=== PATIENT | female | born 1935 | race Caucasian/White ===

== ENCOUNTER → 2016-07-19 | Outpatient (CLI) | payer BC ==
[2016-07-19 17:51] LABS: ALT/SGPT 43 U/L (12-78); AST/SGOT 23 U/L (15-37); BLOOD UREA NITROGEN 18 mg/dl (7-18); BUN/CREATININE RATIO 18.3 (10-20); CARBON DIOXIDE 31 mmol/L (21-32); CHLORIDE 104 mmol/L (98-107); CREATININE 0.99 mg/dl (0.60-1.20); GLUCOSE 93 mg/dl (70-99); POTASSIUM 4.1 mmol/L (3.5-5.1); SODIUM 142 mmol/L (136-145)
[2016-07-19 17:53] LABS: ALB/GLOB RATIO 1.2 (0.9-2); ALKALINE PHOSPHATASE 71 U/L (45-117); CHOLESTEROL 289 mg/dl (0-200); HDL CHOLESTEROL 73 mg/dl; LDL CHOLESTEROL CALCULATED 191 mg/dl; TRIGLYCERIDES 126 mg/dl (0-150); VERY LOW DENSITY LIPOPROT CALC 25 mg/dl
== END | disposition home or self-care (01) ==
LOC: C.LABPVFM 13:34
PROVIDERS: ATTEND Family Medicine
DX: I10 Essential (primary) hypertension (principal); E78.5 Hyperlipidemia, unspecified

== ENCOUNTER → 2016-09-27 | Outpatient (CLI) | payer BC | END | disposition home or self-care (01) | LOC: C.LABPVFM 11:31 | PROVIDERS: ATTEND Nurse Practitioner Family | DX: R39.9 Unspecified symptoms and signs involving the genitourinary system (principal); N39.0 Urinary tract infection, site not specified ==

== ENCOUNTER → 2016-11-03 | Outpatient (CLI) | payer BC | END | disposition home or self-care (01) | LOC: C.LABPVFM 09:50 | PROVIDERS: ATTEND Nurse Practitioner Family | DX: N39.0 Urinary tract infection, site not specified (principal) ==

== ENCOUNTER → 2016-11-16 | Outpatient (CLI) | payer BC ==
[2016-11-16 18:23] LABS: URINE APPEARANCE CLEAR (CLEAR); URINE BILIRUBIN NEG (NEG); URINE COLOR YELLOW; URINE EPITHELIAL CELL AUTO 20-30 /lpf (0-5); URINE NITRITE NEG (NEG); URINE PH 5.5 (4.5-7.5); UROBILINOGEN NEG (NEG)
[2016-11-16 18:24] LABS: MANUAL MICROSCOPIC REQUIRED? NO; REVIEW REQ? NO
== END | disposition home or self-care (01) ==
LOC: C.LABPVFM 12:45
PROVIDERS: ATTEND Nurse Practitioner Family
DX: N39.0 Urinary tract infection, site not specified (principal)

== ENCOUNTER → 2016-11-23 | Outpatient (CLI) | payer BC ==
--- NOTE | 2016-11-23 12:59 | MAMMOGRAPHY REPORT ---
UNILATERAL RIGHT DIGITAL DIAGNOSTIC MAMMOGRAM TOMOSYNTHESIS WITH CAD: 11/23/2016 CLINICAL HISTORY: Short interval follow-up diagnostic right mammogram to reevaluate benign-appearing loosely grouped microcalcifications in the upper outer middle one third of the breast. Patient rep orts her prior symptoms of erythema, itching and burning in the right breast have resolved. TECHNIQUE: Right CC and MLO 2-D digital and tomosynthesis images, spot magnification right CC and ML views were obtained. Current study was also evaluated with a Computer Aided Detection (CAD) system . COMPARISON: Comparison is made to exams dated: 05/25/2016 ultrasound, 05/25/2016 mammogram, 015 mammogram, 05/19/2014 mammogram, 05/16/2013 mammogram, and 05/15/2012 mammogram - [facility]. BREAST COMPOSITION: There are scattered areas of fibroglandular density in the right breast. FINDINGS: There are mild vascular calcifications in the right breast. 2 microcalcifications are aga in seen in the upper outer middle one third of the breast, that are unchanged in configuration and n umber based on the spot magnification views dating back to 05/25/2016. Given that these were not de finitely seen on prior mammograms including the 2013 and exams, longer stability is needed. N o other new suspicious mass, focal area of architectural distortion or suspicious calcifications are identified. IMPRESSION: ACR-BI-RADS CATEGORY 3: PROBABLY BENIGN Stable mammographic appearance of the right breast including 2 loosely grouped benign-appearing micr ocalcifications in the right upper outer quadrant. Another six-month follow-up diagnostic right tyler mogram with repeat spot magnification views is recommended to ensure longer stability. These result s and recommendations were discussed with the patient at the time of the exam. Approximately 10% of breast cancers are not detected with mammography. A negative mammographic repor t should not delay biopsy if a clinically suggestive mass is present. Ana Rouse M.D. ay/:11/23/2016 12:37:30 Computer Forensics Examiner: Becka SINGH(R)(M), [facility] letter sent: Follow Up Recommended 3 BI-RADS Code: ACR-BI-RADS Category 3: Probably Benign
== END | disposition home or self-care (01) ==
LOC: C.MAMM 10:13
PROVIDERS: ATTEND Nurse Practitioner Family
DX: R92.0 Mammographic microcalcification found on diagnostic imaging of breast (principal)

== ENCOUNTER → 2017-03-03 | Outpatient (CLI) | payer BC ==
[2017-03-03 12:57] LABS: BLOOD UREA NITROGEN 18 mg/dl (7-18); BUN/CREATININE RATIO 16.5 (10-20); CALCIUM 9.4 mg/dl (8.5-10.1); CARBON DIOXIDE 28 mmol/L (21-32); CHLORIDE 108 mmol/L (98-107); GLUCOSE 88 mg/dl (70-99); POTASSIUM 4.3 mmol/L (3.5-5.1); SODIUM 140 mmol/L (136-145)
== END | disposition home or self-care (01) ==
LOC: C.LABPVFM 10:03
PROVIDERS: ATTEND Family Medicine
DX: I10 Essential (primary) hypertension (principal)

== ENCOUNTER → 2017-05-29 | Outpatient (CLI) | payer BC ==
--- NOTE | 2017-05-29 15:13 | MAMMOGRAPHY REPORT ---
BILATERAL DIGITAL DIAGNOSTIC MAMMOGRAM TOMOSYNTHESIS WITH CAD: 05/29/2017 CLINICAL HISTORY: One year follow-up of loosely grouped microcalcifications in the right upper outer quadrant. Also time of annual bilateral screening exam. TECHNIQUE: Bilateral breast tomosynthesis in addition to standard 2D mammography was performed. Spot magnification right CC and ML views were also obtained. Current study was also evaluated with a [employer] Aided Detection (CAD) system. COMPARISON: Comparison is made to exams dated: 11/23/2016 mammogram, 05/25/2016 ultrasound, 6 mammogram, 05/20/2015 mammogram, 05/19/2014 mammogram, and 05/16/2013 mammogram - [facility]. BREAST COMPOSITION: There are scattered areas of fibroglandular density in both breasts. FINDINGS: There are benign coarse calcifications in the left breast and mild vascular calcification b ilaterally. Again noted is a loose grouping of 2-3 microcalcifications in the upper outer middle one third of the right breast, which appear similar on spot magnification views dating back to at least 05/25/2016, therefore likely benign. No associated asymmetry, mass or architectural distortion. No other new suspicious mass, architectural distortion or cluster of suspicious microcalcifications is s een bilaterally. IMPRESSION: ACR-BI-RADS CATEGORY 3: PROBABLY BENIGN Stable bilateral mammograms including a loose grouping of 2-3 microcalcifications in the right upper outer quadrant. Another 12 month follow-up bilateral diagnostic tomosynthesis mammogram and repeat s pot magnification views in the right breast is recommended to ensure longer stability. These results and recommendations were discussed with the patient at the time of the exam. She tenta tively scheduled a follow-up appointment prior to leaving our department. Approximately 10% of breast cancers are not detected with mammography. A negative mammographic report should not delay biopsy if a clinically suggestive mass is present. Ana Rouse M.D. ay/:05/29/2017 09:01:41 Marketing Segment Manager: Juju ADAMES)(M), [facility] letter sent: Follow Up Recommended 3 BI-RADS Code: ACR-BI-RADS Category 3: Probably Benign
== END | disposition home or self-care (01) ==
LOC: C.MAMM 08:24
PROVIDERS: ATTEND Nurse Practitioner
DX: Z09 Encounter for follow-up examination after completed treatment for conditions other than malignant neoplasm (principal); R92.0 Mammographic microcalcification found on diagnostic imaging of breast

== ENCOUNTER → 2017-09-13 | Outpatient (CLI) | payer BC ==
[2017-09-13 13:12] LABS: BLOOD UREA NITROGEN 23 mg/dl (7-18); CALCIUM 8.9 mg/dl (8.5-10.1); CARBON DIOXIDE 27 mmol/L (21-32); CREATININE 1.07 mg/dl (0.60-1.20); GLUCOSE 91 mg/dl (70-99); POTASSIUM 4.3 mmol/L (3.5-5.1); SODIUM 140 mmol/L (136-145)
== END | disposition home or self-care (01) ==
LOC: C.LABPVFM 11:00
PROVIDERS: ATTEND Nurse Practitioner
DX: I10 Essential (primary) hypertension (principal)

== ENCOUNTER 2022-10-17 14:05 | Inpatient (IN) ==
[2022-10-17 15:00] LABS: Basophils # (auto) 0.04 K/uL (0-0.2); Basophils % (auto) 0.5 %; Eosinophils # (auto) 0.03 K/uL (0-0.50); Eosinophils % (auto) 0.3 %; Hematocrit (blood only) 34.5 % (37.0-47.0); Hemoglobin 10.8 g/dl (12.0-16.0); Immature Granulocytes # (auto) 0.02 K/uL (0.01-0.20); Immature Granulocytes % (auto) 0.2 %; Lymphocytes # (auto) 1.21 K/uL (1.2-3.4); Lymphocytes % (auto) 13.9 %; Mean Corpuscular Hemoglobin 24.4 pg (25.0-34.0); Mean Corpuscular Hgb Conc 31.3 g/dL (32.0-36.0); Mean Corpuscular Volume 77.9 fL (80.0-100.0); Mean Platelet Volume 10.7 fL (9.4-12.4); Monocytes # (auto) 0.78 K/uL (0.11-0.59); Neutrophils # (auto) 6.61 K/uL (1.40-6.50); Neutrophils % (auto) 76.1 %; Platelet Count 347 K/uL (130-400); RDW Coefficient of Variation 14.5 % (11.5-14.5); RDW Standard Deviation 40.9 fL (36.4-46.3); Red Blood Count 4.43 M/uL (4.20-5.40); White Blood Count 8.69 K/ul (4.8-10.8)
[2022-10-17 15:21] LABS: Albumin Globulin Ratio 0.9 (0.9-2); Albumin Level 3.9 gm/dl (3.4-5.0); BUN Creatinine Ratio 15.3 (10-20); Bilirubin,Total 0.3 mg/dl (0.2-1.0); Calcium 9.5 mg/dl (8.6-10.3); Creatinine Clr Calc Pharmacy 25.2 ml/min; Est GFR (African American) 40.4 ml/min; Est GFR (Non-African American) 34.8 ml/min; Globulin 4.2 gm/dl (2.5-4.0); Total Protein 8.1 gm/dl (6.0-8.3)
[2022-10-17] MEDS ORDERED: SODIUM CHLORIDE 0.9% 1000ML 500 ML IV ONE (18:23)
--- NOTE | 2022-10-17 18:30 | Emergency Department Note ---
History of Present Illness General Chief complaint: Abdominal Pain Stated complaint: REF BY DOC,ABDOMINAL PAIN Time Seen by Provider: 10/17/22 18:13 Source: patient, family (Daughter who is at the bedside), RN notes reviewed and old records reviewed (I reviewed the primary care visit office today) Mode of arrival: ambulatory Limitations: no limitations History of Present Illness Maximum Pain Intensity: 6 This patient is a 86-year-old female comes in after having abdominal pain. She says has been going on for about a month it comes and goes she saw her doctor today who sent her to the ER. At the time she is having right lower quadrant abdominal pain. She says she feels okay at present she had a little more constipation lately. No dysuria hematuria although does feel difficulty urinating at times no back pain no numbness or weakness in her legs or buttocks. No fall or trauma. she has had some nausea today. no emesis. no sick contacts. no fall or trauma. No history of similar. Home Medications Medication Instructions Recorded Confirmed Type coenzyme Q10 100 mg capsule 200 mg PO DAILY 10/12/20 10/17/22 History lisinopril 20 1 tab PO DAILY #90 tabs 10/05/21 10/17/22 Rx mg-hydrochlorothiazide 12.5 mg tablet cholecalciferol (vitamin D3) 50 50 mcg PO DAILY 04/13/22 10/17/22 History mcg (2,000 unit) capsule escitalopram oxalate 10 mg tablet 10 mg PO DAILY #30 tabs 04/18/22 10/17/22 Rx (Lexapro) Allergies Allergy/AdvReac Type Severity Reaction Status Date / Time propoxyphene Allergy Unknown Verified 10/17/22 13:07 doxycycline AdvReac Unknown Nausea Verified 10/17/22 13:07 Sulfa (Sulfonamide AdvReac Unknown nausea Verified 10/17/22 13:07 Antibiotics) Past Med/Surg History Medical History Dry eye syndrome Hyperlipidemia pt refuses med at her age Hypertension Seborrheic dermatitis Surgical History Hx of cholecystectomy Hx of elbow surgery Family History Mother Breast cancer Myocardial infarction Denies family history of Ovarian cancer Prostate cancer Colorectal cancer Social History Smoking Status: Never smoker Second Hand Exposure: Yes; Hx Alcohol Use: No Hx Substance Use: No Preferred Language: [place] Verdean Communication Ability: Effective Visual Impairment: Limited Hearing Ability: Normal 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 current occupational status: retired How many Children do You have: 4 Feels Safe at Home: Yes Childhood Exposure to Second-Hand Smoke: No caffeine: No during the past year weight has: remained stable Dental Care, Regularly: No Physical Activity Frequency: Does not Exercise Seatbelt Use: always Sunscreen Use: No Do you think of yourself as: straight/heterosexual Gender Identity: Female Assistive Devices: Denture - Upper, Denture - Lower and Glasses Review of Systems A total of 10 systems reviewed and were otherwise negative Physical Exam Vital Signs Vital Signs - 24 hr 10/17/22 14:06 10/17/22 19:36 10/17/22 20:20 Temperature 36.3 C L Temperature Source Temporal Artery Scan Pulse Rate 88 Pulse Rate [Finger] 78 77 Respiratory Rate 20 20 Respiratory Effort / Characteristics Non-Labored Spontaneous Respiratory Depth Normal Blood Pressure 151/88 H Blood Pressure [Right Arm] 226/114 H 211/108 H Blood Pressure Mean 109 Blood Pressure Mean [Right Arm] 151 142 Pulse Oximetry 100 99 96 Oxygen Delivery Method Room Air Room Air Room Air Sepsis Recent Fever Within 48 Hours No Sepsis New/Unexplained Change in Mental Status No Sepsis Action Taken by Nursing No Action Required 10/17/22 20:50 Temperature Temperature Source Pulse Rate 76 Pulse Rate [Finger] Respiratory Rate Respiratory Effort / Characteristics Respiratory Depth Blood Pressure Blood Pressure [Right Arm] Blood Pressure Mean Blood Pressure Mean [Right Arm] Pulse Oximetry Oxygen Delivery Method Sepsis Recent Fever Within 48 Hours Sepsis New/Unexplained Change in Mental Status Sepsis Action Taken by Nursing General: Well developed well nourished urf-nal-dkkhrkdhy older female who appears in no acute distress, breathing comfortably on room air. Normal speech HEENT: Normal cephalic atraumatic. Pupils are equal round and reactive to light. Extraocular movements are intact. Oropharynx is pink with moist mucous membranes. No swelling of the mouth lips or tongue. Neck: Supple with a midline trachea. No meningeal signs or stiffness, no JVD or bruits. No Stridor. Chest: Clear to auscultation bilaterally. No wheezes or rhonchi. No increased work of breathing. Heart: Regular rate and rhythm without murmurs or gallops. Abdomen: Soft nontender, nondistended without rebound guarding or rigidity. Extremities: No cyanosis clubbing or edema. No calf tenderness or assymetry Spine/Back. Non tender to palpation. No CVA tenderness Skin: Good turgor without rashes. Neurologic exam: Cranial nerves two through 12 are intact. Motor and sensation are intact and symmetrical throughout. Course Administered Medications Discontinued Medications Acetaminophen (Acetaminophen 500 Mg Tab) 1,000 mg PO NOW STA Stop: 10/17/22 21:29 Last Admin: 10/17/22 21:37 Dose: 1,000 mg Documented By: Clonidine HCl (Clonidine Hcl 0.1 Mg Tab) 0.1 mg PO NOW ONE Stop: 10/17/22 21:18 Last Admin: 10/17/22 21:37 Dose: 0.1 mg Documented By: Sodium Chloride (Nss 1000ml) 500 mls @ 999 mls/hr IV .Q31M ONE Stop: 10/17/22 18:53 Last Infusion: 10/17/22 20:47 Dose: 0 mls/hr Documented By: Admin: 10/17/22 19:45 Dose: 999 mls/hr Documented By: Ioversol (Optiray 350 100ml) 84 ml IV ONCE ONE Stop: 10/17/22 19:03 Last Admin: 10/17/22 19:02 Dose: 84 ml Documented By: GABRIELLA Medical Decision Making Differential Diagnosis Infection, electrolyte or metabolic abnormality, urinary tract infection, kidney stone, kidney infection, intra-abdominal process, AAA Medical Records Attestation: I reviewed the patient's medical records. Home Medications Current Medication List: was personally reviewed by me Laboratory Data 10/17/22 14:24 10/17/22 14:24 Lab Results 10/17/22 10/17/22 10/17/22 Range/Units 14:24 14:24 20:50 WBC 8.69 (4.8-10.8) K/ul RBC 4.43 (4.20-5.40) M/uL Hgb 10.8 L (12.0-16.0) g/dl Hct 34.5 L (37.0-47.0) % MCV 77.9 L (80.0-100.0) fL MCH 24.4 L (25.0-34.0) pg MCHC 31.3 L (32.0-36.0) g/dL RDW Std Deviation 40.9 (36.4-46.3) fL RDW Coeff of Marcie 14.5 (11.5-14.5) % Plt Count 347 (130-400) K/uL MPV 10.7 (9.4-12.4) fL Immature Gran % (Auto) 0.2 % Neut % (Auto) 76.1 % Lymph % (Auto) 13.9 % Greene % (Auto) 9.0 % Eos % (Auto) 0.3 % Baso % (Auto) 0.5 % Neut # (Auto) 6.61 H (1.40-6.50) K/uL Lymph # (Auto) 1.21 (1.2-3.4) K/uL Greene # (Auto) 0.78 H (0.11-0.59) K/uL Eos # (Auto) 0.03 (0-0.50) K/uL Baso # (Auto) 0.04 (0-0.2) K/uL Immature Gran # (Auto) 0.02 (0.01-0.20) K/uL Sodium 129 L (136-145) mmol/L Potassium 4.0 (3.5-5.1) mmol/L Chloride 95 L (98-107) mmol/L Carbon Dioxide 25 (21-32) mmol/L Anion Gap 9 (3-11) BUN 21 (6-23) mg/dl Creatinine 1.37 H (0.6-1.2) mg/dl Est Cr Clr Drug Dosing 25.2 ml/min Est GFR ( Amer) 40.4 ml/min Est GFR (Non-Af Amer) 34.8 ml/min BUN/Creatinine Ratio 15.3 (10-20) Glucose 95 (70-99(Fasting)) mg/dl Calcium 9.5 (8.6-10.3) mg/dl Total Bilirubin 0.3 (0.2-1.0) mg/dl AST 25 (13-39) U/L ALT 10 (7-52) U/L Alkaline Phosphatase 85 (34-104) U/L Total Protein 8.1 (6.0-8.3) gm/dl Albumin 3.9 (3.4-5.0) gm/dl Globulin 4.2 H (2.5-4.0) gm/dl Albumin/Globulin Ratio 0.9 (0.9-2) Lipase 35 (11-82) U/L SARS-CoV-2, RNA, NAAT NEGATIVE (NEGATIVE) Imaging Data Attestation: I personally reviewed and interpreted this imaging study as follows: My Impression: CT of the abdomen and pelvis with IV contraston my evaluation I do see some fluid around the liver and the spleen within the abdomen. There is also a large abnormality in the pelvic area around the uterus Radiologist's Impression: Abdomen/Pelvis CT 10/17/22 18:23 Exam(s): CT ABDOMEN + PELVIS With Contrast EXAM: CT Abdomen and Pelvis With Intravenous Contrast CLINICAL HISTORY: Reason for exam: lower abd pain. TECHNIQUE: Axial computed tomography images of the abdomen and pelvis with intravenous contrast. CTDI is 9.05 mGy and DLP is 426.09 mGy-cm. Automated exposure control was utilized for the study. A dose lowering technique was utilized adhering to the principles of ALARA. CONTRAST: 84 cc of Optiray 350 COMPARISON: None FINDINGS: Lung bases: See below. Pleural space: Small to moderate left pleural effusion. Associated atelectasis. Heart: Borderline size of heart. Coronary artery, aortic valve, and mitral annular calcifications. Mediastinum: Small hiatal hernia. ABDOMEN: Liver: Unremarkable. No mass. Gallbladder and bile ducts: Prior cholecystectomy. No ductal dilation. Pancreas: Unremarkable. No mass. No ductal dilation. Spleen: Unremarkable. No splenomegaly. Adrenals: Unremarkable. No mass. Kidneys and ureters: Unremarkable. No hydronephrosis or obstructing stone. Stomach and bowel: Diverticulosis without evidence of diverticulitis. Mild prominence of the wright of the colon may be secondary to underdistention. Colitis is not excluded. Mild prominence of the wright of fluid filled small bowel loops may represent under distention versus enteritis. Evaluation of the stomach is limited by underdistention. PELVIS: Appendix: Normal appendix. Bladder: Decompressed bladder limits evaluation. Please correlate with urinalysis if concerned for cystitis. Reproductive: Heterogeneous, enlarged uterus. Calcification along the left aspect of the uterus. This may represent uterine fibroids. Component of neoplasm would be difficult to exclude. ABDOMEN and PELVIS: Intraperitoneal space: Moderate fluid in the abdomen and pelvis. No free air. Bones/joints: Grade 1 anterolisthesis of L5 on all lumbarized S1 vertebral body. Mild degenerative changes of the spine. No acute fracture. No dislocation. Soft tissues: Small fat-containing umbilical hernia. Vasculature: Calcified spotted artery aneurysm. Phleboliths in the pelvis. Atherosclerotic changes of the vasculature. No aortic aneurysm or dissection. Lymph nodes: Unremarkable. No enlarged lymph nodes. IMPRESSION: 1. Heterogeneous, enlarged uterus. Calcification along the left aspect of the uterus. This may represent uterine fibroids. Component of neoplasm would be difficult to exclude. 2. Mild prominence of the wright of the colon may be secondary to underdistention. Colitis is not excluded. 3. Mild prominence of the wright of fluid filled small bowel loops may represent under distention versus enteritis. 4. Moderate fluid in the abdomen and pelvis. 5. Small to moderate left pleural effusion. Associated atelectasis. Electronically signed by: Roxana Robertson M.D. 10/17/22 20:11 PM [facility] Narrative This patient comes in with abdominal pain I saw her out in triage as to expedite her care. IV access was established, I did order a 500 cc IV normal saline bolus. Multiple blood testing was obtained and she has no fever white count or fever to suggest infection. she has anemia which is in line with her previous hemoglobin. I did order CT of her abdomen and pelvis with IV contrast explained the risks and benefits and she freely consents. I discussed this with her family members at the bedside as well. I have reviewed the note in the computer from her primary care visit today. Her CAT scan was markedly abnormal and she does have fluid and a large abnormal looking uterus. I am concerned she could have a malignancy potentially causing this she also has a pleural effusion. I do think she needs to be admitted for further treatment and evaluation. I have consulted Dr. Woodard, the hospitalist, and discussed the case with her and she will saw the patient ER will admit admit/observe her for these measures. Lab test was negative for COVID Impression & Plan Abdominal pain, Nausea, Uterine mass, Pleural effusion, Lab test negative for COVID-19 virus, Ascites Discharge Plan Visit Data Chief Complaint: Abdominal Pain Stated Complaint: REF BY DOC,ABDOMINAL PAIN ED Provider: Willy Duong Discharge Problem: Abdominal pain, Nausea, Uterine mass, Pleural effusion, Lab test negative for COVID-19 virus, Ascites Patient Disposition: Admitted As Inpatient Discharge Instructions Interventions: ED Discharge Assessment Last Done: 10/17/22 22:39
[2022-10-17] MEDS ORDERED: OPTIRAY 350 100ml IV ONE (19:02)
--- NOTE | 2022-10-17 20:12 | CT Scan Report ---
Exam(s): CT ABDOMEN + PELVIS With Contrast EXAM: CT Abdomen and Pelvis With Intravenous Contrast CLINICAL HISTORY: Reason for exam: lower abd pain. TECHNIQUE: Axial computed tomography images of the abdomen and pelvis with intravenous contrast. CTDI is 9.05 mGy and DLP is 426.09 mGy-cm. Automated exposure control was utilized for the study. A dose lowering technique was utilized adhering to the principles of ALARA. CONTRAST: 84 cc of Optiray 350 COMPARISON: None FINDINGS: Lung bases: See below. Pleural space: Small to moderate left pleural effusion. Associated atelectasis. Heart: Borderline size of heart. Coronary artery, aortic valve, and mitral annular calcifications. Mediastinum: Small hiatal hernia. ABDOMEN: Liver: Unremarkable. No mass. Gallbladder and bile ducts: Prior cholecystectomy. No ductal dilation. Pancreas: Unremarkable. No mass. No ductal dilation. Spleen: Unremarkable. No splenomegaly. Adrenals: Unremarkable. No mass. Kidneys and ureters: Unremarkable. No hydronephrosis or obstructing stone. Stomach and bowel: Diverticulosis without evidence of diverticulitis. Mild prominence of the wright of the colon may be secondary to underdistention. Colitis is not excluded. Mild prominence of the wright of fluid filled small bowel loops may represent under distention versus enteritis. Evaluation of the stomach is limited by underdistention. PELVIS: Appendix: Normal appendix. Bladder: Decompressed bladder limits evaluation. Please correlate with urinalysis if concerned for cystitis. Reproductive: Heterogeneous, enlarged uterus. Calcification along the left aspect of the uterus. This may represent uterine fibroids. Component of neoplasm would be difficult to exclude. ABDOMEN and PELVIS: Intraperitoneal space: Moderate fluid in the abdomen and pelvis. No free air. Bones/joints: Grade 1 anterolisthesis of L5 on all lumbarized S1 vertebral body. Mild degenerative changes of the spine. No acute fracture. No dislocation. Soft tissues: Small fat-containing umbilical hernia. Vasculature: Calcified spotted artery aneurysm. Phleboliths in the pelvis. Atherosclerotic changes of the vasculature. No aortic aneurysm or dissection. Lymph nodes: Unremarkable. No enlarged lymph nodes. IMPRESSION: 1. Heterogeneous, enlarged uterus. Calcification along the left aspect of the uterus. This may represent uterine fibroids. Component of neoplasm would be difficult to exclude. 2. Mild prominence of the wright of the colon may be secondary to underdistention. Colitis is not excluded. 3. Mild prominence of the wright of fluid filled small bowel loops may represent under distention versus enteritis. 4. Moderate fluid in the abdomen and pelvis. 5. Small to moderate left pleural effusion. Associated atelectasis. Electronically signed by: Roxana Robertson M.D. 10/17/22 20:11 PM
--- NOTE | 2022-10-17 21:03 | History & Physical Report ---
Date of Service October 17, 2022 Assessment & Plan (1) Abdominal pain: Plan: 86yo Female with PMH Depression, HTN, HLD here for 1 month abd pain with noted hypertensive urgency. HTN Urgency -BP in ED noted 226/114 -received 1L NSS in ED -ordered 0.1mg clonidine -admit to PCU tele -may use oral hydralzine overnight to manage BP systolic <200 -resume lisinopril-HCTZ in am -lactate pending Abd Pain with Uterine Mass -ongoing 1 month with noted weight loss, weakness, abd bloating, increased difficulty with BM urination -CT A/P: Heterogeneous, enlarged uterus. Calcification along the left aspect of the uterus. This may represent uterine fibroids. Component of neoplasm would be difficult to exclude. Mild prominence of the wright of the colon may be secondary to underdistention. Colitis is not excluded. Mild prominence of the wright of fluid filled small bowel loops may represent under distention versus enteritis. Moderate fluid in the abdomen and pelvis..Normal appendix -lipase normal, WBC wnl -consult SUBSTANCE ABUSE COUNSELOR for evaluation uterine mass -PRN tylenol for pain control -ordered UA, pending Pleural Effusion -CT A/P: Small to moderate left pleural effusion. Associated atelectasis. -consult pulm for possible thoracentesis given concern cancer -LDH serum pending Hyponatremia -Na 129 on admit -repeat in AM CKD -creat 1.37, baseline -use caution with NSAIDS Depression -continue lexapro FENa: regular Code Status: resuscitate DNI, patient aware CPR will not work well without intubation PT/OT: ordered Dispo: PCU/tele Kalli Alvarez D.O. PGY 2, FCM (2) Depression: (3) Hyperlipidemia: (4) Hypertension: (5) Mild renal insufficiency: (6) Hypertensive urgency: (7) Uterine mass: (8) Pleural effusion: (9) Weight loss, non-intentional: History of Present Illness Chief Complaint: Abd pain HTN Urgency Primary Care Provider: JEAN Pelayo 86yo Female with PMH depression HLD HTN here for abd pain ongoing 1 month. Patient states initially she thought the symptoms would go away, however they continued to persist, noted RLQ pain that radiates around to her back with bloating. In the last week it was particularly bad. She had increased FLORES going upstairs in the past week. She noted nausea that began today. She denies any medication changes or recent illness, was on abx in august for tick bite. Last week she had pain with urination, saw her PCP had group B strep found in urine placed on keflex no help still ongoing. States in the last month she has needed to strain more for urination and bowel movements. Per PCP note patient has been self titrating her HLD and HTN medications at home, had taken herself off them for a period of time. Patient states she has been taking all her medication as prescribed. Patient noted 25lbs weight loss over the last 8 months unintentional. States her has been placed in a long-term, she has anxiety and dislikes eating on her own, though she does regularly get one meal when she meets with one of her daughters. 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 Also noted odd occasional tingling on the bottom of both feet toes, however denies loss of sensation Allergies Allergy/AdvReac Type Severity Reaction Status Date / Time propoxyphene Allergy Unknown Verified 10/17/22 13:07 doxycycline AdvReac Unknown Nausea Verified 10/17/22 13:07 Sulfa (Sulfonamide AdvReac Unknown nausea Verified 10/17/22 13:07 Antibiotics) Home Medications Medication Instructions Recorded Confirmed Type coenzyme Q10 100 mg capsule 200 mg PO DAILY 10/12/20 10/17/22 History lisinopril 20 1 tab PO DAILY #90 tabs 10/05/21 10/17/22 Rx mg-hydrochlorothiazide 12.5 mg tablet cholecalciferol (vitamin D3) 50 50 mcg PO DAILY 04/13/22 10/17/22 History mcg (2,000 unit) capsule escitalopram oxalate 10 mg tablet 10 mg PO DAILY #30 tabs 04/18/22 10/17/22 Rx (Lexapro) Past Med/Surg History Medical History Dry eye syndrome Hyperlipidemia pt refuses med at her age Hypertension Seborrheic dermatitis Surgical History Hx of cholecystectomy Hx of elbow surgery Family History Mother Breast cancer Myocardial infarction Denies family history of Ovarian cancer Prostate cancer Colorectal cancer Social History Smoking Status: Never smoker Second Hand Exposure: Yes; Hx Alcohol Use: No Hx Substance Use: No Preferred Language: Luxembourgish Communication Ability: Effective Visual Impairment: Limited Hearing Ability: Normal 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 current occupational status: retired How many Children do You have: 4 Other Information That Helps Us Care for You: No Feels Safe at Home: Yes Safety Concerns: Feels Safe At This Time Childhood Exposure to Second-Hand Smoke: No caffeine: No during the past year weight has: remained stable Dental Care, Regularly: No Physical Activity Frequency: Does not Exercise Seatbelt Use: always Sunscreen Use: No Do you think of yourself as: straight/heterosexual Gender Identity: Female Assistive Devices: Denture - Upper and Denture - Lower Review of Systems Review of Systems: All systems reviewed & are unremarkable except as noted in HPI & below Physical Exam Constitutional: well developed, well nourished, cooperative and comfortable Eyes: PERRL, conjunctivae normal, anicteric sclerae ENMT: external ear and nose normal, oropharynx normal Neck: trachea midline, no thyromegaly Respiratory: normal respiratory effort, lungs clear to auscultation Cardiovascular: Rate/Rhythm: regular rate and regular rhythm Vessels: posterior tibial pulses present and dorsalis pedis pulses present Extremities: no edema Gastrointestinal (Abdomen): Inspection/Auscultation: abdomen normal to inspection Percussion/Palpation: + abdomen tender (to LUQ, periumbilical, RLQ, R groin) Skin: no rashes, warm and dry Results & Data Results & Data Vital Signs (Past 12 Hours) Vital Signs Temp Pulse Pulse Resp BP BP Pulse Ox 10/17/22 20:20 77 211/108 H 96 10/17/22 19:36 78 20 226/114 H 99 10/17/22 14:06 36.3 C L 88 20 151/88 H 100 O2 Del Method 10/17/22 20:20 Room Air 10/17/22 19:36 Room Air 10/17/22 14:06 Room Air Laboratory Results Laboratory Results WBC 8.69 K/ul (4.8-10.8) 10/17/22 14:24 RBC 4.43 M/uL (4.20-5.40) 10/17/22 14:24 Hgb 10.8 g/dl (12.0-16.0) L 10/17/22 14:24 Hct 34.5 % (37.0-47.0) L 10/17/22 14:24 MCV 77.9 fL (80.0-100.0) L 10/17/22 14:24 MCH 24.4 pg (25.0-34.0) L 10/17/22 14:24 MCHC 31.3 g/dL (32.0-36.0) L 10/17/22 14:24 RDW Std Deviation 40.9 fL (36.4-46.3) 10/17/22 14:24 RDW Coeff of Marcie 14.5 % (11.5-14.5) 10/17/22 14: Plt Count 347 K/uL (130-400) 10/17/22 14:24 MPV 10.7 fL (9.4-12.4) 10/17/22 14:24 Immature Gran % (Auto) 0.2 % 10/17/22 14:24 Neut % (Auto) 76.1 % 10/17/22 14:24 Lymph % (Auto) 13.9 % 10/17/22 14:24 Cedar % (Auto) 9.0 % 10/17/22 14:24 Eos % (Auto) 0.3 % 10/17/22 14:24 Baso % (Auto) 0.5 % 10/17/22 14:24 Neut # (Auto) 6.61 K/uL (1.40-6.50) H 10/17/22 14:24 Lymph # (Auto) 1.21 K/uL (1.2-3.4) 10/17/22 14:24 Cedar # (Auto) 0.78 K/uL (0.11-0.59) H 10/17/22 14:24 Eos # (Auto) 0.03 K/uL (0-0.50) 10/17/22 14:24 Baso # (Auto) 0.04 K/uL (0-0.2) 10/17/22 14:24 Immature Gran # (Auto) 0.02 K/uL (0.01-0.20) 10/17/22 14:24 Sodium 129 mmol/L (136-145) L 10/17/22 14:24 Potassium 4.0 mmol/L (3.5-5.1) 10/17/22 14:24 Chloride 95 mmol/L (98-107) L 10/17/22 14:24 Carbon Dioxide 25 mmol/L (21-32) 10/17/22 14:24 Anion Gap 9 (3-11) 10/17/22 14:24 BUN 21 mg/dl (6-23) 10/17/22 14:24 Creatinine 1.37 mg/dl (0.6-1.2) H 10/17/22 14:24 Est Cr Clr Drug Dosing 25.2 ml/min 10/17/22 14:24 Est GFR ( Amer) 40.4 ml/min 10/17/22 14:24 Est GFR (Non-Af Amer) 34.8 ml/min 10/17/22 14:24 BUN/Creatinine Ratio 15.3 (10-20) 10/17/22 14:24 Glucose 95 mg/dl (70-99(Fasting)) 10/17/22 14:24 Lactate 1.7 mmol/L (0.4-2.0) 10/17/22 23:42 Calcium 9.5 mg/dl (8.6-10.3) 10/17/22 14:24 Total Bilirubin 0.3 mg/dl (0.2-1.0) 10/17/22 14:24 AST 25 U/L (13-39) 10/17/22 14:24 ALT 10 U/L (7-52) 10/17/22 14:24 Alkaline Phosphatase 85 U/L (34-104) 10/17/22 14:24 Lactate Dehydrogenase 345 U/L (86-244) H 10/17/22 23:42 Total Protein 8.1 gm/dl (6.0-8.3) 10/17/22 14:24 Albumin 3.9 gm/dl (3.4-5.0) 10/17/22 14:24 Globulin 4.2 gm/dl (2.5-4.0) H 10/17/22 14:24 Albumin/Globulin Ratio 0.9 (0.9-2) 10/17/22 14:24 Lipase 35 U/L (11-82) 10/17/22 14:24 Urine Color Yellow 10/17/22 Unknown Urine Appearance Clear (Clear) 10/17/22 Unknown Urine pH 5.5 (4.5-7.5) 10/17/22 Unknown Ur Specific [place] 1.027 (1.000-1.030) 10/17/22 Unknown Urine Protein Negative (Negative) 10/17/22 Unknown Urine Glucose (UA) Negative (Negative) 10/17/22 Unknown Urine Ketones Negative (Negative) 10/17/22 Unknown Urine Blood Negative (Negative) 10/17/22 Unknown Urine Nitrite Negative (Negative) 10/17/22 Unknown Urine Bilirubin Negative (Negative) 10/17/22 Unknown Urine Urobilinogen Negative (Negative) 10/17/22 Unknown Ur Leukocyte Esterase 1+ (Negative) H 10/17/22 Unknown Urine WBC (Auto) 1-5 /hpf (0-5) 10/17/22 Unknown Urine RBC (Auto) 0-4 /hpf (0-4) 10/17/22 Unknown U Hyaline Cast (Auto) 1-5 /lpf (0-5) 10/17/22 Unknown U Epithel Cells (Auto) 20-30 /lpf (0-5) H 10/17/22 Unknown Urine Bacteria (Auto) Negative (Negative) 10/17/22 Unknown SARS-CoV-2, RNA, NAAT NEGATIVE (NEGATIVE) 10/17/22 20:50 Impressions Abdomen/Pelvis CT 10/17/22 18:23 Exam(s): CT ABDOMEN + PELVIS With Contrast EXAM: CT Abdomen and Pelvis With Intravenous Contrast CLINICAL HISTORY: Reason for exam: lower abd pain. TECHNIQUE: Axial computed tomography images of the abdomen and pelvis with intravenous contrast. CTDI is 9.05 mGy and DLP is 426.09 mGy-cm. Automated exposure control was utilized for the study. A dose lowering technique was utilized adhering to the principles of ALARA. CONTRAST: 84 cc of Optiray 350 COMPARISON: None FINDINGS: Lung bases: See below. Pleural space: Small to moderate left pleural effusion. Associated atelectasis. Heart: Borderline size of heart. Coronary artery, aortic valve, and mitral annular calcifications. Mediastinum: Small hiatal hernia. ABDOMEN: Liver: Unremarkable. No mass. Gallbladder and bile ducts: Prior cholecystectomy. No ductal dilation. Pancreas: Unremarkable. No mass. No ductal dilation. Spleen: Unremarkable. No splenomegaly. Adrenals: Unremarkable. No mass. Kidneys and ureters: Unremarkable. No hydronephrosis or obstructing stone. Stomach and bowel: Diverticulosis without evidence of diverticulitis. Mild prominence of the wright of the colon may be secondary to underdistention. Colitis is not excluded. Mild prominence of the wright of fluid filled small bowel loops may represent under distention versus enteritis. Evaluation of the stomach is limited by underdistention. PELVIS: Appendix: Normal appendix. Bladder: Decompressed bladder limits evaluation. Please correlate with urinalysis if concerned for cystitis. Reproductive: Heterogeneous, enlarged uterus. Calcification along the left aspect of the uterus. This may represent uterine fibroids. Component of neoplasm would be difficult to exclude. ABDOMEN and PELVIS: Intraperitoneal space: Moderate fluid in the abdomen and pelvis. No free air. Bones/joints: Grade 1 anterolisthesis of L5 on all lumbarized S1 vertebral body. Mild degenerative changes of the spine. No acute fracture. No dislocation. Soft tissues: Small fat-containing umbilical hernia. Vasculature: Calcified spotted artery aneurysm. Phleboliths in the pelvis. Atherosclerotic changes of the vasculature. No aortic aneurysm or dissection. Lymph nodes: Unremarkable. No enlarged lymph nodes. IMPRESSION: 1. Heterogeneous, enlarged uterus. Calcification along the left aspect of the uterus. This may represent uterine fibroids. Component of neoplasm would be difficult to exclude. 2. Mild prominence of the wright of the colon may be secondary to underdistention. Colitis is not excluded. 3. Mild prominence of the wright of fluid filled small bowel loops may represent under distention versus enteritis. 4. Moderate fluid in the abdomen and pelvis. 5. Small to moderate left pleural effusion. Associated atelectasis. Electronically signed by: Roxana Robertson M.D. 10/17/22 20:11 PM Supervising Physician Co-Signing Physician Notes Patient seen and examined, chart reviewed, case discussed with Dr. Alvarez and I agree with the assessment and plan as documented above. In brief, patient is an 86-year-old female with history of hypertension, hyperlipidemia presenting with 1 month of progressive pelvic discomfort and lower abdominal pain as well as bloating. She reports recent difficulty with passing urine and bowel movements as well. Also endorses 25 pound weight loss over the last 8 monthsunintentional In the ER patient is hypertensive at 211/108, afebrile, adequate oxygenation on room air Generalno acute distress, resting comfortably, answers questions appropriately Skinwarm, dry, intact, no rashes/lesions HEENTnormocephalic/atraumatic, pupils equal round and reactive to light, neck supple, moist mucous membranes Heart+ S1, S2, regular, 3/6 systolic ejection murmur at right second intercostal space with radiation across the precordium, no JVD, palpable pulses 2+ in upper and lower extremities bilaterally LungsCTA, mildly diminished in bases bilaterally Abdomenpositive bowel sounds, soft, mild tenderness to palpation with no rebound or guarding Extremitieswarm, well-perfused Labs and images reviewed. Significant for stable renal function with BUN = 21, creatinine = 1.3. CT abdomen with results as above in summaryheterogenous enlarged uterus with calcifications along the left aspect of the uterus. Possibly representing fibroids versus malignancy. Assessment/[id number] female presenting with 1 month of abdominal bloating as well as unintentional weight loss. CT of the abdomen as above concerning for enlarged, heterogenous appearing uterus with diagnosis of exclusion being malignancy. Enlarged uterusconcerning for malignancy. This concern was shared with patient and daughter at bedside. Patient with pleural effusion as well as some abdominal ascites. May benefit from thoracentesis versus paracentesis with cytology to assist with diagnosis. Appreciate gynecology assistance. Will defer ordering of tumor markers to their expertise. Patient may need referral to tertiary care center for gynecologyoncology services. Management of abdominal pain with Tylenol as needed Hypertensive urgency with initial blood pressure 211/108. Patient reports overall adequate control of her blood pressure in the outpatient setting. She had considerable discomfort with automated blood pressure cuff in the ER and was moving around quite a bit with blood pressure measurement. Possibly falsely elevated Clonidine 0.1 mg administered Continue home lisinopril/HCTZ Continue to monitor Pleural effusionsmall to moderate left-sided pleural effusion. Patient with no respiratory distress. Adequate oxygenation on room air. Possible thoracentesis for assistance with diagnosis. Pulmonary consultation appreciated Remainder of plan as above Resident Activity Tracking Resident Involvement: Resident Care Provided Care Provided: [facility]
[2022-10-17] MEDS ORDERED: cloNIDine HCL 0.1 MG TAB PO ONE (21:17)
[2022-10-17] MEDS ORDERED: ACETAMINOPHEN 500 MG TAB PO STA (21:28)
[2022-10-17 22:10] LABS: Appearance Urine Clear (Clear); Bacteria Urine Automated Negative (Negative); Bilirubin Urine Negative (Negative); Blood Urine Negative (Negative); Color Urine Yellow; Epithelial Cell Urine Auto 20-30 /lpf (0-5); Glucose Urine UA Negative (Negative); Ketones Urine Negative (Negative); Leukocyte Esterase Urine 1+ (Negative); Nitrite Urine Negative (Negative); Protein Urine Negative (Negative); RBC Urine Automated 0-4 /hpf (0-4); Specific Gravity Urine 1.027 (1.000-1.030); Urobilinogen Urine Negative (Negative); pH Urine 5.5 (4.5-7.5)
[2022-10-17] MEDS ORDERED: ACETAMINOPHEN 325 MG TAB PO PRN (23:26)
[2022-10-17] MEDS ORDERED: POLYETHYLENE (MIRALAX) 17 GM PACK PO PRN (23:26)
--- NOTE | 2022-10-18 01:07 | Billing Data ---
Date of Service October 17, 2022 Coding Level of Care Code 25202 INT INP/OBS CARE
[2022-10-18 07:16] LABS: Hematocrit (blood only) 31.3 % (37.0-47.0); Mean Corpuscular Hemoglobin 24.6 pg (25.0-34.0); Mean Corpuscular Hgb Conc 31.9 g/dL (32.0-36.0); Mean Corpuscular Volume 76.9 fL (80.0-100.0); Mean Platelet Volume 10.8 fL (9.4-12.4); Platelet Count 296 K/uL (130-400); RDW Coefficient of Variation 14.5 % (11.5-14.5); Red Blood Count 4.07 M/uL (4.20-5.40); White Blood Count 6.86 K/ul (4.8-10.8)
[2022-10-18 07:27] LABS: BUN Creatinine Ratio 15.2 (10-20); Calcium 8.9 mg/dl (8.6-10.3); Creatinine Clr Calc Pharmacy 29.2 ml/min; Est GFR (African American) 45.1 ml/min; Est GFR (Non-African American) 38.9 ml/min; Potassium 4.3 mmol/L (3.5-5.1)
[2022-10-18] MEDS: CHOLECALCIFEROL 1,000 UNITS 25 MCG TAB PO SCH (07:36)
[2022-10-18] MEDS: LISINOPRIL/HCTZ 20/12.5MG 1 TAB TAB PO SCH (07:36)
[2022-10-18] MEDS: ESCITALOPRAM OXALATE 10 MG TAB PO SCH (07:36)
--- NOTE | 2022-10-18 08:07 | History & Physical Report ---
Date of Service October 18, 2022 Assessment & Plan (1) Abdominal pain: (2) Pelvic mass in female: Oscar Lozano is an 86-year-old with a history of abdominal pain and enlarged uterus likely secondary to fibroids. Due to the acute onset of symptoms and patient not having a prior known history of uterine fibroids this is concerning for a uterine mass increasing in size in a postmenopausal patient. The symptoms are concerning for a possible leiomyosarcoma. Definitive diagnosis of a leiomyosarcoma can be difficult as endometrial biopsy can be normal. I placed orders for manager of it and GI related tumor markers. I recommend follow-up with manager of it Oncology in an outpatient setting. I will reach out to manager of it Oncology to make arrangements for her care and to see if they would like any additional imaging or evaluation. I will tentatively plan for endometrial biopsy in clinic after discharge pending manager of it oncology recommendations. no acute intervention indicated at this time. I will notify primary team once I hear back from manager of it Oncology. Greater than 45 minutes was spent in evaluation of imaging, evaluation of history discussion with patient today Admission and Anticipated Discharge Date Admission Date: October 17, 2022 History of Present Illness Primary Care Provider: JEAN Pelayo Marta is an 86-year-old admitted to the medicine service for acute hypertension related concerns. patient initially presented the ED for abdominal pain. Patient reports that she has noted pelvic abdominal pain and pressure for the past 1-2 months. She has also noted increased difficulty with bowel movements with significant straining needed even for soft stools. She reports the symptoms have been progressively worsening over the past 1-[address] scan in the ED was notable enlarged uterus likely secondary to fibroids. patient denies any vaginal bleeding. denies any prior known history of uterine fibroids. unsure of when her last pelvic exam occurred but reports that it was normal per her recollection. Denies any history of abnormal Pap smears. Patient denies any prior recent abdominal pelvic imaging for comparison purposes. Allergies Allergy/AdvReac Type Severity Reaction Status Date / Time propoxyphene Allergy Unknown Verified 10/17/22 13:07 doxycycline AdvReac Unknown Nausea Verified 10/17/22 13:07 Sulfa (Sulfonamide AdvReac Unknown nausea Verified 10/17/22 13:07 Antibiotics) Home Medications Medication Instructions Recorded Confirmed Type coenzyme Q10 100 mg capsule 200 mg PO DAILY 10/12/20 10/17/22 History lisinopril 20 1 tab PO DAILY #90 tabs 10/05/21 10/17/22 Rx mg-hydrochlorothiazide 12.5 mg tablet cholecalciferol (vitamin D3) 50 50 mcg PO DAILY 04/13/22 10/17/22 History mcg (2,000 unit) capsule escitalopram oxalate 10 mg tablet 10 mg PO DAILY #30 tabs 04/18/22 10/17/22 Rx (Lexapro) Patient History Medical History Dry eye syndrome Hyperlipidemia pt refuses med at her age Hypertension Seborrheic dermatitis Surgical History Hx of cholecystectomy Hx of elbow surgery Family History Mother Breast cancer Myocardial infarction Denies family history of Ovarian cancer Prostate cancer Colorectal cancer Social History Smoking Status: Never smoker Second Hand Exposure: Yes; Hx Alcohol Use: No Hx Substance Use: No Preferred Language: Icelandic Communication Ability: Effective Visual Impairment: Limited Hearing Ability: Normal 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 current occupational status: retired How many Children do You have: 4 Other Information That Helps Us Care for You: No Feels Safe at Home: Yes Safety Concerns: Feels Safe At This Time Childhood Exposure to Second-Hand Smoke: No caffeine: No during the past year weight has: remained stable Dental Care, Regularly: No Physical Activity Frequency: Does not Exercise Seatbelt Use: always Sunscreen Use: No Do you think of yourself as: straight/heterosexual Gender Identity: Female Assistive Devices: Denture - Upper and Denture - Lower Physical Exam Gastrointestinal (Abdomen): Inspection/Auscultation: abdomen normal to inspection Percussion/Palpation: + abdomen tender ( mid and lower abdomen) and abdomen soft; no guarding and abdomen not rigid enlarged uterus consistent with a 14-16 size uterus Results & Data Vital Signs (Past 12 Hours) Vital Signs Temp Pulse Pulse Resp BP Pulse Ox O2 Del Method 10/18/22 07:39 36.4 C L 68 18 126/77 97 Room Air 10/18/22 02:35 36.6 C 73 18 108/66 97 Room Air 10/17/22 23:26 Room Air 10/17/22 23:26 36.4 C L 81 16 115/76 95 Room Air 10/17/22 22:39 Room Air 10/17/22 20:50 76 10/17/22 22:34 83 18 144/101 H 99 Room Air 10/17/22 21:55 79 20 194/108 H 99 Room Air 10/17/22 20:20 77 211/108 H 96 Room Air Coding Level of Care Code 54246 IN/OBS CONSULT LVL 3,45M Diagnoses Abdominal pain R10.84 Abdominal location: generalized Pelvic mass in female R19.00 (1) Abdominal pain Abdominal location: generalized Qualified Code(s): R10.84 - Generalized abdominal pain
[2022-10-18 08:11] LABS: Magnesium 1.8 mg/dl (1.7-2.4)
[2022-10-18 08:32] LABS: Ferritin 407.9 ng/ml (8-388)
[2022-10-18] MEDS ORDERED: NON-FORMULARY MEDICATION (Coenzyme Q10 100 mg capsule) PO SCH (09:00)
--- NOTE | 2022-10-18 14:01 | Pulmonary Consultation ---
Date of Consultation October 18, 2022 Assessment & Plan (1) Pleural effusion: (2) Pelvic mass in female: Plan I performed a thoracentesis today and removed 500 mL of gerda-colored fluid. This will be sent for testing and cytologic evaluation. Malignancy remains high in the differential given the presence of a pelvic mass and unilateral effusion. Case discussed with bedside RN. All questions answered to the best of my ability. Patient satisfied with care. History of Present Illness Reason for Consultation: Pleural effusion Attending Physician: Aki Barrios History of Present Illness 86-year-old female was admitted due to hypertension and abdominal pain. She has been having discomfort in her abdomen for the past 2 months and difficulty with constipation. She had a CT of the abdomen which revealed findings concerning for possible gynecological malignancy. Also seen was a small left pleural effusion. She was seen by gynecology while inpatient. There was concern of possible leiomyosarcoma. COLLEGE OR UNIVERSITY BUSINESS MANAGER and GI related tumor markers were ordered. The CT of the abdomen revealed a small left pleural effusion and there was also small amounts of ascites seen. Patient noted some increasing cough for the past month. She also had some mild pleurisy on the left. She denies any recent fevers, chills or night sweats. She denies any prior thoracentesis. Allergies Allergy/AdvReac Type Severity Reaction Status Date / Time propoxyphene Allergy Unknown Verified 10/17/22 13:07 doxycycline AdvReac Unknown Nausea Verified 10/17/22 13:07 Sulfa (Sulfonamide AdvReac Unknown nausea Verified 10/17/22 13:07 Antibiotics) Home Medications Medication Instructions Recorded Confirmed Type coenzyme Q10 100 mg capsule 200 mg PO DAILY 10/12/20 10/17/22 History lisinopril 20 1 tab PO DAILY #90 tabs 10/05/21 10/17/22 Rx mg-hydrochlorothiazide 12.5 mg tablet cholecalciferol (vitamin D3) 50 50 mcg PO DAILY 04/13/22 10/17/22 History mcg (2,000 unit) capsule escitalopram oxalate 10 mg tablet 10 mg PO DAILY #30 tabs 04/18/22 10/17/22 Rx (Lexapro) Patient History Medical History Dry eye syndrome Hyperlipidemia pt refuses med at her age Hypertension Seborrheic dermatitis Surgical History Hx of cholecystectomy Hx of elbow surgery Family History Mother Breast cancer Myocardial infarction Denies family history of Ovarian cancer Prostate cancer Colorectal cancer Social History Smoking Status: Never smoker Second Hand Exposure: Yes; Hx Alcohol Use: No Hx Substance Use: No Preferred Language: German Communication Ability: Effective Visual Impairment: Limited Hearing Ability: Normal Personal Care Aide Required: No Beliefs That Will Affect Care: None marital status: Current Living Situation: Alone Current Living Situation Comment: Spouse lives in detention. current occupational status: retired How many Children do You have: 4 Other Information That Helps Us Care for You: No Feels Safe at Home: Yes Safety Concerns: Feels Safe At This Time Childhood Exposure to Second-Hand Smoke: No caffeine: No during the past year weight has: remained stable Dental Care, Regularly: No Physical Activity Frequency: Does not Exercise Seatbelt Use: always Sunscreen Use: No Do you think of yourself as: straight/heterosexual Gender Identity: Female Assistive Devices: None Review of Systems Review of Systems: All systems reviewed & are unremarkable except as noted in HPI & below Physical Exam Physical Exam: Constitutional: Patient appears to be of their stated age. Patient is in no apparent distress. Patient is well-developed. Eyes: Pupils are equal round and reactive to light. Conjunctivae are normal. Anicteric sclera. Ears nose, mouth and throat: Mallampati class 2. Normal posterior oropharynx. Uvula is midline. Neck: Trachea is midline. Visual inspection is normal. Respiratory: Diminished on the left with pleural rub present Cardiovascular: Regular rate and rhythm. No murmurs. No edema. Gastrointestinal: Normal bowel sounds, soft, nontender and nondistended. No hepatosplenomegaly noted. Musculoskeletal: No cyanosis. Patient is able to move all extremities. Strength is 5 out of 5 in the upper and lower extremities. Skin: No rashes, warm dry and intact. Neurologic: No obvious focal neurological deficits seen. Psychiatric: Alert and oriented x3 with a euthymic affect. Results & Data Results & Data Vital Signs (Past 12 Hours) Vital Signs Temp Pulse Pulse Resp BP Pulse Ox O2 Del Method 10/18/22 11:11 36.7 C 74 16 115/71 95 Room Air 10/18/22 08:00 70 10/18/22 07:39 36.4 C L 68 18 126/77 97 Room Air 10/18/22 02:35 36.6 C 73 18 108/66 97 Room Air PG Care Time/CCT Total # of Minutes Spent Total Time Spent with Patient: Total time spent is greater than 50% in coordination of care (as documented) at patient's floor/unit and/or counseling patient: Coding Level of Care Code 72295 INT INP/OBS CARE 2/55MIN Diagnoses Pleural effusion J90 Pelvic mass in female R19.00
--- NOTE | 2022-10-18 14:56 | Procedure Note ---
Procedure Note Date of Service October 18, 2022 Note Procedure: Diagnostic and therapeutic ultrasound-guided catheter thoracentesis Accountant Helper: Dr. Jason Arteaga Indication: Pleural effusion Consent: Signed by patient and verified with timeout prior to procedure Anesthesia: 8 mL's of 1% lidocaine without epinephrine given locally Procedure: Consent was verified and timeout performed. Appropriate imaging studies were reviewed prior to the procedure. Patient was placed in a seated position and limited thoracic ultrasound was performed of the left lateral chest. See separate imaging. The site appropriate for thoracentesis was selected. The skin was prepped and draped in normal sterile fashion. Lidocaine was used for local analgesia. Fluid was aspirated via the finder needle. A small skin norma was made with the scalpel and the catheter over the needle apparatus was advanced over the rib into the pleural space. Using the syringe one-way valve system, a total of 500 mL's of gerda-colored fluid was removed. Procedure was terminated due to lack of flow. The catheter was removed and observed to be intact. A sterile dressing was applied. Post procedure chest x-ray was ordered. Fluid was sent for LDH, total protein, cell count, glucose, pH, cytology, AFB cultures, gram stain and culture and fungal cultures. The patient tolerated the procedure well without obvious complication. Postprocedure chest x-ray is pending. Coding CPT Codes Pulmonary/Thoracic - Pulmonary and Thoracic: 60906 Thoracentesis w imaging ([id number]) [facility] [place] Procedure Codes (Charges) Pulmonary/Thoracic Procedure 1: Pulmonary and Thoracic: 14068 Thoracentesis w imaging
[2022-10-18 14:57] LABS: INR 1.2 (0.9-1.1); Prothrombin Time 12.3 Seconds (9.0-12.0)
--- NOTE | 2022-10-18 16:05 | XRay Report ---
XR chest 1V portable CLINICAL HISTORY: post thoracentesis TECHNIQUE: Single frontal radiograph of the chest was obtained. Comparison: Comparison is made to rib series 12/31/[address] abdomen pelvis 10/18/2019 FINDINGS: No lines and tubes are seen. The aorta is tortuous. The remainder of the cardiomediastinal silhouette is unremarkable. The lungs are clear. Small left pleural effusion is seen. No pneumothorax. IMPRESSION: Small residual left pleural effusion is seen. No pneumothorax. ACT 112: Negative or not required by law. Electronically signed by: Mega Chavez M.D. 10/18/2022 4:02 PM
[2022-10-18 16:06] LABS: Total Protein Pleural Fluid 4.5 gm/dl
[2022-10-18 17:06] LABS: Appearance Pleural Fluid Hazy; Color Pleural Fluid Straw; Lymphocytes, Fluid 27 %; Mono,Macrophage,Mesothelial 63 %; Neutrophils, Fluid 10 %; RBC Pleural Fluid Auto 4000 /uL; Source Pleural Fluid Left Lung; WBC Pleural Fluid Auto 3610 /uL
--- NOTE | 2022-10-18 19:49 | Hospitalist Progress Note ---
Date of Service October 18, 2022 Assessment & Plan (1) Hypertensive urgency: Plan: resolved BPs have normalized suspect that her BPs were quite high due to abdominal pain and anxiety continue lisinopril-HCTZ (2) Uterine mass: Plan: Appreciate Dr Alatorre's consultation from gynecology. He spoke with Dr Jaswant Santiago, [facility] Utilization Management Um Nurse-Onc, who has offices in [place] & [place]. Dr Santiago's office has the pt's information and will be getting her scheduled for an office visit to discuss plan of care/work-up/treatment. of note - tumor markers dispatched --- CEA level normal CA-125 level pending CA-19-9 level pending (3) Pleural effusion: Plan: left-sided. s/p thoracentesis by Dr Arteaga today - appreciate his assistance. post-procedural cxr w/o pneumothorax. pleural fluid LDH and total protein elevated c/w exudative effusion. highly suspicious for malignant effusion. await cytologies. culture sent to be complete but cell counts not highly suggestive of infectious process. dyspnea improved s/p thoracentesis. if she continues with dyspnea would have low threshold to perform CTA chest to r/o PE. (4) Ascites: Plan: if pleural fluid cytology is negative consider paracentesis for diagnostic & therapeutic purposes in meantime can treat pain with tylenol 650mg TID + norco prn she does not have features of SBP at this time despite her pain (I believe the pain is mostly tumor bulk related) (5) Severe protein-calorie malnutrition: Plan: most likely 2nd to uterine-based cancer CEA level normal CA-125 level pending CA-19-9 level pending see discussion above under uterine mass (6) Depression: Plan: cont lexapro (7) Hyperlipidemia: Plan: not on meds for such (8) Hypertension: Plan: cont DORA-HCTZ combo pill BPs improved since admission (9) Weight loss, non-intentional: Plan: 25 pounds of weight loss dating back to late 2021 most likely 2nd to uterine-based cancer (10) Hyponatremia: Plan: likely 2nd to HCTZ use bmp am (11) Chronic renal failure (CRF), stage 3b: Plan: baseline CrCl low 30s and baseline creatinine 1.2-1.3 BMP today stable BMP in am (12) Microcytic anemia: Plan: Fe studies not c/w Fe deficiency microcytosis likely due to anemia of chronic disease from cancer Plan DVT proph - if patient stays beyond tomorrow on-coming attending please add chemical DVT prophylaxis -- at high risk of VTE pt's daughter Suzi was updated by phone this evening I corresponded with Dr Arteaga from pulmonary and Dr Alatorre from gynecology today - appreciate their assistance Admission and Anticipated Discharge Date Admission Date: October 17, 2022 Subjective patient resting during the visit she is understandably anxious about everything happening with her health and the information she is receiving she does report abdominal pain especially lower in the pelvis hurts both at rest and with activity was having challenges with both having a bowel movement & voiding tele overnight wnl Review of Systems Review of Systems: gen - no fevers cv - no chest pain pulm - dyspnea much better following thoracentesis GI - abdominal discomfort but no nausea or emesis Physical Exam Physical Exam: gen - NAD, pleasant, a little tearful at times mouth - MMM neck - no JVD heart - RRR, s1 s2 lungs - minimal rales L base o/w CTA b/l abd - distended, BS+, mildly tender lower abdomen both lower quadrants ext - no edema, pulses 2+ b/l psych - a/o x 3 Results & Data Results & Data Vital Signs (Past 12 Hours) Vital Signs Temp Pulse Pulse Resp BP Pulse Ox O2 Del Method 10/18/22 19:27 36.8 C 87 20 129/87 96 Room Air 10/18/22 15:20 36.7 C 77 18 116/70 96 Room Air 10/18/22 11:11 36.7 C 74 16 115/71 95 Room Air 10/18/22 08:00 70 Laboratory Results Laboratory Results - last 24 hr 10/17/22 10/17/22 10/17/22 20:50 23:42 23:42 WBC RBC Hgb Hct MCV MCH MCHC RDW Std Deviation RDW Coeff of Marcie Plt Count MPV PT INR Sodium Potassium Chloride Carbon Dioxide Anion Gap BUN Creatinine Est Cr Clr Drug Dosing Est GFR ( Amer) Est GFR (Non-Af Amer) BUN/Creatinine Ratio Glucose Lactate 1.7 Calcium Magnesium Iron TIBC Unsaturated IBC Transferrin % Sat Ferritin Lactate Dehydrogenase 345 H Total Protein Carcinoembryonic Ag CA 19-9 Antigen CA 125 Antigen Urine Color Urine Appearance Urine pH Ur Specific [place] Urine Protein Urine Glucose (UA) Urine Ketones Urine Blood Urine Nitrite Urine Bilirubin Urine Urobilinogen Ur Leukocyte Esterase Urine WBC (Auto) Urine RBC (Auto) U Hyaline Cast (Auto) U Epithel Cells (Auto) Urine Bacteria (Auto) Fluid Neutrophils % Fluid Lymphocytes % Fluid Meso/Macro/Cobb % Fluid Comment Pleural Fluid Source Pleural Color Pleural Appearance Pleural pH Pleural WBC (Auto) Pleural RBC (Auto) Pleural Total Protein Pleural LDH Pleural Amylase Pleural Cholesterol SARS-CoV-2, RNA, NAAT NEGATIVE 10/17/22 10/18/22 10/18/22 Unknown 06:48 06:48 WBC 6.86 RBC 4.07 L Hgb 10.0 L Hct 31.3 L MCV 76.9 L MCH 24.6 L MCHC 31.9 L RDW Std Deviation 40.0 RDW Coeff of Marcie 14.5 Plt Count 296 MPV 10.8 PT INR Sodium 133 L Potassium 4.3 Chloride 100 Carbon Dioxide 26 Anion Gap 7 BUN 19 Creatinine 1.25 H Est Cr Clr Drug Dosing 29.2 Est GFR ( Amer) 45.1 Est GFR (Non-Af Amer) 38.9 BUN/Creatinine Ratio 15.2 Glucose 83 Lactate Calcium 8.9 Magnesium 1.8 Iron 30 L TIBC 185 L Unsaturated IBC 155 Transferrin % Sat 16 Ferritin 407.9 H Lactate Dehydrogenase Total Protein Carcinoembryonic Ag CA 19-9 Antigen CA 125 Antigen Urine Color Yellow Urine Appearance Clear Urine pH 5.5 Ur Specific [place] 1.027 Urine Protein Negative Urine Glucose (UA) Negative Urine Ketones Negative Urine Blood Negative Urine Nitrite Negative Urine Bilirubin Negative Urine Urobilinogen Negative Ur Leukocyte Esterase 1+ H Urine WBC (Auto) 1-5 Urine RBC (Auto) 0-4 U Hyaline Cast (Auto) 1-5 U Epithel Cells (Auto) 20-30 H Urine Bacteria (Auto) Negative Fluid Neutrophils % Fluid Lymphocytes % Fluid Meso/Macro/Cobb % Fluid Comment Pleural Fluid Source Pleural Color Pleural Appearance Pleural pH Pleural WBC (Auto) Pleural RBC (Auto) Pleural Total Protein Pleural LDH Pleural Amylase Pleural Cholesterol SARS-CoV-2, RNA, NAAT 10/18/22 10/18/22 10/18/22 06:48 06:48 14:07 WBC RBC Hgb Hct MCV MCH MCHC RDW Std Deviation RDW Coeff of Marcie Plt Count MPV PT 12.3 H INR 1.2 H Sodium Potassium Chloride Carbon Dioxide Anion Gap BUN Creatinine Est Cr Clr Drug Dosing Est GFR ( Amer) Est GFR (Non-Af Amer) BUN/Creatinine Ratio Glucose Lactate Calcium Magnesium Iron TIBC Unsaturated IBC Transferrin % Sat Ferritin Lactate Dehydrogenase Total Protein Carcinoembryonic Ag 1.2 CA 19-9 Antigen Pending CA 125 Antigen Pending Urine Color Urine Appearance Urine pH Ur Specific [place] Urine Protein Urine Glucose (UA) Urine Ketones Urine Blood Urine Nitrite Urine Bilirubin Urine Urobilinogen Ur Leukocyte Esterase Urine WBC (Auto) Urine RBC (Auto) U Hyaline Cast (Auto) U Epithel Cells (Auto) Urine Bacteria (Auto) Fluid Neutrophils % Fluid Lymphocytes % Fluid Meso/Macro/Cobb % Fluid Comment Pleural Fluid Source Pleural Color Pleural Appearance Pleural pH Pleural WBC (Auto) Pleural RBC (Auto) Pleural Total Protein Pleural LDH Pleural Amylase Pleural Cholesterol SARS-CoV-2, RNA, NAAT 10/18/22 10/18/22 10/18/22 14:50 14:50 14:50 WBC RBC Hgb Hct MCV MCH MCHC RDW Std Deviation RDW Coeff of Marcie Plt Count MPV PT INR Sodium Potassium Chloride Carbon Dioxide Anion Gap BUN Creatinine Est Cr Clr Drug Dosing Est GFR ( Amer) Est GFR (Non-Af Amer) BUN/Creatinine Ratio Glucose Lactate Calcium Magnesium Iron TIBC Unsaturated IBC Transferrin % Sat Ferritin Lactate Dehydrogenase Total Protein Carcinoembryonic Ag CA 19-9 Antigen CA 125 Antigen Urine Color Urine Appearance Urine pH Ur Specific [place] Urine Protein Urine Glucose (UA) Urine Ketones Urine Blood Urine Nitrite Urine Bilirubin Urine Urobilinogen Ur Leukocyte Esterase Urine WBC (Auto) Urine RBC (Auto) U Hyaline Cast (Auto) U Epithel Cells (Auto) Urine Bacteria (Auto) Fluid Neutrophils % 10 Fluid Lymphocytes % 27 Fluid Meso/Macro/Cobb % 63 Fluid Comment Pleural Fluid Source Left Lung Pleural Color Straw Pleural Appearance Hazy Pleural pH 7.55 H Pleural WBC (Auto) 3610 Pleural RBC (Auto) 4000 Pleural Total Protein 4.5 Pleural LDH 231 Pleural Amylase 25 Pleural Cholesterol SARS-CoV-2, RNA, NAAT 10/18/22 10/18/22 10/18/22 14:50 15:27 15:27 WBC RBC Hgb Hct MCV MCH MCHC RDW Std Deviation RDW Coeff of Marcie Plt Count MPV PT INR Sodium Potassium Chloride Carbon Dioxide Anion Gap BUN Creatinine Est Cr Clr Drug Dosing Est GFR ( Amer) Est GFR (Non-Af Amer) BUN/Creatinine Ratio Glucose Lactate Calcium Magnesium Iron TIBC Unsaturated IBC Transferrin % Sat Ferritin Lactate Dehydrogenase 327 H Total Protein 6.9 Carcinoembryonic Ag CA 19-9 Antigen CA 125 Antigen Urine Color Urine Appearance Urine pH Ur Specific [place] Urine Protein Urine Glucose (UA) Urine Ketones Urine Blood Urine Nitrite Urine Bilirubin Urine Urobilinogen Ur Leukocyte Esterase Urine WBC (Auto) Urine RBC (Auto) U Hyaline Cast (Auto) U Epithel Cells (Auto) Urine Bacteria (Auto) Fluid Neutrophils % Fluid Lymphocytes % Fluid Meso/Macro/Cobb % Fluid Comment Pleural Fluid Source Pleural Color Pleural Appearance Pleural pH Pleural WBC (Auto) Pleural RBC (Auto) Pleural Total Protein Pleural LDH Pleural Amylase Pleural Cholesterol Pending SARS-CoV-2, RNA, NAAT PG Care Time/CCT Total # of Minutes Spent Total Time Spent with Patient: Total time spent is greater than 50% in coordination of care (as documented) at patient's floor/unit and/or counseling patient: Coding Level of Care Code 35638 SUB INP/OBS CARE 3/50MIN Diagnoses Hypertensive urgency I16.0 Uterine mass N85.8 Pleural effusion J90 Ascites R18.8 Ascites type: other type Severe protein-calorie malnutrition E43 Depression F32.A Hyperlipidemia E78.5 Hypertension I10 Weight loss, non-intentional R63.4 Hyponatremia E87.1 Chronic renal failure (CRF), stage 3b N18.32 Microcytic anemia D50.9 (4) Ascites Ascites type: other type Qualified Code(s): R18.8 - Other ascites
[2022-10-18] MEDS ORDERED: HYDROCODONE/ACETAMOPHEN 5/325MG TAB PO PRN (19:55)
[2022-10-18] MEDS: ACETAMINOPHEN 325 MG TAB PO SCH (22:34)
[2022-10-19 07:12] LABS: Hematocrit (blood only) 31.4 % (37.0-47.0); Hemoglobin 10.3 g/dl (12.0-16.0); Mean Corpuscular Hemoglobin 24.7 pg (25.0-34.0); Mean Corpuscular Hgb Conc 32.8 g/dL (32.0-36.0); Mean Corpuscular Volume 75.3 fL (80.0-100.0); Platelet Count 297 K/uL (130-400); RDW Coefficient of Variation 14.4 % (11.5-14.5); RDW Standard Deviation 38.6 fL (36.4-46.3); Red Blood Count 4.17 M/uL (4.20-5.40); White Blood Count 7.79 K/ul (4.8-10.8)
[2022-10-19 07:27] LABS: BUN Creatinine Ratio 15.9 (10-20); Potassium 3.9 mmol/L (3.5-5.1)
--- NOTE | 2022-10-19 08:52 | Communication Note ---
Date of Service: October 19, 2022 spoke to pt this am. aware some labs pending. she is aware that laundry equipment operator onc is aware of her and will be in touch about followup appts. they did not feel any testing for laundry equipment operator to do. dr. de la cruz indicated to me that he communicated with her admitting team that this connection was made. pt denies questions or concerns. MARINE PIPEFITTER will sign off and are available if needed.
[2022-10-19] MEDS: CHOLECALCIFEROL 1,000 UNITS 25 MCG TAB PO SCH (09:00)
[2022-10-19 09:31] LABS: CA 125 2156 U/mL (<35); Cancer Antigen 19-9 50 U/mL (<34)
[2022-10-19] MEDS: LISINOPRIL/HCTZ 20/12.5MG 1 TAB TAB PO SCH (10:39)
[2022-10-19] MEDS: ACETAMINOPHEN 325 MG TAB PO SCH (10:39)
[2022-10-19] MEDS: ESCITALOPRAM OXALATE 10 MG TAB PO SCH (10:39)
--- NOTE | 2022-10-19 12:56 | Discharge Summary ---
Date of Service October 19, 2022 Admission HPI Per Admitting Provider Marta is an 86-year-old admitted to the medicine service for acute hypertension related concerns. patient initially presented the ED for abdominal pain. Patient reports that she has noted pelvic abdominal pain and pressure for the past 1-2 months. She has also noted increased difficulty with bowel movements with significant straining needed even for soft stools. She reports the symptoms have been progressively worsening over the past 1-[address] scan in the ED was notable enlarged uterus likely secondary to fibroids. patient denies any vaginal bleeding. denies any prior known history of uterine fibroi ds. unsure of when her last pelvic exam occurred but reports that it was normal per her recollection. Denies any history of abnormal Pap smears. Patient denies any prior recent abdominal pelvic imaging for comparison purposes. Principal Diagnosis Left pleural effusion suspected malignant, hypertensive urgency Discharge Exam General-alert and oriented x3, no fevers, no chills HEENT-head atraumatic and normocephalic, pupils equal and reactive to light, extraocular muscles intact Neck-no lymphadenopathy or thyromegaly, trachea midline Chest-clear to auscultation percussion. No rales wheezing or rhonchi Cardiac-regular rate and rhythm, normal S1 and S2 Abdomen-normal bowel sounds, nontender, no hepatosplenomegaly Extremities-no cyanosis, clubbing, or edema Neuro-cranial nerves II through XII intact, motor and sensory function within normal limits, strength symmetrical , no focal deficits Psych-normal affect, normal mood Discharge Data Allergies Allergy/AdvReac Type Severity Reaction Status Date / Time propoxyphene Allergy Unknown Verified 10/17/22 13:07 doxycycline AdvReac Unknown Nausea Verified 10/17/22 13:07 Sulfa (Sulfonamide AdvReac Unknown nausea Verified 10/17/22 13:07 Antibiotics) Consultations 10/17/22 20:26 ED Decision to Admit Stat 10/17/22 21:31 Consult Gynecology Routine 10/17/22 23:26 Consult Pulmonology Routine Ordered Studies 10/17/22 18:23 CT Abd and Pelvis [CT abd pelvis IV con only] Stat 10/18/22 14:00 US point of care ultrasound Stat Hospital Course (1) Hypertensive urgency: resolved. Continue current medical management. BP was elevated on admission probably due to abdominal pain and anxiety. (2) Uterine mass: Appreciate Dr Alatorre's consultation from gynecology. He spoke with Dr Jaswant Santiago, [facility] Glove Tagger-Onc, who has offices in [place] & [place]. Dr Santiago's office has the pt's information and will be getting her scheduled for an office visit to discuss plan of care/work-up/treatment. CEA level normal. CA-125 level pending. CA-19-9 level pending (3) Pleural effusion: left-sided. s/p thoracentesis by Dr Arteaga on 418. Pathology is pending. Chest x-ray is much improved with no evidence of pneumothorax. Suspect malignant etiology from metastatic disease. Dyspnea has resolved. (4) Ascites: This could be malignant also. Will need further outpatient attention. No evidence of ascitic fluid infection. (5) Severe protein-calorie malnutrition: most likely 2nd to uterine-based cancer. Dietary supplementation indicated. (6) Depression: Stable. Cont lexapro (7) Hyperlipidemia: Low-cholesterol diet (8) Hypertension: Blood pressure is now stable. Cont DORA-HCTZ (9) Weight loss, non-intentional: 25 pounds of weight loss dating back to late 2021. Most likely 2nd to uterine- based cancer (10) Hyponatremia: Mild on admission. Now resolved. (11) Chronic renal failure (CRF), stage 3b: Stable. Monitor intake and output. Serial labs (12) Microcytic anemia: Fe studies not c/w Fe deficiency. Microcytosis likely due to anemia of chronic disease from cancer Plan Discharge to home today, October 19. She will follow-up with Dr. Santiago, TOBACCO SIEVE OPERATOR oncologist. 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 Santiago as instructed. No new medications at this time Pending Studies at Discharge: No Stand-Alone Forms: My [facility], Smoking Cessation Medications and DC Order Prescriptions: Continued lisinopril-hydrochlorothiazide 20-12.5 mg tablet 1 tab PO DAILY Qty: 90 3RF coenzyme Q10 100 mg capsule 200 mg PO DAILY cholecalciferol (vitamin D3) 50 mcg (2,000 unit) capsule 50 mcg PO DAILY escitalopram oxalate [Lexapro] 10 mg tablet 10 mg PO DAILY Qty: 30 6RF Discharge Orders: Discharge Order (Routine); Ordered 10/19/22 Ordered By: Rick Elaine Admission Data Admit Date/Time: 10/17/22 21:24 Attending Provider: Rick Elaine Admit Provider: Kalli Alvarez Primary Care Provider: Linda Herron Other Providers: Payton Woodard ; Jaswant Alatorre ; Jason Arteaga Coding Level of Care Code 22657 INP/OBS DISCH >30 MIN Diagnoses Hypertensive urgency I16.0 Uterine mass N85.8 Pleural effusion J90 Ascites R18.8 Ascites type: other type Severe protein-calorie malnutrition E43 Depression F32.A Hyperlipidemia E78.5 Hypertension I10 Weight loss, non-intentional R63.4 Hyponatremia E87.1 Chronic renal failure (CRF), stage 3b N18.32 Microcytic anemia D50.9
== END 2022-10-19 14:51 | disposition home or self-care (01) | DRG 754 ==
LOC: ED 14:05 → SUATTDRO 21:24 → 2E 21:24

== ENCOUNTER 2022-10-27 08:51 | Inpatient (IN) ==
--- NOTE | 2022-10-25 17:58 | History and Physical Report ---
CHIEF COMPLAINT: Abdominal pain, pelvic pressure. HISTORY OF PRESENT ILLNESS: The patient is an 86-year-old 4, para 4. She underwent menopaus e in 1989. She has had no bleeding since. Her health is complicated by high blood pressure for whic h she is on lisinopril and she also takes Lexapro 10 mg a day for anxiety. She has had a 6-month his tory of worsening pelvic pain and pressure, was seen and evaluated in the ER with a CT scan and then in my office with abdominal ultrasound and a pelvic ultrasound. She has an enlarged uterus consisten t with multiple fibroids. There is some small amount of abdominal fluid. No overt signs of malignan cy. She is presently being scheduled for a total abdominal hysterectomy, bilateral salpingo-oophorec jerel and paraaortic node sampling and omentectomy if indicated. PAST MEDICAL HISTORY: She has 4 children in good health. ALLERGIES: SHE IS ALLERGIC TO DOXYCYCLINE, SULFA and another antibiotic, which she does not recall. PAST SURGICAL HISTORY: She had tubal ligation. She has had a right elbow surgery, repair of a tendo n. She has uterine polyp removed in 1997. She had her gallbladder removed in 1999. She had an umbi lical hernia repaired in 2001 and she had a pelvis broken in a fall. MEDICAL HISTORY: She has a history of high blood pressure and anxiety. SOCIAL HISTORY: No smoking, no excessive alcohol intake. Retired from [employer]. FAMILY HISTORY: Mom at age 74, breast cancer. Father at age 74, massive ME. She had one brother, age 75, is in relatively good health, has had some heart arrhythmia, but his medical problem s are well controlled. She had a sister that at age 59 of a massive ME. REVIEW OF SYSTEMS: HEAD: No symptoms of frequent or severe headaches. EYES: No symptoms of blurred vision or double vision. EARS: No symptoms of frequent ear infection or difficulty hearing. NOSE: No symptoms of frequent nosebleeds or difficulty breathing through her nose. THROAT: No symptoms of frequent or severe sore throats or difficulty swallowing. RESPIRATORY SYSTEM: No history of asthma, chest pain, or shortness of breath. PHYSICAL EXAMINATION: GENERAL: Well-developed, well-nourished 86-year-old white female, alert, oriented x3, cooperative, i n a moderate amount of distress. EYES: Conjunctivae are pink. Sclerae white, no evidence of jaundice. ENT: Ears had normal light reflex bilaterally. Nose had normal mucosa. Septum is midline. There w ere no polyps. THROAT: No erythema or evidence of infection. Teeth are in good state of repair. HEAD: Normocephalic, normal distribution of hair. NECK: Supple. Trachea midline. Thyroid is not enlarged. There is no adenopathy appreciated. Both carotids are of good intensity. CHEST: Clear to auscultation and percussion. No wheezes, rales or rhonchi appreciated. BREASTS: Normal. ABDOMEN: Soft and nontender. Pelvic mass was palpable, but just about long term between the top of th e pelvis and the umbilicus. MUSCULOSKELETAL: No calf tenderness. PELVIC: Cervix appeared normal and there was a moderate amount of generalized pelvic tenderness on e xam. IMPRESSION OF THIS CASE: Status post tubal ligation, status post right elbow repair, status post [place] rine polypectomy, status post cholecystectomy, status post umbilical hernia repair and pelvic pain se condary to symptomatic fibroid uterus. Job ID: [id number]
--- NOTE | 2022-10-26 08:48 | Anesthesiology Consultation ---
Date of Service October 26, 2022 Assessment & Plan (1) Encounter for pre-operative examination: Chart Review Chart Review: Acceptable Risk for Surgery (pending EKG and anesthesia evaluation DOS ) and Patient NOT seen in Pre Admission Testing - Check EKG stat DOS (not done preoperatively) -Will leave to anesthesiologist discretion if repeat CXR needed DOS (recent thoracentesis for pleural effusion) -Discussed case with Dr. Dugan (EKG ordered for DOS)- otherwise patient can proceed as scheduled Pt requiring admission post operatively. Plan for recheck with COVID Patel AM DOS due to possibility that patient may have a roommate. OR aware. Patel order placed -COVID screening: Per PAT nursing assessment on 10/26/22. No known COVID-19 positive contacts or current COVID-19 related symptoms. Travel screen negative. Patient vaccinated for Covid. At surgeon discretion if preop Covid testing being done. Pt seen by PCP 10/25/22= Patient seen for hospital follow-up. Diagnosed with pelvic mass and left pleural effusionsuspect malignancy. Patient unable to get into gynecology/oncology until December. Did call and able to get in with provider in [place] this Monday. Patient able to see local dynamometer tuner later this afternoon. Pt follow up with Dr. York this afternoon. Patient will most likely still need to follow up with RECYCLING COORDINATOR/oncologist at some point Pt admitted to [facility] 10/17/22-10/19/22= Patient admitted for left pleural effusion suspect malignant, hypertensive urgency. Hypertensive urgencyresolved. Con tinue current medical management. BP elevated on admission probably due to abdominal pain and anxiety. Uterine massGYN consulted. We will follow-up as outpatient. Pleural effusionleft sidestatus post thoracentesis. Pathology is pending. CXR is much improved with no evidence of pneumothorax. Dyspnea has resolved. Ascitescould be malignant also. No evidence of ascitic fluid infection. Severe protein calorie malnutritionmost likely secondary to uterine based cancer. Depressionstable. Hyperlipidemia. Hypertension. Weight loss25 pounds of weight loss dating back to late 2021. Hyponatremiamild on admissionnow resolved. CKDstable. Microcytic anemia. Patient will follow-up with gynecology oncologist. History Surgery Operation Date: 10/27/22 09:30 Proposed Procedures p Total Abdominal Hysterectomy, Bilateral Salpingo-Oophorectomy, Para-Aortic Node Resection - Dano York MD Height/Weight Height: 5 ft 1 in Weight: 68.039 kg Allergies Allergy/AdvReac Type Severity Reaction Status Date / Time propoxyphene Allergy Intermediate left side Verified 10/26/22 07:34 numbness & tingling doxycycline AdvReac Intermediate Nausea Verified 10/26/22 07:34 Sulfa (Sulfonamide AdvReac Intermediate nausea Verified 10/26/22 07:34 Antibiotics) Medications Home Medications Medication Instructions Recorded Confirmed Last Taken coenzyme Q10 100 mg capsule 200 mg PO QAM 10/12/20 10/26/22 Unknown cholecalciferol (vitamin D3) 50 50 mcg PO QAM 04/13/22 10/26/22 Unknown mcg (2,000 unit) capsule acetaminophen 500 mg tablet 1,000 mg PO BID PRN Pain 10/26/22 10/26/22 Unknown escitalopram oxalate 10 mg tablet 10 mg PO QAM 10/26/22 10/26/22 Unknown (Lexapro) lisinopril 20 1 tab PO QAM 10/26/22 10/26/22 Unknown mg-hydrochlorothiazide 12.5 mg tablet Past Medical History Medical History Chronic renal failure (CRF), stage 3b pt unaware GFR 44 on preop labs Dry eye syndrome Hyperlipidemia pt refuses med at her age Hypertension Pleural effusion - recently, treated at [facility] - s/p diagnostic and therapeutic ultrasound-guided catheter thoracentesis - 10/18/22 CXR showed small residual left pleural effusion - no physical limitation per PAT nursing assessment Uterine mass inpatient at [facility] 10/17 - 10/19/22. Past Family History Family History Mother Myocardial infarction Breast cancer Other No family history of adverse response to anesthesia Denies family history of Ovarian cancer Prostate cancer Colorectal cancer Past Surgical History Surgical History History of bilateral tubal ligation History of breast biopsy benign History of cataract surgery bilateral History of colonoscopy History of dilatation and curettage History of esophagogastroduodenoscopy (EGD) Hx of cholecystectomy Hx of elbow surgery right elbow tendon repair. Hx of umbilical hernia repair Social History Smoking Status: Never smoker Do You Dip or Chew Tobacco: No Hx Alcohol Use: No Hx Substance Use: No Lab Results Anesthesia Preop Results Results Anesthesia Widget: WBC 7.79 K/ul (4.8-10.8) 10/19/22 Hgb 10.3 g/dl (12.0-16.0) L 10/19/22 Hct 31.4 % (37.0-47.0) L 10/19/22 Plt 297 K/uL (130-400) 10/19/22 Na 132 mmol/L (136-145) L 10/19/22 K 3.9 mmol/L (3.5-5.1) 10/19/22 Cl 100 mmol/L (98-107) 10/19/22 CO2 23 mmol/L (21-32) 10/19/22 BUN 18 mg/dl (6-23) 10/19/22 Creat 1.13 mg/dl (0.6-1.2) 10/19/22 Glucose Level 80 mg/dl (70-99(Fasting)) 10/19/22 PT 12.3 Seconds (9.0-12.0) H 10/18/22 INR 1.2 (0.9-1.1) H 10/18/22 Urine Color Yellow 10/17/22 Urine Appearance Clear (Clear) 10/17/22 Urine pH 5.5 (4.5-7.5) 10/17/22 Urine Specific [place] 1.027 (1.000-1.030) 10/17/22 Urine Protein Negative (Negative) 10/17/22 Urine Glucose (UA) Negative (Negative) 10/17/22 Urine Ketones Negative (Negative) 10/17/22 Urine Blood Negative (Negative) 10/17/22 Urine Nitrite Negative (Negative) 10/17/22 Urine Bilirubin Negative (Negative) 10/17/22 Urine Urobilinogen Negative (Negative) 10/17/22 Urine Leukocyte Esterase 1+ (Negative) H 10/17/22 Urine WBC (Auto) 1-5 /hpf (0-5) 10/17/22 Urine RBC (Auto) 0-4 /hpf (0-4) 10/17/22 Urine Hyaline Casts (Auto) 1-5 /lpf (0-5) 10/17/22 Urine Epithelial Cells (Auto) 20-30 /lpf (0-5) H 10/17/22 Urine Bacteria (Auto) Negative (Negative) 10/17/22 Testing Chest X-Ray Date: 10/18/22 FINDINGS: No lines and tubes are seen. The aorta is tortuous. The remainder of the cardiomediastinal silhouette is unremarkable. The lungs are clear. Small left pleural effusion is seen. No pneumothorax. IMPRESSION: Small residual left pleural effusion is seen. No pneumothorax. Echocardiogram Date: 05/19/22 EF: 60-65% LV Function: normal RWMA: + none Other Findings: no LVH Borderline dilated RV, normal LV function. Aortic valve sclerosis without stenosis. Mild AR. Normal estimated PA and RA pressures. Dilated ascending aorta (4.5 cm)
[~2022-10-27 08:51] MED LIST: LACTATED RINGER'S 1,000 ML IV SCH; LR 15ML/HR IV SCH; cefOXitin 2,000 MG in DEXTROSE 5% 50 ML IV SCH
[2022-10-27 09:42] LABS: Basophils # (auto) 0.04 K/uL (0-0.2); Basophils % (auto) 0.4 %; Eosinophils % (auto) 1.1 %; Hematocrit (blood only) 31.7 % (37.0-47.0); Hemoglobin 10.1 g/dl (12.0-16.0); Immature Granulocytes # (auto) 0.04 K/uL (0.01-0.20); Immature Granulocytes % (auto) 0.4 %; Lymphocytes # (auto) 1.08 K/uL (1.2-3.4); Lymphocytes % (auto) 12.1 %; Mean Corpuscular Hemoglobin 24.1 pg (25.0-34.0); Mean Corpuscular Hgb Conc 31.9 g/dL (32.0-36.0); Mean Corpuscular Volume 75.7 fL (80.0-100.0); Mean Platelet Volume 9.9 fL (9.4-12.4); Monocytes # (auto) 0.92 K/uL (0.11-0.59); Monocytes % (auto) 10.3 %; Neutrophils # (auto) 6.77 K/uL (1.40-6.50); Neutrophils % (auto) 75.7 %; Platelet Count 420 K/uL (130-400); RDW Coefficient of Variation 14.6 % (11.5-14.5); RDW Standard Deviation 39.8 fL (36.4-46.3); Red Blood Count 4.19 M/uL (4.20-5.40); White Blood Count 8.95 K/ul (4.8-10.8)
[2022-10-27 09:53] LABS: BUN Creatinine Ratio 17.4 (10-20); Calcium 9.3 mg/dl (8.6-10.3); Creatinine Clr Calc Pharmacy 31.3 ml/min; Est GFR (African American) 49.9 ml/min; Potassium 4.1 mmol/L (3.5-5.1)
[2022-10-27 10:08] LABS: INR 1.1 (0.9-1.1); Partial Thromboplastin Ratio 1.2; Partial Thromboplastin Time 33.1 Seconds (21.0-31.0); Prothrombin Time 12.3 Seconds (9.0-12.0)
--- NOTE | 2022-10-27 10:13 | History & Physical Bridge Note ---
Date of Service October 27, 2022 History & Physical Bridge Note I have examined the patient, reviewed the History & Physical and in the interval since the performance of the History & Physical I have noted the following changes of clinical significance: no changes noted
[2022-10-27] MEDS ORDERED: LIDOCAINE 2% MPF LOCAL 5 ML VIAL ONE (11:26)
[2022-10-27] MEDS ORDERED: PROPOFOL IV EMULSION 10 MG/ML 20 ML VIAL IV ONE (11:26)
[2022-10-27] MEDS ORDERED: fentaNYL citrate PF 100 MCG/2 ML VIAL ONE ×2 (11:29→12:08)
[2022-10-27] MEDS ORDERED: ROCURONIUM BROMIDE 10 MG/ML 5 ML VIAL IV ONE ×2 (11:32→14:11)
[2022-10-27] MEDS ORDERED: HEPARIN (PORCINE) 1000 UNIT/ML 10 ML (CATH LAB USE ONLY) ONE (11:43)
[2022-10-27] MEDS ORDERED: SODIUM CHLORIDE 0.9% 250 ML IV PRN (13:01)
[2022-10-27] MEDS ORDERED: SUGAMMADEX SODIUM 200 MG/2 ML VIAL IV ONE (13:52)
[2022-10-27] MEDS ORDERED: DEXAMETHASONE SOD INJ 4 MG/ML VIAL ONE (14:20)
[2022-10-27] MEDS ORDERED: ONDANSETRON INJ 2 MG/ML 2 ML VIAL ONE ×2 (14:20→15:04)
--- NOTE | 2022-10-27 14:56 | Operative Report ---
PG Post Operative Report Pre & Post Diagnosis Operation Date: 10/27/22 10:40 Pre-Op Diagnosis: Large Uterine Fibroid, Severe Pelvic Pain Post-Op Diagnosis: Large Uterine Fibroid, Severe Pelvic Pain I identified the patient and participated in the time-out.: Yes Procedure Operation Date: 10/27/22 10:40 Actual Procedures p Total Abdominal Hysterectomy, Bilateral Salpingo-Oophorectomy, Inadvertent enterotomy(Not Applicable) - MD Blue Potts will dictate the majority of the procedure Dr. Haney Planning Associate Dr. York and will dictate the part of inadvertent enterotomy and repair The patient had a very large ovarian tumor arising from the right ovary extending down in the pelvic area the majority has been removed but there is a remnant done towards the right pelvic area that was bleeding very friable therefore I tried to come medial to that to score some of the peritoneum and free it from the surrounding tissue that was and stay close to this remnant to control the bleeding and remove it the amount of tissue that was left behind and bleeding from the initial right oophorectomy extended approximately 4 cm down to an indurated area approximately 4 to 5 cm I scored the peritoneum to try to get around that to control the bleeding and is always going to free the peritoneum dividing it and staying close into this remnant in 1 area but noticed that this wall actually was part of the sigmoid colon going into the remnant of the ovary that was actively bleeding once we were able to remove the remnant of the ovary the inadvertent enterotomy in the rectum was inspected the patient had no spillage there was no stool of any prominence in the rectum the enterotomy was linear in nature and extended approximately 4 cm and it was closed in multiple layers 2-0 chromic a single layer taken bites of through the wall into the mucosa and then we used Lembert sutures to invert distal suture line using 3-0 silk the repair appeared solid there was stated no seepage was appreciated once we irrigated the pelvic area we changed our gloves and then continue with the rest of the surgery I elected then to place a tongue of omentum which we mason rvested by mobilizing the omentum and along the transverse colon sufficiently to place on top of the suture line trying to prevent any contact from this from the cervical area line of resection this was held in place with a 3-0 silk suture that took bites of the omentum and on the serosa of the sigmoid colon proximal to our repair having redundancy of the tissue down into the cul-de-sac elected then once the operation was completed the place of Sourav drain which was done through a stab wound in the right lower quadrant and placed on in the cul-de-sac just next to the sigmoid colon repair touches skin large to 2-0 silk suture the rest of the operation will be dictated by Dr. York Surgeon David Haney MD, FACS Planning Associate Josh York MD Estimated Blood Loss 500 Findings Consistent with Post-Op Diagnosis Specimens right ovary and peritoneal inplants Complications Inadvertent enterotomy of the sigmoid colon (primary repair by Dr. Haney) Description of Procedure merda I attest to the content of the Intraoperative Record and any orders documented therein. Any exceptions are noted below.
[2022-10-27 14:58] LABS: iSTAT Creatinine 0.9 mg/dl (0.6-1.3); iSTAT Hemoglobin 8.8 g/dl (12.0-16.0); iSTAT Ionized Calcium 1.17 mmol/l (1.12-1.32); iSTAT Potassium 3.9 mmol/L (3.3-5.0)
[2022-10-27 14:58] LABS: iSTAT Creatinine 0.8 mg/dl (0.6-1.3); iSTAT Hemoglobin 10.2 g/dl (12.0-16.0); iSTAT Ionized Calcium 1.11 mmol/l (1.12-1.32); iSTAT Potassium 4.3 mmol/L (3.3-5.0)
[2022-10-27] MEDS ORDERED: ALBUMIN HUMAN 5% 12.5 GM/250 ML VIAL IV ONE (15:05)
[2022-10-27] MEDS ORDERED: PHENYLEPHRINE HCL 10 MG/ML VIAL ONE (15:09)
[2022-10-27] MEDS ORDERED: ATROPINE SULFATE 0.1 MG/ML 10ML SYR IV PRN (15:13)
[2022-10-27] MEDS ORDERED: ePHEDrine sulfate 50 MG/ML AMP IV PRN (15:13)
[2022-10-27] MEDS ORDERED: ONDANSETRON INJ 2 MG/ML 2 ML VIAL IV PRN ×2 (15:13→17:10)
[2022-10-27] MEDS ORDERED: PROMETHAZINE HCL 12.5 MG in SODIUM CHLORIDE 0.9% 50 ML IV PRN (15:13)
[2022-10-27] MEDS ORDERED: fentaNYL citrate PF 100 MCG/2 ML VIAL IV PRN (15:13)
[2022-10-27] MEDS ORDERED: NALOXONE HCL 0.4 MG/1 ML VIAL/CARP IV PRN (15:13)
[2022-10-27] MEDS ORDERED: FLUMAZENIL 0.1 MG/1 ML 10 ML VIAL IV PRN (15:13)
[2022-10-27] MEDS ORDERED: SODIUM CHLORIDE 0.9% 50 ML BAG ONE (15:24)
[2022-10-27] MEDS ORDERED: PROMETHAZINE HCL INJ 25 MG/ML 1 ML VIAL ONE (15:24)
[2022-10-27 15:40] LABS: Hematocrit (blood only) 28.2 % (37.0-47.0); Hemoglobin 9.2 g/dl (12.0-16.0); Mean Corpuscular Hemoglobin 25.3 pg (25.0-34.0); Mean Corpuscular Hgb Conc 32.6 g/dL (32.0-36.0); Mean Corpuscular Volume 77.7 fL (80.0-100.0); Mean Platelet Volume 9.8 fL (9.4-12.4); Platelet Count 359 K/uL (130-400); RDW Standard Deviation 42.3 fL (36.4-46.3); Red Blood Count 3.63 M/uL (4.20-5.40); White Blood Count 14.37 K/ul (4.8-10.8)
[2022-10-27] MEDS ORDERED: ALBUMIN 5% 250 ML IV ONE (15:42)
--- NOTE | 2022-10-27 16:24 | Anesthesiology Progress Note ---
Date of Service October 27, 2022 Anesthesia Post Procedure Vital Signs Vital Signs: Temp Pulse Pulse Resp BP BP Pulse Ox 10/27/22 16:10 83 18 122/63 135/86 100 10/27/22 16:00 82 18 122/59 L 149/81 H 100 10/27/22 15:30 78 18 134/60 128/70 100 10/27/22 15:20 74 20 102/48 L 102/69 100 10/27/22 15:10 71 16 107/51 L 109/61 100 10/27/22 15:50 83 16 119/63 137/80 100 10/27/22 15:40 84 17 122/68 144/79 H 100 10/27/22 15:00 67 20 89/49 L 92/55 L 100 10/27/22 14:54 36.1 C L 65 19 72/45 L 100 10/27/22 09:35 37 C 93 H 20 162/96 H 97 O2 Del Method O2 Flow Rate 10/27/22 16:10 Nasal Cannula 2 10/27/22 16:00 Nasal Cannula 2 10/27/22 15:30 Nasal Cannula 2 10/27/22 15:20 Nasal Cannula 2 10/27/22 15:10 Oxymask 3 10/27/22 15:50 Nasal Cannula 2 10/27/22 15:40 Nasal Cannula 2 10/27/22 15:00 Oxymask 6 10/27/22 14:54 Oxymask 6 10/27/22 09:35 Room Air Pain Intensity Abdomen: Pain Intensity: 10 Transfer of Care Handoff Completed per policy Notes Mental Status: alert / awake / arousable Patient Amnestic to Procedure: Yes Nausea / Vomiting: adequately controlled Pain: adequately controlled Airway Patency, RR, SpO2: stable & adequate BP & HR: stable & adequate Hydration State: stable & adequate Anesthetic Complications: no major complications apparent
--- NOTE | 2022-10-27 16:43 | Hospitalist Progress Note ---
Date of Service October 27, 2022 Assessment & Plan (1) Pelvic mass in female: Plan: Postopmass seems to have been adhered to sigmoidsigmoid also repaired. Cefoxitin per surgeryprobably only needs 1 more dose after discussion with OB/GYNordered. To ensure that it does not get missed, for now I ordered it as ongoing, but short course, dosing for GI infectionbut obviously can be discontinued tomorrow assuming the patient looks as good as expected. (2) Hypertension: Plan: Transiently hypotensive, now stable. Obviously hold her home meds, follow pressures. (3) DVT prophylaxis: Plan: Per surgery (4) Discharge planning issues: Plan: Follow how she recovers postop, if needed PT/OT eval and treat (5) Chronic renal failure (CRF), stage 3b: Plan: Follow-up basic metabolic panel in the morning Subjective No meaningful HPI review of systems obtainable from patient. Discussed with Dr Banuelosuation updated. Discussed with PACU nurse who notes that patient was transiently hypotensive, but with some albumin has actually improved to good, and consistently good/perfusing pressures. Notes that other than some pain and nausea, she has been doing well. Whenever I see her she is sedated having just had some fentanyl and Phenergan, but grunts a little bit in response to questioning. Review of Systems Review of Systems: Unobtainable due to cognitive status Physical Exam Physical Exam: Sedated but grunts somewhat conversationally. No distress. HEENT normocephalic atraumatic mucous membranes moist. Cardio is regular without rubs murmurs or gallops. Lungs clear to auscultation bilaterally no rales rhonchi or wheeze with good effort. Abdomen is mildly distended dressed, mildly tender but without any peritoneal signs. Extremities show no cyanosis. CBC, BMP reviewed. Results & Data Results & Data Vital Signs (Past 12 Hours) Vital Signs Temp Pulse Pulse Resp BP BP Pulse Ox 10/27/22 16:20 97.0 F L 82 18 150/79 H 100 10/27/22 16:10 83 18 122/63 135/86 100 10/27/22 16:00 82 18 122/59 L 149/81 H 100 10/27/22 15:30 78 18 134/60 128/70 100 10/27/22 15:20 74 20 102/48 L 102/69 100 10/27/22 15:10 71 16 107/51 L 109/61 100 10/27/22 15:50 83 16 119/63 137/80 100 10/27/22 15:40 84 17 122/68 144/79 H 100 10/27/22 15:00 67 20 89/49 L 92/55 L 100 10/27/22 14:54 97.0 F L 65 19 72/45 L 100 10/27/22 09:35 98.6 F 93 H 20 162/96 H 97 O2 Del Method O2 Flow Rate 10/27/22 16:20 Nasal Cannula 2 10/27/22 16:10 Nasal Cannula 2 10/27/22 16:00 Nasal Cannula 2 10/27/22 15:30 Nasal Cannula 2 10/27/22 15:20 Nasal Cannula 2 10/27/22 15:10 Oxymask 3 10/27/22 15:50 Nasal Cannula 2 10/27/22 15:40 Nasal Cannula 2 10/27/22 15:00 Oxymask 6 10/27/22 14:54 Oxymask 6 10/27/22 09:35 Room Air PG Care Time/CCT Total # of Minutes Spent Total Time Spent with Patient: Total time spent is greater than 50% in coordination of care (as documented) at patient's floor/unit and/or counseling patient: Coding Level of Care Code 93315 SUB INP/OBS CARE 2MIN Diagnoses Pelvic mass in female R19.00 Hypertension I10 DVT prophylaxis Z29.9 Discharge planning issues Z02.9 Chronic renal failure (CRF), stage 3b N18.32
[2022-10-27] MEDS ORDERED: SENNA 8.6 MG TAB PO PRN (17:10)
[2022-10-27] MEDS ORDERED: MEPERIDINE HCL 50 MG/ML CARP IV PRN (17:10)
[2022-10-27] MEDS ORDERED: bisacodyL 10 MG SUPP PR PRN (17:10)
[2022-10-27] MEDS ORDERED: PROMETHAZINE HCL 25 MG in SODIUM CHLORIDE 0.9% 50 ML IV PRN (17:10)
[2022-10-27] MEDS ORDERED: MAGNESIUM HYDROXIDE SUSP 30 ML UDC PO PRN (17:10)
[2022-10-27] MEDS: D5W AND LACTATED RINGERS 1,000 ML IV SCH (17:32)
[2022-10-27] MEDS: KETOROLAC TROMETHAMINE 15 MG/ML VIAL IV PRN (17:32)
[2022-10-27] MEDS: cefOXitin 2,000 MG in DEXTROSE 5% 50 ML IV SCH (18:26)
--- NOTE | 2022-10-27 23:56 | Operative Report (OR) ---
This is an operative notation of supracervical hysterectomy, bilateral salpingo-oophorectomy, periton eal biopsy, debulking of right-sided ovarian tumor, and repair of entry to the sigmoid colon. INDICATIONS FOR SURGERY: Pelvic pain. PREOPERATIVE DIAGNOSIS: Suspected large fibroid uterus. 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 SURGEON: Jameson York MD GRINDING MACHINE OPERATOR PORTABLE: David Haney MD PROCEDURE: Bilateral salpingo-oophorectomy, supracervical hysterectomy, removal of tumor on the sigm oid with entry into the sigmoid colon. ESTIMATED BLOOD LOSS: 500 mL. ANESTHESIA: General. OPERATIVE FINDINGS AND PROCEDURE: The patient was brought to the OR table, correctly identified by a rmband and conversation. General anesthesia was administered. Lower abdomen was painted with Betadi ne, vagina was painted with Betadine solution. Mattson was inserted aseptically in the bladder, connec graciela to gravity drainage. Compression stockings were applied. A midline incision was made and rizwan d down from the pubic symphysis up to the umbilicus. Incision was carried down to the anterior fasci a by sharp dissection. Hemostasis was secured by electrocauterization. Fascia was incised in the mi dline. Incision was carried down to the pelvic brim up towards the umbilicus. Peritoneum was carefu lly raised and entered. There was a moderate amount of peritoneal fluid and we suctioned out a large sample and sent it for pathological evaluation before entering the abdomen. Then, we used an O'Roberto or-O'Juan self-retraining retractor. Several moist laparotomy pads were used to retract the inte jloene and provide adequate exposure of the pelvic cavity. The pelvic anatomy was distorted by a lar ge ovarian tumor filling the pelvis up to the brim. We were able to locate the left tube and ovary, which the ovary was normal. We were able to locate the uterus, which was a small atrophic uterus, it was pushed way up anterior from the tumor in the pelvis. We then isolated the infundibulopelvic lig ament of the right-sided ovarian tumor and we started to do some blunt dissection. We were able to ev entually free up the tumor, dissect it away, and send it for pathological evaluation. In the process of freeing up the tumor, there was a large portion of tumor that was still attached to the sigmoid a nd in the process of removing this large piece of tumor, the sigmoid colon was entered. There was no gross spillage of bowel and it was repaired with a two-layer closure by Dr. Haney who was prese nt at the time of delivery. We palpated the periaortic nodes, they were grossly positive. The liver surfaces were negative. The anterior liver was negative; however, there were some sporadic peritone al lesions, at least two of which were biopsied. Also, there was a small lesion on the mesentery, al though after running the bowel, the bowel was clear, and also the omentum was essentially clear. Onc e we removed the right-sided tumor, removed the portion that was on the sigmoid, repaired the rent in the sigmoid, we then proceeded to remove the left tube and ovary, which was normal. We ligated the round ligaments on either side and just did a supracervical hysterectomy because there was also some involvement of the bladder flap and it was going to be difficult to dissect that off. So we then whi pstitched the cervical canal open with a continuous interlocking suture of heavy duty chromic, placed a drain in the cul-de-sac, brought the omentum down to cover the open areas of the pelvis and then d id a closure. We did a careful anatomical closure. The peritoneum was closed with continuous suture of chromic catgut. Fascia was closed with continuous PDS suture, then tied to each other. Subcutan eous was approximated with a running plain. Skin edges were approximated with staple clips. Followi ng this, hemostasis was good. The patient tolerated the procedure well and left the OR in good condi tion. Job ID: [id number]
[2022-10-28] MEDS: cefOXitin 2,000 MG in DEXTROSE 5% 50 ML IV SCH ×3 (00:10→17:25)
[2022-10-28] MEDS: D5W AND LACTATED RINGERS 1,000 ML IV SCH ×3 (01:54→17:24)
[2022-10-28] MEDS: KETOROLAC TROMETHAMINE 15 MG/ML VIAL IV PRN ×3 (03:45→16:09)
[2022-10-28 06:52] LABS: BUN Creatinine Ratio 15.2 (10-20); Calcium 8.4 mg/dl (8.6-10.3); Creatinine Clr Calc Pharmacy 26.1 ml/min; Est GFR (Non-African American) 34.5 ml/min; Potassium 4.4 mmol/L (3.5-5.1)
[2022-10-28] MEDS: LISINOPRIL/HCTZ 20/12.5MG 1 TAB TAB PO SCH (09:22)
--- NOTE | 2022-10-28 10:29 | Obstetrical Progress Note ---
Date of Service October 28, 2022 Assessment & Plan Admission and Anticipated Discharge Date Admission Date: October 27, 2022 Subjective urine clear output good bandage is dry abdomen soft and non tender bowel sounds hypoactive no calf tenderness vaginal bleeding scant hgb 9.2 Results & Data Vital Signs (Past 12 Hours) Vital Signs Temp Pulse Resp BP BP Pulse Ox O2 Del Method 10/28/22 08:00 36.9 C 98 H 16 148/109 H 96 Room Air 10/28/22 02:54 37.3 C 91 H 18 157/99 H 99 Nasal Cannula 10/27/22 23:04 37.5 C 93 H 18 150/119 H 99 Nasal Cannula O2 Flow Rate 10/28/22 08:00 10/28/22 02:54 3.5 10/27/22 23:04 3.5
[2022-10-28 12:11] LABS: Basophils # (auto) 0.04 K/uL (0-0.2); Basophils % (auto) 0.3 %; Hematocrit (blood only) 26.2 % (37.0-47.0); Hemoglobin 8.5 g/dl (12.0-16.0); Immature Granulocytes # (auto) 0.05 K/uL (0.01-0.20); Immature Granulocytes % (auto) 0.4 %; Lymphocytes # (auto) 1.06 K/uL (1.2-3.4); Lymphocytes % (auto) 8.1 %; Mean Corpuscular Hemoglobin 25.2 pg (25.0-34.0); Mean Corpuscular Hgb Conc 32.4 g/dL (32.0-36.0); Mean Corpuscular Volume 77.7 fL (80.0-100.0); Mean Platelet Volume 10.1 fL (9.4-12.4); Monocytes # (auto) 1.64 K/uL (0.11-0.59); Monocytes % (auto) 12.5 %; Neutrophils # (auto) 10.37 K/uL (1.40-6.50); Neutrophils % (auto) 78.7 %; Platelet Count 327 K/uL (130-400); RDW Coefficient of Variation 15.1 % (11.5-14.5); RDW Standard Deviation 42.4 fL (36.4-46.3); Red Blood Count 3.37 M/uL (4.20-5.40); White Blood Count 13.16 K/ul (4.8-10.8)
[2022-10-28] MEDS: SIMETHICONE 80 MG CHEW PO PRN (12:28)
[2022-10-28] MEDS: IBUPROFEN 600 MG TAB PO PRN (15:15)
[2022-10-28] MEDS: oxyCODONE/ACETAMINOPHEN 5mg/325mg TAB PO PRN (15:15)
[2022-10-29] MEDS: D5W AND LACTATED RINGERS 1,000 ML IV SCH ×3 (01:35→19:39)
[2022-10-29] MEDS: IBUPROFEN 600 MG TAB PO PRN ×3 (03:35→22:09)
[2022-10-29] MEDS: oxyCODONE/ACETAMINOPHEN 5mg/325mg TAB PO PRN ×3 (03:36→16:17)
[2022-10-29] MEDS: SIMETHICONE 80 MG CHEW PO PRN ×2 (04:02→14:54)
[2022-10-29] MEDS: cefOXitin 2,000 MG in DEXTROSE 5% 50 ML IV SCH ×2 (04:52→17:14)
[2022-10-29] MEDS: LISINOPRIL/HCTZ 20/12.5MG 1 TAB TAB PO SCH (07:13)
[2022-10-29 08:00] LABS: BUN Creatinine Ratio 12.8 (10-20); Calcium 8.5 mg/dl (8.6-10.3); Est GFR (African American) 53.2 ml/min; Est GFR (Non-African American) 45.9 ml/min; Potassium 4.4 mmol/L (3.5-5.1)
--- NOTE | 2022-10-29 10:35 | Obstetrical Progress Note ---
Date of Service October 29, 2022 Assessment & Plan Admission and Anticipated Discharge Date Admission Date: October 27, 2022 Subjective abdomen soft and non tender bandage is dry bowel sounds present no calf tenderness tolerating liquid diet will stop mefoxin after 6 pm dose vaginal bleeding scant hgb 8.5 moderate amount of drainage from abdominal drain Results & Data Vital Signs (Past 12 Hours) Vital Signs Temp Pulse Resp BP Pulse Ox O2 Del Method 10/29/22 09:55 112/89 10/29/22 08:00 36.8 C 82 16 165/99 H 94 Room Air 10/29/22 08:00 Room Air 10/29/22 04:52 36.9 C 88 20 168/99 H 94 Room Air 10/29/22 00:15 36.9 C 83 18 173/93 H 95 Room Air
[2022-10-29] MEDS: ALUMINUM/MAGNESIUM SUSP 30 ML UDC PO PRN ×2 (16:18→22:09)
[2022-10-30] MEDS: IBUPROFEN 600 MG TAB PO PRN ×4 (05:17→17:26)
[2022-10-30 06:41] LABS: Hematocrit (blood only) 26.8 % (37.0-47.0); Hemoglobin 8.4 g/dl (12.0-16.0)
--- NOTE | 2022-10-30 08:39 | Obstetrical Progress Note ---
Date of Service October 30, 2022 Assessment & Plan Admission and Anticipated Discharge Date Admission Date: October 27, 2022 Subjective abdomen soft and non tender passing flatus no calf tenderness abdominal drain draining moderate amount of fluid hgb 8.4 Results & Data Vital Signs (Past 12 Hours) Vital Signs Temp Pulse Resp BP Pulse Ox O2 Del Method 10/30/22 05:13 36.7 C 88 18 178/99 H 94 Room Air
[2022-10-30] MEDS: oxyCODONE/ACETAMINOPHEN 5mg/325mg TAB PO PRN ×3 (08:43→17:25)
[2022-10-30] MEDS: LISINOPRIL/HCTZ 20/12.5MG 1 TAB TAB PO SCH (10:32)
[2022-10-30] MEDS: ALUMINUM/MAGNESIUM SUSP 30 ML UDC PO PRN (21:04)
[2022-10-31] MEDS: LISINOPRIL/HCTZ 20/12.5MG 1 TAB TAB PO SCH (07:58)
--- NOTE | 2022-10-31 08:33 | Obstetrical Progress Note ---
Date of Service October 31, 2022 Assessment & Plan Admission and Anticipated Discharge Date Admission Date: October 27, 2022 Subjective abdomen soft and non tender incision is clean and dry moderate amount of drainage from abdominal drain no calf tenderness difficulty with ambulation hgb 8.4 Results & Data Vital Signs (Past 12 Hours) Vital Signs Temp Pulse Resp BP Pulse Ox O2 Del Method 10/30/22 23:37 36.7 C 89 18 130/96 94 Room Air
[2022-10-31] MEDS: ALUMINUM/MAGNESIUM SUSP 30 ML UDC PO PRN ×2 (12:03→23:20)
[2022-10-31] MEDS: SIMETHICONE 80 MG CHEW PO PRN ×2 (12:03→23:20)
[2022-10-31] MEDS ORDERED: CALCIUM CARBONATE 500 MG CHEWABLE TAB PO PRN (15:28)
[2022-10-31] MEDS: IBUPROFEN 600 MG TAB PO PRN (20:42)
[2022-11-01] MEDS: oxyCODONE/ACETAMINOPHEN 5mg/325mg TAB PO PRN (03:48)
--- NOTE | 2022-11-01 05:59 | Consultation ---
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 Partially debulked though pathological retroperitoneal lymph nodes left in place and there was some degree of peritoneal implants above the pelvis though these were not markedly bulky overall. Patient expresses an initial aversion to any chemotherapy. We did discuss that molecular testing may offer some noncytotoxic options and also that cytotoxic intervention can be made to be reasonably tolerable with at least good initial responses. We noted that the alternative of progressive carcinoma is perhaps as or more concerning as compared to chemotherapy toxicities though we were also careful to note that chemotherapy does not automatically produce complete or durable remissions. Her daughter apparently did not share details of her own treatment in 1983 and I suggested that perhaps Marta should speak further with her daughter to understand what some of the pros and cons were. Nevertheless, I have expressed that we will completely respect any limits she places on possible future treatment. Immediate issue is post operative recovery. Would expect to reconvene with her in our offices in approximately 3 weeks time at which point we can more s pecifically discuss what her options are and what she would like to pursue. In the interim we will work with pathology to make sure that we have more complete genomic characterization of her current malignancy to define the full spectrum of treatment options that we can offer.. Do note the small pleural effusion but that was cytologically negative at least on initial review. We will want to get a more formal follow-up chest CT in time for completeness of staging especially if we are going to pursue any adjuvant chemotherapy intervention (2) FH: ovarian cancer: Patient notes her daughter was apparently diagnosed with ovarian cancer at the age of 28 and treated successfully for that. Her mother had breast cancer at the age of 74. We do note that the patient had a lesion noted on 10/2021 mammography but a subsequent biopsy in December showed only fibrocystic changes and otherwise there is been no indication of a personal history of breast cancer. We can pursue germline testing as an outpatient which may be important not only to identify noncytotoxic options for treatment for the patient himself but to inform family members of their own potential spectrum of malignancy risk (3) Anemia: Anemia postoperatively. Ferritin is significantly elevated though that may to some extent be an acute phase reactant, percent saturation of iron is normal although at the low end of the range. We will check B12 and folic acid to be sure there are no other indications of nutritional deficiencies and monitor for now. Plan 1. Immediate issue is postop recovery 2. Patient is initially not in favor of chemotherapy though he is prepared to speak further and also to learn more about her daughter's own experience 3. I will ask pathology to pursue a full [employer] review particularly looking for actionable mutations that may offer noncytotoxic options for treatment 4. We will need to follow-up with more complete chest CT imaging in time 5. Anticipate germline genetic testing as an outpatient 6. Check B12 and folic acid and monitor anemia for now History of Present Illness Reason for Consultation: Newly presenting apparent ovarian carcinoma, consultation to start discussion of the role for potential additional adjuvant treatment Attending Physician: Dano York MD History of Present Illness Delightful 86-year-old woman with no previous history of malignancy. We do note a family history of breast cancer in her mother at age 74 and also her daughter with an ovarian cancer age approximately 28. Patient is 4 para 4 and underwent menopause at approximately age 50. She has had no postmenopausal bleeding. She has had previous tubal ligation, uterine polypectomy, umbilical hernia repair, and cholecystectomy with no indications of any major abdominal pathology at the time of those surgeries. She has had a 6+ month history of increasing abdominal and pelvic discomfort presenting more acutely with a mass in the pelvis. 10/27/2022 laparotomy removed a large abdominal mass which was adherent to the sigmoid requiring a partial resection of that. Clear pathological retroperitoneal nodes were left in place, Dr. York describes some peritoneal studding in the upper abdomen though this was apparently limited and quite small overall with the predominant disease confined to the pelvis. Patient is recovering reasonably after surgery though she immediately expresses a extreme aversion to any consideration of chemotherapy. She is a non-smoker, nondrinker and has no history of unusual occupational exposures. In addition of the family history with regards to breast cancer and ovarian cancer noted above she has a paternal uncle who had leukemia but otherwise is unaware of malignant or major blood disorders on either side of the family. Both her father and her sister of "massive" MIs at 74 and 59 respectively she herself does not have any history of major diabetes or atherosclerotic issues, she does have a history of hypertension Allergies Allergy/AdvReac Type Severity Reaction Status Date / Time propoxyphene Allergy Intermediate left side Verified 10/27/22 09:26 numbness & tingling doxycycline AdvReac Intermediate Nausea Verified 10/27/22 09:26 Sulfa (Sulfonamide AdvReac Intermediate nausea Verified 10/27/22 09:26 Antibiotics) Home Medications Medication Instructions Recorded Confirmed Type coenzyme Q10 100 mg capsule 200 mg PO QAM 10/12/20 10/27/22 History cholecalciferol (vitamin D3) 50 50 mcg PO QAM 04/13/22 10/27/22 History mcg (2,000 unit) capsule acetaminophen 500 mg tablet 1,000 mg PO BID PRN Pain 10/26/22 10/27/22 History escitalopram oxalate 10 mg tablet 10 mg PO QAM 10/26/22 10/27/22 History (Lexapro) lisinopril 20 1 tab PO QAM 10/26/22 10/27/22 History mg-hydrochlorothiazide 12.5 mg tablet Patient History Medical History Chronic renal failure (CRF), stage 3b pt unaware GFR 44 on preop labs Dry eye syndrome Hyperlipidemia pt refuses med at her age Hypertension Pleural effusion - recently, treated at [facility] - s/p diagnostic and therapeutic ultrasound-guided catheter thoracentesis 10/18/22 - 10/18/22 CXR showed small residual left pleural effusion - no physical limitation per PAT nursing assessment Uterine mass inpatient at [facility] 10/17 - 10/19/22. Surgical History History of bilateral tubal ligation History of breast biopsy benign History of cataract surgery bilateral History of colonoscopy History of dilatation and curettage History of esophagogastroduodenoscopy (EGD) Hx of cholecystectomy Hx of elbow surgery right elbow tendon repair. 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 current occupational status: retired How many Children do You have: 4 Other Information That Helps Us Care for You: No Feels Safe at Home: Yes Safety Concerns: Feels Safe At This Time Childhood Exposure to Second-Hand Smoke: No Diet: regular caffeine: No during the past year weight has: remained stable Dental Care, Regularly: No Physical Activity Frequency: Does not Exercise Seatbelt Use: always Sunscreen Use: No Do you think of yourself as: straight/heterosexual Gender Identity: Female Assistive Devices: None Physical Exam Physical Exam: Patient is mildly hypertensive but otherwise vital signs are stable and she is no acute distress. Head her eyes nose and throat exam is unremarkable. She has no pathologic adenopathy in the cervical supraclavicular or axillary regions. Lungs seem clear, cardiac rhythm seems regular that pathological murmurs Abdomen is soft with some mild diffuse tenderness and minimal bowel sounds. Extremities show no signs of DVT, neurologic exam is nonfocal. Her mental status seems completely intact and her medical decision making seems intact. Results & Data Vital Signs (Past 12 Hours) Vital Signs Temp Pulse Resp BP Pulse Ox O2 Del Method 10/31/22 23:30 37 C 93 H 18 170/104 H 94 Room Air 10/31/22 20:25 37.3 C 100 H 18 144/109 H 94 Room Air Laboratory Results Ca125 2156 Diagnostic Findings 10/17/2022 CT abd/pelvis Lung bases: See below. Pleural space: Small to moderate left pleural effusion. Associated atelectasis. Heart: Borderline size of heart. Coronary artery, aortic valve, and mitral annular calcifications. Mediastinum: Small hiatal hernia. ABDOMEN: Liver: Unremarkable. No mass. Gallbladder and bile ducts: Prior cholecystectomy. No ductal dilation. Pancreas: Unremarkable. No mass. No ductal dilation. Spleen: Unremarkable. No splenomegaly. Adrenals: Unremarkable. No mass. Kidneys and ureters: Unremarkable. No hydronephrosis or obstructing stone. Stomach and bowel: Diverticulosis without evidence of diverticulitis. Mild prominence of the wright of the colon may be secondary to underdistention. Colitis is not excluded. Mild prominence of the wright of fluid filled small bowel loops may represent under distention versus enteritis. Evaluation of the stomach is limited by underdistention. PELVIS: Appendix: Normal appendix. Bladder: Decompressed bladder limits evaluation. Please correlate with urinalysis if concerned for cystitis. Reproductive: Heterogeneous, enlarged uterus. Calcification along the left aspect of the uterus. This may represent uterine fibroids. Component of neoplasm would be difficult to exclude. ABDOMEN and PELVIS: Intraperitoneal space: Moderate fluid in the abdomen and pelvis. No free air. Bones/joints: Grade 1 anterolisthesis of L5 on all lumbarized S1 vertebral body. Mild degenerative changes of the spine. No acute fracture. No dislocation. Soft tissues: Small fat-containing umbilical hernia. Vasculature: Calcified spotted artery aneurysm. Phleboliths in the pelvis. Atherosclerotic changes of the vasculature. No aortic aneurysm or dissection. Lymph nodes: Unremarkable. No enlarged lymph nodes. IMPRESSION: 1. Heterogeneous, enlarged uterus. Calcification along the left aspect of the uterus. This may represent uterine fibroids. Component of neoplasm would be difficult to exclude. 2. Mild prominence of the wright of the colon may be secondary to underdistention. Colitis is not excluded. 3. Mild prominence of the wright of fluid filled small bowel loops may represent under distention versus enteritis. 4. Moderate fluid in the abdomen and pelvis. 5. Small to moderate left pleural effusion. Associated atelectasis. 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
[2022-11-01] MEDS: SIMETHICONE 80 MG CHEW PO PRN (08:59)
[2022-11-01] MEDS: LISINOPRIL/HCTZ 20/12.5MG 1 TAB TAB PO SCH (09:05)
--- NOTE | 2022-11-01 11:55 | Surgery Progress Note ---
Date of Service November 01, 2022 Assessment & Plan (1) Abdominal pain: Plan: Clinically the patient has an ileus possible bowel obstruction She is clinically dry for we will reinstitute IV fluids keep her n.p.o. check labs get a KUB of the abdomen at this time We will leave the Sourav drain in at this time the drainage typically ascitic fluid with some fluid but no evidence of any enteric contents May need an NG tube but at this time the patient is reluctant to have that placed All question answered from her and her daughter (2) Abdominal pain: Admission and Anticipated Discharge Date Admission Date: October 27, 2022 Subjective Was a little bit nauseated earlier today tried eating something last night but did not agree with her no vomiting any issues his belly is distended and would like to pass some gas and unable to do so Daughter present at the bedside Physical Exam Physical Exam: Alert coherent no distress not complaining of nausea at this time appears dry oral mucosa dry scaling The abdomen is distended generalized guarding but no tenderness Sourav drainage right lower quadrant serous slightly sanguinous nonbilious and contents Results & Data Vital Signs (Past 12 Hours) Vital Signs Temp Pulse Resp BP Pulse Ox O2 Del Method 11/01/22 09:00 36.7 C 85 16 137/87 96 Room Air
--- NOTE | 2022-11-01 13:23 | Obstetrical Progress Note ---
Date of Service November 01, 2022 Assessment & Plan Admission and Anticipated Discharge Date Admission Date: October 27, 2022 Subjective abdomen soft bandage changed incision is clean and dry bowel sounds present high pitched Results & Data Vital Signs (Past 12 Hours) Vital Signs Temp Pulse Resp BP Pulse Ox O2 Del Method 11/01/22 09:00 36.7 C 85 16 137/87 96 Room Air
[2022-11-01 13:42] LABS: Basophils # (auto) 0.06 K/uL (0-0.2); Basophils % (auto) 0.6 %; Eosinophils # (auto) 0.29 K/uL (0-0.50); Eosinophils % (auto) 3.1 %; Hematocrit (blood only) 24.7 % (37.0-47.0); Immature Granulocytes # (auto) 0.05 K/uL (0.01-0.20); Immature Granulocytes % (auto) 0.5 %; Lymphocytes # (auto) 1.08 K/uL (1.2-3.4); Lymphocytes % (auto) 11.5 %; Mean Corpuscular Hemoglobin 25.2 pg (25.0-34.0); Mean Corpuscular Hgb Conc 32.4 g/dL (32.0-36.0); Mean Corpuscular Volume 77.9 fL (80.0-100.0); Mean Platelet Volume 9.9 fL (9.4-12.4); Monocytes # (auto) 1.06 K/uL (0.11-0.59); Monocytes % (auto) 11.3 %; Neutrophils # (auto) 6.87 K/uL (1.40-6.50); Platelet Count 400 K/uL (130-400); RDW Coefficient of Variation 15.8 % (11.5-14.5); RDW Standard Deviation 44.5 fL (36.4-46.3); Red Blood Count 3.17 M/uL (4.20-5.40); White Blood Count 9.41 K/ul (4.8-10.8)
[2022-11-01 13:50] LABS: Calcium 9.2 mg/dl (8.6-10.3); Creatinine Clr Calc Pharmacy 24.5 ml/min; Est GFR (African American) 37.1 ml/min; Potassium 4.2 mmol/L (3.5-5.1)
--- NOTE | 2022-11-01 13:59 | XRay Report ---
KUB HISTORY: abdominal distention post op COMPARISON: Abdomen and pelvis CT 10/17/2022. FINDINGS: Midline skin anna seen within the pelvis with a right-sided pelvic surgical drain. The c onus is distended and gas-filled measuring up to 9 cm in diameter. However, the distention and gas ex tends to the rectum. Therefore, no evidence for a large bowel obstruction. There are few mildly dilat ed gas-filled loops of small bowel also seen within the abdomen. Therefore, these findings favor a po stoperative ileus. Prior cholecystectomy. No renal calculi. No ureteral calculi. No pneumoperitoneum or pneumatosis. IMPRESSION: Distended gas-filled colon as well as a few mildly dilated gas-filled loops of small bowel within the abdomen. Findings suggest a postoperative ileus. Follow-up recommended to ensure resolution. ACT 112: Negative or not required by law. Electronically signed by: Denys Torres M.D. 11/01/2022 1:58 PM
[2022-11-01] MEDS: LACTATED RINGER'S 1,000 ML IV SCH ×2 (14:32→22:22)
[2022-11-01] MEDS ORDERED: KETOROLAC TROMETHAMINE 15 MG/ML VIAL IV PRN (18:57)
--- NOTE | 2022-11-01 20:47 | Hospitalist Progress Note ---
Date of Service November 01, 2022 Assessment & Plan (1) Anemia: Plan: Follow-up of B12 and folic acid shows adequate range for each and so long as she is resuming enteral feedings adequately in the near future, should not need supplementation. If there is going to be some delay that may want to consider intravenous folic acid temporarily until she is eating once again. Preoperative iron studies showed a low percent saturation but elevated ferritin, the latter potentially an acute phase reactant. She lost 500 mL of blood at time of surgery and is probably iron depleted if not frankly deficient. Would consider giving Venofer 200 mg given every other day x3 doses Plan See full consult from earlier today regarding overall recommendations In follow-up to recommendations for anemia, B12 and folic acid are currently at good levels though may need to consider giving intravenous folic acid if not restoring enteral nutrition in the near future Likely iron deficient, consider cumulative Venofer 600 mg given is three 200 mg doses every other day for 3 doses Admission and Anticipated Discharge Date Admission Date: October 27, 2022 Subjective Quick follow-up lab check supplementing earlier full consultation Results & Data Results & Data Vital Signs (Past 12 Hours) Vital Signs Temp Pulse Resp BP Pulse Ox O2 Del Method 11/01/22 16:30 36.7 C 85 18 143/95 H 95 Room Air 11/01/22 09:00 36.7 C 85 16 137/87 96 Room Air Laboratory Results Abnormal lab results 11/01/22 11/01/22 11/01/22 Range/Units 06:37 06:41 06:41 RBC 3.17 L (4.20-5.40) M/uL Hgb 8.0 L (12.0-16.0) g/dl Hct 24.7 L (37.0-47.0) % MCV 77.9 L (80.0-100.0) fL RDW Coeff of Marcie 15.8 H (11.5-14.5) % Neut # (Auto) 6.87 H (1.40-6.50) K/uL Lymph # (Auto) 1.08 L (1.2-3.4) K/uL Hale # (Auto) 1.06 H (0.11-0.59) K/uL Sodium 133 L (136-145) mmol/L Chloride 97 L (98-107) mmol/L Creatinine 1.47 H (0.6-1.2) mg/dl Vitamin B12 923 H (180-914) pg/ml PG Care Time/CCT Total # of Minutes Spent Total Time Spent with Patient: Total time spent is greater than 50% in coordination of care (as documented) at patient's floor/unit and/or counseling patient: Coding Level of Care Code None Diagnoses Anemia D64.9
[2022-11-01] MEDS: HEPARIN SOD 5,000 UNIT/0.5 ML VIAL SQ SCH (23:10)
[2022-11-02] MEDS: LACTATED RINGER'S 1,000 ML IV SCH (05:39)
[2022-11-02 05:56] LABS: Basophils # (auto) 0.05 K/uL (0-0.2); Basophils % (auto) 0.6 %; Eosinophils # (auto) 0.26 K/uL (0-0.50); Eosinophils % (auto) 2.9 %; Hematocrit (blood only) 23.8 % (37.0-47.0); Hemoglobin 7.6 g/dl (12.0-16.0); Immature Granulocytes # (auto) 0.05 K/uL (0.01-0.20); Immature Granulocytes % (auto) 0.6 %; Lymphocytes # (auto) 1.22 K/uL (1.2-3.4); Lymphocytes % (auto) 13.8 %; Mean Corpuscular Hemoglobin 25.1 pg (25.0-34.0); Mean Corpuscular Hgb Conc 31.9 g/dL (32.0-36.0); Mean Corpuscular Volume 78.5 fL (80.0-100.0); Mean Platelet Volume 9.8 fL (9.4-12.4); Monocytes # (auto) 1.02 K/uL (0.11-0.59); Monocytes % (auto) 11.6 %; Neutrophils # (auto) 6.22 K/uL (1.40-6.50); Neutrophils % (auto) 70.5 %; Platelet Count 392 K/uL (130-400); RDW Coefficient of Variation 15.7 % (11.5-14.5); RDW Standard Deviation 44.3 fL (36.4-46.3); Red Blood Count 3.03 M/uL (4.20-5.40); White Blood Count 8.82 K/ul (4.8-10.8)
[2022-11-02 06:09] LABS: BUN Creatinine Ratio 16.4 (10-20); Calcium 8.9 mg/dl (8.6-10.3); Creatinine Clr Calc Pharmacy 29.5 ml/min; Est GFR (African American) 46.5 ml/min; Est GFR (Non-African American) 40.1 ml/min; Potassium 4.1 mmol/L (3.5-5.1)
[2022-11-02 06:14] LABS: Ovalocytes 1+
[2022-11-02] MEDS ORDERED: SODIUM CHLORIDE 0.9% 250 ML IV PRN (07:47)
--- NOTE | 2022-11-02 07:53 | Surgery Progress Note ---
Date of Service November 02, 2022 Assessment & Plan (1) Abdominal pain: Plan: KUB yesterday and showed gas in the colon no small bowel distention gas was evident proximal rectum At this point we will transfuse 1 unit of blood her hemoglobin is less than 8 this morning and daily which she gets around she gets lightheaded Overall she is much better hydrated looks much better than yesterday we will start her on full liquid diet cut back her IV fluid We will leave Sourav drain in for another day Admission and Anticipated Discharge Date Admission Date: October 27, 2022 Subjective Feels much better this morning passing flatus and had a bowel movement this morning liquid When she gets up she gets slightly lightheaded Denies any nausea although she does not feel hungry Physical Exam Physical Exam: Alert coherent without any complaints Tongue moist Abdomen soft minimally distended Sourav drainage serous slightly sanguinous Extremity no pedal Results & Data Vital Signs (Past 12 Hours) Vital Signs Temp Pulse Resp BP Pulse Ox O2 Del Method 11/01/22 23:15 37.1 C 99 H 18 151/86 H 94 Room Air Laboratory Results Noted
[2022-11-02] MEDS: HEPARIN SOD 5,000 UNIT/0.5 ML VIAL SQ SCH ×2 (08:43→21:14)
[2022-11-02] MEDS: LISINOPRIL/HCTZ 20/12.5MG 1 TAB TAB PO SCH (08:43)
--- NOTE | 2022-11-02 09:41 | Obstetrical Progress Note ---
Date of Service November 02, 2022 Assessment & Plan Admission and Anticipated Discharge Date Admission Date: October 27, 2022 Subjective abdomen soft and non tender incision is clean and dry passing flatus no calf tenderness slow steady progress hgb 7.6 Results & Data Vital Signs (Past 12 Hours) Vital Signs Temp Pulse Resp BP Pulse Ox O2 Del Method 11/02/22 07:30 37 C 80 16 154/104 H 97 Room Air 11/01/22 23:15 37.1 C 99 H 18 151/86 H 94 Room Air
[2022-11-03] MEDS ORDERED: MELATONIN 3 MG TAB PO PRN (02:04)
[2022-11-03 05:48] LABS: Basophils # (auto) 0.05 K/uL (0-0.2); Basophils % (auto) 0.6 %; Eosinophils % (auto) 3.6 %; Hematocrit (blood only) 28.7 % (37.0-47.0); Hemoglobin 9.2 g/dl (12.0-16.0); Immature Granulocytes # (auto) 0.04 K/uL (0.01-0.20); Immature Granulocytes % (auto) 0.5 %; Lymphocytes # (auto) 1.44 K/uL (1.2-3.4); Lymphocytes % (auto) 17.4 %; Mean Corpuscular Hemoglobin 25.4 pg (25.0-34.0); Mean Corpuscular Hgb Conc 32.1 g/dL (32.0-36.0); Mean Corpuscular Volume 79.3 fL (80.0-100.0); Mean Platelet Volume 9.4 fL (9.4-12.4); Monocytes # (auto) 0.89 K/uL (0.11-0.59); Monocytes % (auto) 10.8 %; Neutrophils # (auto) 5.55 K/uL (1.40-6.50); Neutrophils % (auto) 67.1 %; Platelet Count 347 K/uL (130-400); RDW Coefficient of Variation 16.2 % (11.5-14.5); RDW Standard Deviation 46.3 fL (36.4-46.3); Red Blood Count 3.62 M/uL (4.20-5.40); White Blood Count 8.27 K/ul (4.8-10.8)
[2022-11-03 06:00] LABS: BUN Creatinine Ratio 12.9 (10-20); Calcium 8.5 mg/dl (8.6-10.3); Creatinine Clr Calc Pharmacy 35.6 ml/min; Est GFR (African American) 58.4 ml/min; Est GFR (Non-African American) 50.4 ml/min; Potassium 3.7 mmol/L (3.5-5.1)
--- NOTE | 2022-11-03 06:31 | Surgery Progress Note ---
Date of Service November 03, 2022 Assessment & Plan (1) Ovarian cancer: Plan: 7-day postop bilateral oophorectomy supracervical hysterectomy repair sigmoid enterotomy Sourav drain removed Plan Patient is doing well from general point of view the patient could be discharged Follow-up with Dr. York no need to follow-up with general surgery unless new issues arise Admission and Anticipated Discharge Date Admission Date: October 27, 2022 Subjective Had a good day yesterday she was able to get around without any lightheadedness after the transfusion Not having any abdominal discomfort or any nausea She had been on liquids would like to have more to eat Physical Exam Physical Exam: Alert coherent without any issues The abdomen is completely benign the incision healing well without any cellulit is or drainage on the staple line Sourav drainage serous slightly sanguinous less sanguinous amount noted decreased No pedal edema Results & Data Vital Signs (Past 12 Hours) Vital Signs Temp Pulse Resp BP BP Pulse Ox O2 Del Method 11/03/22 03:30 37.0 C 85 18 156/94 H 96 Room Air 11/02/22 23:20 37.4 C 86 16 129/79 97 Room Air 11/02/22 19:40 37.1 C 83 16 137/90 96 Room Air Laboratory Results Hemoglobin this morning is 9.2 Creatinine decreasing 1.01
[2022-11-03] MEDS: HEPARIN SOD 5,000 UNIT/0.5 ML VIAL SQ SCH (09:12)
[2022-11-03] MEDS: LISINOPRIL/HCTZ 20/12.5MG 1 TAB TAB PO SCH (09:13)
--- NOTE | 2022-11-03 09:14 | Obstetrical Progress Note ---
Date of Service November 03, 2022 Assessment & Plan Admission and Anticipated Discharge Date Admission Date: October 27, 2022 Subjective abdomen soft and non tender incision is clean and dry drians removed no calf tenderness ambulating well tolerating diet hgb 9.2 Results & Data Vital Signs (Past 12 Hours) Vital Signs Temp Pulse Resp BP BP Pulse Ox O2 Del Method 11/03/22 07:25 37.1 C 80 18 141/84 H 97 Room Air 11/03/22 03:30 37.0 C 85 18 156/94 H 96 Room Air 11/02/22 23:20 37.4 C 86 16 129/79 97 Room Air
--- NOTE | 2022-11-03 09:50 | Discharge Summary (DS) ---
DATE OF ADMISSION: 10/27/2022. DATE OF DISCHARGE: 11/03/2022. HOSPITAL COURSE: She is an 86-year-old that was admitted in severe abdominal pain. She had a large pelvic mass, high probability of malignancy, but not definitively. She attempted to get in with a [facility] ASSISTANT oncologist, but earliest appointment available was sometime in December, so I agreed to do her surgery a long with Dr. Haney. When she was admitted, her hemoglobin was 9.2, hematocrit was 28.2. As pr eviously stated, she was in a lot of pelvic pain. She was able to just barely able to ambulate aroun d the house holding on to one piece of furniture to another due to her pain and in retrospect probabl y partially malnutrition. On the day of admission, she was given prophylactic antibiotics. She was taken to the OR. She was operated on through a midline incision. She was found to have a large ovar abril tumor, right-sided ovarian tumor, which was fixed in the pelvis and which was basically obstructi ng the sigmoid. We did a lot of dissection, lot of blunt and sharp dissection. Eventually, got the blood supply to both of the ovaries and had to free up bluntly the tumor from the pelvis, in the proc ess of which we made a tear in the sigmoid. Eventually, removed all the gross tumor and we did a supr acervical hysterectomy, removing the left ovary, which was normal and the fundus. The sigmoid was re paired in 2 layers. We then palpated the entire abdomen and ran the bowel. There was maybe 1 small met to the mesentery. There were not as many peritoneal metastasis as we usually see in ovarian cance r. Also, the omentum was free. There was no metastasis to the omentum; however, palpation revealed that the periaortic nodes were grossly positive. Postoperatively, the patient had a decent postopera tive course considering her age and condition. She required a unit of blood at the time of surgery a nd she also had a unit postoperatively. We placed an abdominal drain. Postoperatively, the patient struggled with some ileus, which resolved slowly, but steadily with time. She had difficulty taking a nything by mouth, but as her bowels returned, this also improved. At the time of discharge, she had b een afebrile throughout her whole hospital stay. It should be noted she also received Mefoxin for ab out 2 days postoperatively and also at the time of discharge, she was ambulating well, she was tolera ting a regular diet and the patient's condition was markedly improved from her condition on admission . Her care was also provided by hospitalist for several days by Dr. Haney. She had home health services do a consult on her and a consult with oncology was done too before she left the hospital. She was given the usual postop instructions and told to return to the office in a week for removal of anna. Job ID: [id number]
== END 2022-11-03 13:20 | disposition home health service (06) | DRG 737 ==
LOC: ASU 08:51 → 4E1 15:07

== ENCOUNTER 2022-12-02 18:22 | Inpatient (IN) ==
--- NOTE | 2022-12-02 18:52 | XRay Report ---
SINGLE VIEW CHEST CLINICAL HISTORY: Atypical chest pain. Dyspnea FINDINGS: An AP, portable, upright chest radiograph is compared to study dated 10/26/2022. The cardiom ediastinal silhouette is unremarkable noting atherosclerotic calcification of the thoracic aorta. The re is a moderate left pleural effusion with consolidation of the left lower lung. The right lung appe ars clear. No pneumothorax is seen. The skeletal structures are osteopenic. The bony thorax is grossl y intact. IMPRESSION: 1. Moderate left pleural effusion with consolidation of the left lower lung. 2. The right lung appears clear. ACT 112: Negative or not required by law. Electronically signed by: Keshav Ellis M.D. 12/02/2022 6:50 PM
--- NOTE | 2022-12-02 18:55 | Emergency Department Note ---
Impression & Plan Pleural effusion, Shortness of breath ED Provider Note NAME: BALBINA ROUSE AGE: 87 SEX: F : 1935 ARRIVES VIA: Ambulance INFORMANT: Patient, Family ED PROVIDER(S): Bigg Junior DO CHIEF COMPLAINT: Shortness of breath HPI: Patient is an 87-year-old female with a past medical history of hypertensive urgency, ascites, ovarian cancer, pleural effusion who presents to the ER for shortness of breath. She notes her symptoms started over the past 2 days. She has been getting some intermittent chest heaviness today. She was brought in by EMS. She notes she walked a short distance and became significantly dyspneic. Family members at bedside noted that she could not even talk. She was placed on nasal cannula given aspirin and nitro and her chest pain resolved. She notes she has had a pleurocentesis previously due to her shortness of breath. Denies any dysuria, urgency, or frequency. No other exacerbating or remitting factors. She has not started chemo yet. PAST MEDICAL HISTORY:See Below PAST SURGICAL HISTORY:See Below FAMILY HISTORY:See Below SOCIAL HISTORY:See Below HOME MEDICATIONS:See Below ALLERGIES:See Below VITALS:See Below PHYSICAL EXAMINATION: GENERAL: Sitting up in bed, alert, chronically ill-appearing, disheveled EYE EXAM: normal conjunctiva. OROPHARYNX: no exudate, no erythema, lips, buccal mucosa, and tongue normal and mucous membranes are moist NECK: supple, no nuchal rigidity, no adenopathy, non-tender LUNGS: Diminished on the left and clear on the right. Normal chest wall mechanics HEART: no murmurs, S1 normal and S2 normal ABDOMEN: abdomen soft, non-tender, normo-active bowel sounds, no masses, no rebound or guarding. Old midline incision UPPER EXTREMITIES: upper extremities are grossly normal. LOWER EXTREMITIES: No pitting edema. NEURO EXAM: Normal sensorium, cranial nerves II-XII grossly intact, normal speech, no gross weakness of arms, no gross weakness of legs. MEDICAL DECISION MAKING: Patient is an 87-year-old female who presents to the ER for the above-stated complaint. IV was established blood work is obtained. External records reviewed. Labs show no significant leukocytosis. Mild anemia at 9 fairly consistent with previous. CMP along with LFTs bilirubin and lipase is unremarkable. Troponin was negative. COVID was negative. Chest x-ray was remarkable for moderate left-sided pleural effusion which I do favor is likely cause of the shortness of breath. EKG nondiagnostic. Patient was updated bedside discussed with the hospitalist for further evaluation and management. She also had chest pain prior to arrival which was really relieved with nitro and she was also given aspirin by EMS. Triage Nursing notes reviewed. Limited review of prior medical records performed Vital Signs: reviewed and remarkable for tachy Differential diagnosis: Differential diagnoses includes but is not limited to pneumonia, bronchitis, COPD/Asthma exacerbation, pneumothorax, pulmonary embolism, congestive heart failure, acute coronary syndrome ER treatment provided: See below Diagnostics interpreted by me include EKG and cardiac monitoring as listed below: -Cardiac Monitoring: An order was placed for continuous cardiac monitoring. The monitor shows a rate of 101 with sinus rhythm. -ECG: Sinus rhythm rate of 105 Left axis No PVCs QTc 454 -Laboratory studies:Interpreted by me as stated above in MDM and shown below. Imaging studies: Xrays: As interpreted by me: Portable AP upright 1 view of the chest shows left pleural effusion significant worsened from previous CTs show: none Consultation(s): As described in MDM Procedures:none Critical Care: None Past Med/Surg History Medical History (Updated 12/03/22 @ 00:13 by Bigg Junior DO) Chest discomfort RECENT OCCURENCE - LEFT SIDE / NO OTHER S/S . WALKED AROUND & DISCOMFORT RESOLVED ON OWN - PT REPORTS THINKS IT WAS DUE TO GAS. HOME HEALTH NURSE WAS HERE AND PT REPORTS SHE AGREED TO THINKING IT WAS GAS RELATED. NURSE TOOK BP AND PT REPORTS BP WAS LOW ? 101/79 - PT DOESN'T REMEMBER EXACT BP. NO RE-OCCURENCE. EDUCATION PROVIDED-per PAT shoe folder call Chronic renal failure (CRF), stage 3b Constipation Depression Dry eye syndrome Heartburn RESOLVED WITH MEDICATION. History of colon polyps Hyperlipidemia Hypertension RECENT D/C OF BP MED/TODAY IS FIRST DAY OF NOT TAKING (LISINOPRIL HCTZ) Microcytic anemia Ovarian cancer RECENT DX/REASON FOR UPCOMING PROCEDURE. Pleural effusion - recently, treated at [facility] - s/p diagnostic and therapeutic ultrasound-guided catheter thoracentesis 10/18/22 - 10/18/22 CXR showed small residual left pleural effusion - no physical limitation per PAT nursing assessment Poor appetite Severe protein-calorie malnutrition Surgical History History of bilateral tubal ligation History of breast biopsy benign History of cataract surgery bilateral History of colonoscopy History of dilatation and curettage History of esophagogastroduodenoscopy (EGD) History of surgery OCTOBER 2022. EMERGENCY SX FOR OVARIAN TUMOR. DX CANCER. Hx of cholecystectomy Hx of elbow surgery right elbow tendon repair. Hx of umbilical hernia repair Family History Mother Myocardial infarction Breast cancer Grandmother Family history of diabetes mellitus Aunt Family history of diabetes mellitus Daughter Family history of diabetes mellitus Other No family history of adverse response to anesthesia Denies family history of Ovarian cancer Prostate cancer Colorectal cancer Social History Smoking Status: Never smoker Second Hand Exposure: No; Do You Dip or Chew Tobacco: No; Hx Alcohol Use: No Hx Substance Use: No Preferred Language: Sinhala Communication Ability: Effective Visual Impairment: Limited Hearing Ability: Normal Compliance Officer Required: No Beliefs That Will Affect Care: None marital status: Current Living Situation: Alone Current Living Situation Comment: DAUGHTER IS STAYING WITH ME SINCE CLAYTON BEEN SICK. current occupational status: retired How many Children do You have: 4 Other Information That Helps Us Care for You: No Feels Safe at Home: Yes Safety Concerns: Feels Safe At This Time Childhood Exposure to Second-Hand Smoke: No Diet: regular caffeine: No during the past year weight has: remained stable Dental Care, Regularly: No Physical Activity Frequency: Does not Exercise Seatbelt Use: always Sunscreen Use: No Do you think of yourself as: straight/heterosexual Gender Identity: Female Assistive Devices: Cane, Denture - Upper, Denture - Lower and Glasses Allergies Allergies Allergy/AdvReac Type Severity Reaction Status Date / Time propoxyphene Allergy Unknown left side Verified 12/02/22 20:24 numbness & tingling doxycycline AdvReac Unknown Nausea Verified 12/02/22 20:24 Sulfa (Sulfonamide AdvReac Unknown nausea Verified 12/02/22 20:24 Antibiotics) Home Meds Home Medications Medication Instructions Recorded Confirmed coenzyme Q10 100 mg capsule 200 mg PO QAM 10/12/20 12/02/22 cholecalciferol (vitamin D3) 50 50 mcg PO QAM 04/13/22 12/02/22 mcg (2,000 unit) capsule acetaminophen 500 mg tablet 1,000 mg PO BID PRN Pain 10/26/22 12/02/22 docusate sodium 100 mg capsule 100 mg PO QA 11/30/22 12/02/22 omeprazole 20 mg capsule,delayed 20 mg PO QA 11/30/22 12/02/22 release trazodone 50 mg tablet 50 mg PO HS 11/30/22 12/02/22 Previous Rx's Medication Instructions Recorded ondansetron 4 mg disintegrating 4 mg translingual Q8H PRN nausea 11/29/22 tablet and vomiting 24 hours #30 tabs Results & Data (ED) Vital Signs Vital Signs - 24 hr 12/02/22 18:28 12/02/22 18:28 12/02/22 18:28 Temperature Temperature Source Pulse Rate 106 H Pulse Rate [Apical] Pulse Rate from SpO2 Sensor Pulse Rhythm Regular Pulse Strength Respiratory Rate 25 H Respiratory Effort / Characteristics Non-Labored Spontaneous Respiratory Depth Normal Respiratory Pattern Tachypnea Blood Pressure Blood Pressure [Right Arm] Blood Pressure Mean Blood Pressure Mean [Right Arm] Blood Pressure Position Pulse Oximetry 99 99 Oxygen Delivery Method Nasal Cannula Nasal Cannula Nasal Cannula Oxygen Flow Rate 4 4 4 Sepsis Recent Fever Within 48 Hours Sepsis New/Unexplained Change in Mental Status Sepsis Action Taken by Nursing 12/02/22 18:36 12/02/22 18:51 12/02/22 18:33 Temperature 37.6 C H Temperature Source Oral Pulse Rate 106 H 106 H 103 H Pulse Rate [Apical] Pulse Rate from SpO2 Sensor Pulse Rhythm Regular Regular Pulse Strength Normal Respiratory Rate 25 H 25 H Respiratory Effort / Characteristics Non-Labored Spontaneous Respiratory Depth Normal Respiratory Pattern Regular Blood Pressure 149/94 H Blood Pressure [Right Arm] Blood Pressure Mean 112 Blood Pressure Mean [Right Arm] Blood Pressure Position Lying Pulse Oximetry 99 99 Oxygen Delivery Method Nasal Cannula Nasal Cannula Oxygen Flow Rate 4 4 Sepsis Recent Fever Within 48 Hours No Sepsis New/Unexplained Change in Mental Status N/A Sepsis Action Taken by Nursing No Action Required 12/02/22 18:32 12/02/22 18:33 12/02/22 18:40 Temperature Temperature Source Pulse Rate 103 H 101 H Pulse Rate [Apical] Pulse Rate from SpO2 Sensor 104 H 100 H Pulse Rhythm Pulse Strength Respiratory Rate 28 H 26 H Respiratory Effort / Characteristics Respiratory Depth Respiratory Pattern Blood Pressure 149/94 H Blood Pressure [Right Arm] Blood Pressure Mean 104 Blood Pressure Mean [Right Arm] Blood Pressure Position Pulse Oximetry 99 98 Oxygen Delivery Method Oxygen Flow Rate Sepsis Recent Fever Within 48 Hours Sepsis New/Unexplained Change in Mental Status Sepsis Action Taken by Nursing 12/02/22 18:50 12/02/22 20:41 12/02/22 21:35 Temperature Temperature Source Pulse Rate 104 H Pulse Rate [Apical] 93 H 93 H Pulse Rate from SpO2 Sensor 103 H Pulse Rhythm Pulse Strength Respiratory Rate 20 18 18 Respiratory Effort / Characteristics Non-Labored Respiratory Depth Normal Respiratory Pattern Blood Pressure Blood Pressure [Right Arm] 153/87 H Blood Pressure Mean Blood Pressure Mean [Right Arm] 109 Blood Pressure Position Pulse Oximetry 94 99 97 Oxygen Delivery Method Room Air Nasal Cannula Oxygen Flow Rate Sepsis Recent Fever Within 48 Hours Sepsis New/Unexplained Change in Mental Status Sepsis Action Taken by Nursing Laboratory Data 12/02/22 19:27 12/02/22 19:27 Lab Results 12/02/22 12/02/22 12/02/22 Range/Units 19:27 19:27 20:13 WBC 8.89 (4.8-10.8) K/ul RBC 3.60 L (4.20-5.40) M/uL Hgb 9.0 L (12.0-16.0) g/dl Hct 28.2 L (37.0-47.0) % MCV 78.3 L (80.0-100.0) fL MCH 25.0 (25.0-34.0) pg MCHC 31.9 L (32.0-36.0) g/dL RDW Std Deviation 48.7 H (36.4-46.3) fL RDW Coeff of Marcie 17.2 H (11.5-14.5) % Plt Count 311 (130-400) K/uL MPV 10.7 (9.4-12.4) fL Immature Gran % (Auto) 0.2 % Neut % (Auto) 72.1 % Lymph % (Auto) 12.1 % Waldo % (Auto) 14.1 % Eos % (Auto) 1.1 % Baso % (Auto) 0.4 % Neut # (Auto) 6.40 (1.40-6.50) K/uL Lymph # (Auto) 1.08 L (1.2-3.4) K/uL Waldo # (Auto) 1.25 H (0.11-0.59) K/uL Eos # (Auto) 0.10 (0-0.50) K/uL Baso # (Auto) 0.04 (0-0.2) K/uL Immature Gran # (Auto) 0.02 (0.01-0.20) K/uL Sodium 134 L (136-145) mmol/L Potassium 4.3 (3.5-5.1) mmol/L Chloride 101 (98-107) mmol/L Carbon Dioxide 23 (21-32) mmol/L Anion Gap 10 (3-11) BUN 29 H (6-23) mg/dl Creatinine 1.15 (0.6-1.2) mg/dl Est Cr Clr Drug Dosing 26.0 ml/min Est GFR ( Amer) 49.5 ml/min Est GFR (Non-Af Amer) 42.7 ml/min BUN/Creatinine Ratio 25.2 H (10-20) Glucose 91 (70-99(Fasting)) mg/dl Calcium 9.2 (8.6-10.3) mg/dl Total Bilirubin 0.3 (0.2-1.0) mg/dl AST 19 (13-39) U/L ALT 12 (7-52) U/L Alkaline Phosphatase 77 (34-104) U/L Troponin I High Sens 9.0 (0-14) pg/ml Total Protein 7.1 (6.0-8.3) gm/dl Albumin 3.3 L (3.4-5.0) gm/dl Globulin 3.8 (2.5-4.0) gm/dl Albumin/Globulin Ratio 0.9 (0.9-2) Lipase 32 (11-82) U/L SARS-CoV-2, RNA, NAAT NEGATIVE (NEGATIVE) Administered Medications Heparin Sodium (Porcine) (Heparin Sod 5,000 Unit/0.5 Ml Vial) 5,000 units SQ Q12 SOHAIL Stop: 01/02/23 08:59 Last Admin: 12/02/22 23:44 Dose: 5,000 units Documented By: BCM Polyethylene Glycol (Polyethylene (Miralax) 17 Gm Pack) 17 gm PO DAILY PRN PRN Reason: Constipation Stop: 01/01/23 22:50 Last Admin: 12/02/22 23:44 Dose: 17 gm Documented By: CARLA Trazodone HCl (Trazodone Hcl 50 Mg Tab) 50 mg PO HS SOHAIL Stop: 01/02/23 20:59 Last Admin: 12/02/22 23:59 Dose: 50 mg Documented By: CARLA Imaging Data Radiologist's Impression: Chest X-Ray 12/02/22 18:36 SINGLE VIEW CHEST CLINICAL HISTORY: Atypical chest pain. Dyspnea FINDINGS: An AP, portable, upright chest radiograph is compared to study dated 10/26/2022. The cardiomediastinal silhouette is unremarkable noting ath erosclerotic calcification of the thoracic aorta. There is a moderate left pleural effusion with consolidation of the left lower lung. The right lung appears clear. No pneumothorax is seen. The skeletal structures are osteopenic. The bony thorax is grossly intact. IMPRESSION: 1. Moderate left pleural effusion with consolidation of the left lower lung. 2. The right lung appears clear. ACT 112: Negative or not required by law. Electronically signed by: Keshav Ellis M.D. 12/02/2022 6:50 PM Discharge Plan Visit Data Chief Complaint: Shortness of Breath/Dyspnea Stated Complaint: SHORTNESS OF BREATH ED Provider: Bigg Junior Discharge Problem: Pleural effusion, Shortness of breath Patient Disposition: Admitted As Inpatient Discharge Instructions Interventions: ED Discharge Assessment Last Done: 12/02/22 22:24
[2022-12-02 19:54] LABS: Basophils # (auto) 0.04 K/uL (0-0.2); Basophils % (auto) 0.4 %; Eosinophils % (auto) 1.1 %; Hematocrit (blood only) 28.2 % (37.0-47.0); Immature Granulocytes # (auto) 0.02 K/uL (0.01-0.20); Immature Granulocytes % (auto) 0.2 %; Lymphocytes # (auto) 1.08 K/uL (1.2-3.4); Lymphocytes % (auto) 12.1 %; Mean Corpuscular Hgb Conc 31.9 g/dL (32.0-36.0); Mean Corpuscular Volume 78.3 fL (80.0-100.0); Mean Platelet Volume 10.7 fL (9.4-12.4); Monocytes # (auto) 1.25 K/uL (0.11-0.59); Monocytes % (auto) 14.1 %; Neutrophils % (auto) 72.1 %; Platelet Count 311 K/uL (130-400); RDW Coefficient of Variation 17.2 % (11.5-14.5); RDW Standard Deviation 48.7 fL (36.4-46.3); White Blood Count 8.89 K/ul (4.8-10.8)
[2022-12-02 20:09] LABS: Albumin Globulin Ratio 0.9 (0.9-2); Albumin Level 3.3 gm/dl (3.4-5.0); BUN Creatinine Ratio 25.2 (10-20); Bilirubin,Total 0.3 mg/dl (0.2-1.0); Calcium 9.2 mg/dl (8.6-10.3); Est GFR (African American) 49.5 ml/min; Est GFR (Non-African American) 42.7 ml/min; Globulin 3.8 gm/dl (2.5-4.0); Potassium 4.3 mmol/L (3.5-5.1); Total Protein 7.1 gm/dl (6.0-8.3)
--- NOTE | 2022-12-02 22:26 | History & Physical Report ---
Resident Physician Supervision Note: I discussed the case with the resident and agree with the findings and plan as documented in the note. Documented By: Speedy Mina MD Date of Service December 02, 2022 Assessment & Plan (1) Dyspnea: Plan: Patient is an 87-year-old female with past medical history of ovarian cancer currently waiting to get port placement and chemotherapy who presents to the hospital for evaluation of dyspnea. Work-up is revealing reappearance and worsening of left pleural effusion. Patient is currently doing well and is hemodynamically stable. -Admit to [facility] with telemetry due to low risk chest pain -Dyspnea secondary to left pleural effusion -Consult pulmonology for thoracocentesis in a.m., appreciate recommendations -Patient currently only requiring nasal cannula for comfort and not hypoxia -Supplemental oxygen as needed -Incentive spirometry (2) Chest pain: Plan: -Suspect secondary to pleural effusion -Troponin negative and without chest pain currently -Pain is repeatable with deep breathing -Treatment as above (3) Ovarian cancer: Plan: -Recent diagnosis in October 2022 -Per most recent oncology notes, patient is a candidate for port placement and chemotherapy -Recommend discussing case with Dr. Hathaway, her oncologist and see if she can get the port placed inpatient -If so, consult general surgery (4) Aortic heart murmur: Plan: -Noted on previous exams, likely aortic stenosis -Last echo in May 2022 did not show gianfranco stenosis of the aortic valve however -Echocardiogram in morning given worsening pleural effusion (5) Chronic renal failure (CRF), stage 3b: Plan: - Renally dose medications (6) Insomnia: Plan: - Continue trazodone (7) GERD (gastroesophageal reflux disease): Plan: - Continue PPI (8) Severe protein-calorie malnutrition: Plan: - Consult dietitian Plan Diet: Heart healthy, low-sodium DVT prophylaxis: Heparin CODE STATUS: DNR/DNI Disposition: Admit to [facility] with telemetry for thoracentesis in a.m. History of Present Illness Chief Complaint: Dyspnea Primary Care Provider: JEAN Pelayo Patient is an 87-year-old female with past medical history of ovarian cancer currently waiting to get port placement and chemotherapy who presents to the hospital for evaluation of dyspnea. Patient reports that this is progressively been getting worse over the past 2 days. Has been accompanied by recent chest pain this evening. For this reason, EMS was contacted and she was brought to the hospital. On route she was placed on nasal cannula and given aspirin and nitro which seemed to relieve her chest pain. She had previously had a pleural effusion on 10/18/2022 that required thoracocentesis. In the hospital, patient was evaluated and had a chest x-ray which had revealed worsening pleural effusion of the left lung consuming 50% of the volume. Patient was placed on nasal cannula for comfort and is otherwise currently asymptomatic. When discussing with the patient in regards to her current cancer, she has seen Dr. Hanley, her oncologist for recommendations regarding chemotherapy. Patient reports that she is to move forward with chemotherapy and eventually have a port placed per note by Dr. Hathaway. Otherwise currently doing well and has no other complaints at this time. Allergies Allergy/AdvReac Type Severity Reaction Status Date / Time propoxyphene Allergy Unknown left side Verified 12/02/22 20:24 numbness & tingling doxycycline AdvReac Unknown Nausea Verified 12/02/22 20:24 Sulfa (Sulfonamide AdvReac Unknown nausea Verified 12/02/22 20:24 Antibiotics) Home Medications Medication Instructions Recorded Confirmed Type coenzyme Q10 100 mg capsule 200 mg PO QAM 10/12/20 12/02/22 History cholecalciferol (vitamin D3) 50 50 mcg PO QAM 04/13/22 12/02/22 History mcg (2,000 unit) capsule acetaminophen 500 mg tablet 1,000 mg PO BID PRN Pain 10/26/22 12/02/22 History ondansetron 4 mg disintegrating 4 mg translingual Q8H PRN nausea 11/29/22 12/02/22 Rx tablet and vomiting 24 hours #30 tabs docusate sodium 100 mg capsule 100 mg PO QAM 11/30/22 12/02/22 History omeprazole 20 mg capsule,delayed 20 mg PO QAM 11/30/22 12/02/22 History release trazodone 50 mg tablet 50 mg PO HS 11/30/22 12/02/22 History Past Med/Surg History Medical History (Updated 12/02/22 @ 22:23 by Amado Renee DO) Chest discomfort RECENT OCCURENCE - LEFT SIDE / NO OTHER S/S . WALKED AROUND & DISCOMFORT RESOLVED ON OWN - PT REPORTS THINKS IT WAS DUE TO GAS. HOME HEALTH NURSE WAS HERE AND PT REPORTS SHE AGREED TO THINKING IT WAS GAS RELATED. NURSE TOOK BP AND PT REPORTS BP WAS LOW ? 101/79 - PT DOESN'T REMEMBER EXACT BP. NO RE-OCCURENCE. EDUCATION PROVIDED-per PAT shift supervisor rn call Chronic renal failure (CRF), stage 3b Constipation Depression Dry eye syndrome Heartburn RESOLVED WITH MEDICATION. History of colon polyps Hyperlipidemia Hypertension RECENT D/C OF BP MED/TODAY IS FIRST DAY OF NOT TAKING (LISINOPRIL HCTZ) Microcytic anemia Ovarian cancer RECENT DX/REASON FOR UPCOMING PROCEDURE. Pleural effusion - recently, treated at [facility] - s/p diagnostic and therapeutic ultrasound-guided catheter thoracentesis 10/18/22 - 10/18/22 CXR showed small residual left pleural effusion - no physical limitation per PAT nursing assessment Poor appetite Severe protein-calorie malnutrition Surgical History History of bilateral tubal ligation History of breast biopsy benign History of cataract surgery bilateral History of colonoscopy History of dilatation and curettage History of esophagogastroduodenoscopy (EGD) History of surgery OCTOBER 2022. EMERGENCY SX FOR OVARIAN TUMOR. DX CANCER. Hx of cholecystectomy Hx of elbow surgery right elbow tendon repair. Hx of umbilical hernia repair Family History Mother Myocardial infarction Breast cancer Grandmother Family history of diabetes mellitus Aunt Family history of diabetes mellitus Daughter Family history of diabetes mellitus Other No family history of adverse response to anesthesia Denies family history of Ovarian cancer Prostate cancer Colorectal cancer Social History Smoking Status: Never smoker Second Hand Exposure: No; Do You Dip or Chew Tobacco: No; Hx Alcohol Use: No Hx Substance Use: No Preferred Language: Nicaraguan Communication Ability: Effective Visual Impairment: Limited Hearing Ability: Normal 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 current occupational status: retired How many Children do You have: 4 Feels Safe at Home: Yes Childhood Exposure to Second-Hand Smoke: No Diet: regular caffeine: No during the past year weight has: remained stable Dental Care, Regularly: No Physical Activity Frequency: Does not Exercise Seatbelt Use: always Sunscreen Use: No Do you think of yourself as: straight/heterosexual Gender Identity: Female Assistive Devices: Denture - Upper, Denture - Lower and Glasses Review of Systems Review of Systems: All systems reviewed & are unremarkable except as noted in HPI & below Physical Exam Constitutional: WD/WN, vitals as above Eyes: + anicteric sclerae Neck: trachea midline, no thyromegaly Respiratory: normal respiratory effort Auscultation: + diminished lung josephine nds (Absent breath sounds in the LLL, otherwise CTA) Cardiovascular: Rate/Rhythm: regular rate and regular rhythm Heart Sounds: + murmur (3/6 holosystolic murmur best auscultated at the R 2nd intercostal space.) Vessels: no JVD Extremities: no edema Gastrointestinal (Abdomen): normal bowel sounds, soft, nontender, no hepatosplenomegaly Musculoskeletal: Head/Neck/Chest: normocephalic and head atraumatic Skin: no rashes, warm and dry Neurologic: moves all extremities Psychiatric: A+Ox3, euthymic affect Results & Data Results & Data Vital Signs (Past 12 Hours) Vital Signs Temp Pulse Pulse Resp BP BP Pulse Ox 12/02/22 21:35 93 H 18 97 12/02/22 20:41 93 H 18 153/87 H 99 12/02/22 18:50 104 H 20 94 12/02/22 18:40 101 H 26 H 98 12/02/22 18:33 103 H 28 H 99 12/02/22 18:32 149/94 H 12/02/22 18:33 103 H 12/02/22 18:51 37.6 C H 106 H 25 H 149/94 H 99 12/02/22 18:36 106 H 25 H 99 12/02/22 18:28 99 12/02/22 18:28 12/02/22 18:28 106 H 25 H 99 O2 Del Method O2 Flow Rate 12/02/22 21:35 Nasal Cannula 12/02/22 20:41 Room Air 12/02/22 18:50 12/02/22 18:40 12/02/22 18:33 12/02/22 18:32 12/02/22 18:33 12/02/22 18:51 Nasal Cannula 4 12/02/22 18:36 Nasal Cannula 4 12/02/22 18:28 Nasal Cannula 4 12/02/22 18:28 Nasal Cannula 4 12/02/22 18:28 Nasal Cannula 4 Code Status & VTE Plan VTE Prophylaxis Plan VTE Prophylaxis will be ordered: Yes
[2022-12-02] MEDS ORDERED: ONDANSETRON INJ 2 MG/ML 2 ML VIAL IV PRN (22:51)
[2022-12-02] MEDS ORDERED: ACETAMINOPHEN 325 MG TAB PO PRN (22:51)
[2022-12-02] MEDS: POLYETHYLENE (MIRALAX) 17 GM PACK PO PRN (23:44)
[2022-12-02] MEDS: traZODone HCL 50 MG TAB PO SCH (23:59)
--- NOTE | 2022-12-03 06:40 | Electrocardiogram Report ---
Test Reason : Blood Pressure : / mmHG Vent. Rate : 105 BPM Atrial Rate : 105 BPM P-R Int : 150 ms QRS Dur : 074 ms QT Int : 344 ms P-R-T Axes : 011 -21 004 degrees QTc Int : 454 ms Sinus tachycardia Low voltage QRS Poor R wave progression, consider anterior GA vs. lead placement vs. LVH Abnormal ECG When compared with ECG of 26-OCT-2022 12:13, Nonspecific T wave abnormality now evident in Inferior leads Confirmed by Maxi Allen ([id number]) on 12/03/2022 6:39:55 AM Referred By: REFERRED SELF Confirmed By:Rosendo Allen
[2022-12-03 07:22] LABS: Hematocrit (blood only) 27.6 % (37.0-47.0); Hemoglobin 8.9 g/dl (12.0-16.0); Mean Corpuscular Hgb Conc 32.2 g/dL (32.0-36.0); Mean Corpuscular Volume 77.5 fL (80.0-100.0); Mean Platelet Volume 10.6 fL (9.4-12.4); Platelet Count 291 K/uL (130-400); RDW Coefficient of Variation 17.3 % (11.5-14.5); RDW Standard Deviation 48.9 fL (36.4-46.3); Red Blood Count 3.56 M/uL (4.20-5.40); White Blood Count 7.92 K/ul (4.8-10.8)
[2022-12-03 07:36] LABS: BUN Creatinine Ratio 24.7 (10-20); Calcium 9.4 mg/dl (8.6-10.3); Creatinine Clr Calc Pharmacy 37.2 ml/min; Est GFR (Non-African American) 55.3 ml/min; Magnesium 1.9 mg/dl (1.7-2.4); Potassium 4.3 mmol/L (3.5-5.1)
[2022-12-03 07:46] LABS: INR 1.1 (0.9-1.1); Partial Thromboplastin Ratio 1.2; Partial Thromboplastin Time 33.7 Seconds (21.0-31.0); Prothrombin Time 11.9 Seconds (9.0-12.0)
--- NOTE | 2022-12-03 08:08 | Hospitalist Progress Note ---
Date of Service December 03, 2022 Assessment & Plan (1) Dyspnea: Plan: Marta is an 87-year-old female with past medical history of ovarian cancer currently awaiting port placement and chemotherapy who presented to the hospital for evaluation of dyspnea. Work-up has been revealing for reappearance and worsening of a left-sided pleural effusion. Acute hypoxic respiratory failure L Pleural Effusion in setting of Ovarian Cancer -History of exudative pleural effusion previously requiring thoracentesis in 10/2022 -Suspect majority of her symptoms are secondary to pleural effusion -Dyspnea likely secondary to left pleural effusion; anemia may also be playing a role -Appreciate pulmonology consultation for thoracocentesis -TTE in 05/2022 with LVEF 60-65% and dilated ascending aorta; largely normal --> BNP 65. Low suspicion effusion is d/t CHF especially being unilateral --> Will f/u TTE ordered on admission -If does not resolve or worsens despite anticipated thoracentesis, will consider CTA-Chest to r/o PE -Supplemental oxygen, incentive spirometry Chest Pain -Suspect secondary to pleural effusion; of note, it is reproducible with deep breathing -Troponin negative and without chest pain currently; ECG changes in inferior leads noted -Treat pleural effusion -Consider CTA-Chest above if does not resolve with thoracentesis Ovarian Cancer -Recent diagnosis in October 2022. Per most recent oncology notes, patient is a candidate for port placement and chemotherapy -Will reach out to Dr. Hathaway re: possibly getting port placed while here for chemoRX (scheduled for later this month) if demonstrating continued stability post-thoracentesis Microcytic Anemia - Appreciated since 10/2021 in the setting of malignancy - Suspect some degree of chronic disease - Check iron panel, B12, folate in AM and replete PRN Severe Protein-Calorie Malnutrition -Dietary consult appreciated while here Murmur -Last echo in May 2022 did not show gianfranco stenosis of the aortic valve however +sclerosis -Echocardiogram in morning given worsening pleural effusion CKD Stage III -- baseline Cr 0.9 - 1.1 -Currently at baseline -Renally dose medications, monitor BMP Insomnia -Trazodone GERD -PPI Diet: Heart healthy, low-sodium DVT prophylaxis: Heparin CODE STATUS: DNR/DNI Disposition: MST (2) Chest pain: (3) Ovarian cancer: (4) Aortic heart murmur: (5) Chronic renal failure (CRF), stage 3b: (6) Insomnia: (7) GERD (gastroesophageal reflux disease): (8) Severe protein-calorie malnutrition: Admission and Anticipated Discharge Date Admission Date: December 02, 2022 Supervising Physician Co-Signing Physician Notes Resident Physician Supervision Note: I independently interviewed and examined the patient and verified the alberto history and physical, reviewed labs and image studies and agree with resident findings and care plan. Subjective H&P reviewed, no significant additions. Denies leg swelling. Breathing pretty much unchanged. Pain not present. Denies n/v/d. Review of Systems Review of Systems: as per HPI Physical Exam Physical Exam: General: Tired appearing 87-year old female who is alert, oriented, and is in NAD. HEENT: NCAT. - Eyes - Sclera are white, anicteric, and without injection. - Mouth - MMM - Neck - supple, no appreciable JVD Cardiac: Normal rate and regular rhythm; S1 and S2 present with grade 2/6 NORMA murmur detected at RUSB Pulmonary: Good respiratory effort with symmetric expansion of the chest. No use of accessory muscles. Lung sounds were diminished on the LEFT base significantly; on the right there are some basilar crackles. Abdominal: Normoactive bowel sounds. Abdomen was soft, mildly distended, and non-tender to palpation. Extremities: Upper and lower extremities are warm and well perfused. Minimal peripheral edema in the lower extremities bilaterally Results & Data Results & Data Vital Signs (Past 12 Hours) Vital Signs Temp Pulse Pulse Pulse Resp BP BP 12/03/22 02:47 36.8 C 97 H 16 151/92 H 12/02/22 23:40 113 H 12/02/22 23:11 12/02/22 23:11 36.7 C 99 H 16 162/89 H 12/02/22 22:24 12/02/22 22:23 90 18 118/83 12/02/22 21:35 93 H 18 12/02/22 20:41 93 H 18 153/87 H Pulse Ox O2 Del Method O2 Flow Rate 12/03/22 02:47 97 Nasal Cannula 3 12/02/22 23:40 12/02/22 23:11 Nasal Cannula 4 12/02/22 23:11 99 Nasal Cannula 4 12/02/22 22:24 Nasal Cannula 3 12/02/22 22:23 97 Nasal Cannula 3 12/02/22 21:35 97 Nasal Cannula 12/02/22 20:41 99 Room Air Resident Activity Tracking Resident Involvement: Resident Care Provided Care Provided: Adult Hospital Medicine
[2022-12-03] MEDS ORDERED: HEPARIN SOD 5,000 UNIT/0.5 ML VIAL SQ SCH (09:00)
[2022-12-03] MEDS: CHOLECALCIFEROL 1,000 UNITS 25 MCG TAB PO SCH (09:01)
[2022-12-03] MEDS: PANTOprazole 40 MG TAB PO SCH (09:01)
[2022-12-03] MEDS: DOCUSATE SODIUM 100 MG CAP PO SCH (09:01)
--- NOTE | 2022-12-03 09:42 | Pulmonary Consultation ---
Date of Consultation December 03, 2022 Assessment & Plan (1) Pleural effusion: (2) Shortness of breath: (3) Acute respiratory failure with hypoxia: (4) Ovarian cancer: Plan Chest x-ray 12/02/2022 personally reviewed: Portable film, good inspiratory effort, large left-sided pleural effusion appreciated. No clear lung infiltrate appreciated 2D echo 12/03/2022: EF 60-65%, mild MS normal RV size and function --Left-sided pleural effusion Patient did have thoracentesis on 10/18/2022 where 500 mL of fluid was removed, it was negative for malignancy on cytology Given the shortness of breath we will do another thoracentesis today Probability of it being from malignancy is still high --Acute hypoxic respiratory failure Likely secondary to above -- Metastatic ovarian CA Diagnosed October 2022 Plan: We will perform another thoracentesis today We will check with ultrasound of the patient has significant ascites then we will do paracentesis as well Risk and benefit of the procedure explained to the patient in depth, patient understands and agrees to go ahead with the procedure Please note the above document was generated using voice recognition software. It may contain grammatical, syntax or spelling errors.Any formal questions or concerns about the content, text or information contained within the body of this dictation should be directly addressed to the provider for clarification. History of Present Illness Attending Physician: Hernán Cutler MD History of Present Illness 87-year-old female presented to the hospital with complaints of worsening shortness of breath and chest pain Past medical history: Stage IV metastatic ovarian CA diagnosed 10/2022, CKD, GERD Pulmonary consulted for left-sided pleural effusion At the time of examination patient was saturating 98% on 3 L nasal cannula, I went down to 2 L She was noted any respiratory distress. Did complain of worsening shortness of breath since the last 2-3 days Chest pain which is nonreproducible. Nonexertional. 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 No birds or poultry nearby Allergies Allergy/AdvReac Type Severity Reaction Status Date / Time propoxyphene Allergy Unknown left side Verified 12/02/22 20:24 numbness & tingling doxycycline AdvReac Unknown Nausea Verified 12/02/22 20:24 Sulfa (Sulfonamide AdvReac Unknown nausea Verified 12/02/22 20:24 Antibiotics) Home Medications Medication Instructions Recorded Confirmed Type coenzyme Q10 100 mg capsule 200 mg PO QAM 10/12/20 12/02/22 History cholecalciferol (vitamin D3) 50 50 mcg PO QAM 04/13/22 12/02/22 History mcg (2,000 unit) capsule acetaminophen 500 mg tablet 1,000 mg PO BID PRN Pain 10/26/22 12/02/22 History ondansetron 4 mg disintegrating 4 mg translingual Q8H PRN nausea 11/29/22 12/02/22 Rx tablet and vomiting 24 hours #30 tabs docusate sodium 100 mg capsule 100 mg PO QAM 11/30/22 12/02/22 History omeprazole 20 mg capsule,delayed 20 mg PO QAM 11/30/22 12/02/22 History release trazodone 50 mg tablet 50 mg PO HS 11/30/22 12/02/22 History Patient History Medical History (Updated 12/03/22 @ 14:24 by Andrea Bland MD, [facility]) Chest discomfort RECENT OCCURENCE - LEFT SIDE / NO OTHER S/S . WALKED AROUND & DISCOMFORT RESOLVED ON OWN - PT REPORTS THINKS IT WAS DUE TO GAS. HOME HEALTH NURSE WAS HERE AND PT REPORTS SHE AGREED TO THINKING IT WAS GAS RELATED. NURSE TOOK BP AND PT REPORTS BP WAS LOW ? 101/79 - PT DOESN'T REMEMBER EXACT BP. NO RE-OCCURENCE. EDUCATION PROVIDED-per PAT project lead call Chronic renal failure (CRF), stage 3b Constipation Depression Dry eye syndrome Heartburn RESOLVED WITH MEDICATION. History of colon polyps Hyperlipidemia Hypertension RECENT D/C OF BP MED/TODAY IS FIRST DAY OF NOT TAKING (LISINOPRIL HCTZ) Microcytic anemia Ovarian cancer RECENT DX/REASON FOR UPCOMING PROCEDURE. Pleural effusion - recently, treated at [facility] - s/p diagnostic and therapeutic ultrasound-guided catheter thoracentesis 10/18/22 - 10/18/22 CXR showed small residual left pleural effusion - no physical limitation per PAT nursing assessment Poor appetite Severe protein-calorie malnutrition Surgical History History of bilateral tubal ligation History of breast biopsy benign History of cataract surgery bilateral History of colonoscopy History of dilatation and curettage History of esophagogastroduodenoscopy (EGD) History of surgery OCTOBER 2022. EMERGENCY SX FOR OVARIAN TUMOR. DX CANCER. Hx of cholecystectomy Hx of elbow surgery right elbow tendon repair. Hx of umbilical hernia repair Family History Mother Myocardial infarction Breast cancer Grandmother Family history of diabetes mellitus Aunt Family history of diabetes mellitus Daughter Family history of diabetes mellitus Other No family history of adverse response to anesthesia Denies family history of Ovarian cancer Prostate cancer Colorectal cancer Social History Smoking Status: Never smoker Second Hand Exposure: No; Do You Dip or Chew Tobacco: No; Hx Alcohol Use: No Hx Substance Use: No Preferred Language: Botswanan Communication Ability: Effective Visual Impairment: Limited Hearing Ability: Normal Tacking Stitch Remover Required: No Beliefs That Will Affect Care: None marital status: Current Living Situation: Alone Current Living Situation Comment: DAUGHTER IS STAYING WITH ME SINCE C[place]TON BEEN SICK. current occupational status: retired How many Children do You have: 4 Other Information That Helps Us Care for You: No Feels Safe at Home: Yes Safety Concerns: Feels Safe At This Time Childhood Exposure to Second-Hand Smoke: No Diet: regular caffeine: No during the past year weight has: remained stable Dental Care, Regularly: No Physical Activity Frequency: Does not Exercise Seatbelt Use: always Sunscreen Use: No Do you think of yourself as: straight/heterosexual Gender Identity: Female Assistive Devices: None Review of Systems Review of Systems: All systems reviewed & are unremarkable except as noted in HPI & below Physical Exam Physical Exam: Constitutional: No acute distress HEENT: EOMI, PERRLA Respiratory system: Decreased air entry on the left side, no wheeze, no rhonchi, positive crackles bilateral lower lobes CVS: S1-S2 positive, no murmurs or gallops Abdomen: Soft, nontender, nondistended, positive bowel sounds x4 Extremities: +2 pulses bilaterally radialis/ dorsalis pedis, no cyanosis, no edema Neuro: Awake alert oriented x3 Psych: Normal mood and affect G/U: No [place]son Skin: no rashes, warm and dry Lymphatic: no cervical or axillary lymphadenopathy Results & Data Results & Data Vital Signs (Past 12 Hours) Vital Signs Temp Pulse Pulse Pulse Resp BP BP 12/03/22 02:47 36.8 C 97 H 16 151/92 H 12/02/22 23:40 113 H 12/02/22 23:11 12/02/22 23:11 36.7 C 99 H 16 162/89 H 12/02/22 22:24 12/02/22 22:23 90 18 118/83 12/02/22 21:35 93 H 18 12/02/22 20:41 93 H 18 153/87 H Pulse Ox O2 Del Method O2 Flow Rate 12/03/22 02:47 97 Nasal Cannula 3 12/02/22 23:40 12/02/22 23:11 Nasal Cannula 4 12/02/22 23:11 99 Nasal Cannula 4 12/02/22 22:24 Nasal Cannula 3 12/02/22 22:23 97 Nasal Cannula 3 12/02/22 21:35 97 Nasal Cannula 12/02/22 20:41 99 Room Air Laboratory Results 12/03/22 06:58 12/03/22 06:58 PG Care Time/CCT Total # of Minutes Spent Total Time Spent with Patient: Total time spent is greater than 50% in coordination of care (as documented) at patient's floor/unit and/or counseling patient: Coding Level of Care Code 40334 INT INP/OBS CARE 375MIN Diagnoses Pleural effusion J90 Shortness of breath R06.02 Acute respiratory failure with hypoxia J96.01 Ovarian cancer C56.9
--- NOTE | 2022-12-03 10:48 | XCELERA ---
[id number] \\[email or web address]\[id number]
[2022-12-03] MEDS ORDERED: MoRPHine SULFATE 2 MG/ML CARP IV STA (13:40)
--- NOTE | 2022-12-03 13:50 | XRay Report ---
XR chest 1V portable HISTORY: 87 years-old Female s/p thoracentesis left side left pleural effusion. Status post thoracen tesis COMPARISON: 12/02/2022 TECHNIQUE: AP view the chest FINDINGS: Cardiac silhouette is enlarged. Atherosclerosis of the aorta. Punctate calcified granulomata of the l eft lung. Decreased size of the persistent left pleural effusion with left basilar opacity. No postpr ocedural pneumothorax. No overt pulmonary edema. Bones appear to be grossly intact. IMPRESSION: 1. Decreased size of the left pleural effusion status post thoracentesis. 2. No postprocedural pneumothorax identified. ACT 112: Negative or not required by law. The above report was generated using voice recognition software. It may contain grammatical, syntax o r spelling errors. Electronically signed by: Jaswant Barrera M.D. 12/03/2022 1:48 PM
[2022-12-03] MEDS ORDERED: MoRPHine SULFATE 2 MG/ML CARP IV PRN (14:18)
--- NOTE | 2022-12-03 14:28 | Procedure Note ---
Procedure Note Date of Service December 03, 2022 Note Bedside Ultrasound: Lung: Right:-No pleural effusion, A lines anteriorly and posteriorly Left:-Moderate left-sided pleural effusion with compressive atelectasis, pleural thickening also appreciated Heart: Good ejection fraction, not circumferential minimal pericardial effusion Abdomen: No signs of ascites Please note the above document was generated using voice recognition software. It may contain grammatical, syntax or spelling errors.Any formal questions or concerns about the content, text or information contained within the body of this dictation should be directly addressed to the provider for clarification. Coding CPT Codes Pulmonary/Thoracic - Pulmonary and Thoracic: 02333 US, Chest, real time with janneth ging documentation ([id number]) [facility] [place] Procedure Codes (Charges) Pulmonary/Thoracic Procedure 1: Pulmonary and Thoracic: 69996 US, Chest, real time with imaging documentation
--- NOTE | 2022-12-03 14:32 | Procedure Note ---
Procedure Note Date of Service December 03, 2022 Note Procedure: Diagnostic therapeutic ultrasound-guided catheter thoracentesis Toe Sewer: Dr. Andrea Bland Indication: Left pleural effusion Consent: Signed by patient and verified with timeout prior to procedure Anesthesia: 1% lidocaine without epinephrine local. Procedure: Consent was verified and timeout performed. Appropriate imaging studies were reviewed prior to the procedure. Patient was placed in a seated position and limited thoracic ultrasound was performed of the left chest. See separate imaging. Appropriate site above the diaphragm for thoracentesis was selected. The skin was prepped and draped in normal sterile fashion. Lidocaine was used for local analgesia. Fluid was aspirated via the finder needle. A small skin norma was made with the scalpel and the catheter over the needle apparatus was advanced over the rib into the pleural space. Using the syringe one-way valve system, a total of 1500 mL's of cloudy serosanguineous fluid was removed. Procedure was terminated due to pain. The catheter was removed and observed to be intact. A sterile dressing was applied. Post procedure chest x-ray was ordered. Fluid was sent for labs, culture and cytology. Complications: None Blood loss: Less than 2 cc Given the pleuritic pain that the patient got postprocedure, it seems patient most likely has entrapped vs Trapped lung. Will see how the CXR looks like tomorrow. If fluid comes back then likely trapped lung is playing a role. Pain medication for the pleuritic chest pain Please note the above document was generated using voice recognition software. It may contain grammatical, syntax or spelling errors.Any formal questions or concerns about the content, text or information contained within the body of this dictation should be directly addressed to the provider for clarification. Coding CPT Codes Pulmonary/Thoracic - Pulmonary and Thoracic: 39446 Thoracentesis w imaging ([id number]) [facility] [place] Procedure Codes (Charges) Pulmonary/Thoracic Procedure 1: Pulmonary and Thoracic: 80484 Thoracentesis w imaging
[2022-12-03] MEDS: ACETAMINOPHEN 1,000 MG/100 ML VIAL IV PRN ×2 (14:36→23:48)
[2022-12-03 15:00] LABS: Appearance Pleural Fluid Cloudy; Color Pleural Fluid Yellow; RBC Pleural Fluid Auto 6000 /uL; Source Pleural Fluid Left Lung; WBC Pleural Fluid Auto 6128 /uL
[2022-12-03 15:03] LABS: Albumin Level 3.5 gm/dl (3.4-5.0); Bilirubin,Total 0.4 mg/dl (0.2-1.0); Total Protein 7.6 gm/dl (6.0-8.3)
[2022-12-03 15:10] LABS: Total Protein Pleural Fluid 4.8 gm/dl
[2022-12-03 15:24] LABS: Lymphocytes, Fluid 12 %; Mono,Macrophage,Mesothelial 15 %; Neutrophils, Fluid 73 %
[2022-12-03] MEDS: POLYETHYLENE (MIRALAX) 17 GM PACK PO PRN (15:51)
[2022-12-03] MEDS: traZODone HCL 50 MG TAB PO SCH (22:10)
[2022-12-04 06:40] LABS: Basophils # (auto) 0.07 K/uL (0-0.2); Basophils % (auto) 0.7 %; Eosinophils # (auto) 0.33 K/uL (0-0.50); Eosinophils % (auto) 3.5 %; Hematocrit (blood only) 32.5 % (37.0-47.0); Immature Granulocytes # (auto) 0.04 K/uL (0.01-0.20); Immature Granulocytes % (auto) 0.4 %; Lymphocytes # (auto) 1.41 K/uL (1.2-3.4); Mean Corpuscular Hemoglobin 24.6 pg (25.0-34.0); Mean Corpuscular Hgb Conc 30.8 g/dL (32.0-36.0); Mean Corpuscular Volume 79.9 fL (80.0-100.0); Monocytes # (auto) 1.14 K/uL (0.11-0.59); Monocytes % (auto) 12.2 %; Neutrophils # (auto) 6.39 K/uL (1.40-6.50); Neutrophils % (auto) 68.2 %; Platelet Count 338 K/uL (130-400); RDW Coefficient of Variation 17.4 % (11.5-14.5); RDW Standard Deviation 50.5 fL (36.4-46.3); Red Blood Count 4.07 M/uL (4.20-5.40); White Blood Count 9.38 K/ul (4.8-10.8)
[2022-12-04 06:55] LABS: Albumin Globulin Ratio 0.8 (0.9-2); Albumin Level 3.4 gm/dl (3.4-5.0); BUN Creatinine Ratio 22.2 (10-20); Bilirubin,Total 0.4 mg/dl (0.2-1.0); Calcium 9.3 mg/dl (8.6-10.3); Est GFR (African American) 59.4 ml/min; Est GFR (Non-African American) 51.2 ml/min; Globulin 4.1 gm/dl (2.5-4.0); Potassium 4.2 mmol/L (3.5-5.1); Total Protein 7.5 gm/dl (6.0-8.3)
[2022-12-04 07:14] LABS: Ferritin 1095.4 ng/ml (8-388)
[2022-12-04 07:21] LABS: Vitamin B12 > 1500 pg/ml (180-914)
--- NOTE | 2022-12-04 07:42 | Hospitalist Progress Note ---
Date of Service December 04, 2022 Assessment & Plan (1) Dyspnea: Plan: Marta is an 87-year-old female with past medical history of ovarian cancer currently awaiting port placement and chemotherapy who presented to the hospital for evaluation of dyspnea. Work-up has been revealing for reappearance and worsening of a left-sided pleural effusion. Acute hypoxic respiratory failure L Pleural Effusion in setting of Ovarian Cancer -History of exudative pleural effusion previously requiring thoracentesis in 10/2022 -Likely malignant process. -s/p thoracentesis on 12/03; pt symptomatically improved, no longer requiring oxygen -CT chest 12/04 per pulm showed reaccumulation of left pleural effusion- no repeat thoracentesis or pleurx catheter at this point Pleuritic Chest Pain -Suspect secondary to pleural effusion/thoracentesis -Troponin negative and without chest pain currently; ECG changes in inferior leads noted -Pain controlled w/ tylenol- may escalate regimen if necessary (?avoid NSAIDs d/t risk of bleeding in the setting of upcoming port placement) Ovarian Cancer -Recent diagnosis in October 2022. 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 Pt unsure if she wishes to continue with chemo. Pt and family would benefit from a [facility] discussion- Dr. Hathaway informed Constipation - last BM 11/30 - KUB 12/04 neg for obstruction - increased miralax from daily to BID, continue colace daily Microcytic Anemia - Appreciated since 10/2021; in the setting of malignancy - folate, B12 elevated - iron studies suggest anemia of chronic disease Severe Protein-Calorie Malnutrition -Dietary consult appreciated while here CKD Stage III -- baseline Cr 0.9 - 1.1 -Currently at baseline -Renally dose medications, monitor BMP Insomnia -Trazodone Diet: Heart healthy, low-sodium DVT prophylaxis: Heparin CODE STATUS: DNR/DNI Disposition: med surg w/ tele (2) Chest pain: (3) Ovarian cancer: (4) Aortic heart murmur: (5) Chronic renal failure (CRF), stage 3b: (6) Insomnia: (7) GERD (gastroesophageal reflux disease): (8) Severe protein-calorie malnutrition: Admission and Anticipated Discharge Date Admission Date: December 02, 2022 Supervising Physician Co-Signing Physician Notes Resident Physician Supervision Note: I independently interviewed and examined the patient and verified the alberto history and physical, reviewed labs and image studies and agree with resident findings and care plan. Subjective Pt seen at bedside this AM. No complaints, breathing w/o issue. CT chest ordered per pulm d/t recurrent effusion. New found metastasis to liver, presumed lung, and mesentery. Discussed findings with pt and pt's family at bedside. Pt questioning future steps (chemo vs. not). Review of Systems Review of Systems: As per HPI Physical Exam 2 Physical Exam: Constitutional: well appearing, no acute distress HEENT: normocephalic, no conjunctival injection CV: RRR, 2/6 systolic murmur noted, no LE edema Respiratory: CTA bilaterally. No rhonchi, wheezes, or crackles. No increased work of breathing GI: soft, nondistended, fullness of left lower quadrant noted, nontender, + bowel sounds MSK: no gross deformities noted Skin: warm, dry, no rashes Neuro: alert, oriented, no FND noted Psych: mood and affect congruent Results & Data Results & Data Vital Signs (Past 12 Hours) Vital Signs Temp Pulse Pulse Resp BP Pulse Ox O2 Del Method 12/04/22 07:37 87 12/04/22 02:49 36.6 C 80 16 131/80 99 Nasal Cannula 12/03/22 22:25 85 12/03/22 23:07 36.5 C 86 18 137/83 99 Nasal Cannula 12/03/22 19:54 36.8 C 84 16 116/77 98 Nasal Cannula 12/03/22 19:50 Room Air O2 Flow Rate 12/04/22 07:37 12/04/22 02:49 2 12/03/22 22:25 12/03/22 23:07 2 12/03/22 19:54 2 12/03/22 19:50 2 Resident Activity Tracking Resident Involvement: Resident Care Provided Care Provided: Adult Hospital Medicine
--- NOTE | 2022-12-04 08:09 | XRay Report ---
XR chest 1V portable HISTORY: 87 years-old Female f/u acute shortness of breath COMPARISON: 12/03/2022 TECHNIQUE: AP view the chest FINDINGS: Cardiac silhouette is enlarged. Atherosclerosis of the aorta. Punctate calcified granulomata of the l eft lung. Unchanged left pleural effusion with left basilar opacities. No pneumothorax identified. Pr obable trace right pleural effusion. No overt pulmonary edema. Bones appear to be grossly intact. IMPRESSION: Unchanged left pleural effusion with left basilar consolidation. ACT 112: Negative or not required by law. The above report was generated using voice recognition software. It may contain grammatical, syntax o r spelling errors. Electronically signed by: Jaswant Barrera M.D. 12/04/2022 8:08 AM
[2022-12-04] MEDS: DOCUSATE SODIUM 100 MG CAP PO SCH (08:34)
[2022-12-04] MEDS: CHOLECALCIFEROL 1,000 UNITS 25 MCG TAB PO SCH (08:34)
[2022-12-04] MEDS: PANTOprazole 40 MG TAB PO SCH (08:35)
[2022-12-04] MEDS: POLYETHYLENE (MIRALAX) 17 GM PACK PO PRN (08:40)
--- NOTE | 2022-12-04 08:46 | Pulmonology Progress Note ---
Date of Service December 04, 2022 Assessment & Plan (1) Pleural effusion: (2) Shortness of breath: (3) Acute respiratory failure with hypoxia: (4) Ovarian cancer: Plan Chest x-ray 12/02/2022 personally reviewed: Portable film, good inspiratory effort, large left-sided pleural effusion appreciated. No clear lung infiltrate appreciated 2D echo 12/03/2022: EF 60-65%, mild MS normal RV size and function --Left-sided pleural effusion Patient did have thoracentesis on 10/18/2022 where 500 mL of fluid was removed, it was negative for malignancy on cytology Possibility of it for malignancy is still very high S/p thoracentesis 12/03/2022, neutrophilic, exudative as per lights criteria Pleural: LDH 201, protein 4.8, glucose 104 Serum: LDH 220, protein 7.6 --Acute hypoxic respiratory failure Likely secondary to above -- Metastatic ovarian CA Diagnosed October 2022 Plan: Chest x-ray from today shows reaccumulation of fluid on the left side to certain degree Patient had chest pain which was worse even prior to thoracentesis, it is improved right now. Patient likely has trapped lung. I will order a CT chest without contrast to look at the lung parenchyma Please note the above document was generated using voice recognition software. It may contain grammatical, syntax or spelling errors.Any formal questions or concerns about the content, text or information contained within the body of this dictation should be directly addressed to the provider for clarification. Admission and Anticipated Discharge Date Admission Date: December 02, 2022 Subjective Patient seen and examined at bedside. No acute distress, no adverse events overnight She was saturating 92% on room air Stated that the pain has significantly improved compared to yesterday Still complains of some pain on taking deep breath on the left side. No nausea or vomiting No headache, fair appetite Review of Systems Review of Systems: All systems reviewed & are unremarkable except as noted in Subjective Physical Exam Physical Exam: Constitutional: No acute distress HEENT: EOMI, PERRLA Respiratory system: Decreased air entry on the left side, no wheeze, no rhonchi, positive crackles left side CVS: S1-S2 positive, no murmurs or gallops Abdomen: Soft, nontender, nondistended, positive bowel sounds x4 Extremities: +2 pulses bilaterally radialis/ dorsalis pedis, no cyanosis, no e ritika Neuro: Awake alert oriented x3 Psych: Normal mood and affect G/U: No Mattson Skin: no rashes, warm and dry Lymphatic: no cervical or axillary lymphadenopathy Results & Data Results & Data Vital Signs (Past 12 Hours) Vital Signs Temp Pulse Pulse Resp BP Pulse Ox O2 Del Method 12/04/22 07:24 36.6 C 87 16 121/79 97 Nasal Cannula 12/04/22 07:37 87 12/04/22 02:49 36.6 C 80 16 131/80 99 Nasal Cannula 12/03/22 22:25 85 12/03/22 23:07 36.5 C 86 18 137/83 99 Nasal Cannula O2 Flow Rate 12/04/22 07:24 2 12/04/22 07:37 12/04/22 02:49 2 12/03/22 22:25 12/03/22 23:07 2 Laboratory Results 12/04/22 05:35 12/04/22 05:35 PG Care Time/CCT Total # of Minutes Spent Total Time Spent with Patient: Total time spent is greater than 50% in coordination of care (as documented) at patient's floor/unit and/or counseling patient: Coding Level of Care Code 36105 SUB INP/OBS CARE 3/50MIN Diagnoses Pleural effusion J90 Shortness of breath R06.02 Acute respiratory failure with hypoxia J96.01 Ovarian cancer C56.9
--- NOTE | 2022-12-04 10:17 | XRay Report ---
KUB HISTORY: Acute generalized abdominal pain with constipation constipation, decreased gas COMPARISON: KUB 11/01/2022 FINDINGS: Cholecystectomy. Mild to moderate colonic fecal retention. Vascular calcifications. Nonobst ructive bowel gas pattern. No renal calculi. No ureteral calculi. No pneumoperitoneum or pneumatosis . Demineralized appearance of the bones with degenerative changes of the spine, pelvis and hips. No f racture. Left pleural effusion with left basilar consolidation. IMPRESSION: 1. Nonobstructive bowel gas pattern. 2. Mild to moderate colonic fecal retention. 3. Left pleural effusion with associated basilar consolidation. ACT 112: Negative or not required by law. The above report was generated using voice recognition software. It may contain grammatical, syntax o r spelling errors. Electronically signed by: Jaswant Barrera M.D. 12/04/2022 10:16 AM
--- NOTE | 2022-12-04 10:34 | CT Scan Report ---
CT chest diagnostic wo con CT DOSE: 517.44 mGy.cm CLINICAL HISTORY: 87 years-old Female with Left effusion/ mass. Acute shortness of breath with left pleural effusion TECHNIQUE: Multiaxial CT images of the chest were performed without contrast. A dose lowering techni que was utilized adhering to the principles of ALARA. COMPARISON: Chest radiograph of same day, CT abdomen and pelvis 10/17/2022, chest CT 03/27/2009. FINDINGS: Limited exam without the use of IV contrast. Unremarkable. Pathologically enlarged lymph no jr of the left internal mammary chain including a 1.7 x 1.1 cm lymph node on image 88 series 4. Path ologic pericardial lymph nodes include a 2.4 x 1.2 cm lymph node on image 128 series 4. Mild cardiome gloria with small pericardial effusion. Stranding within the epicardial fat. Moderate coronary artery a nd mitral annular calcifications. Fusiform dilation of the aortic root measures up to 4.6 cm transver sely. Trace right and small moderate left pleural effusions. Mild scattered subsegmental tree-in-bud multil obar nodules throughout the right lung. Consolidation of the left lung base with left lower lobe air bronchograms. Nodular thickening of the left pleura and diaphragm. Partially imaged pathologic retroperitoneal lymph nodes of the upper abdomen. 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 Cholecystectomy. Several scattered ill-defined hypodense lesions of t he liver measure up to approximately 2 cm. Unremarkable soft tissues. No acute fracture or destructiv e bone lesion identified. Mild stranding of the upper abdominal omentum/peritoneum. IMPRESSION: 1. Small to moderate left pleural effusion with left basilar consolidation suggestive of compressive atelectasis. This is likely malignant with associated pleural metastasis. 2. Pathologic mammary chain and epicardial lymph nodes with partially imaged pathologic upper abdomin al retroperitoneal adenopathy suggestive of metastasis. 3. Probable mesenteric/omental and hepatic metastasis. 4. Cardiomegaly with small pericardial effusion. 5. Fusiform dilation of the aortic root, 4.6 cm. ACT 112: Negative or not required by law. Electronically signed by: Jaswant Barrera M.D. 12/04/2022 10:32 AM
[2022-12-04] MEDS ORDERED: POLYETHYLENE (MIRALAX) 17 GM PACK PO ONE (10:45)
[2022-12-04] MEDS: ACETAMINOPHEN 1,000 MG/100 ML VIAL IV PRN (14:48)
[2022-12-04] MEDS: traZODone HCL 50 MG TAB PO SCH (20:18)
[2022-12-04] MEDS: POLYETHYLENE (MIRALAX) 17 GM PACK PO SCH (20:18)
--- NOTE | 2022-12-05 08:16 | Hospitalist Progress Note ---
Date of Service December 05, 2022 Assessment & Plan (1) Dyspnea: Plan: Marta is an 87-year-old female with past medical history of ovarian cancer currently awaiting port placement and chemotherapy who presented to the hospital for evaluation of dyspnea. Work-up has been revealing for reappearance and worsening of a left-sided pleural effusion. Acute hypoxic respiratory failure L Pleural Effusion in setting of Ovarian Cancer -History of exudative pleural effusion previously requiring thoracentesis in 10/2022 -TTE in 05/2022 with LVEF 60-65% and dilated ascending aorta; largely normal --> BNP 65. Low suspicion effusion is d/t CHF especially being unilateral --> TTE upon admission largely unchanged from previous -s/p thoracentesis; pt symptomatically improved, no longer requiring oxygen -CT chest 12/04 per pulm showed reaccumulation of left pleural effusion- no repeat thoracentesis or pleurx catheter at this point Pleuritic Chest Pain -Suspect secondary to pleural effusion/thoracentesis -Troponin negative and without chest pain currently; ECG changes in inferior leads noted -Pain controlled w/ tylenol- may escalate regimen if necessary (?avoid NSAIDs d/t risk of bleeding in the setting of upcoming port placement) Ovarian Cancer -Recent diagnosis in October 2022. 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 Pt unsure if she wishes to continue with chemo. Pt and family would benefit from a [facility] discussion- Dr. Hathaway informed Constipation - last BM 11/30 - KUB 12/04 neg for obstruction - increased miralax from daily to BID, continue colace daily Microcytic Anemia - Appreciated since 10/2021; in the setting of malignancy - folate, B12 elevated - iron studies suggest anemia of chronic disease Severe Protein-Calorie Malnutrition -Dietary consult appreciated while here Murmur -Last echo in May 2022 did not show gianfranco stenosis of the aortic valve however, did show sclerosis -no significant change on admission echo CKD Stage III -- baseline Cr 0.9 - 1.1 -Currently at baseline -Renally dose medications, monitor BMP Insomnia -Trazodone GERD -PPI Diet: Heart healthy, low-sodium DVT prophylaxis: Heparin CODE STATUS: DNR/DNI Disposition: med surg w/ tele (2) Chest pain: (3) Ovarian cancer: (4) Aortic heart murmur: (5) Chronic renal failure (CRF), stage 3b: (6) Insomnia: (7) GERD (gastroesophageal reflux disease): (8) Severe protein-calorie malnutrition: Admission and Anticipated Discharge Date Admission Date: December 02, 2022 Review of Systems Review of Systems: As per HPI Results & Data Results & Data Vital Signs (Past 12 Hours) Vital Signs Temp Pulse Pulse Resp BP BP Pulse Ox 12/05/22 07:29 101 H 12/05/22 07:16 36.4 C L 100 H 16 164/84 H 93 12/05/22 03:21 36.7 C 99 H 18 133/84 92 12/04/22 23:19 37.2 C 97 H 18 142/91 H 92 12/04/22 23:12 98 H 12/04/22 21:33 O2 Del Method 12/05/22 07:29 12/05/22 07:16 Room Air 12/05/22 03:21 Room Air 12/04/22 23:19 Room Air 12/04/22 23:12 12/04/22 21:33 Room Air
--- NOTE | 2022-12-05 09:03 | Surgery Consultation ---
Date of Consultation December 05, 2022 Assessment & Plan (1) Ovarian cancer: She is already scheduled for access port placement on . At this point in time we will keep that on the schedule until she decides for sure if she wants to proceed with chemotherapy or not. I will reach out to Dr. Hathaway so he can re-discuss her options with her. (2) Acute respiratory failure with hypoxia: History of Present Illness Attending Physician: Bigg Diego DO History of Present Illness 87-year-old with newly diagnosed metastatic ovarian cancer. She is admitted for respiratory distress likely secondary to malignant pleural effusions. We were requested to see her for potentially moving up her access port insertion. In light of her imaging yesterday she now contemplating not proceeding with treatment. Allergies Allergy/AdvReac Type Severity Reaction Status Date / Time propoxyphene Allergy Unknown left side Verified 12/02/22 20:24 numbness & tingling doxycycline AdvReac Unknown Nausea Verified 12/02/22 20:24 Sulfa (Sulfonamide AdvReac Unknown nausea Verified 12/02/22 20:24 Antibiotics) Home Medications Medication Instructions Recorded Confirmed Type coenzyme Q10 100 mg capsule 200 mg PO QAM 10/12/20 12/02/22 History cholecalciferol (vitamin D3) 50 50 mcg PO QAM 04/13/22 12/02/22 History mcg (2,000 unit) capsule acetaminophen 500 mg tablet 1,000 mg PO BID PRN Pain 10/26/22 12/02/22 History ondansetron 4 mg disintegrating 4 mg translingual Q8H PRN nausea 11/29/22 12/02/22 Rx tablet and vomiting 24 hours #30 tabs docusate sodium 100 mg capsule 100 mg PO QAM 11/30/22 12/02/22 History omeprazole 20 mg capsule,delayed 20 mg PO QAM 11/30/22 12/02/22 History release trazodone 50 mg tablet 50 mg PO HS 11/30/22 12/02/22 History Patient History Medical History (Updated 12/04/22 @ 15:55 by Tona Barrera DO) Chest discomfort RECENT OCCURENCE - LEFT SIDE / NO OTHER S/S . WALKED AROUND & DISCOMFORT RESOLVED ON OWN - PT REPORTS THINKS IT WAS DUE TO GAS. HOME HEALTH NURSE WAS HERE AND PT REPORTS SHE AGREED TO THINKING IT WAS GAS RELATED. NURSE TOOK BP AND PT REPORTS BP WAS LOW ? 101/79 - PT DOESN'T REMEMBER EXACT BP. NO RE-OCCURENCE. EDUCATION PROVIDED-per PAT social media specialist call Chronic renal failure (CRF), stage 3b Constipation Depression Dry eye syndrome Heartburn RESOLVED WITH MEDICATION. History of colon polyps Hyperlipidemia Hypertension RECENT D/C OF BP MED/TODAY IS FIRST DAY OF NOT TAKING (LISINOPRIL HCTZ) Microcytic anemia Ovarian cancer RECENT DX/REASON FOR UPCOMING PROCEDURE. Pleural effusion - recently, treated at [facility] - s/p diagnostic and therapeutic ultrasound-guided catheter thoracentesis 10/18/22 - 10/18/22 CXR showed small residual left pleural effusion - no physical limitation per PAT nursing assessment Poor appetite Severe protein-calorie malnutrition Surgical History History of bilateral tubal ligation History of breast biopsy benign History of cataract surgery bilateral History of colonoscopy History of dilatation and curettage History of esophagogastroduodenoscopy (EGD) History of surgery OCTOBER 2022. EMERGENCY SX FOR OVARIAN TUMOR. DX CANCER. Hx of cholecystectomy Hx of elbow surgery right elbow tendon repair. Hx of umbilical hernia repair Family History Mother Myocardial infarction Breast cancer Grandmother Family history of diabetes mellitus Aunt Family history of diabetes mellitus Daughter Family history of diabetes mellitus Other No family history of adverse response to anesthesia Denies family history of Ovarian cancer Prostate cancer Colorectal cancer Social History Smoking Status: Never smoker Second Hand Exposure: No; Do You Dip or Chew Tobacco: No; Hx Alcohol Use: No Hx Substance Use: No Preferred Language: Maltese Communication Ability: Effective Visual Impairment: Limited Hearing Ability: Normal Quality Systems Manager Required: No Beliefs That Will Affect Care: None marital status: Current Living Situation: Alone Current Living Situation Comment: DAUGHTER IS STAYING WITH ME SINCE [place] BEEN SICK. current occupational status: retired How many Children do You have: 4 Feels Safe at Home: Yes Childhood Exposure to Second-Hand Smoke: No Diet: regular caffeine: No during the past year weight has: remained stable Dental Care, Regularly: No Physical Activity Frequency: Does not Exercise Seatbelt Use: always Sunscreen Use: No Do you think of yourself as: straight/heterosexual Gender Identity: Female Assistive Devices: None Review of Systems Review of Systems: All systems reviewed & are unremarkable except as noted in HPI & below Physical Exam Constitutional: WD/WN, vitals as above no acute distress and not ill appearing Eyes: PERRL, conjunctivae normal, anicteric sclerae EOM intact bilaterally ENMT: external ear and nose normal, oropharynx normal Ears: no hearing impairment Neck: trachea midline, no thyromegaly Respiratory: No labored breathing. Decreased breath sounds greatest on the left Cardiovascular: Rate/Rhythm: regular rate and regular rhythm Gastrointestinal (Abdomen): normal bowel sounds, soft, nontender, no hepatosplenomegaly Skin: no rashes, warm and dry Psychiatric: Orientation: alert, oriented x 3 and cooperative Results & Data Vital Signs (Past 12 Hours) Vital Signs Temp Pulse Pulse Resp BP BP Pulse Ox 12/05/22 07:29 101 H 12/05/22 07:16 36.4 C L 100 H 16 164/84 H 93 12/05/22 03:21 36.7 C 99 H 18 133/84 92 12/04/22 23:19 37.2 C 97 H 18 142/91 H 92 12/04/22 23:12 98 H 12/04/22 21:33 O2 Del Method 12/05/22 07:29 12/05/22 07:16 Room Air 12/05/22 03:21 Room Air 12/04/22 23:19 Room Air 12/04/22 23:12 12/04/22 21:33 Room Air PG Care Time/CCT Total # of Minutes Spent Total Time Spent with Patient: Total time spent is greater than 50% in coordination of care (as documented) at patient's floor/unit and/or counseling patient: Coding Level of Care Code 97228 INT INP/OBS CARE 2/55MIN Diagnoses Ovarian cancer C56.9 Acute respiratory failure with hypoxia J96.01
[2022-12-05] MEDS: CHOLECALCIFEROL 1,000 UNITS 25 MCG TAB PO SCH (09:40)
[2022-12-05] MEDS: POLYETHYLENE (MIRALAX) 17 GM PACK PO SCH (09:40)
[2022-12-05] MEDS: PANTOprazole 40 MG TAB PO SCH (09:40)
[2022-12-05] MEDS: DOCUSATE SODIUM 100 MG CAP PO SCH (12:18)
--- NOTE | 2022-12-05 13:23 | Pulmonology Progress Note ---
Date of Service December 05, 2022 Assessment & Plan (1) Pleural effusion: (2) Shortness of breath: (3) Acute respiratory failure with hypoxia: (4) Ovarian cancer: (5) Hip pain: Plan She has a recurrent left malignant pleural effusion. She did not notice much benefit after the latest thoracentesis. Will defer Pleurx catheter at this time. Patient is reluctant to start systemic therapy for her advanced ovarian malignancy. Recommend engaging with palliative care. Additionally recommend testing for home oxygen with 2 step prior to discharge. I suspect the pain she is experiencing in her lower back is musculoskeletal and not related to the pleural effusion. Consider imaging of the hip region. Otherwise, no further recommendations. We will sign off at this time. Thank you for the consultation and allowing me to participate in the care of the patient. Admission and Anticipated Discharge Date Admission Date: December 02, 2022 Subjective Patient seen and examined. Complaining of periodic pain in her left lower back region close to her hip. She is concerned that it may be related to the pleural effusion or thoracentesis. The pain occurs at random and lasts for several seconds. It causes her to jolt for second. She denies any shortness of breath at rest. No fevers, chills or night sweats. She is eager to go home. Daughter at bedside. Review of Systems Review of Systems: All systems reviewed & are unremarkable except as noted in HPI & below Physical Exam Physical Exam: Constitutional: No acute distress HEENT: EOMI, PERRLA Respiratory system: Decreased air entry on the left side, no wheeze, no rhonchi, positive crackles left side CVS: S1-S2 positive, no murmurs or gallops Abdomen: Soft, nontender, nondistended, positive bowel sounds x4 Extremities: +2 pulses bilaterally radialis/ dorsalis pedis, no cyanosis, no edema Neuro: Awake alert oriented x3 Psych: Normal mood and affect G/U: No Mattson Skin: no rashes, warm and dry Lymphatic: no cervical or axillary lymphadenopathy Results & Data Results & Data Vital Signs (Past 12 Hours) Vital Signs Temp Pulse Pulse Resp BP BP Pulse Ox 12/05/22 13:08 36.6 C 106 H 18 122/75 94 12/05/22 07:29 101 H 12/05/22 07:16 36.4 C L 100 H 16 164/84 H 93 12/05/22 03:21 36.7 C 99 H 18 133/84 92 O2 Del Method 12/05/22 13:08 Room Air 12/05/22 07:29 12/05/22 07:16 Room Air 12/05/22 03:21 Room Air PG Care Time/CCT Total # of Minutes Spent Total Time Spent with Patient: Total time spent is greater than 50% in coordination of care (as documented) at patient's floor/unit and/or counseling patient: Coding Level of Care Code 29160 SUB INP/OBS CARE 2/35MIN Diagnoses Pleural effusion J90 Shortness of breath R06.02 Acute respiratory failure with hypoxia J96.01 Ovarian cancer C56.9 Hip pain M25.559
--- NOTE | 2022-12-05 15:49 | Discharge Summary ---
Date of Service December 05, 2022 Admission HPI Per Admitting Provider Patient is an 87-year-old female with past medical history of ovarian cancer currently waiting to get port placement and chemotherapy who presents to the hospital for evaluation of dyspnea. Patient reports that this is progressively been getting worse over the past 2 days. Has been accompanied by recent chest pain this evening. For this reason, EMS was contacted and she was brought to the hospital. On route she was placed on nasal cannula and given aspirin and nitro which seemed to relieve her chest pain. She had previously had a pleural effusion on 10/18/2022 that required thoracocentesis. In the hospital, patient was evaluated and had a chest x-ray which had revealed worsening pleural effusion of the left lung consuming 50% of the volume. Patient was placed on nasal cannula for comfort and is otherwise currently asymptomatic. When discussing with the patient in regards to her current cancer, she has seen Dr. Hanley, her oncologist for recommendations regarding chemotherapy. Patient reports that she is to move forward with chemotherapy and eventually have a port placed per note by Dr. Hathaway. Otherwise currently doing well and has no other complaints at this time. Admission Exam Per Admitting Provider Constitutional: WD/WN, vitals as above Eyes: + anicteric sclerae Neck: trachea midline, no thyromegaly Respiratory: normal respiratory effort Auscultation: + diminished lung sounds (Absent breath sounds in the LLL, otherwise CTA) Cardiovascular: Rate/Rhythm: regular rate and regular rhythm Heart Sounds: + murmur (3/6 holosystolic murmur best auscultated at the R 2nd intercostal space.) Vessels: no JVD Extremities: no edema Gastrointestinal (Abdomen): normal bowel sounds, soft, nontender, no hep atosplenomegaly Musculoskeletal: Head/Neck/Chest: normocephalic and head atraumatic Skin: no rashes, warm and dry Neurologic: moves all extremities Psychiatric: A+Ox3, euthymic affect Principal Diagnosis Dyspnea Discharge Exam Constitutional WD/WN, vitals as above Eyes PERRL, conjunctivae normal, anicteric sclerae Respiratory Clear to ascultation bilaterally, decreased breath sounds on the right. Cardiovascular Rate/Rhythm: regular rhythm and + tachycardic Heart Sounds: normal S1 and normal S2 No peripheral edema. Gastrointestinal (Abdomen) normal bowel sounds, soft, nontender, no hepatosplenomegaly Psychiatric A+Ox3, euthymic affect Discharge Data Allergies Allergy/AdvReac Type Severity Reaction Status Date / Time propoxyphene Allergy Unknown left side Verified 12/02/22 20:24 numbness & tingling doxycycline AdvReac Unknown Nausea Verified 12/02/22 20:24 Sulfa (Sulfonamide AdvReac Unknown nausea Verified 12/02/22 20:24 Antibiotics) Consultations 12/02/22 20:18 ED Decision to Admit Stat 12/02/22 22:51 Consult Pulmonology Routine Ordered Studies 12/03/22 07:17 US point of care ultrasound Urgent 12/04/22 09:33 CT chest diagnostic wo con Urgent Hospital Course (1) Dyspnea: Marta is an 87-year-old female with past medical history of ovarian cancer currently awaiting port placement and chemotherapy who presented to the hospital for evaluation of dyspnea. Work-up has been revealing for reappearance and worsening of a left-sided pleural effusion. Acute hypoxic respiratory failure L Pleural Effusion in setting of Ovarian Cancer -History of exudative pleural effusion previously requiring thoracentesis in 10/2022 -TTE in 05/2022 with LVEF 60-65% and dilated ascending aorta; largely normal --> BNP 65. Low suspicion effusion is d/t CHF especially being unilateral --> TTE upon admission largely unchanged from previous -s/p thoracentesis; pt symptomatically improved, no longer requiring oxygen -CT chest 12/04 per pulm showed reaccumulation of left pleural effusion- no repeat thoracentesis or pleurx catheter at this point -Vitals stable upon discharge. Pleuritic Chest Pain -Suspect secondary to pleural effusion/thoracentesis -Troponin negative and without chest pain currently; ECG changes in inferior leads noted -Pain controlled with tylenol. Ovarian Cancer -Recent diagnosis in October 2022. 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 Pt unsure if she wishes to continue with chemo. Pt and family would benefit from a [facility] discussion- Dr. Hathaway informed. Patient has appointment with Dr. Hathaway tomorrow (day after discharge) Constipation - last BM 11/30 - KUB 12/04 neg for obstruction - Was on bowel regimen in hospital. Continue miralax daily. Microcytic Anemia - Appreciated since 10/2021; in the setting of malignancy - folate, B12 elevated - iron studies suggest anemia of chronic disease (2) Chest pain: (3) Ovarian cancer: (4) Aortic heart murmur: (5) Chronic renal failure (CRF), stage 3b: (6) Insomnia: (7) GERD (gastroesophageal reflux disease): (8) Severe protein-calorie malnutrition: Total Time Total Time Spent Total Time Spent (In Minutes): <30 Discharge Plan Discharge Items Patient Disposition: Home - Home Health Services Reason For Visit: DYSPNEA Discharge Diagnosis: Acute hypoxic respiratory failure Activity: Per Instructions section Non-emergency contact: Primary Care Provider and Oncologist Call non-emergency contact if: your symptoms worsen, your pain is worsening and your temperature is above 101 Follow-up/Referrals: Linda Herron CRNP [Primary Care Provider] - 12/13/22 10:30 am Diet: Regular Addtl Attending Provider Instructions: A discharge summary will be sent to your primary care physician to ensure continuity of care. You came to the hospital for increased difficulty breathing. This was found to possibly be due to the metastasis of your ovarian cancer. The customer advisor drained some of the fluid surrounding your lung however there was some reaccumulation after this procedure. Your oxygen requirement has remained stable and at this time we think it is okay for you to be discharged and follow up with Dr. Hathaway outpatient tomorrow. You are also scheduled for a port placement on , depending on your discussion with Dr. Hathaway tomorrow you may decide to keep or cancel the procedure. Follow-up: * You should be seen by your primary physician within the next week. * You should follow up with Dr. Hathaway in oncology tomorrow. * You should follow up with general surgery outpatient for possible port placement. CONTACT YOUR PRIMARY CARE PROVIDER if you experience any of the following: * Fevers or shaking chills * Shortness of breath not relieved by inhalers, fainting * Sudden abdominal distension not relieved by catheterization. * Difficulty following your treatment plan, or difficulty taking medications CALL 911 OR GO TO THE EMERGENCY DEPARTMENT if you experience any of the following: * Sudden, severe abdominal pain or nausea/vomiting * Severe chest pain, or chest pain that radiates (moves) to your jaw or arm * Sudden, severe shortness of breath or difficulty breathing It was was our pleasure taking care of you here at [facility] . Thank you for allowing us to participate in your care. Pending Studies at Discharge: No Stand-Alone Forms: My [facility], Smoking Cessation Medications and DC Order Prescriptions: Continued coenzyme Q10 100 mg capsule 200 mg PO QAM cholecalciferol (vitamin D3) 50 mcg (2,000 unit) capsule 50 mcg PO QAM ondansetron 4 mg tablet,disintegrating 4 mg translingual Q8H PRN (Reason: nausea and vomiting) 1 Days Qty: 30 1RF acetaminophen 500 mg Tablet 1,000 mg PO BID PRN (Reason: Pain) trazodone 50 mg tablet 50 mg PO HS Rx Instructions: 1 hr before bed omeprazole 20 mg capsule,delayed release(DR/EC) 20 mg PO QAM docusate sodium 100 mg Capsule 100 mg PO QAM Discharge Orders: Discharge Order (Routine); Ordered 12/05/22 Ordered By: Jonny Neely Admission Data Admit Date/Time: 12/02/22 21:38 Attending Provider: Bigg [place] Admit Provider: Amado Renee Primary Care Provider: Linda Herron Other Providers: Speedy Mina ; Andrea Bland ; Hernán Cutler ; [place],Home Care Supervising Physician Co-Signing Physician Notes I personally examined the patient and verified all alberto points of history and exam, discussed case, and agree with decision making with Dr Neely Feeling okay and would like to go home. Discussed with pulmonary. Input greatly appreciated. Vitals noted, in general she is awake and alert pleasant no distress. HEENT normocephalic atraumatic mucous membranes moist. Breathing unlabored no accessory muscle use good effort. Skin shows no rashes no pallor or icterus. Malignant pleural effusionbreathing is okay, 92% on room air, would like to go homesafe/stable for home. Sees oncology tomorrow. Would like to discuss with oncology further and then she can better determine her goals and next steps. Otherwise as above Resident Activity Tracking Resident Involvement: Resident Care Provided Care Provided: Adult Hospital Medicine
--- NOTE | 2022-12-05 15:52 | Billing Data ---
Date of Service December 05, 2022 Coding Level of Care Code 73360 IN/OBS DISCH 30 MIN/LESS
== END 2022-12-05 16:50 | disposition home health service (06) | DRG 754 ==
LOC: ED 18:22 → SUATTDRO 21:38 → 2W 21:38

== ENCOUNTER 2023-05-30 15:40 | Inpatient (IN) ==
[2023-05-30] MEDS ORDERED: Patient's HEIGHT &/or WEIGHT Needed SCH (16:02)
[2023-05-30 16:45] LABS: Basophils # (auto) 0.02 K/uL (0.00-0.20); Basophils % (auto) 0.3 %; Eosinophils # (auto) 0.03 K/uL (0.00-0.50); Eosinophils % (auto) 0.5 %; Hematocrit (blood only) 27.6 % (37.0-47.0); Hemoglobin 8.9 g/dl (12.0-16.0); Immature Granulocytes # (auto) 0.01 K/uL (0.01-0.20); Immature Granulocytes % (auto) 0.2 %; Lymphocytes # (auto) 0.73 K/uL (1.20-3.40); Lymphocytes % (auto) 11.4 %; Mean Corpuscular Hemoglobin 26.5 pg (25.0-34.0); Mean Corpuscular Hgb Conc 32.2 g/dL (32.0-36.0); Mean Corpuscular Volume 82.1 fL (80.0-100.0); Mean Platelet Volume 11.6 fL (9.4-12.4); Monocytes # (auto) 0.99 K/uL (0.11-0.59); Monocytes % (auto) 15.4 %; Neutrophils # (auto) 4.64 K/uL (1.40-6.50); Neutrophils % (auto) 72.2 %; Platelet Count 260 K/uL (130-400); RDW Coefficient of Variation 17.1 % (11.5-14.5); RDW Standard Deviation 50.8 fL (36.4-46.3); Red Blood Count 3.36 M/uL (4.20-5.40); White Blood Count 6.42 K/ul (4.8-10.8)
[2023-05-30 16:58] LABS: Alanine Aminotransferase 11 U/L (7-52); Albumin Globulin Ratio 1.3 (0.9-2); Albumin Level 3.6 gm/dl (3.4-5.0); Alkaline Phosphatase 73 U/L (34-104); Anion Gap 9 (3-11); Aspartate Aminotransferase 23 U/L (13-39); BUN Creatinine Ratio 34.6 (10-20); Bilirubin,Total 0.3 mg/dl (0.2-1.0); Blood Urea Nitrogen 37 mg/dl (6-23); Calcium 8.9 mg/dl (8.6-10.3); Carbon Dioxide 23 mmol/L (21-32); Chloride 101 mmol/L (98-107); Est GFR (African American) 54.1 ml/min; Est GFR (Non-African American) 46.6 ml/min; Globulin 2.7 gm/dl (2.5-4.0); Glucose 88 mg/dl (70-99(Fasting)); Lipase 21 U/L (11-82); Potassium 4.8 mmol/L (3.5-5.1); Sodium 133 mmol/L (136-145); Total Protein 6.3 gm/dl (6.0-8.3)
--- NOTE | 2023-05-30 17:38 | XRay Report ---
KUB HISTORY: Acute and was abdominal pain abd pain, referred COMPARISON: PET CT 05/17/2023 FINDINGS: Cholecystectomy. Nonobstructive bowel gas pattern. Unchanged peripherally calcified splenic artery aneurysm. No renal calculi. No ureteral calculi. No pneumoperitoneum or pneumatosis. No frac ture. IMPRESSION: 1. Nonobstructive bowel gas pattern. 2. Cholecystectomy. 3. Sclerotic skeletal metastasis better visualized on the prior PET/CT. ACT 112: Negative or not required by law. The above report was generated using voice recognition software. It may contain grammatical, syntax o r spelling errors. Electronically signed by: Jaswant Barrera M.D. 05/30/2023 5:36 PM
[2023-05-30] MEDS ORDERED: SODIUM CHLORIDE 0.9% 1,000 ML IV ONE (20:04)
--- NOTE | 2023-05-30 20:04 | Emergency Department Note ---
Impression & Plan Abdominal pain, Nausea & vomiting, Primary cancer of ovary with widespread metastatic disease ED Provider Note ED Provider Note NAME: BALBINA ROUSE AGE:87 SEX: Female : 1935 ARRIVES VIA: private vehicle INFORMANT: Patient ED PROVIDER(s): Marily Talbert DO CHIEF COMPLAINT: Abdominal pain, nausea and vomiting HPI: This is an 87-year-old female presents emergency department due to worsening abdominal pain, nausea and vomiting. Patient has known metastatic ovarian cancer and is followed by Dr. Hathaway of heme-onc. She does get chemotherapy. She states in the last 2 days she has had increased abdominal pain and nausea despite use of antiemetics and pain medication at home including oral morphine. She states she has still been having normal bowel movements, denies black or bloody stools. She denies any change in urine. She denies fevers or chills. She denies any known sick contacts. No recent change in other medications. She states she had labs and imaging performed as an outpatient per the recommendation of Dr. Hanley and was called and instructed to come here for additional management. PAST MEDICAL HISTORY:See Below PAST SURGICAL HISTORY:See Below FAMILY HISTORY:See Below SOCIAL HISTORY:See Below HOME MEDICATIONS:See Below ALLERGIES:See Below VITALS:See Below PHYSICAL EXAMINATION: GENERAL: alert, well appearing, well nourished, no distress, non-toxic EYE EXAM: normal conjunctiva, PERRL and EOM's grossly intact OROPHARYNX: no exudate, no erythema, lips, buccal mucosa, and tongue normal and mucous membranes are moist NECK: supple, no nuchal rigidity, no adenopathy, non-tender LUNGS: Clear to auscultation. Normal chest wall mechanics, no w/r/r HEART: no murmurs, S1 normal and S2 normal ABDOMEN: abdomen soft, non-tender, normo-active bowel sounds, no masses, no rebound or guarding. BACK: Back is symmetrical on inspection and there is no deformity, no midline tenderness, no CVA tenderness. SKIN: no rashes, petechiae, orbruising UPPER EXTREMITIES: upper extremities are grossly normal. FROM, nml pulses b/l. LOWER EXTREMITIES: No pitting edema. FROM, nml pulses b/l. NEURO EXAM: Normal sensorium, cranial nerves II-XII grossly intact, normal speech, no facial droop,nogross weakness of arms, no gross weakness of legs. Gross sensation intact. No ataxia. Vital Signs: reviewed and remarkable Differential Diagnosis: Bowel obstruction, perforation, GI bleed, viral syndrome, mesenteric ischemia, increased tumor burden, medication ADR, as well as others were considered MEDICAL DECISION MAKING: This is an 87-year-old female presents emergency department due to concern for abdominal pain, nausea and vomiting. Patient with known malignancy and being treated by oncology. She does take pain medication and nausea medication at home which she states have not been helping. She was afebrile and vital signs stable. Labs drawn and sent, IV established, EKG and chest x-ray performed bedside interpreted by me and patient monitored in telemetry. Patient sent for CT of the abdomen and pelvis as well as CT head given symptoms and malignancy history. Case discussed with her oncologist, Dr. Hathaway. I did update oncology on the results once available and they came and spoke with the patient at bedside. They recommended empiric antibiotics and feel a diagnostic paracentesis can wait until tomorrow as they have a low suspicion for occult SBP despite the CT read. Patient given IV morphine here as well as IV Zofran for her symptoms. She was given gentle IV fluids additionally. Case discussed with [facility] hospitalist for additional evaluation and management. Consultation(s): 1999: Discussed with Dr. Hathaway, heme-onc. 0: Patient seen at bedside in the ER by Dr. Hathaway. Recommends additional blood cultures, empiric antibiotics and admission to the hospital. Can have diagnostic paracentesis tomorrow, does not need to be done urgently tonight. Agrees with Zosyn. 2303: Discussed with Dr. Wood[place], [place] hospitalist. ER Treatment Provided: See below Diagnostics Interpreted By Me: -ECG: Sinus tachycardia at 118, leftward axis, normal intervals, no acute ST/T wave changes -Cardiac Monitoring: An order was placed for continuous cardiac monitoring. The monitor shows a rate of 105 with sinus tachycardia rhythm. -Laboratory studies: As stated above and show below. -Imaging studies: X-ray Chest: A single view study of the chest was reviewed and was negative for cardiomegaly, focal infiltrate, effusion, pulmonary edema, or wide mediastinum. PICC line noted. Triage Nursing Note Reviewed Prior/Outside Records Reviewed -prior discharge summary reviewed Past Med/Surg History Medical History Hip pain Acute respiratory failure with hypoxia Shortness of breath Pleural effusion Chest pain Dyspnea Chest discomfort RECENT OCCURENCE - LEFT SIDE / NO OTHER S/S . WALKED AROUND & DISCOMFORT RESOLVED ON OWN - PT REPORTS THINKS IT WAS DUE TO GAS. HOME HEALTH NURSE WAS HERE AND PT REPORTS SHE AGREED TO THINKING IT WAS GAS RELATED. NURSE TOOK BP AND PT REPORTS BP WAS LOW ? 101/79 - PT DOESN'T REMEMBER EXACT BP. NO RE-OCCURENCE. EDUCATION PROVIDED-per PAT film and video graphics designer call Heartburn RESOLVED WITH MEDICATION. History of colon polyps Constipation Poor appetite Ovarian cancer RECENT DX/REASON FOR UPCOMING PROCEDURE. GERD (gastroesophageal reflux disease) Ovarian cancer Microcytic anemia Chronic renal failure (CRF), stage 3b Severe protein-calorie malnutrition Pleural effusion - recently, treated at [facility] - s/p diagnostic and therapeutic ultrasound-guided catheter thoracentesis 10/18/22 - 10/18/22 CXR showed small residual left pleural effusion - no physical limitation per PAT nursing assessment Aortic heart murmur Insomnia Depression Hyperlipidemia Dry eye syndrome Hypertension RECENT D/C OF BP MED/TODAY IS FIRST DAY OF NOT TAKING (LISINOPRIL HCTZ) Surgical History History of surgery OCTOBER 2022. EMERGENCY SX FOR OVARIAN TUMOR. DX CANCER. History of esophagogastroduodenoscopy (EGD) History of colonoscopy History of cataract surgery bilateral History of breast biopsy benign History of dilatation and curettage History of bilateral tubal ligation Hx of umbilical hernia repair Hx of elbow surgery right elbow tendon repair. Hx of cholecystectomy Family History Mother Myocardial infarction Breast cancer Grandmother Family history of diabetes mellitus Aunt Family history of diabetes mellitus Daughter Family history of diabetes mellitus Uncle Cancer Leukemia Other No family history of adverse response to anesthesia Denies family history of Ovarian cancer Prostate cancer Colorectal cancer Social History Smoking Status: Never smoker Second Hand Exposure: No; Do You Dip or Chew Tobacco: No; Hx Alcohol Use: No Hx Substance Use: No Preferred Language: French Communication Ability: Effective Visual Impairment: Limited Hearing Ability: Normal Jumpbasting Facing Baster Required: No Beliefs That Will Affect Care: None marital status: Current Living Situation: Family Current Living Situation Comment: DAUGHTER IS STAYING WITH ME SINCE CLAYTON BEEN SICK. current occupational status: retired How many Children do You have: 4 Feels Safe at Home: Yes Childhood Exposure to Second-Hand Smoke: No Diet: regular caffeine: No during the past year weight has: remained stable Dental Care, Regularly: No Physical Activity Frequency: Does not Exercise Seatbelt Use: always Sunscreen Use: No Do you think of yourself as: straight/heterosexual Gender Identity: Female Assistive Devices: Cane and Walker Allergies Allergies Allergy/AdvReac Type Severity Reaction Status Date / Time doxycycline AdvReac Intermediate Nausea Verified 05/30/23 20:44 propoxyphene AdvReac Intermediate left side Verified 05/30/23 20:44 numbness & tingling Sulfa (Sulfonamide AdvReac Intermediate nausea Verified 05/30/23 20:44 Antibiotics) Home Meds Home Medications Medication Instructions Recorded Confirmed coenzyme Q10 100 mg capsule 200 mg PO QAM 10/12/20 05/30/23 cholecalciferol (vitamin D3) 50 50 mcg PO QAM 04/13/22 05/30/23 mcg (2,000 unit) capsule acetaminophen 500 mg tablet 1,000 mg PO BID PRN Pain 10/26/22 05/30/23 docusate sodium 100 mg capsule 100 mg PO QAM 11/30/22 05/30/23 loratadine 10 mg tablet (Claritin) 10 mg PO DIRECTED 12/26/22 05/30/23 fluticasone propionate 50 1 spray intranasal DAILY PRN 02/11/23 05/30/23 mcg/actuation nasal Congestion spray,suspension (Allergy Relief (fluticasone)) magnesium oxide 400 mg (241.3 mg 400 mg PO BID 02/24/23 05/30/23 magnesium) tablet omeprazole 20 mg capsule,delayed 20 mg PO QAM 02/24/23 05/30/23 release prochlorperazine maleate 10 mg 10 mg PO Q6H PRN Nausea 02/24/23 05/30/23 tablet (Compazine) ibuprofen 200 mg tablet (Advil) 200 mg PO Q6H PRN Pain 05/30/23 05/30/23 morphine 15 mg immediate release 15 mg PO DIRECTED PRN Pain 05/30/23 05/30/23 tablet Previous Rx's Medication Instructions Recorded ondansetron 4 mg disintegrating 4 mg translingual Q8H PRN nausea 11/29/22 tablet and vomiting 24 hours #30 tabs lactulose 20 gram/30 mL oral 20 g (30 mL) PO BID PRN 02/15/23 solution constipation #1,200 mL trazodone 50 mg tablet 50 mg PO HS #30 tabs 02/21/23 Results & Data (ED) Vital Signs Vital Signs - 24 hr 05/30/23 23:00 Pulse Rate 83 Pulse Rate from SpO2 Sensor 106 H Respiratory Rate 19 Pulse Oximetry 97 Laboratory Data 05/31/23 04:31 05/31/23 04:31 Lab Results 05/30/23 Range/Units 16:23 WBC 6.42 (4.8-10.8) K/ul RBC 3.36 L (4.20-5.40) M/uL Hgb 8.9 L (12.0-16.0) g/dl Hct 27.6 L (37.0-47.0) % MCV 82.1 (80.0-100.0) fL MCH 26.5 (25.0-34.0) pg MCHC 32.2 (32.0-36.0) g/dL RDW Std Deviation 50.8 H (36.4-46.3) fL RDW Coeff of Marcie 17.1 H (11.5-14.5) % Plt Count 260 (130-400) K/uL MPV 11.6 (9.4-12.4) fL Immature Gran % (Auto) 0.2 % Neut % (Auto) 72.2 % Lymph % (Auto) 11.4 % Craven % (Auto) 15.4 % Eos % (Auto) 0.5 % Baso % (Auto) 0.3 % Neut # (Auto) 4.64 (1.40-6.50) K/uL Lymph # (Auto) 0.73 L (1.20-3.40) K/uL Craven # (Auto) 0.99 H (0.11-0.59) K/uL Eos # (Auto) 0.03 (0.00-0.50) K/uL Baso # (Auto) 0.02 (0.00-0.20) K/uL Immature Gran # (Auto) 0.01 (0.01-0.20) K/uL Sodium 133 L (136-145) mmol/L Potassium 4.8 (3.5-5.1) mmol/L Chloride 101 (98-107) mmol/L Carbon Dioxide 23 (21-32) mmol/L Anion Gap 9 (3-11) BUN 37 H (6-23) mg/dl Creatinine 1.07 (0.6-1.2) mg/dl Est Cr Clr Drug Dosing Not Reportable Est GFR ( Amer) 54.1 ml/min Est GFR (Non-Af Amer) 46.6 ml/min BUN/Creatinine Ratio 34.6 H (10-20) Glucose 88 (70-99(Fasting)) mg/dl Calcium 8.9 (8.6-10.3) mg/dl Phosphorus 3.5 (2.5-4.9) mg/dl Magnesium 1.8 (1.7-2.4) mg/dl Total Bilirubin 0.3 (0.2-1.0) mg/dl AST 23 (13-39) U/L ALT 11 (7-52) U/L Alkaline Phosphatase 73 (34-104) U/L Total Protein 6.3 (6.0-8.3) gm/dl Albumin 3.6 (3.4-5.0) gm/dl Globulin 2.7 (2.5-4.0) gm/dl Albumin/Globulin Ratio 1.3 (0.9-2) Lipase 21 (11-82) U/L Procalcitonin 0.07 (0-0.5) ng/ml Administered Medications Docusate Sodium (Docusate Sodium 100 Mg Cap) 100 mg PO QAM SOHAIL Stop: 06/30/23 08:59 Last Admin: 05/31/23 10:19 Dose: 100 mg Documented By: KV Heparin Sodium (Beef Lung) (Heparin 10 Unit/Ml 5 Ml Flush) 5 ml FLUSH PRN PRN PRN Reason: Flush Stop: 06/30/23 05:19 Last Admin: 05/31/23 20:07 Dose: 5 ml Documented By: JLP Ceftriaxone Sodium 1,000 mg/ (Dextrose) 50 mls @ 100 mls/hr IV Q24H SOHAIL; Protocol Stop: 06/02/23 05:59 Last Infusion: 05/31/23 06:44 Dose: Infused Documented By: Admin: 05/31/23 05:50 Dose: 100 mls/hr Documented By: LILIANA Magnesium Oxide (Magnesium Oxide 400 Mg Tab) 400 mg PO BID SOHAIL Stop: 06/30/23 08:59 Last Admin: 05/31/23 20:06 Dose: 400 mg Documented By: Admin: 05/31/23 10:19 Dose: 400 mg Documented By: LUANNE Pantoprazole Sodium (Pantoprazole 40 Mg Tab) 40 mg PO DAILY SOHAIL Stop: 06/30/23 08:59 Last Admin: 05/31/23 10:19 Dose: 40 mg Documented By: LUANNE Trazodone HCl (Trazodone Hcl 50 Mg Tab) 50 mg PO HS SOHAIL Stop: 06/30/23 20:59 Last Admin: 05/31/23 20:06 Dose: 50 mg Documented By: ISELA Discontinued Medications Diphenhydramine HCl (Diphenhydramine 50 Mg/Ml Vial) 12.5 mg IV NOW STA Stop: 05/31/23 00:36 Last Admin: 05/31/23 00:43 Dose: 12.5 mg Documented By: GUICHO Enoxaparin Sodium (Enoxaparin Inj 40 Mg/0.4 Ml Syr) 40 mg SQ Q24H SOHAIL Stop: 06/30/23 05:59 Last Admin: 05/31/23 05:49 Dose: 40 mg Documented By: LILIANA Heparin Sodium (Porcine) (Heparin 100 Unit/Ml 5ml Flush) Confirm Administered Dose 5 ml .ROUTE .STK-MED ONE Stop: 05/31/23 04:47 Last Admin: 05/31/23 04:47 Dose: 5 ml Documented By: LILIANA Sodium Chloride (Nss) 1,000 mls @ 999 mls/hr IV .Q1H1M ONE Stop: 05/30/23 21:04 Last Infusion: 05/30/23 23:31 Dose: Infused Documented By: Admin: 05/30/23 21:56 Dose: 999 mls/hr Documented By: ACC Sodium Chloride (Nss) 1,000 mls @ 125 mls/hr IV .Q8H SOHAIL Stop: 06/29/23 21:59 Last Admin: 05/30/23 23:10 Dose: Not Given Documented By: ACC Acetaminophen (Ofirmev) 1,000 mg in 100 mls @ 400 mls/hr IV NOW STA Stop: 05/30/23 22:12 Last Infusion: 05/30/23 23:31 Dose: Infused Documented By: Admin: 05/30/23 23:04 Dose: 400 mls/hr Documented By: ACC Piperacillin Sod/Tazobactam Sod (Zosyn) 4.5 gm in 100 mls @ 200 mls/hr IV NOW ONE Stop: 05/30/23 22:49 Last Infusion: 05/31/23 02:34 Dose: Infused Documented By: Admin: 05/31/23 00:14 Dose: 200 mls/hr Documented By: ACC Sodium Chloride (Nss) 1,000 mls @ 125 mls/hr IV .Q8H SOHAIL Stop: 06/29/23 22:29 Last Admin: 05/31/23 02:34 Dose: Not Given Documented By: ACC Ioversol (Optiray 320 500ml) 88 ml IV ONCE ONE Stop: 05/30/23 21:47 Last Admin: 05/30/23 21:47 Dose: 88 ml Documented By: EAB Morphine Sulfate (Morphine Sulfate 4 Mg/Ml 1 Ml Carp\Vial) 4 mg IV NOW STA Stop: 05/30/23 21:59 Last Admin: 05/30/23 23:03 Dose: 4 mg Documented By: ACC Ondansetron HCl (Ondansetron Inj 2 Mg/Ml 2 Ml Vial) 4 mg IV NOW STA Stop: 05/30/23 23:19 Last Admin: 05/30/23 23:28 Dose: 4 mg Documented By: ACC Imaging Data Radiologist's Impression: KUB X-Ray 05/30/23 16:09 KUB HISTORY: Acute and was abdominal pain abd pain, referred COMPARISON: PET CT 05/17/2023 FINDINGS: Cholecystectomy. Nonobstructive bowel gas pattern. Unchanged peripherally calcified splenic artery aneurysm. No renal calculi. No ureteral calculi. No pneumoperitoneum or pneumatosis. No fracture. IMPRESSION: 1. Nonobstructive bowel gas pattern. 2. Cholecystectomy. 3. Sclerotic skeletal metastasis better visualized on the prior PET/CT. ACT 112: Negative or not required by law. The above report was generated using voice recognition software. It may contain grammatical, syntax or spelling errors. Electronically signed by: Jaswant Barrera M.D. 05/30/2023 5:36 PM Abdomen/Pelvis CT 05/30/23 20:04 Exam(s): CT ABDOMEN + PELVIS With Contrast IV Amt: 88ML OPTIRAY 320 EXAM: CT Abdomen and Pelvis With Intravenous Contrast CLINICAL HISTORY: Reason for exam: n/v, abd pain, known cancer with mets. TECHNIQUE: Axial computed tomography images of the abdomen and pelvis with intravenous contrast. Automated exposure control was utilized for the study. A dose lowering technique was utilized adhering to the principles of ALARA. CONTRAST: Patient received 88ML OPTIRAY 320 of IV contrast COMPARISON: No relevant prior studies available. FINDINGS: Lung bases: Unremarkable. No mass. No consolidation. ABDOMEN: Liver: Hepatic metastases are present. Gallbladder and bile ducts: Cholecystectomy. No ductal dilation. Pancreas: Unremarkable. No mass. No ductal dilation. Spleen: Unremarkable. No splenomegaly. Adrenals: Unremarkable. No mass. Kidneys and ureters: Unremarkable. No solid mass. No hydronephrosis. Stomach and bowel: Wall thickening of small bowel, concerning for spontaneous bacterial peritonitis. No obstruction. PELVIS: Appendix: No findings to suggest acute appendicitis. Bladder: Unremarkable. No mass. Reproductive: Unremarkable as visualized. ABDOMEN and PELVIS: Intraperitoneal space: Mass in the pelvis measures approximately 11.5 x 10.5 cm, consistent with malignancy of gynecological etiology, correlate for ovarian or endometrial cancer. 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 Large volume abdominal ascites. No free air. Bones/joints: Degenerative changes of the spine. No acute fracture. No dislocation. Soft tissues: Unremarkable. Vasculature: Atherosclerotic changes of the aorta. No abdominal aortic aneurysm. Lymph nodes: Unremarkable. No enlarged lymph nodes. IMPRESSION: 1. Mass in the pelvis measures approximately 11.5 x 10.5 cm, consistent with malignancy of gynecological etiology, correlate for ovarian or endometrial cancer. Peritoneal carcinomatosis. Large volume abdominal ascites. 2. Hepatic metastases are present. 3. Wall thickening of small bowel, concerning for spontaneous bacterial peritonitis. Electronically signed by: Travis Young MD 05/30/23 22:[address] 05/30/23 20:04 Exam(s): CT HEAD Without Contrast EXAM: CT Head Without Intravenous Contrast CLINICAL HISTORY: Reason for exam: n/v. TECHNIQUE: Axial computed tomography images of the head/brain without intravenous contrast. Automated exposure control was utilized for the study. A dose lowering technique was utilized adhering to the principles of ALARA. COMPARISON: No relevant prior studies available. FINDINGS: No acute intracranial hemorrhage. No midline shift or mass effect. The territorial jones-white matter differentiation is maintained throughout. Age-related cerebral volume loss. Periventricular and subcortical white matter hypoattenuation, consistent with chronic microangiopathy. The visualized orbits appear grossly unremarkable. The calvarium is intact. The visualized paranasal sinuses and mastoid air cells are grossly clear. IMPRESSION: No acute intracranial hemorrhage, midline shift, or mass effect. Electronically signed by: Travis Young MD 05/30/23 21:56 PM Discharge Plan Visit Data Chief Complaint: Abdominal Pain Stated Complaint: POSSIBLE ABDOMINAL OBSTRUCTION ED Provider: Marily Talbert Discharge Problem: Abdominal pain, Nausea & vomiting, Primary cancer of ovary with widespread metastatic disease Patient Disposition: Admitted As Inpatient Discharge Instructions Interventions: ED Discharge Assessment Last Done: 05/31/23 00:52
[2023-05-30] MEDS ORDERED: OPTIRAY 320 500ml IV ONE (21:46)
--- NOTE | 2023-05-30 21:56 | CT Scan Report ---
Exam(s): CT HEAD Without Contrast EXAM: CT Head Without Intravenous Contrast CLINICAL HISTORY: Reason for exam: n/v. TECHNIQUE: Axial computed tomography images of the head/brain without intravenous contrast. Automated exposure control was utilized for the study. A dose lowering technique was utilized adhering to the principles of ALARA. COMPARISON: No relevant prior studies available. FINDINGS: No acute intracranial hemorrhage. No midline shift or mass effect. The territorial jones-white matter differentiation is maintained throughout. Age-related cerebral volume loss. Periventricular and subcortical white matter hypoattenuation, consistent with chronic microangiopathy. The visualized orbits appear grossly unremarkable. The calvarium is intact. The visualized paranasal sinuses and mastoid air cells are grossly clear. IMPRESSION: No acute intracranial hemorrhage, midline shift, or mass effect. Electronically signed by: Travis Young MD 05/30/23 21:56 PM
[2023-05-30] MEDS ORDERED: ACETAMINOPHEN 1,000 MG/100 ML VIAL IV STA (21:58)
[2023-05-30] MEDS ORDERED: MoRPHine SULFATE 4 MG/ML 1 ML CARP\\VIAL IV STA (21:58)
[2023-05-30] MEDS ORDERED: SODIUM CHLORIDE 0.9% 1,000 ML IV SCH ×2 (22:00→22:30)
--- NOTE | 2023-05-30 22:04 | CT Scan Report ---
Exam(s): CT ABDOMEN + PELVIS With Contrast IV Amt: 88ML OPTIRAY 320 EXAM: CT Abdomen and Pelvis With Intravenous Contrast CLINICAL HISTORY: Reason for exam: n/v, abd pain, known cancer with mets. TECHNIQUE: Axial computed tomography images of the abdomen and pelvis with intravenous contrast. Automated exposure control was utilized for the study. A dose lowering technique was utilized adhering to the principles of ALARA. CONTRAST: Patient received 88ML OPTIRAY 320 of IV contrast COMPARISON: No relevant prior studies available. FINDINGS: Lung bases: Unremarkable. No mass. No consolidation. ABDOMEN: Liver: Hepatic metastases are present. Gallbladder and bile ducts: Cholecystectomy. No ductal dilation. Pancreas: Unremarkable. No mass. No ductal dilation. Spleen: Unremarkable. No splenomegaly. Adrenals: Unremarkable. No mass. Kidneys and ureters: Unremarkable. No solid mass. No hydronephrosis. Stomach and bowel: Wall thickening of small bowel, concerning for spontaneous bacterial peritonitis. No obstruction. PELVIS: Appendix: No findings to suggest acute appendicitis. Bladder: Unremarkable. No mass. Reproductive: Unremarkable as visualized. ABDOMEN and PELVIS: Intraperitoneal space: Mass in the pelvis measures approximately 11.5 x 10.5 cm, consistent with malignancy of gynecological etiology, correlate for ovarian or endometrial cancer. 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 Large volume abdominal ascites. No free air. Bones/joints: Degenerative changes of the spine. No acute fracture. No dislocation. Soft tissues: Unremarkable. Vasculature: Atherosclerotic changes of the aorta. No abdominal aortic aneurysm. Lymph nodes: Unremarkable. No enlarged lymph nodes. IMPRESSION: 1. Mass in the pelvis measures approximately 11.5 x 10.5 cm, consistent with malignancy of gynecological etiology, correlate for ovarian or endometrial cancer. Peritoneal carcinomatosis. Large volume abdominal ascites. 2. Hepatic metastases are present. 3. Wall thickening of small bowel, concerning for spontaneous bacterial peritonitis. Electronically signed by: Travis Young MD 05/30/23 22:03 PM
[2023-05-30] MEDS ORDERED: PIPERACILLIN/TAZOBACTAM 4.5 GM/100 ML BAG IV ONE (22:20)
[2023-05-30] MEDS ORDERED: ONDANSETRON INJ 2 MG/ML 2 ML VIAL IV STA (23:18)
--- NOTE | 2023-05-30 23:23 | History & Physical Report ---
Date of Service May 30, 2023 Assessment & Plan (1) Nausea & vomiting: Plan: 87yo female with known metastatic ovarian cancer presenting with nausea, vomiting and abdominal pain and distention. Patient noted to have large volume ascites on CT. Her abdomen is soft and only mildly tender to palpation. Likely that ascites, possible progression of disease is cause of patient's presenting symptoms - bloating, fullness, nausea and shortness of breath. 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 Uncertain of next steps in patient's cancer treatment. If patient's presenting symptoms secondary to progression of disease would consider Palliative Care Consultation History of Present Illness Chief Complaint: nausea, abdominal pain Primary Care Provider: JEAN Pelayo Marta Garcia is an 87yo female with ovarian cancer presenting with abdominal pain and nausea. Patient reports that her symptoms have been developing over the last 2-3 days. She feels abdominal fullness and distention as well as nausea. She has not been able to tolerate PO intake for the last day. She also reports some increased shortness of breath. No report of fever, chills, cough, chest pain, palpitations or diarrhea. No urinary complaints. Patient's last chemotherapy was 05/03/23. She did just stop her home Prilosec on her own ER Course: Tylenol Morphine Zofran NSS Allergies Allergy/AdvReac Type Severity Reaction Status Date / Time doxycycline AdvReac Intermediate Nausea Verified 05/30/23 20:44 propoxyphene AdvReac Intermediate left side Verified 05/30/23 20:44 numbness & tingling Sulfa (Sulfonamide AdvReac Intermediate nausea Verified 05/30/23 20:44 Antibiotics) Home Medications Medication Instructions Recorded Confirmed Type coenzyme Q10 100 mg capsule 200 mg PO QAM 10/12/20 05/30/23 History cholecalciferol (vitamin D3) 50 50 mcg PO QAM 04/13/22 05/30/23 History mcg (2,000 unit) capsule acetaminophen 500 mg tablet 1,000 mg PO BID PRN Pain 10/26/22 05/30/23 History ondansetron 4 mg disintegrating 4 mg translingual Q8H PRN nausea 11/29/22 05/30/23 Rx tablet and vomiting 24 hours #30 tabs docusate sodium 100 mg capsule 100 mg PO QAM 11/30/22 05/30/23 History loratadine 10 mg tablet (Claritin) 10 mg PO DIRECTED 12/26/22 05/30/23 History fluticasone propionate 50 1 spray intranasal DAILY PRN 02/11/23 05/30/23 History mcg/actuation nasal Congestion spray,suspension (Allergy Relief (fluticasone)) lactulose 20 gram/30 mL oral 20 g (30 mL) PO BID PRN 02/15/23 05/30/23 Rx solution constipation #1,200 mL trazodone 50 mg tablet 50 mg PO HS #30 tabs 02/21/23 05/30/23 Rx magnesium oxide 400 mg (241.3 mg 400 mg PO BID 02/24/23 05/30/23 History magnesium) tablet omeprazole 20 mg capsule,delayed 20 mg PO QAM 02/24/23 05/30/23 History release prochlorperazine maleate 10 mg 10 mg PO Q6H PRN Nausea 02/24/23 05/30/23 History tablet (Compazine) ibuprofen 200 mg tablet (Advil) 200 mg PO Q6H PRN Pain 05/30/23 05/30/23 History morphine 15 mg immediate release 15 mg PO DIRECTED PRN Pain 05/30/23 05/30/23 History tablet Past Med/Surg History Medical History Hip pain Acute respiratory failure with hypoxia Shortness of breath Pleural effusion Chest pain Dyspnea Chest discomfort RECENT OCCURENCE - LEFT SIDE / NO OTHER S/S . WALKED AROUND & DISCOMFORT RESOLVED ON OWN - PT REPORTS THINKS IT WAS DUE TO GAS. HOME HEALTH NURSE WAS HERE AND PT REPORTS SHE AGREED TO THINKING IT WAS GAS RELATED. NURSE TOOK BP AND PT REPORTS BP WAS LOW ? 101/79 - PT DOESN'T REMEMBER EXACT BP. NO RE-OCCURENCE. 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 History of colon polyps Constipation Poor appetite Ovarian cancer RECENT DX/REASON FOR UPCOMING PROCEDURE. GERD (gastroesophageal reflux disease) Ovarian cancer Microcytic anemia Chronic renal failure (CRF), stage 3b Severe protein-calorie malnutrition Pleural effusion - recently, treated at [facility] - s/p diagnostic and therapeutic ultrasound-guided catheter thoracentesis 10/18/22 - 10/18/22 CXR showed small residual left pleural effusion - no physical limitation per PAT nursing assessment Aortic heart murmur Insomnia Depression Hyperlipidemia Dry eye syndrome Hypertension RECENT D/C OF BP MED/TODAY IS FIRST DAY OF NOT TAKING (LISINOPRIL HCTZ) Surgical History History of surgery OCTOBER 2022. EMERGENCY SX FOR OVARIAN TUMOR. DX CANCER. History of esophagogastroduodenoscopy (EGD) History of colonoscopy History of cataract surgery bilateral History of breast biopsy benign History of dilatation and curettage History of bilateral tubal ligation Hx of umbilical hernia repair Hx of elbow surgery right elbow tendon repair. Hx of cholecystectomy Family History Mother Myocardial infarction Breast cancer Grandmother Family history of diabetes mellitus Aunt Family history of diabetes mellitus Daughter Family history of diabetes mellitus Uncle Cancer Leukemia Other No family history of adverse response to anesthesia Denies family history of Ovarian cancer Prostate cancer Colorectal cancer Social History Smoking Status: Never smoker Second Hand Exposure: No; Do You Dip or Chew Tobacco: No; Hx Alcohol Use: No Hx Substance Use: No Preferred Language: Lao Communication Ability: Effective Visual Impairment: Limited Hearing Ability: Normal [employer] Specialist Required: No Beliefs That Will Affect Care: None marital status: Current Living Situation: Family Current Living Situation Comment: DAUGHTER IS STAYING WITH ME SINCE C[place]TON BEEN SICK. current occupational status: retired How many Children do You have: 4 Feels Safe at Home: Yes Childhood Exposure to Second-Hand Smoke: No Diet: regular caffeine: No during the past year weight has: remained stable Dental Care, Regularly: No Physical Activity Frequency: Does not Exercise Seatbelt Use: always Sunscreen Use: No Do you think of yourself as: straight/heterosexual Gender Identity: Female Assistive Devices: Cane, Denture - Upper, Denture - Lower and Glasses Review of Systems Review of Systems: All systems reviewed & are unremarkable except as noted in HPI & below Physical Exam Physical Exam: General: frail, elderly female patient resting comfortably, NAD, non-toxic in appearance, AA&O x 4 Skin: warm, dry, intact, no rashes or lesions HEENT: NC/AT, PERRL, EOMI, anicteric sclera, conjunctiva without injection, external ear normal to inspection and nontender, nares patent, moist mucus membranes, dentition intact, no oropharyngeal lesions, neck supple, trachea midline, no LAD, no thyromegaly, no JVD Heart: +S1/S2, regular, no m/r/g Lungs: equal air entry bilaterally, no rales/rhonchi/wheezes Abd: +BS, soft, mildly distended, tender to palpation without rebound/guarding or peritoneal signs, +bulging flanks Ext: warm, 2+ pulses in UE/LE bilaterally, no clubbing/cyanosis or edema Neuro: nonfocal, patient AA&O x 4, speech intact, no facial droop, moving all extremities on command with equal strength 5/5 Results & Data Results & Data Vital Signs (Past 12 Hours) Vital Signs Temp Pulse Pulse Resp BP BP Pulse Ox 05/30/23 22:30 103 H 19 97 05/30/23 22:00 103 H 20 135/73 97 05/30/23 21:48 20 98 05/30/23 21:00 115 H 24 05/30/23 20:49 115 H 24 05/30/23 20:48 114 H 05/30/23 19:41 115 H 19 114/92 95 05/30/23 16:02 36.9 C 112 H 19 126/81 97 O2 Del Method 05/30/23 22:30 05/30/23 22:00 05/30/23 21:48 05/30/23 21:00 05/30/23 20:49 05/30/23 20:48 05/30/23 19:41 Room Air 05/30/23 16:02 Room Air Laboratory Results Laboratory Results WBC 6.42 K/ul (4.8-10.8) 05/30/23 16:23 RBC 3.36 M/uL (4.20-5.40) L 05/30/23 16:23 Hgb 8.9 g/dl (12.0-16.0) L 05/30/23 16:23 Hct 27.6 % (37.0-47.0) L 05/30/23 16: MCV 82.1 fL (80.0-100.0) 05/30/23 16: MCH 26.5 pg (25.0-34.0) 05/30/23 16: MCHC 32.2 g/dL (32.0-36.0) 05/30/23 16: RDW Std Deviation 50.8 fL (36.4-46.3) H 05/30/23 16: RDW Coeff of Marcie 17.1 % (11.5-14.5) H 05/30/23 16: Plt Count 260 K/uL (130-400) 05/30/23 16: MPV 11.6 fL (9.4-12.4) 05/30/23 16: Immature Gran % (Auto) 0.2 % 05/30/23 16: Neut % (Auto) 72.2 % 05/30/23 16:23 Lymph % (Auto) 11.4 % 05/30/23 16:23 Cross % (Auto) 15.4 % 05/30/23 16: Eos % (Auto) 0.5 % 05/30/23 16: Baso % (Auto) 0.3 % 05/30/23 16: Neut # (Auto) 4.64 K/uL (1.40-6.50) 05/30/23 16: Lymph # (Auto) 0.73 K/uL (1.20-3.40) L 05/30/23 16: Cross # (Auto) 0.99 K/uL (0.11-0.59) H 05/30/23 16:23 Eos # (Auto) 0.03 K/uL (0.00-0.50) 05/30/23 16: Baso # (Auto) 0.02 K/uL (0.00-0.20) 05/30/23 16: Immature Gran # (Auto) 0.01 K/uL (0.01-0.20) 05/30/23 16: Sodium 133 mmol/L (136-145) L 05/30/23 16: Potassium 4.8 mmol/L (3.5-5.1) 05/30/23 16:23 Chloride 101 mmol/L (98-107) 05/30/23 16:23 Carbon Dioxide 23 mmol/L (21-32) 05/30/23 16:23 Anion Gap 9 (3-11) 05/30/23 16:23 BUN 37 mg/dl (6-23) H 05/30/23 16:23 Creatinine 1.07 mg/dl (0.6-1.2) 05/30/23 16:23 Est Cr Clr Drug Dosing Not Reportable 05/30/23 16:23 Est GFR ( Amer) 54.1 ml/min 05/30/23 16:23 Est GFR (Non-Af Amer) 46.6 ml/min 05/30/23 16:23 BUN/Creatinine Ratio 34.6 (10-20) H 05/30/23 16:23 Glucose 88 mg/dl (70-99(Fasting)) 05/30/23 16:23 Lactate 1.6 mmol/L (0.4-2.0) 05/30/23 23:42 Calcium 8.9 mg/dl (8.6-10.3) 05/30/23 16:23 Phosphorus 3.5 mg/dl (2.5-4.9) 05/30/23 16:23 Magnesium 1.8 mg/dl (1.7-2.4) 05/30/23 16:23 Total Bilirubin 0.3 mg/dl (0.2-1.0) 05/30/23 16:23 AST 23 U/L (13-39) 05/30/23 16:23 ALT 11 U/L (7-52) 05/30/23 16:23 Alkaline Phosphatase 73 U/L (34-104) 05/30/23 16:23 Total Protein 6.3 gm/dl (6.0-8.3) 05/30/23 16:23 Albumin 3.6 gm/dl (3.4-5.0) 05/30/23 16:23 Globulin 2.7 gm/dl (2.5-4.0) 05/30/23 16:23 Albumin/Globulin Ratio 1.3 (0.9-2) 05/30/23 16:23 Lipase 21 U/L (11-82) 05/30/23 16:23 Procalcitonin 0.07 ng/ml (0-0.5) 05/30/23 16:23 Impressions KUB X-Ray 05/30/23 16:09 KUB HISTORY: Acute and was abdominal pain abd pain, referred COMPARISON: PET CT 05/17/2023 FINDINGS: Cholecystectomy. Nonobstructive bowel gas pattern. Unchanged peripherally calcified splenic artery aneurysm. No renal calculi. No ureteral calculi. No pneumoperitoneum or pneumatosis. No fracture. IMPRESSION: 1. Nonobstructive bowel gas pattern. 2. Cholecystectomy. 3. Sclerotic skeletal metastasis better visualized on the prior PET/CT. ACT 112: Negative or not required by law. The above report was generated using voice recognition software. It may contain grammatical, syntax or spelling errors. Electronically signed by: Jaswant Barrera M.D. 05/30/2023 5:36 PM Abdomen/Pelvis CT 05/30/23 20:04 Exam(s): CT ABDOMEN + PELVIS With Contrast IV Amt: 88ML OPTIRAY 320 EXAM: CT Abdomen and Pelvis With Intravenous Contrast CLINICAL HISTORY: Reason for exam: n/v, abd pain, known cancer with mets. TECHNIQUE: Axial computed tomography images of the abdomen and pelvis with intravenous contrast. Automated exposure control was utilized for the study. A dose lowering technique was utilized adhering to the principles of ALARA. CONTRAST: Patient received 88ML OPTIRAY 320 of IV contrast COMPARISON: No relevant prior studies available. FINDINGS: Lung bases: Unremarkable. No mass. No consolidation. ABDOMEN: Liver: Hepatic metastases are present. Gallbladder and bile ducts: Cholecystectomy. No ductal dilation. Pancreas: Unremarkable. No mass. No ductal dilation. Spleen: Unremarkable. No splenomegaly. Adrenals: Unremarkable. No mass. Kidneys and ureters: Unremarkable. No solid mass. No hydronephrosis. Stomach and bowel: Wall thickening of small bowel, concerning for spontaneous bacterial peritonitis. No obstruction. PELVIS: Appendix: No findings to suggest acute appendicitis. Bladder: Unremarkable. No mass. Reproductive: Unremarkable as visualized. ABDOMEN and PELVIS: Intraperitoneal space: Mass in the pelvis measures approximately 11.5 x 10.5 cm, consistent with malignancy of gynecological etiology, correlate for ovarian or endometrial cancer. 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 Large volume abdominal ascites. No free air. Bones/joints: Degenerative changes of the spine. No acute fracture. No dislocation. Soft tissues: Unremarkable. Vasculature: Atherosclerotic changes of the aorta. No abdominal aortic aneurysm. Lymph nodes: Unremarkable. No enlarged lymph nodes. IMPRESSION: 1. Mass in the pelvis measures approximately 11.5 x 10.5 cm, consistent with malignancy of gynecological etiology, correlate for ovarian or endometrial cancer. Peritoneal carcinomatosis. Large volume abdominal ascites. 2. Hepatic metastases are present. 3. Wall thickening of small bowel, concerning for spontaneous bacterial peritonitis. Electronically signed by: Travis oYung MD 05/30/23 22:[address] 05/30/23 20:04 Exam(s): CT HEAD Without Contrast EXAM: CT Head Without Intravenous Contrast CLINICAL HISTORY: Reason for exam: n/v. TECHNIQUE: Axial computed tomography images of the head/brain without intravenous contrast. Automated exposure control was utilized for the study. A dose lowering technique was utilized adhering to the principles of ALARA. COMPARISON: No relevant prior studies available. FINDINGS: No acute intracranial hemorrhage. No midline shift or mass effect. The territorial jones-white matter differentiation is maintained throughout. Age-related cerebral volume loss. Periventricular and subcortical white matter hypoattenuation, consistent with chronic microangiopathy. The visualized orbits appear grossly unremarkable. The calvarium is intact. The visualized paranasal sinuses and mastoid air cells are grossly clear. IMPRESSION: No acute intracranial hemorrhage, midline shift, or mass effect. Electronically signed by: Travis Young MD 05/30/23 21:56 PM ECG Additional Comments: ST at 118, left axis deviation, BS=767, QRS=68, VUa=181, low voltage Code Status & VTE Plan VTE Prophylaxis Plan VTE Prophylaxis will be ordered: Yes PG Care Time/CCT Total # of Minutes Spent Total Time Spent with Patient: Total time spent is greater than 50% in coordination of care (as documented) at patient's floor/unit and/or counseling patient: Coding Level of Care Code 59215 INT INP/OBS CARE 2/55MIN Diagnoses Nausea & vomiting R11.2 Ascites R18.8 Ascites type: other type (2) Ascites Ascites type: other type Qualified Code(s): R18.8 - Other ascites
[2023-05-31] MEDS ORDERED: diphenhydrAMINE 50 MG/ML VIAL IV STA (00:35)
[2023-05-31] MEDS ORDERED: ONDANSETRON INJ 2 MG/ML 2 ML VIAL IV PRN ×2 (00:35→00:51)
[2023-05-31] MEDS ORDERED: FLUTICASONE PROPIONATE NA SPR 16 GM BTL PRN (00:51)
[2023-05-31] MEDS ORDERED: LACTULOSE SYRUP 20 GM/30 ML UDC PO PRN (00:51)
[2023-05-31] MEDS ORDERED: MoRPHine SULFATE 2 MG/ML CARP IV PRN (00:51)
[2023-05-31] MEDS ORDERED: MoRPHine SULFATE 4 MG/ML 1 ML CARP\\VIAL IV PRN (00:51)
[2023-05-31] MEDS ORDERED: ACETAMINOPHEN 500 MG TAB PO PRN (00:51)
[2023-05-31] MEDS ORDERED: PROCHLORPERAZINE MALEATE 10 MG TAB PO PRN (00:51)
[2023-05-31 01:11] LABS: Magnesium 1.8 mg/dl (1.7-2.4); Phosphorus 3.5 mg/dl (2.5-4.9)
[2023-05-31 02:50] LABS: Appearance Urine Cloudy (Clear); Bacteria Urine Automated Negative (Negative); Bilirubin Urine Negative (Negative); Blood Urine Negative (Negative); Color Urine Yellow; Epithelial Cell Urine Auto >30 /lpf (0-5); Glucose Urine UA Negative (Negative); Ketones Urine Trace (Negative); Leukocyte Esterase Urine 1+ (Negative); Nitrite Urine Negative (Negative); Protein Urine Trace (Negative); Specific Gravity Urine 1.043 (1.000-1.030); Urobilinogen Urine Negative (Negative)
[2023-05-31 03:31] LABS: RBC Urine Automated 0-4 /hpf (0-4)
[2023-05-31] MEDS ORDERED: HEPARIN 100 UNIT/ML 5ML FLUSH ONE (04:46)
[2023-05-31 05:02] LABS: Hematocrit (blood only) 27.2 % (37.0-47.0); Hemoglobin 8.7 g/dl (12.0-16.0); Mean Corpuscular Hemoglobin 26.4 pg (25.0-34.0); Mean Corpuscular Volume 82.7 fL (80.0-100.0); Mean Platelet Volume 11.1 fL (9.4-12.4); Platelet Count 201 K/uL (130-400); RDW Standard Deviation 51.5 fL (36.4-46.3); Red Blood Count 3.29 M/uL (4.20-5.40); White Blood Count 5.91 K/ul (4.8-10.8)
[2023-05-31 05:12] LABS: BUN Creatinine Ratio 30.8 (10-20); Calcium 8.4 mg/dl (8.6-10.3); Creatinine Clr Calc Pharmacy 29.4 ml/min; Est GFR (African American) 48.5 ml/min; Est GFR (Non-African American) 41.9 ml/min; Potassium 4.8 mmol/L (3.5-5.1)
[2023-05-31] MEDS: cefTRIAXone SODIUM 1,000 MG in DEXTROSE 5 % MINI-B 50 ML IV SCH (05:50)
[2023-05-31] MEDS ORDERED: ENOXAPARIN INJ 40 MG/0.4 ML SYR SQ SCH (06:00)
--- NOTE | 2023-05-31 07:36 | XRay Report ---
XR chest 1V portable HISTORY: 87 years-old Female picc eval status post placement of a right-sided PICC COMPARISON: 02/11/2023 TECHNIQUE: AP view of the chest FINDINGS: Cardiac silhouette is enlarged. A right-sided PICC is noted with distal tip in the expected location of the mid SVC. No postprocedural pneumothorax identified. Trace left pleural effusion. No airspace c onsolidation or overt pulmonary edema. Degenerative changes of the shoulders and spine. IMPRESSION: 1. Status post placement of a right-sided PICC. No postprocedural pneumothorax. 2. Trace left pleural effusion. ACT 112: Negative or not required by law. The above report was generated using voice recognition software. It may contain grammatical, syntax o r spelling errors. Electronically signed by: Jaswant Barrera M.D. 05/31/2023 7:35 AM
--- NOTE | 2023-05-31 08:33 | Hospitalist Progress Note ---
Date of Service May 31, 2023 Assessment & Plan (1) Ascites: Plan: 87yo female with widely metastatic ovarian cancer presenting with nausea, vomiting and abdominal pain and distention. 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 -Paracentesis ordered - diagnostic and therapeutic - ordered cell count and cultures -Empiric Ceftriaxone for possible SBP pending culture (note - only 1 g dose ordered). ADDENDUM - poly count overall very high, 12% neutrophils (equivalent of 350) so cannot rule out SBP, gram/culture pending Followed by Dr. Hathaway. Had surgery 10/2022 at time of diagnosis with some resection, completed 5 cycles of carbo/taxol last chemo 05/03, has had some palliative xrt to skeletal mets. Recent PET-CT 05/17 with significant progression of widely metastatic disease - pelvic 10 cm mass, peritoneal carcinomatosis, liver and skeletal mets. Chemo has been somewhat limited by toxicity with anemia partially related to MDS Hematology/Oncology consultation appreciated. Reviewed Dr. Hanley's recommendations, cancer has significantly progressed despite treatment, alternative regimens are possible but significant risk of toxicity, consider quaternary referral if within her goals of care, will also request palliative care consultation to clarify values, overall goals of care (2) Nausea & vomiting: Plan: Likely that ascites, progression of peritoneal carcinomatosis is cause of patient's presenting symptoms - bloating, fullness, nausea and shortness of breath. -Compazine and Zofran PRN -Protonix 40mg po daily Gentle hydration Plan Other issues: Mild hyponatremia likely related to volume depletion CKD stage 3b with mild worsening of Cr to 1.17 (recent baseline 0.8-1 on review of labs) Back and sacral pain due to skeletal metastases - resumed oral morphine prn Abnormal UA Urine and blood cultures 05/30 pending DVT ppx - enox 40 sq Admission and Anticipated Discharge Date Admission Date: May 30, 2023 Subjective seen immediately following paracentesis. Abdominal pain and nausea significantly improved immediately, now more or less resolved. Dyspnea resolved. Physical Exam 2 Physical Exam: PHYSICAL EXAMINATION Last 24h vital signs reviewed, see documentation in flowsheet General: comfortable appearing, no distress HEENT: Normocephalic, atraumatic, pupils round and equal, sclerae anicteric, no conjunctival injection, moist mucus membranes Lungs: Normal respiratory effort. Clear to auscultation bilaterally. No RRW Heart: Regular rate and rhythm, no murmurs. No JVD Abdomen: Soft, mildly distended. not tender. no rrg. Bowel sounds present. Extremities: Warm, dry, well-perfused. mild/trace extremity edema. Neuro: Alert and oriented x 4, face symmetric, moves 4 extremities well Psych: Normal affect and behavior Results & Data Results & Data Vital Signs (Past 12 Hours) Vital Signs Pulse Pulse Resp BP BP Pulse Ox O2 Del Method 05/31/23 07:32 105 H 05/31/23 06:00 92 H 18 113/74 95 Room Air 05/31/23 02:00 98 H 18 93 05/31/23 01:58 97 H 18 95 05/31/23 01:58 117/90 05/31/23 01:00 95 H 20 94 05/31/23 00:56 96 H 05/31/23 00:00 99 H 18 93 05/30/23 23:30 100 H 15 97 05/30/23 23:00 83 19 97 05/30/23 22:30 103 H 19 97 05/30/23 22:00 103 H 20 135/73 97 05/30/23 21:48 20 98 05/30/23 21:00 115 H 24 05/30/23 20:49 115 H 24 05/30/23 20:48 114 H Laboratory Results 05/31/23 04:31 05/31/23 04:31 PG Care Time/CCT Total # of Minutes Spent Total Time Spent with Patient: Total time spent is greater than 50% in coordination of care (as documented) at patient's floor/unit and/or counseling patient: Coding Level of Care Code 44403 SUB INP/OBS CARE 2/35MIN Diagnoses Ascites R18.8 Ascites type: other type Nausea & vomiting R11.2 (1) Ascites Ascites type: other type Qualified Code(s): R18.8 - Other ascites
--- NOTE | 2023-05-31 08:49 | Consultation ---
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 Agree that the lack of fever and initially elevated white count does go against a florid bacterial infection but it would be prudent to cover her with antibiotics at least until we can get Gram stain and early culture results from anticipated paracentesis. (2) Ovarian cancer: While she had a good initial response to systemic therapy she unfortunately has clear signs of relapse radiologically with a mild rise in her tumor marker. There are issues with her overall performance status and specifically with her myelodysplastic syndrome as to her ability to well tolerate further adequately aggressive cytotoxic regimens. We could consider several agents such as gemcitabine, Doxil, or topotecan as salvage therapy potentially combining one of those with bevacizumab to augment their effect. This would involve hematologic and other potential toxicity and given a relapse while on primary treatment and her "solomon resistant" status the degree and durability of response would be uncertain. I have offered that we could seek [facility] review with regards to their perspectives on both her standard options and any investigational protocols that might be available. [employer] did suggest low-level PDL1 positivity but she was microsatellite stable with a low tumor mutational burden and therefore it is unclear that she would be highly responsive to ICI. She was HER2 positive and there might be some options for anti-HER2 therapy though that is not part of the core recommendations for relapsed ovarian cancer. She did not express BRCA1 or BRCA2 mutations at least on tumor genetics and so it is unlikely that she would respond to PARP inhibitors. We have also provisionally discussed that a palliative care only approach is certainly a consideration. Immediate issue will be to stabilize her pain, determine if she has an infection that will require treatment and a pause on any new systemic therapy, and continue to discuss her overall philosophy of care. Palliative care consultation would certainly be very worthwhile both to address her symptoms but also to discuss those parameters of care. I have asked that my note from 05/30/2023 be scanned to One[employer] for more complete context Plan 1. Empiric antibiotics as we await paracentesis indications of the presence or absence of a infection infection 2. Palliative care consultation to deal specifically with her symptomatology but also to discuss a broader review of parameters of care We will need to stabilize her acute situation before making any final determinations as to distal specific oncology treatment options History of Present Illness Reason for Consultation: Patient with metastatic ovarian carcinoma with disease relapsing even as she continues initial Taxol/carboplatinum chemotherapy now admitted with abdominal pain/ascites and possible spontaneous bacterial peritonitis Attending Physician: Payton Woodard, History of Present Illness Additional context see my 05/02/2023 office note which has already been scanned in [employer]. I am additionally asking that my note from May 30 be scanned as well and that should be available in the near future. Patient diagnosed in October with metastatic ovarian cancer with pleural/hepatic/thoracic jamal involvement and widespread peritoneal disease. Initial CA125 2156 units/mL but with initial Taxol/carboplatin chemotherapy she had a good clinical and radiologic response with a drop of that tumor marker to 38 units/mL as of February 07, 2023. Unfortunately she now has radiologic progress with a mild rise in her tumor marker to 48 on 04/11/2023 but notable progression on imaging 05/17/2023 PET/CT scan 1. Significant progression of metastatic disease since CTs of February 15, 2023 and February 16, 2023. Increase in size of hepatic metastases and progression of extensive peritoneal FDG avid implants, as described above. 2. Progression of thoracic, abdominal and pelvic FDG avid lymphadenopathy. These nodes are only mildly enlarged but markedly FDG avid. 3. Slight progression of sclerotic skeletal metastases with minimal FDG uptake. 4.Smallamountofabdominalandpelvicascites.Nobowelobstruction. She presented to my office for "routine" follow-up May 30 but at that time had 36 hours of increasing abdominal pain/nausea/vomiting with poor ability to take in fluids and food. Exam suggested ascites with some diffuse abdominal tenderness. 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 Cytopenias have forced reductions and alterations of her chemotherapy schedule. We do note that she had germline testing that was negative for any relevant mutations Allergies Allergy/AdvReac Type Severity Reaction Status Date / Time doxycycline AdvReac Intermediate Nausea Verified 05/30/23 20:44 propoxyphene AdvReac Intermediate left side Verified 05/30/23 20:44 numbness & tingling Sulfa (Sulfonamide AdvReac Intermediate nausea Verified 05/30/23 20:44 Antibiotics) Home Medications Medication Instructions Recorded Confirmed Type coenzyme Q10 100 mg capsule 200 mg PO QAM 10/12/20 05/30/23 History cholecalciferol (vitamin D3) 50 50 mcg PO QAM 04/13/22 05/30/23 History mcg (2,000 unit) capsule acetaminophen 500 mg tablet 1,000 mg PO BID PRN Pain 10/26/22 05/30/23 History ondansetron 4 mg disintegrating 4 mg translingual Q8H PRN nausea 11/29/22 05/30/23 Rx tablet and vomiting 24 hours #30 tabs docusate sodium 100 mg capsule 100 mg PO QAM 11/30/22 05/30/23 History loratadine 10 mg tablet (Claritin) 10 mg PO DIRECTED 12/26/22 05/30/23 History fluticasone propionate 50 1 spray intranasal DAILY PRN 02/11/23 05/30/23 History mcg/actuation nasal Congestion spray,suspension (Allergy Relief (fluticasone)) lactulose 20 gram/30 mL oral 20 g (30 mL) PO BID PRN 02/15/23 05/30/23 Rx solution constipation #1,200 mL trazodone 50 mg tablet 50 mg PO HS #30 tabs 02/21/23 05/30/23 Rx magnesium oxide 400 mg (241.3 mg 400 mg PO BID 02/24/23 05/30/23 History magnesium) tablet omeprazole 20 mg capsule,delayed 20 mg PO QAM 02/24/23 05/30/23 History release prochlorperazine maleate 10 mg 10 mg PO Q6H PRN Nausea 02/24/23 05/30/23 History tablet (Compazine) ibuprofen 200 mg tablet (Advil) 200 mg PO Q6H PRN Pain 05/30/23 05/30/23 History morphine 15 mg immediate release 15 mg PO DIRECTED PRN Pain 05/30/23 05/30/23 History tablet Patient History Medical History Hip pain Acute respiratory failure with hypoxia Shortness of breath Pleural effusion Chest pain Dyspnea Chest discomfort RECENT OCCURENCE - LEFT SIDE / NO OTHER S/S . WALKED AROUND & DISCOMFORT RESOLVED ON OWN - PT REPORTS THINKS IT WAS DUE TO GAS. HOME HEALTH NURSE WAS HERE AND PT REPORTS SHE AGREED TO THINKING IT WAS GAS RELATED. NURSE TOOK BP AND PT REPORTS BP WAS LOW ? 101/79 - PT DOESN'T REMEMBER EXACT BP. NO RE-OCCURENCE. EDUCATION PROVIDED-per PAT brim ironer hand call Heartburn RESOLVED WITH MEDICATION. History of colon polyps Constipation Poor appetite Ovarian cancer RECENT DX/REASON FOR UPCOMING PROCEDURE. GERD (gastroesophageal reflux disease) Ovarian cancer Microcytic anemia Chronic renal failure (CRF), stage 3b Severe protein-calorie malnutrition Pleural effusion - recently, treated at [facility] - s/p diagnostic and therapeutic ultrasound-guided catheter thoracentesis 10/18/22 - 10/18/22 CXR showed small residual left pleural effusion - no physical limitation per PAT nursing assessment Aortic heart murmur Insomnia Depression Hyperlipidemia Dry eye syndrome Hypertension RECENT D/C OF BP MED/TODAY IS FIRST DAY OF NOT TAKING (LISINOPRIL HCTZ) Surgical History History of surgery OCTOBER 2022. EMERGENCY SX FOR OVARIAN TUMOR. DX CANCER. History of esophagogastroduodenoscopy (EGD) History of colonoscopy History of cataract surgery bilateral History of breast biopsy benign History of dilatation and curettage History of bilateral tubal ligation Hx of umbilical hernia repair Hx of elbow surgery right elbow tendon repair. Hx of cholecystectomy Family History Mother Myocardial infarction Breast cancer Grandmother Family history of diabetes mellitus Aunt Family history of diabetes mellitus Daughter Family history of diabetes mellitus Uncle Cancer Leukemia Other No family history of adverse response to anesthesia Denies family history of Ovarian cancer Prostate cancer Colorectal cancer Social History Smoking Status: Never smoker Second Hand Exposure: No; Do You Dip or Chew Tobacco: No; Hx Alcohol Use: No Hx Substance Use: No Preferred Language: Kiswahili Communication Ability: Effective Visual Impairment: Limited Hearing Ability: Normal Courier Required: No Beliefs That Will Affect Care: None marital status: Current Living Situation: Family Current Living Situation Comment: DAUGHTER IS STAYING WITH ME SINCE CLAYTON BEEN SICK. current occupational status: retired How many Children do You have: 4 Feels Safe at Home: Yes Childhood Exposure to Second-Hand Smoke: No Diet: regular caffeine: No during the past year weight has: remained stable Dental Care, Regularly: No Physical Activity Frequency: Does not Exercise Seatbelt Use: always Sunscreen Use: No Do you think of yourself as: straight/heterosexual Gender Identity: Female Assistive Devices: Cane, Denture - Upper, Denture - Lower and Glasses Physical Exam Physical Exam: Current vital signs are stable except for borderline elevated pulse. She seems in mild distress but is cognitively intact with full medical decision-making capacity. Lung and cardiac exams are stable, abdomen does show some mild tenderness but does not show "acute" peritoneal changes Results & Data Vital Signs (Past 12 Hours) Vital Signs Temp Pulse Pulse Resp BP BP Pulse Ox 05/31/23 08:38 36.7 C 96 H 18 107/79 98 05/31/23 07:32 105 H 05/31/23 06:00 92 H 18 113/74 95 05/31/23 02:00 98 H 18 93 05/31/23 01:58 97 H 18 95 05/31/23 01:58 117/90 05/31/23 01:00 95 H 20 94 05/31/23 00:56 96 H 05/31/23 00:00 99 H 18 93 05/30/23 23:30 100 H 15 97 05/30/23 23:00 83 19 97 05/30/23 22:30 103 H 19 97 05/30/23 22:00 103 H 20 135/73 97 05/30/23 21:48 20 98 05/30/23 21:00 115 H 24 O2 Del Method 05/31/23 08:38 Room Air 05/31/23 07:32 05/31/23 06:00 Room Air 05/31/23 02:00 05/31/23 01:58 05/31/23 01:58 05/31/23 01:00 05/31/23 00:56 05/31/23 00:00 05/30/23 23:30 05/30/23 23:00 05/30/23 22:30 05/30/23 22:00 05/30/23 21:48 05/30/23 21:00 PG Care Time/CCT Total # of Minutes Spent Total Time Spent with Patient: Total time spent is greater than 50% in coordination of care (as documented) at patient's floor/unit and/or counseling patient: Coding Level of Care Code 88713 IN/OBS CONSULT LVL 3,45M Diagnoses Abdominal pain R10.9 Malignant neoplasm of ovary, unspecified laterality C56.9 Laterality: unspecified laterality (2) Ovarian cancer Laterality: unspecified laterality Qualified Code(s): C56.9 - Malignant neoplasm of unspecified ovary
[2023-05-31] MEDS: DOCUSATE SODIUM 100 MG CAP PO SCH (10:19)
[2023-05-31] MEDS: MAGNESIUM OXIDE 400 MG TAB PO SCH ×2 (10:19→20:06)
[2023-05-31] MEDS: PANTOprazole 40 MG TAB PO SCH (10:19)
[2023-05-31 11:03] LABS: Appearance Peritoneal Fluid Cloudy; Color Peritoneal Fluid Yellow; RBC Peritoneal Fluid Auto 6000 /uL; WBC Peritoneal Fluid Auto 2909 /ul (0-300)
--- NOTE | 2023-05-31 11:08 | Electrocardiogram Report ---
Test Reason : Blood Pressure : / mmHG Vent. Rate : 118 BPM Atrial Rate : 118 BPM P-R Int : 144 ms QRS Dur : 068 ms QT Int : 326 ms P-R-T Axes : 023 -38 009 degrees QTc Int : 456 ms Sinus tachycardia Left axis deviation Low voltage QRS Inferior infarct , age undetermined Possible Anterolateral infarct , age undetermined Abnormal ECG When compared with ECG of 11-FEB-2023 01:03, Borderline criteria for Anterior infarct are now Present Borderline criteria for Anterolateral infarct are now Present Inferior infarct is now Present T wave amplitude has decreased in Anterior leads Confirmed by Maxi Allen ([id number]) on 05/31/2023 11:08:24 AM Referred By: REFERRED SELF Confirmed By:Rosendo Allen
[2023-05-31 13:42] LABS: Eosinophils, Fluid 20 %; Lymphocytes, Fluid 5 %; Mono,Macrophage,Mesothelial 28 %; Neutrophils, Fluid 12 %; Other Cells Peritoneal Fluid 35 %
--- NOTE | 2023-05-31 14:12 | Ultrasound Report ---
Ultrasound-guided paracentesis INDICATION: Ascites PROCEDURE: Procedure and risks were explained. Informed consent was obtained. A final timeout was com pleted. The abdomen was prepped and draped in sterile fashion. 1% buffered lidocaine was utilized for skin anesthesia. Utilizing ultrasound guidance, a 5 [place] safety centesis catheter was advanced into the left lower q uadrant pocket of ascites. Ultrasound images were obtained. A total of 2.8 L of ascites fluid was rem paris, with 1 L sent to lab for analysis. The catheter was removed and Band-Aid applied. The patient t olerated the procedure well. Vital signs will be monitored on the floor. IMPRESSION: Paracentesis as above. Performed, dictated, and signed by Suman Carty PA-C; to be co-signed by Dr. Jaswant Barrera. Electronically signed by: Jaswant Barrera M.D. 05/31/2023 2:13 PM
[2023-05-31] MEDS: traZODone HCL 50 MG TAB PO SCH (20:06)
[2023-06-01] MEDS: cefTRIAXone SODIUM 1,000 MG in DEXTROSE 5 % MINI-B 50 ML IV SCH (05:06)
[2023-06-01] MEDS ORDERED: LACTATED RINGER'S 500 ML IV ONE (08:35)
[2023-06-01] MEDS: PANTOprazole 40 MG TAB PO SCH (08:39)
[2023-06-01] MEDS: MAGNESIUM OXIDE 400 MG TAB PO SCH ×2 (08:39→20:24)
[2023-06-01] MEDS: DOCUSATE SODIUM 100 MG CAP PO SCH (08:39)
[2023-06-01] MEDS: ENOXAPARIN INJ 30 MG/0.3 ML SYR SQ SCH (08:40)
[2023-06-01] MEDS ORDERED: cefTRIAXone SODIUM 1,000 MG in DEXTROSE 5 % MINI-B 50 ML IV ONE (09:15)
--- NOTE | 2023-06-01 11:54 | Hospitalist Progress Note ---
Date of Service June 01, 2023 Assessment & Plan (1) Ascites: Plan: 87yo female with widely metastatic ovarian cancer presented with nausea, vomiting and abdominal pain and distention. 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 -CT with peritoneal carcinomatosis, pelvic mass, inflammation possibly consistent with SBP -Paracentesis 05/31 - diagnostic and therapeutic 3L removed with improvement in symptoms - WBC elevated in peritoneal fluid, 12% PMNs (calculates to >350) cannot rule out SBP, gram stain negative, ascitic culture pending -Empiric Ceftriaxone for possible SBP increased to 2g q24h Followed by Dr. Hathaway. Had surgery 10/2022 at time of diagnosis with some resection, completed 5 cycles of carbo/taxol last chemo 05/03, has had some palliative xrt to skeletal mets. Recent PET-CT 05/17 with significant progr ession of widely metastatic disease - pelvic 10 cm mass, peritoneal carcinomatosis, liver and skeletal mets. Chemo has been somewhat limited by toxicity with anemia partially related to MDS Hematology/Oncology consultation appreciated. Reviewed Dr. Hanley's recommendations, cancer has significantly progressed despite treatment, alternative regimens are possible but significant risk of toxicity, consider quaternary referral if within her goals of care, she says she plans to see him in office Monday to discuss more -palliative care consulted -may need to have serial paracentesis for comfort as outpatient, pending clinical course (2) Nausea & vomiting: Plan: Ascites, progression of peritoneal carcinomatosis is cause of patient's presenting symptoms - bloating, fullness, nausea and shortness of breath. acute symptoms improved after paracentesis. postmeal nausea persists related to peritoneal carcinomatosis -trial scheduled premeal zofran -changed compazine to IV PRN Mildly tachycardic this morning, could be baseline related to cancer, volume depletion, or related to infection -LR 500 mL IV ordered, assess response -AM CBC, BMP Plan Other issues: Mild hyponatremia likely related to volume depletion CKD stage 3b with mild worsening of Cr to 1.17 (recent baseline 0.8-1 on review of labs) Back and sacral pain due to skeletal metastases - resumed oral morphine prn but not using Abnormal UA Urine and blood cultures 05/30 pending - NGTD, reviewed DVT ppx - enox 40 sq Admission and Anticipated Discharge Date Admission Date: May 30, 2023 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 Abdomen has not seemed to swell more following para yesterday. Denies abdominal or back pain, did not take any pain medication since yesterday. Not sure how she wants to proceed with respect to treatment going forward. Updated her daughter in [place] who was on the phone during the visit. Physical Exam Physical Exam: PHYSICAL EXAMINATION Last 24h vital signs reviewed, see documentation in flowsheet General: comfortable appearing, no distress, lying on side in bed HEENT: Normocephalic, atraumatic, pupils round and equal, sclerae anicteric, no conjunctival injection, moist mucus membranes Lungs: Normal respiratory effort. Clear to auscultation bilaterally. No RRW Heart: Regular rate and rhythm, no murmurs. No JVD Abdomen: Soft, mild distention, nontender, no palpable mass. no rrg. Bowel josephine nds present. Extremities: Warm, dry, well-perfused. no extremity edema. Neuro: Alert and oriented x 4, face symmetric, moves 4 extremities well Psych: Normal affect and behavior Results & Data Results & Data Vital Signs (Past 12 Hours) Vital Signs Temp Pulse Pulse Resp BP Pulse Ox O2 Del Method 06/01/23 10:47 Room Air 06/01/23 09:04 36.9 C 101 H 18 100/69 18 L Room Air 06/01/23 02:55 37.0 C 112 H 18 109/55 L 93 Room Air 05/31/23 23:53 120 H PG Care Time/CCT Total # of Minutes Spent Total Time Spent with Patient: Total time spent is greater than 50% in coordination of care (as documented) at patient's floor/unit and/or counseling patient: Coding Level of Care Code 41400 SUB INP/OBS CARE 3/50MIN Diagnoses Ascites R18.8 Ascites type: other type Nausea & vomiting R11.2 (1) Ascites Ascites type: other type Qualified Code(s): R18.8 - Other ascites
[2023-06-01] MEDS: ONDANSETRON 2 MG OD TAB PO SCH (16:37)
[2023-06-01] MEDS: traZODone HCL 50 MG TAB PO SCH (20:25)
[2023-06-02 06:33] LABS: BUN Creatinine Ratio 22.3 (10-20); Calcium 7.9 mg/dl (8.6-10.3); Creatinine Clr Calc Pharmacy 27.8 ml/min; Est GFR (African American) 46.6 ml/min; Est GFR (Non-African American) 40.2 ml/min; Potassium 4.5 mmol/L (3.5-5.1)
[2023-06-02 06:40] LABS: Hematocrit (blood only) 27.5 % (37.0-47.0); Hemoglobin 8.9 g/dl (12.0-16.0); Mean Corpuscular Hemoglobin 26.3 pg (25.0-34.0); Mean Corpuscular Hgb Conc 32.4 g/dL (32.0-36.0); Mean Corpuscular Volume 81.4 fL (80.0-100.0); Mean Platelet Volume 11.2 fL (9.4-12.4); Platelet Count 178 K/uL (130-400); RDW Coefficient of Variation 16.9 % (11.5-14.5); RDW Standard Deviation 50.1 fL (36.4-46.3); Red Blood Count 3.38 M/uL (4.20-5.40); White Blood Count 6.03 K/ul (4.8-10.8)
[2023-06-02] MEDS: cefTRIAXone SODIUM 2,000 MG in DEXTROSE 5 % MINI-B 50 ML IV SCH (08:31)
[2023-06-02] MEDS: ONDANSETRON 2 MG OD TAB PO SCH ×3 (08:31→17:12)
[2023-06-02] MEDS: ENOXAPARIN INJ 30 MG/0.3 ML SYR SQ SCH (08:33)
[2023-06-02] MEDS: MAGNESIUM OXIDE 400 MG TAB PO SCH ×2 (08:33→21:36)
[2023-06-02] MEDS: PANTOprazole 40 MG TAB PO SCH (08:33)
[2023-06-02] MEDS: DOCUSATE SODIUM 100 MG CAP PO SCH (08:34)
--- NOTE | 2023-06-02 14:32 | Electrocardiogram Report ---
Test Reason : Blood Pressure : / mmHG Vent. Rate : 106 BPM Atrial Rate : 106 BPM P-R Int : 158 ms QRS Dur : 074 ms QT Int : 332 ms P-R-T Axes : -12 -37 041 degrees QTc Int : 441 ms Sinus tachycardia with PACs Left axis deviation Low voltage QRS Possible Anterolateral infarct (cited on or before 30-MAY-2023) Abnormal ECG Confirmed by Maxi Allen ([id number]) on 06/02/2023 2:32:29 PM Referred By: REFERRED SELF Confirmed By:Rosendo Allen
[2023-06-02] MEDS ORDERED: LACTATED RINGER'S 500 ML IV ONE (15:29)
--- NOTE | 2023-06-02 16:31 | Hospitalist Progress Note ---
Date of Service June 02, 2023 Assessment & Plan (1) Ascites: Plan: 87yo female with widely metastatic ovarian cancer presented with nausea, vomiting and abdominal pain and distention. 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 -CT with peritoneal carcinomatosis, pelvic mass, inflammation possibly consistent with SBP -Paracentesis 05/31 - diagnostic and therapeutic 3L removed with improvement in symptoms - WBC elevated in peritoneal fluid, 12% PMNs (calculates to >350) cannot rule out SBP, gram stain negative, ascitic culture NGTD -Empiric Ceftriaxone for possible SBP increased to 2g q24h -sinus tachycardia yesterday afternoon and this afternoon - ordered stat EKG reviewed tracing confirms sinus tachy, raises concern for SBP/infection. BUN/Cr up a little overnight. Ordered LR 500 mL bolus -no hypoxia, CP, or leg pain/swelling to suggest PE so I think this is unlikely Followed by Dr. Hathaway. Had surgery 10/2022 at time of diagnosis with some resection, completed 5 cycles of carbo/taxol last chemo 05/03, has had some palliative xrt to skeletal mets. Recent PET-CT 05/17 with significant progression of widely metastatic disease - pelvic 10 cm mass, peritoneal carcinomatosis, liver and skeletal mets. Chemo has been somewhat limited by toxicity with anemia partially related to MDS Hematology/Oncology consultation appreciated. Reviewed Dr. Hanley's recommendations, cancer has significantly progressed despite treatment, alternative regimens are possible but significant risk of toxicity, consider quaternary referral if within her goals of care, she says she plans to see him in office Monday to discuss more -palliative care consult planned but unfortunately not available 06/01, 06/02 or -may need to have serial paracentesis for comfort as outpatient, pending clinical course - discussed with Dr. Hathaway, this can be done outpatient by ultrasound, he has appt with her Monday, will also follow up with outpatient palliative care at cancer center (2) Nausea & vomiting: Plan: Ascites, progression of peritoneal carcinomatosis is cause of patient's presenting symptoms - bloating, fullness, nausea and shortness of breath. acute symptoms improved after paracentesis. postmeal nausea persists related to peritoneal carcinomatosis -trial scheduled premeal zofran - improved on this -changed compazine to IV PRN Plan Other issues: Mild hyponatremia likely related to volume depletion CKD stage 3b with mild worsening of Cr to 1.17 (recent baseline 0.8-1 on review of labs) Back and sacral pain due to skeletal metastases - resumed oral morphine prn but not using Urine Cx with corynebacterium and a gamma strep - called micro lab this is a non-hemolytic non enterococcus strep - likely a contaminant or colonization no dysurua, ceftriaxone will cover the strep however blood cultures 05/30 - NGTD, reviewed today DVT ppx - enox 40 sq Admission and Anticipated Discharge Date Admission Date: May 30, 2023 Subjective Feels fine, nausea controlled with premeal zofran ODT Wants to go home No abdominal pain, abdominal distention unchanged or slightly shultz today. Physical Exam 2 Physical Exam: PHYSICAL EXAMINATION Last 24h vital signs reviewed, see documentation in flowsheet General: comfortable appearing, no distress, lying on side in bed HEENT: Normocephalic, atraumatic, pupils round and equal, sclerae anicteric, no conjunctival injection, moist mucus membranes Lungs: Normal respiratory effort. Clear to auscultation bilaterally. No RRW Heart: slightly tachy Regular rate and rhythm, no murmurs. No JVD Abdomen: Soft, mild distention maybe slightly shultz today with ascites?, nontender, no palpable mass. no rrg. Bowel sounds present. Extremities: Warm, dry, well-perfused. no extremity edema. Neuro: Alert and oriented x 4, face symmetric, moves 4 extremities well Psych: Normal affect and behavior Results & Data Results & Data Vital Signs (Past 12 Hours) Vital Signs Temp Pulse Pulse Pulse Resp BP Pulse Ox 06/02/23 15:12 36.7 C 116 H 16 98/63 L 95 06/02/23 11:56 36.7 C 103 H 17 108/78 96 06/02/23 08:14 105 H 06/02/23 08:14 06/02/23 07:36 36.7 C 98 H 16 100/68 95 O2 Del Method 06/02/23 15:12 Room Air 06/02/23 11:56 Room Air 06/02/23 08:14 06/02/23 08:14 Room Air 06/02/23 07:36 Room Air Laboratory Results 06/02/23 05:42 06/02/23 05:42 PG Care Time/CCT Total # of Minutes Spent Total Time Spent with Patient: Total time spent on clinical care today: 50 minutes Coding Level of Care Code 16545 SUB INP/OBS CARE 3/50MIN Diagnoses Ascites R18.8 Ascites type: other type Nausea & vomiting R11.2 (1) Ascites Ascites type: other type Qualified Code(s): R18.8 - Other ascites
[2023-06-02] MEDS: traZODone HCL 50 MG TAB PO SCH (21:36)
[2023-06-03] MEDS: MAGNESIUM OXIDE 400 MG TAB PO SCH ×2 (09:02→20:51)
[2023-06-03] MEDS: ONDANSETRON 2 MG OD TAB PO SCH ×3 (09:03→17:42)
[2023-06-03] MEDS: PANTOprazole 40 MG TAB PO SCH (09:03)
[2023-06-03] MEDS: ENOXAPARIN INJ 30 MG/0.3 ML SYR SQ SCH (09:04)
[2023-06-03] MEDS: cefTRIAXone SODIUM 2,000 MG in DEXTROSE 5 % MINI-B 50 ML IV SCH (09:04)
[2023-06-03] MEDS: DOCUSATE SODIUM 100 MG CAP PO SCH (09:10)
[2023-06-03] MEDS ORDERED: LACTATED RINGER'S 500 ML IV ONE (13:03)
[2023-06-03] MEDS ORDERED: OPTIRAY 320 125ml IV ONE (14:30)
--- NOTE | 2023-06-03 14:54 | CT Scan Report ---
CT ANGIOGRAPHY OF THE CHEST, PULMONARY EMBOLUS PROTOCOL CLINICAL HISTORY: Dyspnea, persistent sinus tachycardia. Ovarian cancer. COMPARISON STUDY: Chest CT February 16, 2023. Chest radiograph May 30, 2023. PET/CT May 17, 2023. TECHNIQUE: Following IV administration of 116 mL of Optiray, helical axial images of the chest were o btained utilizing the pulmonary embolus protocol. Maximal intensity projections and sagittal and cor onal reformats were viewed on an independent 3D workstation. IV contrast was administered without co mplication. Automated exposure control was utilized for the study. A dose lowering technique was ut ilized adhering to the principles of ALARA. CT DOSE: 468.4 mGy.cm FINDINGS: No pulmonary emboli are identified. There is mild cardiomegaly. Dilatation of the ascendin g aorta measuring 4.4 cm is unchanged since PET/CT of May 17, 2023. No thoracic aortic is presen t. No pericardial effusion is present. Small left and trace right pleural effusions have slightly inc reased since prior PET/CT. Scattered tree-in-bud nodules within the lungs remain unchanged. Mildly en larged thoracic lymph nodes have slightly increased in size since prior exam. Index right internal ma mmary lymph node on image 141 measures 1.4 x 1 cm. It previously measured 1.1 x 0.7 cm. Skeletal meta stases are unchanged. Hepatic metastases have mildly increased in size. Index lateral segment lesion measures 2.8 cm. A previously measured 1.9 cm. Moderate upper abdominal ascites is present. Upper abd ominal peritoneal implants have increased since prior PET/CT. IMPRESSION: 1. No pulmonary emboli identified. 2. No consolidation to suggest pneumonia. No change in scattered tree-in-bud nodules within the lungs . These favor chronic infectious process. 3. Progression of hepatic, jamal and peritoneal metastases, as described above. Moderate upper abdomi nal ascites. 4. Small left and trace right pleural effusions. ACT 112: Negative or not required by law. Electronically signed by: Joel Mariscal M.D. 06/03/2023 2:52 PM
--- NOTE | 2023-06-03 17:21 | Hospitalist Progress Note ---
Date of Service June 03, 2023 Assessment & Plan (1) Ascites: Plan: 87yo female with widely metastatic ovarian cancer presented with nausea, vomiting and abdominal pain and distention. 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 -CT with peritoneal carcinomatosis, pelvic mass, inflammation possibly consistent with SBP -Paracentesis 05/31 - diagnostic and therapeutic 3L removed with improvement in symptoms - WBC elevated in peritoneal fluid, 12% PMNs (calculates to >350) cannot rule out SBP, gram stain negative, ascitic culture NGTD -Empiric Ceftriaxone for possible SBP increased to 2g q24h Followed by Dr. Hathaway. Had surgery 10/2022 at time of diagnosis with some resection, completed 5 cycles of carbo/taxol last chemo 05/03, has had some palliative xrt to skeletal mets. Recent PET-CT 05/17 with significant progressi on of widely metastatic disease - pelvic 10 cm mass, peritoneal carcinomatosis, liver and skeletal mets. Chemo has been somewhat limited by toxicity with anemia partially related to MDS Hematology/Oncology consultation appreciated. Reviewed Dr. Hanley's recommendations, cancer has significantly progressed despite treatment, alternative regimens are possible but significant risk of toxicity, consider quaternary referral if within her goals of care, she says she plans to see him in office Monday to discuss more -palliative care consult planned but unfortunately not available 06/01, 06/02 or -uncomfortable today and plan for paracentesis Monday -will need to have serial paracentesis for comfort as outpatient, discussed with Dr. Hathaway, this can be done outpatient by ultrasound, he has appt with her Monday, will also follow up with outpatient palliative care at cancer center (2) Sinus tachycardia: Plan: -sinus tachycardia - often around 90-105 but every afternoon goes up into 130- 140s, asymptomatic. Initially thought fluid shift from paracentesis but persists. Fluid responsive (but excessive fluid will make ascites worse) EKG 06/02 confirms sinus tachy raises concern for SBP/infection, though not resolving with abx and cultures neg to date -Ordered LR 500 mL bolus prior to CTA -Today ordered chest CTA to eval for PE - negative for PE, small pleural effusions and other findings compatible with her chest CT. small tree-in-bud opacities c/w chronic infectious process. -TTE (3) Nausea & vomiting: Plan: Ascites, progression of peritoneal carcinomatosis is cause of patient's presenting symptoms - bloating, fullness, nausea and shortness of breath. acute symptoms improved after paracentesis. postmeal nausea persists related to peritoneal carcinomatosis -trial scheduled premeal zofran - improved on this -changed compazine to IV PRN Plan Other issues: Mild hyponatremia likely related to volume depletion CKD stage 3b with mild worsening of Cr to 1.17 (recent baseline 0.8-1 on review of labs) Back and sacral pain due to skeletal metastases - resumed oral morphine prn but not using Urine Cx with corynebacterium and a gamma strep - called micro lab this is a non-hemolytic non enterococcus strep - likely a contaminant or colonization no dysurua, ceftriaxone will cover the strep however blood cultures 05/30 - NGTD, reviewed today I updated her daughter in room on second visit today. She will call the other daughter in [place] for passing along today's update. DVT ppx - enox 40 sq Admission and Anticipated Discharge Date Admission Date: May 30, 2023 Subjective Uncomfortable today - abdomen feels full and heavy, early satiety and feels short of breath due to pressure from abdomen Physical Exam Physical Exam: PHYSICAL EXAMINATION Last 24h vital signs reviewed, see documentation in flowsheet General: less comfortable appearing, no overt distress, lying flat in bed HEENT: Normocephalic, atraumatic, pupils round and equal, sclerae anicteric, no conjunctival injection, moist mucus membranes Lungs: Normal respiratory effort. Clear to auscultation bilaterally. No RRW Heart: slightly tachy Regular rate and rhythm, no murmurs. No JVD Abdomen: Soft, mild-mod distention with nontense ascites, nontender, no palpable mass though feels full in pelvic area. no rrg. Bowel sounds present. Extremities: Warm, dry, well-perfused. no extremity edema. Neuro: Alert and oriented x 4, face symmetric, moves 4 extremities well Psych: Normal affect and behavior Results & Data Results & Data Vital Signs (Past 12 Hours) Vital Signs Temp Pulse Pulse Resp BP Pulse Ox O2 Del Method 06/03/23 16:06 36.7 C 128 H 18 103/75 96 Room Air 06/03/23 12:09 36.7 C 106 H 18 102/69 95 Room Air 06/03/23 08:00 Room Air 06/03/23 07:48 36.6 C 81 18 102/69 95 Room Air 06/03/23 07:47 105 H Laboratory Results Chest CTA 06/03/23 13:03 CT ANGIOGRAPHY OF THE CHEST, PULMONARY EMBOLUS PROTOCOL CLINICAL HISTORY: Dyspnea, persistent sinus tachycardia. Ovarian cancer. COMPARISON STUDY: Chest CT February 16, 2023. Chest radiograph May 30, 2023. PET/CT May 17, 2023. TECHNIQUE: Following IV administration of 116 mL of Optiray, helical axial images of the chest were obtained utilizing the pulmonary embolus protocol. Maximal intensity projections and sagittal and coronal reformats were viewed on an independent 3D workstation. IV contrast was administered without complication. Automated exposure control was utilized for the study. A dose lowering technique was utilized adhering to the principles of ALARA. CT DOSE: 468.4 mGy.cm FINDINGS: No pulmonary emboli are identified. There is mild cardiomegaly. Dilatation of the ascending aorta measuring 4.4 cm is unchanged since PET/CT of May 17, 2023. No thoracic aortic is present. No pericardial effusion is present. Small left and trace right pleural effusions have slightly increased since prior PET/CT. Scattered tree-in-bud nodules within the lungs remain unchanged. Mildly enlarged thoracic lymph nodes have slightly increased in size since prior exam. Index right internal mammary lymph node on image 141 measures 1.4 x 1 cm. It previously measured 1.1 x 0.7 cm. Skeletal metastases are unchanged. Hepatic metastases have mildly increased in size. Index lateral segment lesion measures 2.8 cm. A previously measured 1.9 cm. Moderate upper abdominal ascites is present. Upper abdominal peritoneal implants have increased since prior PET/CT. IMPRESSION: 1. No pulmonary emboli identified. 2. No consolidation to suggest pneumonia. No change in scattered tree-in-bud nodules within the lungs. These favor chronic infectious process. 3. Progression of hepatic, jamal and peritoneal metastases, as described above. Moderate upper abdominal ascites. 4. Small left and trace right pleural effusions. ACT 112: Negative or not required by law. Electronically signed by: Joel Mariscal M.D. 06/03/2023 2:52 PM PG Care Time/CCT Total # of Minutes Spent Total Time Spent with Patient: Total time spent is greater than 50% in coordination of care (as documented) at patient's floor/unit and/or counseling patient: Coding Level of Care Code 56397 SUB INP/OBS CARE 350MIN Diagnoses Ascites R18.8 Ascites type: other type Sinus tachycardia R00.0 Nausea & vomiting R11.2 (1) Ascites Ascites type: other type Qualified Code(s): R18.8 - Other ascites
[2023-06-03] MEDS: PROCHLORPERAZINE 5 MG in SYRINGE 4 ML IV PRN (19:44)
[2023-06-03] MEDS: traZODone HCL 50 MG TAB PO SCH (20:51)
[2023-06-04] MEDS: MoRPHine SULFATE IR 15 MG TAB (IMMEDIATE RELEASE) PO PRN ×2 (06:05→19:25)
[2023-06-04] MEDS: ONDANSETRON 2 MG OD TAB PO SCH ×3 (08:45→16:55)
[2023-06-04] MEDS: MAGNESIUM OXIDE 400 MG TAB PO SCH ×2 (09:14→19:25)
[2023-06-04] MEDS: PANTOprazole 40 MG TAB PO SCH (09:14)
[2023-06-04] MEDS: ENOXAPARIN INJ 30 MG/0.3 ML SYR SQ SCH (09:15)
[2023-06-04] MEDS: cefTRIAXone SODIUM 2,000 MG in DEXTROSE 5 % MINI-B 50 ML IV SCH (09:16)
[2023-06-04] MEDS: DOCUSATE SODIUM 100 MG CAP PO SCH (09:20)
--- NOTE | 2023-06-04 13:01 | XCELERA ---
[id number]
--- NOTE | 2023-06-04 17:24 | Hospitalist Progress Note ---
Date of Service June 04, 2023 Assessment & Plan (1) Ascites: Plan: 87yo female with widely metastatic ovarian cancer presented with nausea, vomiting and abdominal pain and distention. 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 -CT with peritoneal carcinomatosis, pelvic mass, inflammation possibly consistent with SBP -Paracentesis 05/31 - diagnostic and therapeutic 3L removed with improvement in symptoms - WBC elevated in peritoneal fluid, 12% PMNs (calculates to >350) cannot rule out SBP, gram stain negative, ascitic culture NGTD -Empiric Ceftriaxone for possible SBP increased to 2g q24h -Ascitic cultures should be finalized tomorrow Followed by Dr. Hathawya. Had surgery 10/2022 at time of diagnosis with some resection, completed 5 cycles of carbo/taxol last chemo 05/03, has had some palliative xrt to skeletal mets. Recent PET-CT 05/17 with significant progression of widely metastatic disease - pelvic 10 cm mass, peritoneal carcinomatosis, liver and skeletal mets. Chemo has been somewhat limited by toxicity with anemia partially related to MDS Hematology/Oncology consultation appreciated. Reviewed Dr. Hanley's recommendations, cancer has significantly progressed despite treatment, alternative regimens are possible but significant risk of toxicity, consider quaternary referral if within her goals of care, she says she plans to see him in office Monday to discuss more -palliative care consult planned but unfortunately not available 06/01, 06/02 or -uncomfortable this though improved after dose of morphine, and plan for paracentesis Monday, hopefully discharge home after that -will need to have serial paracentesis for comfort as outpatient, discussed with Dr. Hathaway, this can be done outpatient by ultrasound, he has appt with her Monday, will also follow up with outpatient palliative care at cancer center (2) Sinus tachycardia: Plan: -sinus tachycardia - often around 90-105 but every afternoon goes up into 130- 140s, asymptomatic. Initially thought fluid shift from paracentesis but persists. Fluid responsive (but excessive fluid will make ascites worse) EKG 06/02 confirms sinus tachy raises concern for SBP/infection, though not resolving with abx and cultures neg to date -chest CTA to eval for PE - negative for PE, small pleural effusions and other findings compatible with her chest CT. small tree-in-bud opacities c/w chronic infectious process. -TTE ordered today 06/04 and unremarkable hyperdynamic LVEF 70% -Had TSH this summer which was normal, will recheck -I think this may just be her physiology related to her cancer, will trial low- dose twice daily metoprolol (3) Nausea & vomiting: Plan: Ascites, progression of peritoneal carcinomatosis is cause of patient's presenting symptoms - bloating, fullness, nausea and shortness of breath. acute symptoms improved after paracentesis. postmeal nausea persists related to peritoneal carcinomatosis -trial scheduled premeal zofran - improved on this -changed compazine to IV PRN Plan Other issues: Mild hyponatremia likely related to volume depletion CKD stage 3b with mild worsening of Cr to 1.17 (recent baseline 0.8-1 on review of labs) Back and sacral pain due to skeletal metastases - resumed oral morphine prn but not using Urine Cx with corynebacterium and a gamma strep - called micro lab this is a non-hemolytic non enterococcus strep - likely a contaminant or colonization no dysurua, ceftriaxone will cover the strep however blood cultures 05/30 - NGTD, reviewed today 06/04 I updated her daughter in room on second visit 06/03, the other [place] daughter by speaker phone 06/04. DVT ppx - enox 40 sq Admission and Anticipated Discharge Date Admission Date: May 30, 2023 Subjective Fortunately Marta does feel better today. Her abdominal distention is unchanged but the heaviness and discomfort is bothering her less probably because she agreed to take a dose of the oral morphine which her oncologist prescribed her but she had not actually tried. Dyspnea also improved after this. Nausea is controlled on Premeal Zofran. I updated her daughter Molly by speaker phone. She has 3 daughters this one of the ones who lives in [place] Physical Exam 2 Physical Exam: PHYSICAL EXAMINATION Last 24h vital signs reviewed, see documentation in flowsheet General: Appears much more comfortable reclining in bed HEENT: Normocephalic, atraumatic, pupils round and equal, sclerae anicteric, no conjunctival injection, moist mucus membranes Lungs: Normal respiratory effort. Clear to auscultation bilaterally. No RRW Heart: Heart rate still slightly tachy Regular rate and rhythm, no murmurs. No JVD Abdomen: Soft, mild-mod distention with nontense ascites, nontender, no palpable mass though feels full in pelvic area. no rrg. Bowel sounds present. Extremities: Warm, dry, well-perfused. no extremity edema. Neuro: Alert and oriented x 4, face symmetric, moves 4 extremities well Psych: Normal affect and behavior Results & Data Results & Data Vital Signs (Past 12 Hours) Vital Signs Temp Pulse Pulse Resp BP Pulse Ox O2 Del Method 06/04/23 15:31 124 H 06/04/23 11:36 36.6 C 101 H 17 105/66 94 Room Air 06/04/23 08:05 36.6 C 106 H 16 102/68 93 Room Air 06/04/23 08:00 Room Air 06/04/23 07:24 108 H 06/04/23 05:58 108 H Laboratory Results 06/02/23 05:42 06/02/23 05:42 PG Care Time/CCT Total # of Minutes Spent Total Time Spent with Patient: Total time spent is greater than 50% in coordination of care (as documented) at patient's floor/unit and/or counseling patient: Coding Level of Care Code 94195 SUB INP/OBS CARE 3/50MIN Diagnoses Ascites R18.8 Ascites type: other type Sinus tachycardia R00.0 Nausea & vomiting R11.2 (1) Ascites Ascites type: other type Qualified Code(s): R18.8 - Other ascites
[2023-06-04] MEDS: traZODone HCL 50 MG TAB PO SCH (19:25)
[2023-06-04] MEDS: METOPROLOL TARTRATE 25 MG TAB PO SCH (19:25)
[2023-06-05 06:40] LABS: Thyroid Stimulating Hormone 7.981 uIu/ml (0.300-4.500)
--- NOTE | 2023-06-05 06:40 | Hospitalist Progress Note ---
Date of Service June 05, 2023 Assessment & Plan (1) Primary cancer of ovary with widespread metastatic disease: Plan: While there are technically alternatives for further salvage, her performance status and what has proved to be relatively resistant disease given its relapse even while on primary treatment unfortunately boding poorly for a dramatic and durable response. Certainly need to continue to focus on symptom management and a palliative care consultation could be helpful to start to focus her thinking on what is truly important to her and to what extent it may be preferable to simply pursue short-term quality of life rather than additional toxic systemic therapy. Plan Palliative care was not available last week, may want to see if Dr. Cui would have a chance to briefly chat with Marta prior to her hoped for discharge today Paracentesis should be helpful for further symptom relief and patient should be encouraged to continue on morphine postdischarge. I am scheduled to meet with the patient and her family at the end of the day in the office tomorrow. If somehow she is not able to be discharged, I will plan to do so as an inpatient Admission and Anticipated Discharge Date Admission Date: May 30, 2023 Subjective Apparently somewhat improved after dose of morphine, benefits from paracentesis and 1 is scheduled again today Results & Data Results & Data Vital Signs (Past 12 Hours) Vital Signs Temp Pulse Pulse Resp BP Pulse Ox O2 Del Method 06/05/23 04:35 36.5 C 107 H 20 109/79 92 Room Air 06/04/23 23:31 37.0 C 91 H 18 93/56 L 90 Room Air 06/04/23 23:18 Room Air 06/04/23 22:30 102 H 06/04/23 20:14 36.8 C 129 H 18 119/83 94 Room Air PG Care Time/CCT Total # of Minutes Spent Total Time Spent with Patient: Total time spent is greater than 50% in coordination of care (as documented) at patient's floor/unit and/or counseling patient: Coding Level of Care Code None Diagnoses Primary cancer of ovary with widespread metastatic disease C56.9; C80.0
[2023-06-05 07:17] LABS: T4 Free Thyroxine 1.22 ng/dl (0.61-1.60)
[2023-06-05] MEDS: ONDANSETRON 2 MG OD TAB PO SCH ×3 (07:54→17:29)
[2023-06-05] MEDS: PANTOprazole 40 MG TAB PO SCH (09:37)
[2023-06-05] MEDS: MAGNESIUM OXIDE 400 MG TAB PO SCH ×2 (09:38→20:54)
[2023-06-05] MEDS: METOPROLOL TARTRATE 25 MG TAB PO SCH (09:38)
[2023-06-05] MEDS: cefTRIAXone SODIUM 2,000 MG in DEXTROSE 5 % MINI-B 50 ML IV SCH (09:39)
[2023-06-05] MEDS: ENOXAPARIN INJ 30 MG/0.3 ML SYR SQ SCH (09:41)
[2023-06-05 09:45] LABS: Hematocrit (blood only) 27.9 % (37.0-47.0); Hemoglobin 8.7 g/dl (12.0-16.0); Mean Corpuscular Hemoglobin 26.2 pg (25.0-34.0); Mean Corpuscular Hgb Conc 31.2 g/dL (32.0-36.0); Mean Platelet Volume 11.6 fL (9.4-12.4); Platelet Count 285 K/uL (130-400); RDW Standard Deviation 51.2 fL (36.4-46.3); Red Blood Count 3.32 M/uL (4.20-5.40); White Blood Count 8.71 K/ul (4.8-10.8)
[2023-06-05] MEDS: DOCUSATE SODIUM 100 MG CAP PO SCH (09:55)
[2023-06-05 10:18] LABS: Calcium 8.4 mg/dl (8.6-10.3); Potassium 5.5 mmol/L (3.5-5.1)
[2023-06-05] MEDS: PROCHLORPERAZINE 5 MG in SYRINGE 4 ML IV PRN (10:21)
[2023-06-05 10:24] LABS: BUN Creatinine Ratio 11.6 (10-20); Creatinine Clr Calc Pharmacy 13.6 ml/min; Est GFR (African American) 19.4 ml/min; Est GFR (Non-African American) 16.7 ml/min
[2023-06-05 11:09] LABS: Appearance Peritoneal Fluid Cloudy; Color Peritoneal Fluid Yellow; Lymphocytes, Fluid 4 %; Mono,Macrophage,Mesothelial 48 %; Neutrophils, Fluid 48 %; RBC Peritoneal Fluid Auto 4000 /uL; WBC Peritoneal Fluid Auto 1784 /ul (0-300)
[2023-06-05] MEDS ORDERED: ALBUMIN 5% 250 ML IV ONE ×3 (11:11→20:30)
[2023-06-05] MEDS ORDERED: LACTATED RINGER'S 500 ML IV ONE (11:11)
[2023-06-05] MEDS ORDERED: SODIUM ZIRCONIUM CYCLOSILICATE 10 GM PACKET PO ONE (12:00)
[2023-06-05] MEDS: SODIUM CHLORIDE 0.9% 1,000 ML IV SCH ×2 (13:22→20:55)
--- NOTE | 2023-06-05 14:11 | Ultrasound Report ---
Ultrasound-guided paracentesis INDICATION: Ascites PROCEDURE: Procedure and risks were explained. Informed consent was obtained. A final timeout was com pleted. The abdomen was prepped and draped in sterile fashion. 1% buffered lidocaine was utilized for skin anesthesia. Utilizing ultrasound guidance, a 5 [place] safety centesis catheter was advanced into the left lower q uadrant pocket of ascites. Ultrasound images were obtained. A total of 4L of ascites fluid was remove d, with 1 L sent to lab for analysis. The catheter was removed and Band-Aid applied. The patient tole rated the procedure well. Vital signs will be monitored on the floor. IMPRESSION: Paracentesis as above. Performed, dictated, and signed by Suman Carty PA-C; to be co-signed by Dr. Mega Chavez. Electronically signed by: Mega Chavez M.D. 06/05/2023 5:24 PM
--- NOTE | 2023-06-05 14:41 | Palliative Care Consultation ---
Date of Consultation June 05, 2023 Assessment & Plan (1) Refractory nausea and vomiting: Will attempt to improve gastric atony with the addition of metoclopramide. I have stopped her prochlorperazine. I have transitioned her to IV antinausea meds for now. Will continue the Zofran ODT prior to meals. This is likely better replaced with Zyprexa in the future. Additionally, liquid Haldol Intensol may proved to be a better antinausea medication for this patient. (2) Cancer related pain: No changes at this time to her cancer pain medicine as she feels her current regimen is helping. (3) Weakness generalized: (4) Palliative care by specialist: Met with pt/family. Provided overview of Palliative Medicine, a subspecialty that provides specialized medical care for people living with a serious illness by offering a focus on quality of life. Palliative Medicine is often conflated with hospice: I advised patient/family that Palliative and hospice can be partners but we are not the same. It is important to understand the difference so that we may be informed, and not afraid. Palliative Medicine works to improve QOL through reduction of symptom burden/more control over their illness, for both the patient and family. Palliative medicine clinicians are board certified, specially-trained and another member of the patient's medical care team. We often provide an extra layer of support because our care is based on the needs of the patient, not the prognosis; as such, it's appropriate at any age/advancing stage of a serious illness and can be provided along with curative treatment. Palliative Medicine clinicians are also trained in advanced c ommunication methodologies, to facilitate complex discussions about advanced illness planning, which are needed to help assure that the treatment choices match the patient's goals, aka delivering Goal Concordant care. Finally, we discussed that hospice is a visiting nurse service that focuses on care delivered at the very end of life for patients with terminal illness, with life expectancy less than 6 month. (5) Primary cancer of ovary with widespread metastatic disease: Plan Will assess the efficacy of metoclopramide IV to improve gastric atony and relieve nausea and vomiting. May potentially change the dancer drawn over to Zyprexa versus liquid Intensol Haldol. In general, metoclopramide may be a better option for her over the ondansetron. I have updated the primary team. Thank you for allowing us to participate in the ongoing care of this patient. Please don't hesitate to call or page with any additional concerns. Dr. Suzi Paris [facility] Director, Palliative Care History of Present Illness Reason for Consultation: cancer related nausea Attending Physician: Kiah Reyna MD History of Present Illness Marta Garcia is an 87-year-old female with metastatic ovarian cancer presenting with nausea, vomiting and abdominal pain and distention. 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 She is not felt to have a florid bacterial infection at this time. Imaging does confer a picture of cancer relapse. This is further complicated by her myelodysplastic syndrome which is contributing to frailty and declining p erformance status. She is not able to tolerate aggressive cytotoxic regimens. Oncologic history includes metastatic ovarian cancer with pleural, hepatic, thoracic jamal involvement and widespread peritoneal disease diagnosed October 2022. Initial CA125 was 2156 units/mL but with initial regimen of Taxol and carboplatin therapy, she had a good clinical and radiologic response with a drop in her tumor marker to 38 units. Unfortunately tumor marker increased to 48 by April with notable imaging progression PET scan done 05/17/2023 demonstrated significant progression of metastatic disease since her CAT scans of February 15, 2023 and February 16, 2023. There is increase in the size of hepatic metastases and progression of extensive peritoneal FDG avid implants. There is progression of thoracic, abdominal and pelvic FDG avid lymphadenopathy. These nodes are only mildly enlarged but markedly FDG avid. There is slight progression of sclerotic skeletal metastatic disease with minimal FDG intake. There is small amount abdominal and pelvic ascites with no bowel obstruction noted. At the time of her admission, she had presented to outpatient oncology clinic with approximately 2 days of increasing abdominal pain with nausea and vomiting and declining oral intake. Her exam was consistent with ascites and noted diffuse abdominal tenderness. SBP was suspected and she was admitted for stabilization. Marta is seen bedside with no family present. She tells me that her nausea is marked and severe. She has not had relief with therapies to date. She states that the tablets that they give her at this time she simply vomits back up and has not been able to successfully keep any medicine down long enough for it to take effect. She does note that when she took some pain medication before bed she was able to get better relief through the night at least to comfortably sleep. She describes her nausea and vomiting as persistent and easily triggered especially with movement, changing position or activity. Every time she vomits she notes it is the entire contents of her belly and anything she may have consumed that day, which at this point is primarily liquids. She feels basical ly everything is just sitting in her stomach and "sloshing around" and not moving through. Allergies Allergy/AdvReac Type Severity Reaction Status Date / Time doxycycline AdvReac Intermediate Nausea Verified 05/30/23 20:44 propoxyphene AdvReac Intermediate left side Verified 05/30/23 20:44 numbness & tingling Sulfa (Sulfonamide AdvReac Intermediate nausea Verified 05/30/23 20:44 Antibiotics) Home Medications Medication Instructions Recorded Confirmed Type coenzyme Q10 100 mg capsule 200 mg PO QAM 10/12/20 05/30/23 History cholecalciferol (vitamin D3) 50 50 mcg PO QAM 04/13/22 05/30/23 History mcg (2,000 unit) capsule acetaminophen 500 mg tablet 1,000 mg PO BID PRN Pain 10/26/22 05/30/23 History ondansetron 4 mg disintegrating 4 mg translingual Q8H PRN nausea 11/29/22 05/30/23 Rx tablet and vomiting 24 hours #30 tabs docusate sodium 100 mg capsule 100 mg PO QAM 11/30/22 05/30/23 History loratadine 10 mg tablet (Claritin) 10 mg PO DIRECTED 12/26/22 05/30/23 History fluticasone propionate 50 1 spray intranasal DAILY PRN 02/11/23 05/30/23 History mcg/actuation nasal Congestion spray,suspension (Allergy Relief (fluticasone)) lactulose 20 gram/30 mL oral 20 g (30 mL) PO BID PRN 02/15/23 05/30/23 Rx solution constipation #1,200 mL trazodone 50 mg tablet 50 mg PO HS #30 tabs 02/21/23 05/30/23 Rx magnesium oxide 400 mg (241.3 mg 400 mg PO BID 02/24/23 05/30/23 History magnesium) tablet omeprazole 20 mg capsule,delayed 20 mg PO QAM 02/24/23 05/30/23 History release prochlorperazine maleate 10 mg 10 mg PO Q6H PRN Nausea 02/24/23 05/30/23 History tablet (Compazine) ibuprofen 200 mg tablet (Advil) 200 mg PO Q6H PRN Pain 05/30/23 05/30/23 History morphine 15 mg immediate release 15 mg PO DIRECTED PRN Pain 05/30/23 05/30/23 History tablet Patient History Medical History Hip pain Acute respiratory failure with hypoxia Shortness of breath Pleural effusion Chest pain Dyspnea Chest discomfort RECENT OCCURENCE - LEFT SIDE / NO OTHER S/S . WALKED AROUND & DISCOMFORT RESOLVED ON OWN - PT REPORTS THINKS IT WAS DUE TO GAS. HOME HEALTH NURSE WAS HERE AND PT REPORTS SHE AGREED TO THINKING IT WAS GAS RELATED. NURSE TOOK BP AND PT REPORTS BP WAS LOW ? 101/79 - PT DOESN'T REMEMBER EXACT BP. NO RE-OCCURENCE. EDUCATION PROVIDED-per PAT conduit mechanic call Heartburn RESOLVED WITH MEDICATION. History of colon polyps Constipation Poor appetite Ovarian cancer RECENT DX/REASON FOR UPCOMING PROCEDURE. GERD (gastroesophageal reflux disease) Ovarian cancer Microcytic anemia Chronic renal failure (CRF), stage 3b Severe protein-calorie malnutrition Pleural effusion - recently, treated at [facility] - s/p diagnostic and therapeutic ultrasound-guided catheter thoracentesis 10/18/22 - 10/18/22 CXR showed small residual left pleural effusion - no physical limitation per PAT nursing assessment Aortic heart murmur Insomnia Depression Hyperlipidemia Dry eye syndrome Hypertension RECENT D/C OF BP MED/TODAY IS FIRST DAY OF NOT TAKING (LISINOPRIL HCTZ) Surgical History History of surgery OCTOBER 2022. EMERGENCY SX FOR OVARIAN TUMOR. DX CANCER. History of esophagogastroduodenoscopy (EGD) History of colonoscopy History of cataract surgery bilateral History of breast biopsy benign History of dilatation and curettage History of bilateral tubal ligation Hx of umbilical hernia repair Hx of elbow surgery right elbow tendon repair. Hx of cholecystectomy Family History Mother Myocardial infarction Breast cancer Grandmother Family history of diabetes mellitus Aunt Family history of diabetes mellitus Daughter Family history of diabetes mellitus Uncle Cancer Leukemia Other No family history of adverse response to anesthesia Denies family history of Ovarian cancer Prostate cancer Colorectal cancer Social History Smoking Status: Never smoker Second Hand Exposure: No; Do You Dip or Chew Tobacco: No; Hx Alcohol Use: No Hx Substance Use: No Preferred Language: Slovenian Communication Ability: Effective Visual Impairment: Limited Hearing Ability: Normal Photoresist Contact Printer Required: No Beliefs That Will Affect Care: None marital status: Current Living Situation: Family Current Living Situation Comment: with niece current occupational status: retired How many Children do You have: 4 Feels Safe at Home: Yes Childhood Exposure to Second-Hand Smoke: No Diet: regular caffeine: No during the past year weight has: remained stable Dental Care, Regularly: No Physical Activity Frequency: Does not Exercise Seatbelt Use: always Sunscreen Use: No Do you think of yourself as: straight/heterosexual Gender Identity: Female Assistive Devices: Cane and Walker Review of Systems Review of Systems: All systems reviewed & are unremarkable except as noted in Subjective Physical Exam Physical Exam: Cachectic, frail female, resting in bed. Appears tired and mildly distressed. She is pale and skin is cool to touch. There is bitemporal wasting. PERRLA, EOMI's. Neck is supple, there is no stridor. Lungs are diminished bilaterally. S1-S2 noted, no JVD. Abdomen is mildly distended and tender throughout.She underwent a paracentesis earlier today.Generalized weakness throughout. She is awake alert and oriented x 3. Skin is pale Results & Data Vital Signs (Past 12 Hours) Vital Signs Temp Pulse Pulse Pulse Resp BP Pulse Ox 06/05/23 11:24 36.6 C 97 H 14 101/69 95 06/05/23 11:07 98 H 16 84/58 L 95 06/05/23 10:12 36.8 C 117 H 16 95/66 L 95 06/05/23 09:44 36.8 C 110 H 18 100/64 95 06/05/23 09:15 36.7 C 107 H 14 112/72 92 06/05/23 09:10 36.7 C 107 H 14 112/72 92 06/05/23 07:52 36.5 C 112 H 17 120/72 93 06/05/23 07:44 100 H 06/05/23 04:35 36.5 C 107 H 20 109/79 92 O2 Del Method 06/05/23 11:24 Room Air 06/05/23 11:07 Room Air 06/05/23 10:12 Room Air 06/05/23 09:44 Room Air 06/05/23 09:15 Room Air 06/05/23 09:10 Room Air 06/05/23 07:52 Room Air 06/05/23 07:44 06/05/23 04:35 Room Air Laboratory Results Data reviewed Diagnostic Findings Data reviewed PG Care Time/CCT Total # of Minutes Spent Total Time Spent: 75 Total Time Spent with Patient: Total time spent is greater than 50% in coordination of care (as documented) at patient's floor/unit and/or counseling patient: [place] [address] IN/OBS CONSULT LVL 5,80M Patient Type New History Comprehensive Exam Comprehensive Medical Decision Making High Complexity Diagnoses Refractory nausea and vomiting R11.2 Cancer related pain G89.3 Weakness generalized R53.1 Palliative care by specialist Z51.5 Primary cancer of ovary with widespread metastatic disease C56.9; C80.0
[2023-06-05] MEDS: METOCLOPRAMIDE HCL INJ 5 MG/ML 2 ML VIAL IV SCH ×2 (15:28→18:18)
--- NOTE | 2023-06-05 18:24 | Hospitalist Progress Note ---
Date of Service June 05, 2023 Assessment & Plan (1) KARLY (acute kidney injury): Plan: KARLY on CKD stage 3 Cr has doubled to 2.5 today and mild hyperkalemia 5.5 despite getting IV fluids every afternoon since last week for episodes of sinus tachycardia sometimes to 130s-140s -based on history with tachycardia, nausea, low oral intake and hyperdynamic echo yesterday this is likely prerenal/volume depletion however could have had renal injury from CTA contrast (though pretreated with IVF) -albumin 5% bolus for 500 mL followed by IV NS -one dose lokelma given -repeat K check this pm improved to 5.1 -AM BMP -further workup if not resolving with fluids (2) Ascites: Plan: 87yo female with widely metastatic ovarian cancer presented with nausea, vomiting and abdominal pain and distention. 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 -CT with peritoneal carcinomatosis, pelvic mass, inflammation possibly consistent with SBP -Paracentesis 05/31 - diagnostic and therapeutic 3L removed with improvement in symptoms - WBC elevated in peritoneal fluid, 12% PMNs (calculates to >350) cannot rule out SBP, gram stain negative, ascitic culture -Was treated with empiric ceftriaxone 2g q24h through 06/05, stopped since ascites culture finalized negative -Repeat paracentesis done today because of persistent symptoms through the weekend with nausea pain fullness. 4L removed. Done prior to AM labs result with KARLY. albumin/saline given post procedure Followed by Dr. Hathaway. Had surgery 10/2022 at time of diagnosis with some resection, completed 5 cycles of carbo/taxol last chemo 05/03, has had some palliative xrt to skeletal mets. Recent PET-CT 05/17 with significant progression of widely metastatic disease - pelvic 10 cm mass, peritoneal carcinomatosis, liver and skeletal mets. Chemo has been somewhat limited by toxicity with anemia partially related to MDS Hematology/Oncology consultation on admission appreciated. Reviewed Dr. Hanley's recommendations, cancer has significantly progressed despite treatment, alternative regimens are possible but significant risk of toxicity, consider quaternary referral if within her goals of care, she says she plans to see him in office Monday to discuss more -palliative care consult 06/05 - appreciate -uncomfortable this weekend though improved after dose of morphine, encouraged use and emphasized the ascites may be managed but will reaccumulate -will likely need to have serial paracentesis for comfort as outpatient, discussed with Dr. Hathaway, this can be done outpatient by ultrasound -has appt with Dr. Hathaway tomorrow but not ready for discharge, I discussed with him today and he said he will see her in hospital around 7:30-8 pm after clinic (I have not notified her yet) (3) Sinus tachycardia: Plan: -sinus tachycardia - often around 90-105 but every afternoon goes up into 130- 140s, asymptomatic. Initially thought fluid shift from paracentesis but persists. Fluid responsive (but excessive fluid will make ascites worse) EKG 06/02 confirms sinus tachy raised concern for SBP/infection, though ascitic culture negative and did NOT improve with course of antibiotics -chest CTA to eval for PE - negative for PE, small pleural effusions and other findings compatible with her chest CT. small tree-in-bud opacities c/w chronic infectious process. -TTE 06/04 unremarkable hyperdynamic LVEF 70% -Had TSH this summer which was normal, will recheck - slight elevation may be euthyroid sick, regardless not hyperthyroid -I think this could be her physiology related to her cancer combined with low oral intake / volume depletion, did not tolerate low dose metoprolol, stopped (4) Nausea & vomiting: Plan: Ascites, progression of peritoneal carcinomatosis is cause of patient's presenting symptoms - bloating, fullness, nausea and shortness of breath. acute symptoms improved after paracentesis. postmeal nausea persists related to peritoneal carcinomatosis -somewhat/intermittently improved with scheduled ODT zofran -reviewed recommendations by Dr. Paris - trial IV metoclopramide started Plan Other issues: Mild hyponatremia likely related to volume depletion CKD stage 3b (recent baseline 0.8-1 on review of labs) Back and sacral pain due to skeletal metastases - resumed oral morphine prn but not using often Urine Cx with corynebacterium and a gamma strep - called micro lab this is a non-hemolytic non enterococcus strep - likely a contaminant or colonization no dysurua, ceftriaxone will cover the strep however blood cultures 05/30 - NGTD, reviewed today 06/05 I updated her daughter in room on second visit 06/03, the other [place] daughter Molly by speaker phone 06/04, 06/05. DVT ppx - enox changed to SQ heparin (renal) Admission and Anticipated Discharge Date Admission Date: May 30, 2023 Subjective Had para for 4L this AM. Very nauseated and had large emesis and hypotensive episode following para. BP improved after 5% albumin bolus and IV fluids. Met with palliative care Dr. Paris. Physical Exam 2 Physical Exam: PHYSICAL EXAMINATION Last 24h vital signs reviewed, see documentation in flowsheet General: looks weaker than yesterday HEENT: Normocephalic, atraumatic, pupils round and equal, sclerae anicteric, no conjunctival injection, moist mucus membranes Lungs: Normal respiratory effort. Clear to auscultation bilaterally. No RRW Heart: Heart rate still slightly tachy Regular rate and rhythm, no murmurs. No JVD Abdomen: Soft, no distention currently, nontender, no palpable mass though feels full in pelvic area. no rrg. Bowel sounds present. Extremities: Warm, dry, well-perfused. no extremity edema. Neuro: Alert and oriented x 4, face symmetric, moves 4 extremities well Psych: Normal affect and behavior Results & Data Results & Data Vital Signs (Past 12 Hours) Vital Signs Temp Pulse Pulse Pulse Resp BP Pulse Ox 06/05/23 17:04 100 H 06/05/23 16:24 36.8 C 108 H 16 96/63 L 93 06/05/23 11:24 36.6 C 97 H 14 101/69 95 06/05/23 11:07 98 H 16 84/58 L 95 06/05/23 10:12 36.8 C 117 H 16 95/66 L 95 06/05/23 09:44 36.8 C 110 H 18 100/64 95 06/05/23 09:15 36.7 C 107 H 14 112/72 92 06/05/23 09:10 36.7 C 107 H 14 112/72 92 06/05/23 07:52 36.5 C 112 H 17 120/72 93 06/05/23 07:44 100 H O2 Del Method 06/05/23 17:04 06/05/23 16:24 Room Air 06/05/23 11:24 Room Air 06/05/23 11:07 Room Air 06/05/23 10:12 Room Air 06/05/23 09:44 Room Air 06/05/23 09:15 Room Air 06/05/23 09:10 Room Air 06/05/23 07:52 Room Air 06/05/23 07:44 Laboratory Results 06/05/23 05:42 06/05/23 16:06 PG Care Time/CCT Total # of Minutes Spent Total Time Spent with Patient: Total time spent is greater than 50% in coordination of care (as documented) at patient's floor/unit and/or counseling patient: Coding Level of Care Code 31367 SUB INP/OBS CARE 3/50MIN Diagnoses KARLY (acute kidney injury) N17.9 Ascites R18.8 Ascites type: other type Sinus tachycardia R00.0 Nausea & vomiting R11.2 (2) Ascites Ascites type: other type Qualified Code(s): R18.8 - Other ascites
[2023-06-05] MEDS ORDERED: ALBUMIN 25% 25 GM/100 ML VIAL IV ONE (18:39)
[2023-06-05] MEDS: traZODone HCL 50 MG TAB PO SCH (20:54)
[2023-06-06] MEDS: METOCLOPRAMIDE HCL INJ 5 MG/ML 2 ML VIAL IV SCH ×4 (01:49→21:58)
[2023-06-06 07:07] LABS: BUN Creatinine Ratio 9.2 (10-20); Calcium 7.8 mg/dl (8.6-10.3); Creatinine Clr Calc Pharmacy 10.1 ml/min; Est GFR (African American) 13.6 ml/min; Est GFR (Non-African American) 11.7 ml/min; Potassium 4.7 mmol/L (3.5-5.1)
[2023-06-06] MEDS: ONDANSETRON 2 MG OD TAB PO SCH ×2 (09:19→12:42)
[2023-06-06] MEDS: PANTOprazole 40 MG TAB PO SCH (09:20)
[2023-06-06] MEDS: HEPARIN SOD 5,000 UNIT/0.5 ML VIAL SQ SCH ×2 (09:20→21:58)
[2023-06-06] MEDS: MAGNESIUM OXIDE 400 MG TAB PO SCH ×2 (09:20→21:54)
[2023-06-06] MEDS: DOCUSATE SODIUM 100 MG CAP PO SCH (09:25)
[2023-06-06] MEDS ORDERED: DAPTOmycin 275 MG in SYRINGE 0 ML IV SCH (09:45)
[2023-06-06] MEDS: CEFEPIME 1,000 MG in SYRINGE 0 ML IV SCH (09:58)
[2023-06-06 10:25] LABS: Albumin Level 2.7 gm/dl (3.4-5.0); Bilirubin,Total 0.2 mg/dl (0.2-1.0); Total Protein 4.6 gm/dl (6.0-8.3)
[2023-06-06] MEDS ORDERED: ONDANSETRON INJ 2 MG/ML 2 ML VIAL IV PRN (14:20)
--- NOTE | 2023-06-06 14:20 | Hospitalist Progress Note ---
Date of Service June 06, 2023 Assessment & Plan (1) KARLY (acute kidney injury): Plan: worse today placed rees check urine Na and urine Cr check u/a for casts appears intra-vascularly volume depleted despite her ascites suspect KARLY is pre-renal in etiology can't rule out contrast nephropathy from recent CT scan contrast but less likely start bicarbonate infusion in light of intermittent hyperkalemia and drop in serum HCO3 repeat BMP later today and again in am 05/30 CT a/p without obstruction does have large pelvic mass from her ovarian cancer but doubt it grew in <1 week and now causing obstruction can't rule out hepatorenal syndrome in light of recurrent paracentesis / fluid shifts (2) Ascites: Plan: 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 Paracentesis 05/31 - diagnostic and therapeutic tap - 3L removed WBC elevated in peritoneal fluid, 12% PMNs (calculates to >350) Although ascites culture was negative SBP still suspected Received empiric ceftriaxone 2g q24h through 06/05 Repeat paracentesis 06/05 with 4L removed Again WBCs elevated with high # of PMNs SBP still suspected thus I placed her back on cefepime with daptomycin Unfortunately no culture sent yesterday but good chance it would have resulted neg due to prior antibiotics since this is malignant ascites this will not respond to diuretic therapy could consider palliative pleurX catheter (3) Sinus tachycardia: Plan: 2nd to anemia, SIRS from SBP, etc echo noted no PE on recent CTA chest (4) Nausea & vomiting: Plan: likely multifactorial - cancer itself, KARLY, SBP, etc reglan 10mg q6h IV change PO zofran to IV zofran prn (5) SBP (spontaneous bacterial peritonitis): Plan: paracentesis x 2 this admission with cell counts highly suspicious for such symptoms along with CT findings also worrisome for SBP s/p rocephin thru 06/05 broaden to cefepime + daptomycin (6) GERD (gastroesophageal reflux disease): Plan: add pepcid 20mg daily IV this may help N/V (7) Chronic renal failure (CRF), stage 3b: Plan: baseline CrCl low 30s now with KARLY see above (8) Severe protein-calorie malnutrition: Plan: 71-72 kg about 6-12 months ago now 62kg 2nd to metastatic ovarian ca (9) Anemia: Plan: 2nd to ovarian ca, blood draws, etc (10) Carcinoma of ovary, stage 4: Plan: Dr Hathaway, her primary oncologist, plans to speak with her this evening about options, palliative care, etc her prognosis is quite grim - now even worse in light of SBP, KARLY, failure to thrive, etc appreciate Dr Hathaway's assistance appreciate Dr Paris's assistance from palliative care Plan DVT proph - heparin 5000 BID Admission and Anticipated Discharge Date Admission Date: May 30, 2023 Subjective patient lying in bed during the visit able to answer questions main complaint is that of ongoing nausea this is despite scheduled reglan IV q6h she has no appetite no significant stool passage denies abd pain but just is uncomfortable in her abdomen no fevers or chills very tired rees catheter placed earlier with minimal UOP since placement she is discouraged by her current status Review of Systems Review of Systems: cv - no chest pain pulm - no dyspnea GI - no abd pain neuro - no headache Physical Exam Physical Exam: gen - looks unwell, but NAD mouth - MM dry neck - no JVD heart - tachy, s1 s2, 2/6 NORMA LSB lungs - CTA b/l abd - distended with ascites, nontender, BS+, no HSM ext - pulses 2+ b/l psych - a/o x 3 skin - pallor Results & Data Results & Data Vital Signs (Past 12 Hours) Vital Signs Temp Pulse Pulse Resp BP Pulse Ox O2 Del Method 06/06/23 11:24 36.5 C 112 H 16 113/73 94 Room Air 06/06/23 07:51 36.9 C 100 H 16 94/60 L 95 Room Air 06/06/23 07:49 104 H 06/06/23 07:49 Room Air 06/06/23 05:07 105 H 115/75 06/06/23 04:54 37.1 C 100 H 14 95/60 L 93 Room Air Laboratory Results Laboratory Results - last 24 hr 06/05/23 06/06/23 16:06 05:54 Sodium 130 L Potassium 5.1 4.7 Chloride 101 Carbon Dioxide 20 L Anion Gap 9 BUN 31 H Creatinine 3.36 H D Est Cr Clr Drug Dosing 10.1 Est GFR ( Amer) 13.6 Est GFR (Non-Af Amer) 11.7 BUN/Creatinine Ratio 9.2 L Glucose 88 Calcium 7.8 L Total Bilirubin 0.2 Direct Bilirubin 0.0 AST 17 ALT 7 Alkaline Phosphatase 48 Total Protein 4.6 L Albumin 2.7 L Diagnostic Findings cell counts from paracentesis 06/05 - WBCs 1784 PMNs - 48% culture not sent PG Care Time/CCT Total # of Minutes Spent Total Time Spent with Patient: Total time spent is greater than 50% in coordination of care (as documented) at patient's floor/unit and/or counseling patient: Coding Level of Care Code 63698 SUB INP/OBS CARE 350MIN Diagnoses KARLY (acute kidney injury) N17.9 Ascites R18.8 Ascites type: other type Sinus tachycardia R00.0 Nausea & vomiting R11.2 SBP (spontaneous bacterial peritonitis) K65.2 GERD (gastroesophageal reflux disease) K21.9 Chronic renal failure (CRF), stage 3b N18.32 Severe protein-calorie malnutrition E43 Anemia, unspecified type D64.9 Anemia type: unspecified type Carcinoma of ovary, stage 4 C56.9 (2) Ascites Ascites type: other type Qualified Code(s): R18.8 - Other ascites (9) Anemia Anemia type: unspecified type Qualified Code(s): D64.9 - Anemia, unspecified
[2023-06-06] MEDS ORDERED: STAT IV/IM STA (14:21)
--- NOTE | 2023-06-06 14:37 | Palliative Care Progress Note ---
Date of Service June 06, 2023 Assessment & Plan (1) Refractory nausea and vomiting: (2) Cancer related pain: (3) Weakness generalized: (4) Palliative care by specialist: Plan * Gentle rehydration may help improve nausea * transition to FOLLOW UP MANAGER * awaiting dtr arrival from [place], hoping for dc home wit hospice to other dtr home in [facility] * additional family /ship joiner en route to visit * we discussed worsening kidney function and concerns she may sooner than we anticipated or that she may worsen quickly. she accepts her mortality but wants to be with family. 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 * numerous conversations thru the day with dtr Ely, primary team and nursing * dc monitors * move to private room * FOLLOW UP MANAGER orders placed Thank you for allowing us to participate in the ongoing care of this patient. Please don't hesitate to call or page with any additional concerns. Dr. Suzi Paris DNP Director, Palliative Care Admission and Anticipated Discharge Date Admission Date: May 30, 2023 Subjective nausea is not better but not worse comes in waves, not predictable zofran not helping feels "dry" and mouth is dry ice chips are ok but not doing a whole lot very tired belly more swollen today - likely reaccumulating color pale/trending yellowish Review of Systems Review of Systems: All systems reviewed & are unremarkable except as noted in Subjective Physical Exam Physical Exam: Cachectic, frail female, resting in bed. Appears tired and mildly distressed. She is pale and skin is cool to touch. There is bitemporal wasting. PERRLA, EOMI's. Neck is supple, there is no stridor. Lungs are diminished bilaterally. S1-S2 noted, no JVD. Abdomen is more distended and tender throughout. Generalized weakness. She is awake alert and oriented x 3. Skin is pale and cool to touch, papery. +tenting. turgor reduced. Results & Data Vital Signs (Past 12 Hours) Vital Signs Temp Pulse Pulse Resp BP Pulse Ox O2 Del Method 06/06/23 11:24 36.5 C 112 H 16 113/73 94 Room Air 06/06/23 07:51 36.9 C 100 H 16 94/60 L 95 Room Air 06/06/23 07:49 104 H 06/06/23 07:49 Room Air 06/06/23 05:07 105 H 115/75 06/06/23 04:54 37.1 C 100 H 14 95/60 L 93 Room Air PG Care Time/CCT Total # of Minutes Spent Total Time Spent: 95 Total Time Spent with Patient: Total time spent is greater than 50% in coordination of care (as documented) at patient's floor/unit and/or counseling patient: Coding [place] [address] SUB INP/OBS CARE 3/50MIN Patient Type Established History Comprehensive Exam Comprehensive Medical Decision Making High Complexity Diagnoses Refractory nausea and vomiting R11.2 Cancer related pain G89.3 Weakness generalized R53.1 Palliative care by specialist Z51.5
[2023-06-06 15:29] LABS: Appearance Urine Turbid (Clear); Bacteria Urine Automated Negative (Negative); Bilirubin Urine Negative (Negative); Blood Urine Negative (Negative); Color Urine Yellow; Glucose Urine UA Negative (Negative); Ketones Urine Trace (Negative); Leukocyte Esterase Urine Negative (Negative); Nitrite Urine Negative (Negative); Protein Urine 1+ (Negative); RBC Urine Automated 0-4 /hpf (0-4); Specific Gravity Urine 1.025 (1.000-1.030); Urobilinogen Urine Negative (Negative)
[2023-06-06 15:51] LABS: Amorphous Sediment Urine Present (None Prsent)
[2023-06-06] MEDS: FAMOTIDINE 20 MG in SYRINGE 3 ML IV SCH (15:52)
[2023-06-06] MEDS: SODIUM BICARBONATE 8.4% 75 MEQ in DEXTROSE 5% 1,000 ML IV SCH (17:07)
[2023-06-06 18:34] LABS: BUN Creatinine Ratio 8.8 (10-20); Calcium 8.3 mg/dl (8.6-10.3); Creatinine Clr Calc Pharmacy 8.8 ml/min; Est GFR (African American) 11.5 ml/min; Est GFR (Non-African American) 9.9 ml/min; Potassium 4.9 mmol/L (3.5-5.1)
[2023-06-06] MEDS: traZODone HCL 50 MG TAB PO SCH (21:55)
[2023-06-07] MEDS: traZODone HCL 50 MG TAB PO SCH (00:49)
[2023-06-07] MEDS: METOCLOPRAMIDE HCL INJ 5 MG/ML 2 ML VIAL IV SCH ×4 (01:24→20:52)
[2023-06-07 05:59] LABS: Hematocrit (blood only) 26.2 % (37.0-47.0); Hemoglobin 8.3 g/dl (12.0-16.0); Mean Corpuscular Hemoglobin 26.1 pg (25.0-34.0); Mean Corpuscular Hgb Conc 31.7 g/dL (32.0-36.0); Mean Corpuscular Volume 82.4 fL (80.0-100.0); Mean Platelet Volume 10.9 fL (9.4-12.4); Platelet Count 263 K/uL (130-400); RDW Coefficient of Variation 16.8 % (11.5-14.5); RDW Standard Deviation 50.4 fL (36.4-46.3); Red Blood Count 3.18 M/uL (4.20-5.40); White Blood Count 9.87 K/ul (4.8-10.8)
[2023-06-07 06:11] LABS: BUN Creatinine Ratio 8.6 (10-20); Calcium 7.9 mg/dl (8.6-10.3); Creatinine Clr Calc Pharmacy 8.1 ml/min; Est GFR (African American) 10.4 ml/min; Potassium 4.6 mmol/L (3.5-5.1)
--- NOTE | 2023-06-07 06:46 | Hospitalist Progress Note ---
Date of Service June 06, 2023 Assessment & Plan (1) Carcinoma of ovary, stage 4: Plan: Unfortunately patient has an aggressive malignancy with relapse even while she was on primary therapy and fairly extensive disease burden in the abdomen. Just to keep her reasonably comfortable she has required recurrent paracentesis and that has led to fluid shifts which have resulted in worsening renal function. 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 Overall performance status is ECOG 4 at this time We have discussed that additional cytotoxic chemotherapy would require aggressive dosing if it is to achieve anything against what is likely evolving multidrug-resistant disease. With renal dysfunction and overall poor performance status, the toxicity of cytotoxic agents could be life ending and the likelihood of any deep or durable response seems quite remote. In the absence of a dramatic and quite unexpected recovery of renal function and overall performance improvement I do not see her as a candidate for additional cytotoxic treatments. Although the genomic characterization of her cancer did show a low level PDL1 positivity and positive FISH for HER2 overexpression, neither of these are explicitly directive of standard treatments in ovarian cancer. Her cancer is microsatellite stable with the only intermediately elevated tumor mutational burden and did not have any specific mutations of BRCA1 or BRCA2 at least in the tumor itself. Given the aggressive progression of her disease it is not likely that hormonal therapy would offer a meaningful benefit. Her performance status would preclude participation in an investigational study. None are available nearby in any case Plan Patient was accompanied by her daughter who was in the room with her and 2 other daughters participated by speaker phone. We spoke for more than 45 minutes regarding all the above particularly outlining the aggression of her disease, the limitations of tolerance at her multisystem dysfunction poses, and the importance of considering what quality of life we can achieve where giving her additional cytotoxic therapy certainly has risks of paradoxical shortening life but even if it were to offer some modest prolongation of life it would likely do so at significant cost to quality of life along the way. We explicitly discussed hospice as a mechanism for optimizing her ability to be home and have reasonably good symptom control. We did note that survival might be short, that hospice would not intentionally give any treatments to purposefully shorten her life but the aggression of treatment required to achieve symptom control might have some impact on life's length. We discussed that hospice would not involve any active treatment of the cancer per se but rather would focus on optimal support of symptoms and quality of life with n eeded home equipment and optimization of her medication regimen We did discuss that she may require ongoing paracentesis and some thought might need to be given to placing a peritoneal dialysis like catheter prior to discharge to facilitate that being performed at home. Her daughters indicate that they are willing to help manage her on a hospice like framework understanding that hospice personnel would not be there 24 hours a day but would be on-call continuously for any sudden changes in status. I will communicate with hospitalist team and Dr. Cui to suggest that we should coordinate issues in that direction Admission and Anticipated Discharge Date Admission Date: May 30, 2023 Subjective Status has deteriorated over the last week with worsening renal function, recurrent ascites requiring additional paracentesis, overall decline in performance status and functionality Physical Exam Physical Exam: Patient sitting up in bed and alert. Her cognitive status shows some very subtle memory changes but I think he is sufficiently intact to indicate reasonable medical decision-making capacity. She is not grossly jaundiced, lungs show decreased breath sounds at the bases but she is not tachypneic, she is tachycardic but with a regular rhythm and without pathological murmur. Abdomen again seems distended with ascites though somewhat soft currently in the wake of the repeat paracentesis earlier in the day Results & Data Results & Data Vital Signs (Past 12 Hours) Vital Signs Temp Pulse Pulse Resp BP Pulse Ox O2 Del Method 06/07/23 06:38 36.6 C 100 H 12 111/57 L 95 Room Air 06/07/23 03:31 37.1 C 128 H 18 100/66 97 Room Air 06/07/23 00:02 37.2 C 121 H 18 105/65 95 Room Air 06/06/23 23:02 116 H 06/06/23 20:03 36.8 C 118 H 18 113/76 93 Room Air 06/06/23 20:00 Room Air Laboratory Results Laboratory Results - last 24 hr 06/06/23 06/06/23 06/06/23 05:54 17:55 Unknown WBC RBC Hgb Hct MCV MCH MCHC RDW Std Deviation RDW Coeff of Marcie Plt Count MPV Sodium 130 L 130 L Potassium 4.7 4.9 Chloride 101 100 Carbon Dioxide 20 L 19 L Anion Gap 9 11 BUN 31 H 34 H Creatinine 3.36 H D 3.85 H D Est Cr Clr Drug Dosing 10.1 8.8 Est GFR ( Amer) 13.6 11.5 Est GFR (Non-Af Amer) 11.7 9.9 BUN/Creatinine Ratio 9.2 L 8.8 L Glucose 88 104 H Calcium 7.8 L 8.3 L Total Bilirubin 0.2 Direct Bilirubin 0.0 AST 17 ALT 7 Alkaline Phosphatase 48 Total Protein 4.6 L Albumin 2.7 L Urine Color Yellow Urine Appearance Turbid A Urine pH 5.0 Ur Specific [place] 1.025 Urine Protein 1+ H Urine Glucose (UA) Negative Urine Ketones Trace H Urine Blood Negative Urine Nitrite Negative Urine Bilirubin Negative Urine Urobilinogen Negative Ur Leukocyte Esterase Negative Urine WBC (Auto) 1-5 Urine RBC (Auto) 0-4 U Hyaline Cast (Auto) 1-5 U Epithel Cells (Auto) 10-20 H Urine Bacteria (Auto) Negative Amorphous Sediment Present A Urine Yeast Not Reportable Ur Random Creatinine 145.7 Ur Random Sodium 11 06/07/23 04:41 WBC 9.87 RBC 3.18 L Hgb 8.3 L Hct 26.2 L MCV 82.4 MCH 26.1 MCHC 31.7 L RDW Std Deviation 50.4 H RDW Coeff of Marcie 16.8 H Plt Count 263 MPV 10.9 Sodium 128 L Potassium 4.6 Chloride 97 L Carbon Dioxide 19 L Anion Gap 12 H BUN 36 H Creatinine 4.17 H D Est Cr Clr Drug Dosing 8.1 Est GFR ( Amer) 10.4 Est GFR (Non-Af Amer) 9.0 BUN/Creatinine Ratio 8.6 L Glucose 105 H Calcium 7.9 L Total Bilirubin Direct Bilirubin AST ALT Alkaline Phosphatase Total Protein Albumin Urine Color Urine Appearance Urine pH Ur Specific [place] Urine Protein Urine Glucose (UA) Urine Ketones Urine Blood Urine Nitrite Urine Bilirubin Urine Urobilinogen Ur Leukocyte Esterase Urine WBC (Auto) Urine RBC (Auto) U Hyaline Cast (Auto) U Epithel Cells (Auto) Urine Bacteria (Auto) Amorphous Sediment Urine Yeast Ur Random Creatinine Ur Random Sodium Diagnostic Findings KUB X-Ray 05/30/23 16:09 KUB HISTORY: Acute and was abdominal pain abd pain, referred COMPARISON: PET CT 05/17/2023 FINDINGS: Cholecystectomy. Nonobstructive bowel gas pattern. Unchanged peripherally calcified splenic artery aneurysm. No renal calculi. No ureteral calculi. No pneumoperitoneum or pneumatosis. No fracture. IMPRESSION: 1. Nonobstructive bowel gas pattern. 2. Cholecystectomy. 3. Sclerotic skeletal metastasis better visualized on the prior PET/CT. ACT 112: Negative or not required by law. The above report was generated using voice recognition software. It may contain grammatical, syntax or spelling errors. Electronically signed by: Jaswant Barrera M.D. 05/30/2023 5:36 PM Abdomen/Pelvis CT 05/30/23 20:04 Exam(s): CT ABDOMEN + PELVIS With Contrast IV Amt: 88ML OPTIRAY 320 EXAM: CT Abdomen and Pelvis With Intravenous Contrast CLINICAL HISTORY: Reason for exam: n/v, abd pain, known cancer with mets. TECHNIQUE: Axial computed tomography images of the abdomen and pelvis with intravenous contrast. Automated exposure control was utilized for the study. A dose lowering technique was utilized adhering to the principles of ALARA. CONTRAST: Patient received 88ML OPTIRAY 320 of IV contrast COMPARISON: No relevant prior studies available. FINDINGS: Lung bases: Unremarkable. No mass. No consolidation. ABDOMEN: Liver: Hepatic metastases are present. Gallbladder and bile ducts: Cholecystectomy. No ductal dilation. Pancreas: Unremarkable. No mass. No ductal dilation. Spleen: Unremarkable. No splenomegaly. Adrenals: Unremarkable. No mass. Kidneys and ureters: Unremarkable. No solid mass. No hydronephrosis. Stomach and bowel: Wall thickening of small bowel, concerning for spontaneous bacterial peritonitis. No obstruction. PELVIS: Appendix: No findings to suggest acute appendicitis. Bladder: Unremarkable. No mass. Reproductive: Unremarkable as visualized. ABDOMEN and PELVIS: Intraperitoneal space: Mass in the pelvis measures approximately 11.5 x 10.5 cm, consistent with malignancy of gynecological etiology, correlate for ovarian or endometrial cancer. 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 Large volume abdominal ascites. No free air. Bones/joints: Degenerative changes of the spine. No acute fracture. No dislocation. Soft tissues: Unremarkable. Vasculature: Atherosclerotic changes of the aorta. No abdominal aortic aneurysm. Lymph nodes: Unremarkable. No enlarged lymph nodes. IMPRESSION: 1. Mass in the pelvis measures approximately 11.5 x 10.5 cm, consistent with malignancy of gynecological etiology, correlate for ovarian or endometrial cancer. Peritoneal carcinomatosis. Large volume abdominal ascites. 2. Hepatic metastases are present. 3. Wall thickening of small bowel, concerning for spontaneous bacterial peritonitis. Electronically signed by: Travis Young MD 05/30/23 22:[address] 05/30/23 20:04 Exam(s): CT HEAD Without Contrast EXAM: CT Head Without Intravenous Contrast CLINICAL HISTORY: Reason for exam: n/v. TECHNIQUE: Axial computed tomography images of the head/brain without intravenous contrast. Automated exposure control was utilized for the study. A dose lowering technique was utilized adhering to the principles of ALARA. COMPARISON: No relevant prior studies available. FINDINGS: No acute intracranial hemorrhage. No midline shift or mass effect. The territorial jones-white matter differentiation is maintained throughout. Age-related cerebral volume loss. Periventricular and subcortical white matter hypoattenuation, consistent with chronic microangiopathy. The visualized orbits appear grossly unremarkable. The calvarium is intact. The visualized paranasal sinuses and mastoid air cells are grossly clear. IMPRESSION: No acute intracranial hemorrhage, midline shift, or mass effect. Electronically signed by: Travis Young MD 05/30/23 21:56 PM Chest X-Ray 05/30/23 21:05 XR chest 1V portable HISTORY: 87 years-old Female picc eval status post placement of a right-sided PICC COMPARISON: 02/11/2023 TECHNIQUE: AP view of the chest FINDINGS: Cardiac silhouette is enlarged. A right-sided PICC is noted with distal tip in the expected location of the mid SVC. No postprocedural pneumothorax identified. Trace left pleural effusion. No airspace consolidation or overt pulmonary edema. Degenerative changes of the shoulders and spine. IMPRESSION: 1. Status post placement of a right-sided PICC. No postprocedural pneumothorax. 2. Trace left pleural effusion. ACT 112: Negative or not required by law. The above report was generated using voice recognition software. It may contain grammatical, syntax or spelling errors. Electronically signed by: Jaswant Barrera M.D. 05/31/2023 7:35 AM Paracentesis Ultrasound 05/31/23 00:51 Ultrasound-guided paracentesis INDICATION: Ascites PROCEDURE: Procedure and risks were explained. Informed consent was obtained. A final timeout was completed. The abdomen was prepped and draped in sterile fashion. 1% buffered lidocaine was utilized for skin anesthesia. Utilizing ultrasound guidance, a 5 Hungarian safety centesis catheter was advanced into the left lower quadrant pocket of ascites. Ultrasound images were obtained. A total of 2.8 L of ascites fluid was removed, with 1 L sent to lab for analysis. The catheter was removed and Band-Aid applied. The patient tolerated the procedure well. Vital signs will be monitored on the floor. IMPRESSION: Paracentesis as above. Performed, dictated, and signed by Suman Carty PA-C; to be co-signed by Dr. Jaswant Barrera. Electronically signed by: Jaswant Barrera M.D. 05/31/2023 2:13 PM Chest CTA 06/03/23 13:03 CT ANGIOGRAPHY OF THE CHEST, PULMONARY EMBOLUS PROTOCOL CLINICAL HISTORY: Dyspnea, persistent sinus tachycardia. Ovarian cancer. COMPARISON STUDY: Chest CT February 16, 2023. Chest radiograph May 30, 2023. PET/CT May 17, 2023. TECHNIQUE: Following IV administration of 116 mL of Optiray, helical axial images of the chest were obtained utilizing the pulmonary embolus protocol. Maximal intensity projections and sagittal and coronal reformats were viewed on an independent 3D workstation. IV contrast was administered without complication. Automated exposure control was utilized for the study. A dose lowering technique was utilized adhering to the principles of ALARA. CT DOSE: 468.4 mGy.cm FINDINGS: No pulmonary emboli are identified. There is mild cardiomegaly. Dilatation of the ascending aorta measuring 4.4 cm is unchanged since PET/CT of May 17, 2023. No thoracic aortic is present. No pericardial effusion is present. Small left and trace right pleural effusions have slightly increased since prior PET/CT. Scattered tree-in-bud nodules within the lungs remain unchanged. Mildly enlarged thoracic lymph nodes have slightly increased in size since prior exam. Index right internal mammary lymph node on image 141 measures 1.4 x 1 cm. It previously measured 1.1 x 0.7 cm. Skeletal metastases are unchanged. Hepatic metastases have mildly increased in size. Index lateral segment lesion measures 2.8 cm. A previously measured 1.9 cm. Moderate upper abdominal ascites is present. Upper abdominal peritoneal implants have increased since prior PET/CT. IMPRESSION: 1. No pulmonary emboli identified. 2. No consolidation to suggest pneumonia. No change in scattered tree-in-bud nodules within the lungs. These favor chronic infectious process. 3. Progression of hepatic, jamal and peritoneal metastases, as described above. Moderate upper abdominal ascites. 4. Small left and trace right pleural effusions. ACT 112: Negative or not required by law. Electronically signed by: Joel Mariscal M.D. 06/03/2023 2:52 PM Paracentesis Ultrasound 06/05/23 07:00 Ultrasound-guided paracentesis INDICATION: Ascites PROCEDURE: Procedure and risks were explained. Informed consent was obtained. A final timeout was completed. The abdomen was prepped and draped in sterile fashion. 1% buffered lidocaine was utilized for skin anesthesia. Utilizing ultrasound guidance, a 5 Hungarian safety centesis catheter was advanced into the left lower quadrant pocket of ascites. Ultrasound images were obtained. A total of 4L of ascites fluid was removed, with 1 L sent to lab for analysis. The catheter was removed and Band-Aid applied. The patient tolerated the procedure well. Vital signs will be monitored on the floor. IMPRESSION: Paracentesis as above. Performed, dictated, and signed by Suman Carty PA-C; to be co-signed by Dr. Mega Chavez. Electronically signed by: Mega Chavez M.D. 06/05/2023 5:24 PM PG Care Time/CCT Total # of Minutes Spent Total Time Spent with Patient: Total time spent is greater than 50% in coordination of care (as documented) at patient's floor/unit and/or counseling patient: Coding [place] [address] SUB INP/OBS CARE 2/35MIN Patient Type Established Diagnoses Carcinoma of ovary, stage 4 C56.9
[2023-06-07] MEDS: SODIUM BICARBONATE 8.4% 75 MEQ in DEXTROSE 5% 1,000 ML IV SCH (08:49)
[2023-06-07] MEDS: MAGNESIUM OXIDE 400 MG TAB PO SCH (08:49)
[2023-06-07] MEDS: HEPARIN SOD 5,000 UNIT/0.5 ML VIAL SQ SCH (08:50)
[2023-06-07] MEDS: PANTOprazole 40 MG TAB PO SCH (08:51)
[2023-06-07] MEDS: FAMOTIDINE 20 MG in SYRINGE 3 ML IV SCH (08:53)
[2023-06-07] MEDS: CEFEPIME 1,000 MG in SYRINGE 0 ML IV SCH (08:53)
[2023-06-07] MEDS: DOCUSATE SODIUM 100 MG CAP PO SCH (08:53)
[2023-06-07] MEDS ORDERED: HYDROmorphone INJ 0.5 MG/0.5 ML SYR IV PRN (11:49)
[2023-06-07] MEDS ORDERED: LORazepam 0.5 MG in SYRINGE 0.25 ML IV PRN (11:49)
[2023-06-07] MEDS ORDERED: ONDANSETRON INJ 2 MG/ML 2 ML VIAL IV PRN (11:53)
[2023-06-07] MEDS ORDERED: SCOPOLAMINE 1 MG TDSY TD SCH (17:00)
[2023-06-07] MEDS ORDERED: PROMETHAZINE HCL 6.25 MG in SODIUM CHLORIDE 0.9% 50 ML IV STA (17:04)
--- NOTE | 2023-06-07 20:47 | Hospitalist Progress Note ---
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 with superimposed KARLY/ARF & SBP have led to this point KARLY has worsened rapidly with notable oliguria (3) KARLY (acute kidney injury): Plan: pre-renal KARLY/ARF - continues to worsen with severe oliguria no response to supportive care/bicarb infusion/etc transitioning to comfort measures today 05/30 CT a/p without obstruction does have large pelvic mass from her ovarian cancer but doubt it grew in <1 week and now causing obstruction can't rule out hepatorenal syndrome in light of recurrent paracentesis / fluid shifts (4) Ascites: Plan: 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 Paracentesis 05/31 - diagnostic and therapeutic tap - 3L removed WBC elevated in peritoneal fluid, 12% PMNs (calculates to >350) Although ascites culture was negative SBP still suspected Received empiric ceftriaxone 2g q24h through 06/05 Repeat paracentesis 06/05 with 4L removed Again WBCs elevated with high # of PMNs SBP still suspected - cefepime with daptomycin restarted now transitioning to comfort measures only - d/c abx, defer on any intervention of ascites unless she has refractory pain from distension (5) Sinus tachycardia: Plan: 2nd to anemia, SIRS from SBP, etc echo noted no PE on recent CTA chest (6) Nausea & vomiting: Plan: likely multifactorial - cancer itself, KARLY, SBP, etc other factors possible no response to reglan 10mg q6h IV thus, stop reglan trial of phenergan seemed to help earlier in the afternoon thus will schedule phenergan q6h scop patch added olanzapine BID should help as well (7) SBP (spontaneous bacterial peritonitis): Plan: paracentesis x 2 this admission with cell counts highly suspicious for such symptoms along with CT findings also worrisome for SBP s/p rocephin thru 06/05 then cefepime + daptomycin now abx d/c due to #1/#2 (8) GERD (gastroesophageal reflux disease): Plan: can cont pepcid 20mg daily IV as this may help GI tract sx's (9) Chronic renal failure (CRF), stage 3b: Plan: baseline CrCl low 30s now with KARLY see above (10) Severe protein-calorie malnutrition: Plan: 71-72 kg about 6-12 months ago now 62kg 2nd to metastatic ovarian ca (11) Anemia: Plan: 2nd to ovarian ca, blood draws, etc (12) Carcinoma of ovary, stage 4: Plan: appreciate Dr Hathaway's assistance appreciate Dr Paris's assistance from palliative care see #1 above Plan stop heparin 5000 BID for DVT proph can move to med/surg Admission and Anticipated Discharge Date Admission Date: May 30, 2023 Subjective events of last 24 hours noted remains oliguric with rees in place multiple discussions between Dr Hathaway, Dr Paris, patient, and family re: transitioning to comfort care/hospice comfort care pathway initiated today after above discussions I saw patient after she transferred to med/surg has had refractory nausea all day despite use of scheduled reglan 10mg IV q6h I ordered scop patch + 1x dose of phenergan - this helped some, but she still c/o nausea during my visit she was drowsy, fell asleep 2x's denied pain any location Review of Systems Review of Systems: Unobtainable due to cognitive status Physical Exam Physical Exam: gen - looks generally unwell, uncomfortable, a little confused, fell asleep during our conversation mouth - MM dry neck - no JVD heart - tachy, s1 s2, 2/6 NORMA LSB lungs - CTA b/l abd - distended with ascites, nontender, BS+, no HSM ext - pulses 2+ b/l psych - sleepy, confused skin - pallor - rees with minimal amount of concentrated urine Results & Data Results & Data Vital Signs (Past 12 Hours) Vital Signs Temp Pulse Pulse Resp BP Pulse Ox O2 Del Method 06/07/23 11:26 109 H 06/07/23 11:03 36.6 C 105 H 16 138/80 96 Room Air Laboratory Results Laboratory Results - last 48 hr 06/06/23 06/06/2306/06/23 05:54 17:55 Unknown WBC RBC Hgb Hct MCV MCH MCHC RDW Std Deviation RDW Coeff of Marcie Plt Count MPV Sodium 130 L 130 L Potassium 4.7 4.9 Chloride 101 100 Carbon Dioxide 20 L 19 L Anion Gap 9 11 BUN 31 H 34 H Creatinine 3.36 H D 3.85 H D Est Cr Clr Drug Dosing 10.1 8.8 Est GFR ( Amer) 13.6 11.5 Est GFR (Non-Af Amer) 11.7 9.9 BUN/Creatinine Ratio 9.2 L 8.8 L Glucose 88 104 H Calcium 7.8 L 8.3 L Total Bilirubin 0.2 Direct Bilirubin 0.0 AST 17 ALT 7 Alkaline Phosphatase 48 Total Protein 4.6 L Albumin 2.7 L Urine Color Yellow Urine Appearance Turbid A Urine pH 5.0 Ur Specific [place] 1.025 Urine Protein 1+ H Urine Glucose (UA) Negative Urine Ketones Trace H Urine Blood Negative Urine Nitrite Negative Urine Bilirubin Negative Urine Urobilinogen Negative Ur Leukocyte Esterase Negative Urine WBC (Auto) 1-5 Urine RBC (Auto) 0-4 U Hyaline Cast (Auto) 1-5 U Epithel Cells (Auto) 10-20 H Urine Bacteria (Auto) Negative Amorphous Sediment Present A Urine Yeast Not Reportable Ur Random Creatinine 145.7 Ur Random Sodium 11 06/07/23 04:41 WBC 9.87 RBC 3.18 L Hgb 8.3 L Hct 26.2 L MCV 82.4 MCH 26.1 MCHC 31.7 L RDW Std Deviation 50.4 H RDW Coeff of Marcie 16.8 H Plt Count 263 MPV 10.9 Sodium 128 L Potassium 4.6 Chloride 97 L Carbon Dioxide 19 L Anion Gap 12 H BUN 36 H Creatinine 4.17 H D Est Cr Clr Drug Dosing 8.1 Est GFR ( Amer) 10.4 Est GFR (Non-Af Amer) 9.0 BUN/Creatinine Ratio 8.6 L Glucose 105 H Calcium 7.9 L Total Bilirubin Direct Bilirubin AST ALT Alkaline Phosphatase Total Protein Albumin Urine Color Urine Appearance Urine pH Ur Specific [place] Urine Protein Urine Glucose (UA) Urine Ketones Urine Blood Urine Nitrite Urine Bilirubin Urine Urobilinogen Ur Leukocyte Esterase Urine WBC (Auto) Urine RBC (Auto) U Hyaline Cast (Auto) U Epithel Cells (Auto) Urine Bacteria (Auto) Amorphous Sediment Urine Yeast Ur Random Creatinine Ur Random Sodium PG Care Time/CCT Total # of Minutes Spent Total Time Spent with Patient: Total time spent is greater than 50% in coordination of care (as documented) at patient's floor/unit and/or counseling patient: Coding Level of Care Code 44092 SUB INP/OBS CARE 2/35MIN Diagnoses Comfort measures only status Z51.5 Palliative care status Z51.5 KARLY (acute kidney injury) N17.9 Ascites R18.8 Ascites type: other type Sinus tachycardia R00.0 Nausea & vomiting R11.2 SBP (spontaneous bacterial peritonitis) K65.2 GERD (gastroesophageal reflux disease) K21.9 Chronic renal failure (CRF), stage 3b N18.32 Severe protein-calorie malnutrition E43 Anemia, unspecified type D64.9 Anemia type: unspecified type Carcinoma of ovary, stage 4 C56.9 (4) Ascites Ascites type: other type Qualified Code(s): R18.8 - Other ascites (11) Anemia Anemia type: unspecified type Qualified Code(s): D64.9 - Anemia, unspecified
[2023-06-07] MEDS: PROMETHAZINE HCL 6.25 MG in SODIUM CHLORIDE 0.9% 50 ML IV SCH (22:31)
[2023-06-08] MEDS: CHECK SCOPOLAMINE PATCH PLACEMENT SCH ×3 (00:49→14:57)
[2023-06-08] MEDS: PROMETHAZINE HCL 6.25 MG in SODIUM CHLORIDE 0.9% 50 ML IV SCH ×3 (02:08→14:57)
[2023-06-08] MEDS ORDERED: HALOPERIDOL ORAL SOLN 2 MG/ML PO PRN (09:20)
[2023-06-08] MEDS: FAMOTIDINE 20 MG in SYRINGE 3 ML IV SCH (10:16)
[2023-06-08] MEDS ORDERED: DAPTOmycin 275 MG in SYRINGE 0 ML IV SCH (11:00)
--- NOTE | 2023-06-08 18:55 | Discharge Summary ---
Date of Service June 08, 2023 Admission HPI Per Admitting Provider Marta Garcia is an 87yo female with ovarian cancer presenting with abdominal pain and nausea. Patient reports that her symptoms have been developing over the last 2-3 days. She feels abdominal fullness and distention as well as nausea. She has not been able to tolerate PO intake for the last day. She also reports some increased shortness of breath. No report of fever, chills, cough, chest pain, palpitations or diarrhea. No urinary complaints. Patient's last chemotherapy was 05/03/23. She did just stop her home Prilosec on her own ER Course: Tylenol Morphine Zofran NSS Discharge Exam gen - looks generally unwell, uncomfortable, a little confused, fell asleep during our conversation mouth - MM dry neck - no JVD heart - tachy, s1 s2, 2/6 NORMA LSB lungs - CTA b/l abd - distended with ascites, nontender, BS+, no HSM ext - pulses 2+ b/l psych - sleepy, confused skin - pallor - rees with minimal amount of concentrated urine Discharge Data Allergies Allergy/AdvReac Type Severity Reaction Status Date / Time doxycycline AdvReac Intermediate Nausea Verified 05/30/23 20:44 propoxyphene AdvReac Intermediate left side Verified 05/30/23 20:44 numbness & tingling Sulfa (Sulfonamide AdvReac Intermediate nausea Verified 05/30/23 20:44 Antibiotics) Consultations 05/30/23 22:59 ED Decision to Admit Stat 05/31/23 00:51 Consult Hematology Routine 06/01/23 10:54 Consult Palliative Care Routine Ordered Studies 05/30/23 20:04 CT abd pelvis IV con only Stat CT head/brain wo con Stat 05/31/23 00:51 IR paracentesis abd w/img US Routine 06/03/23 13:03 CT angio chest PE protocol Urgent 06/05/23 07:00 IR paracentesis abd w/img US Routine Hospital Course (1) Comfort measures only status: patient has been transitioned to [employer] status this afternoon goal would be home with hospice but uncertain we will be able to do that with her refractory symptoms and use of IV meds frequently appreciate Dr Hathaway's assistance appreciate Dr Paris's assistance (2) Palliative care status: as above 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 Paracentesis 05/31 - diagnostic and therapeutic tap - 3L removed WBC elevated in peritoneal fluid, 12% PMNs (calculates to >350) Although ascites culture was negative SBP still suspected Received empiric ceftriaxone 2g q24h through 06/05 Repeat paracentesis 06/05 with 4L removed Again WBCs elevated with high # of PMNs SBP still suspected - cefepime with daptomycin restarted now transitioning to comfort measures only - d/c abx, defer on any intervention of ascites unless she has refractory pain from distension (5) Sinus tachycardia: 2nd to anemia, SIRS from SBP, etc echo noted no PE on recent CTA chest (6) Nausea & vomiting: likely multifactorial - cancer itself, KARLY, SBP, etc other factors possible no response to reglan 10mg q6h IV thus, stop reglan trial of phenergan seemed to help earlier in the afternoon thus will schedule phenergan q6h scop patch added olanzapine BID should help as well (7) SBP (spontaneous bacterial peritonitis): paracentesis x 2 this admission with cell counts highly suspicious for such symptoms along with CT findings also worrisome for SBP s/p rocephin thru 06/05 then cefepime + daptomycin now abx d/c due to #1/#2 (8) GERD (gastroesophageal reflux disease): can cont pepcid 20mg daily IV as this may help GI tract sx's (9) Chronic renal failure (CRF), stage 3b: baseline CrCl low 30s now with KARLY see above (10) Severe protein-calorie malnutrition: 71-72 kg about 6-12 months ago now 62kg 2nd to metastatic ovarian ca (11) Anemia: 2nd to ovarian ca, blood draws, etc (12) Carcinoma of ovary, stage 4: appreciate Dr Hathaway's assistance appreciate Dr Paris's assistance from palliative care see #1 above Plan stop heparin 5000 BID for DVT proph can move to med/surg Discharge Plan Discharge Items Patient Disposition: Hospice - Medical Facility Reason For Visit: NAUSEA, ABDOMINAL PAIN Discharge Diagnosis: 1. stage 4 ovarian cancer 2. spontaneous bacterial peritonitis 3. acute renal failure 4. intractable nausea 5. transition to hospice Activity: As commented below Activity Comment: bed rest or out of bed to chair, if desired Non-emergency contact: Primary Care Provider Call non-emergency contact if: you have any medication questions Follow-up/Referrals: Linda Herron CRNP [Primary Care Provider] - Diet: Clear liquid Addtl Attending Provider Instructions: Further instructions to follow after your hospital stay for hospice care. Pending Studies at Discharge: No Stand-Alone Forms: My [facility] Skilled Items Patient informed of condition?: Yes DNR: Yes Discharge Level of Care: Other Communicable Disease: No Discharge Prognosis: Deteriorating Lines: Peripheral IV Urinary Catheter: Yes Medications and DC Order Prescriptions: Discontinued prochlorperazine maleate [Compazine] 10 mg tablet 10 mg PO Q6H PRN (Reason: Nausea) magnesium oxide 400 mg (241.3 mg magnesium) tablet 400 mg PO BID trazodone 50 mg tablet 50 mg PO HS Qty: 30 3RF Rx Instructions: 1 hr before bed coenzyme Q10 100 mg capsule 200 mg PO QAM cholecalciferol (vitamin D3) 50 mcg (2,000 unit) capsule 50 mcg PO QAM ondansetron 4 mg tablet,disintegrating 4 mg translingual Q8H PRN (Reason: nausea and vomiting) 1 Days Qty: 30 1RF acetaminophen 500 mg Tablet 1,000 mg PO BID PRN (Reason: Pain) fluticasone propionate [Allergy Relief (fluticasone)] 50 mcg/actuation spray,suspension 1 spray intranasal DAILY PRN (Reason: Congestion) Rx Instructions: administer into each nostril once daily lactulose 20 gram/30 mL solution 20 g PO BID PRN (Reason: constipation) Qty: 1200 0RF docusate sodium 100 mg Capsule 100 mg PO QAM omeprazole 20 mg capsule,delayed release(DR/EC) 20 mg PO QAM Patient Comments: takes before chemo loratadine [Claritin] 10 mg Tablet 10 mg PO DIRECTED Rx Instructions: Before chemo morphine 15 mg tablet 15 mg PO DIRECTED PRN (Reason: Pain) ibuprofen [Advil] 200 mg Tablet 200 mg PO Q6H PRN (Reason: Pain) Discharge Orders: Discharge Order (Routine); Ordered 06/08/23 Ordered By: Aki Barrios Admission Data Admit Date/Time: 05/30/23 23:22 Attending Provider: Aki Barrios Admit Provider: Payton Woodard Primary Care Provider: Linda Herron Other Providers: [facility]; Payton Woodard; Elvin Hathaway; Suzi Paris Coding Diagnoses Comfort measures only status Z51.5 Palliative care status Z51.5 KARLY (acute kidney injury) N17.9 Ascites R18.8 Ascites type: other type Sinus tachycardia R00.0 Nausea & vomiting R11.2 SBP (spontaneous bacterial peritonitis) K65.2 GERD (gastroesophageal reflux disease) K21.9 Chronic renal failure (CRF), stage 3b N18.32 Severe protein-calorie malnutrition E43 Anemia, unspecified type D64.9 Anemia type: unspecified type Carcinoma of ovary, stage 4 C56.9
== END 2023-06-08 18:59 | disposition hospice, inpatient (51) | DRG 374 ==
LOC: ED 15:40 → EDINP 23:22 → SUATTDRO 23:22 → 2W 05-31 00:52 → EDINP 05-31 00:52 → 2W 05-31 23:49 → 3W 06-07 16:18

== ENCOUNTER 2023-06-08 18:59 | Inpatient (IN) ==
[~2023-06-08 18:59] MED LIST changes: +CHECK SCOPOLAMINE PATCH PLACEMENT SCH; -LACTATED RINGER'S 1,000 ML IV SCH; -LR 15ML/HR IV SCH; -cefOXitin 2,000 MG in DEXTROSE 5% 50 ML IV SCH
[2023-06-08] MEDS ORDERED: MELATONIN 3 MG TAB PO PRN (19:38)
[2023-06-08] MEDS ORDERED: PROCHLORPERAZINE 25 MG SUPP PR PRN (19:38)
[2023-06-08] MEDS ORDERED: PROCHLORPERAZINE 5 MG in SYRINGE 4 ML IV PRN (19:38)
[2023-06-08] MEDS ORDERED: LORazepam 0.5 MG TAB PO PRN (19:38)
[2023-06-08] MEDS ORDERED: ACETAMINOPHEN 325 MG TAB PO PRN (19:38)
[2023-06-08] MEDS ORDERED: haloperidoL 1 MG TAB PO PRN (19:38)
[2023-06-08] MEDS ORDERED: LORazepam 0.5 MG in SYRINGE 0.25 ML IV PRN (19:38)
--- NOTE | 2023-06-08 19:39 | History & Physical Report ---
Date of Service June 08, 2023 Assessment & Plan (1) Admission for hospice care: Plan: appreciate assistance from [facility]. will continue previously scheduled phenergan q6h IV + scopalamine patch. this combination has helped with her refractory nausea over the last 12 hours or so. previous trials of zofran + scheduled reglan IV did not help. dilaudid IV prn pain. ativan prn. pepcid IV daily. clears as tolerated and as desired. appreciate the assistance of the [facility] Palliative Care team. (2) Comfort measures only status: Plan: as above in #1 (3) Refractory nausea and vomiting: Plan: as above in #1 (4) Carcinomatosis: Plan: patient required paracentesis x 2 over the last week with fluid studies highly suggestive of SBP. she has had reaccumulation of fluid over the last few days. I discussed with Mrs Garcia & her daughter that if at any time she is uncomfortable/bloated/etc from the ascites we can perform a therapeutic paracentesis. Can hold off for now as her nausea and other symptoms have been quite severe the last 2-3 days as opposed to bloating/pain. (5) Carcinoma of ovary, stage 4: (6) Severe protein-calorie malnutrition: (7) Chronic renal failure (CRF), stage 3b: (8) SBP (spontaneous bacterial peritonitis): Plan: antibiotic therapy has been stopped due to #1 (9) KARLY (acute kidney injury): Admission and Anticipated Discharge Date Admission Date: June 08, 2023 History of Present Illness Chief Complaint: nausea Primary Care Provider: JEAN Pelayo 87yo female with known stage 4 ovarian cancer with carcinomatosis and malignant ascites who had presented to [facility] on 05/30 with nausea, vomiting, abdominal pain, and abdominal distension. During that admission she had paracentesis x 2 with cell counts consistent with SBP. Cultures, however, did not grow a specific pathogen. She received IV antibiotic therapy for suspected SBP. In the midst of that hospital stay she had severe nausea that was refractory to numerous medications. She also developed severe acute renal failure with development of acidosis and hyperkalemia. Dr Klever Hathaway, her primary oncologist, along with Dr Molly Paris from palliative care, met with the patient & her family multiple times to discuss her current status, refine goals of care, and discuss options moving forward. Ultimately it was decided to pursue comfort care measures and to attempt d/c home with hospice services. Over the last 48 hours she has had severe nausea requiring scheduled, [id number] anti-emetics. She has had little to no PO intake. Today, [facility] met with the patient & her family. [facility] has approved Mrs Garcia for inpatient hospice services. She is now being admitted for such at [facility]. During my admission assessment she reports her nausea is better from previous visits. PO intake remains limited. Her mouth is dry. Denies any abdominal pain although she is distended. She has not had a bowel movement in nearly a week. Denies dyspnea. Allergies Allergy/AdvReac Type Severity Reaction Status Date / Time doxycycline AdvReac Intermediate Nausea Verified 05/30/23 20:44 propoxyphene AdvReac Intermediate left side Verified 05/30/23 20:44 numbness & tingling Sulfa (Sulfonamide AdvReac Intermediate nausea Verified 05/30/23 20:44 Antibiotics) Home Medications Medication Instructions Recorded Confirmed Type coenzyme Q10 100 mg capsule 200 mg PO QAM 10/12/20 06/09/23 History cholecalciferol (vitamin D3) 50 50 mcg PO QAM 04/13/22 06/09/23 History mcg (2,000 unit) capsule acetaminophen 500 mg tablet 1,000 mg PO BID PRN Pain 10/26/22 06/09/23 History (Tylenol Extra Strength) ondansetron 4 mg disintegrating 4 mg translingual Q8H PRN nausea 11/29/22 06/09/23 Rx tablet and vomiting 24 hours #30 tabs docusate sodium 100 mg capsule 100 mg PO QAM 11/30/22 06/09/23 History loratadine 10 mg tablet (Claritin) 10 mg PO DIRECTED 12/26/22 06/09/23 History fluticasone propionate 50 1 spray intranasal DAILY PRN 02/11/23 06/09/23 History mcg/actuation nasal Congestion spray,suspension (Allergy Relief (fluticasone)) lactulose 20 gram/30 mL oral 20 g (30 mL) PO BID PRN 02/15/23 06/09/23 Rx solution constipation #1,200 mL trazodone 50 mg tablet 50 mg PO HS #30 tabs 02/21/23 06/09/23 Rx magnesium oxide 400 mg (241.3 mg 400 mg PO BID 02/24/23 06/09/23 History magnesium) tablet omeprazole 20 mg capsule,delayed 20 mg PO QAM Before Chemo. 02/24/23 06/09/23 History release prochlorperazine maleate 10 mg 10 mg PO Q6H PRN Nausea 02/24/23 06/09/23 History tablet (Compazine) ibuprofen 200 mg tablet (Advil) 200 mg PO Q6H PRN Pain 05/30/23 06/09/23 History morphine 15 mg immediate release 15 mg PO DIRECTED PRN Pain 05/30/23 06/09/23 History tablet Past Med/Surg History Medical History Abdominal pain GERD (gastroesophageal reflux disease) Chronic renal failure (CRF), stage 3b Severe protein-calorie malnutrition Hip pain Acute respiratory failure with hypoxia Shortness of breath Pleural effusion Chest pain Dyspnea Chest discomfort RECENT OCCURENCE - LEFT SIDE / NO OTHER S/S . WALKED AROUND & DISCOMFORT RESOLVED ON OWN - PT REPORTS THINKS IT WAS DUE TO GAS. HOME HEALTH NURSE WAS HERE AND PT REPORTS SHE AGREED TO THINKING IT WAS GAS RELATED. NURSE TOOK BP AND PT REPORTS BP WAS LOW ? 101/79 - PT DOESN'T REMEMBER EXACT BP. NO RE-OCCURENCE. 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 History of colon polyps Constipation Poor appetite Ovarian cancer RECENT DX/REASON FOR UPCOMING PROCEDURE. Ovarian cancer Microcytic anemia Pleural effusion - recently, treated at [facility] - s/p diagnostic and therapeutic ultrasound-guided catheter thoracentesis 10/18/22 - 10/18/22 CXR showed small residual left pleural effusion - no physical limitation per PAT nursing assessment Aortic heart murmur Insomnia Depression Hyperlipidemia Dry eye syndrome Hypertension RECENT D/C OF BP MED/TODAY IS FIRST DAY OF NOT TAKING (LISINOPRIL HCTZ) Surgical History History of surgery OCTOBER 2022. EMERGENCY SX FOR OVARIAN TUMOR. DX CANCER. History of esophagogastroduodenoscopy (EGD) History of colonoscopy History of cataract surgery bilateral History of breast biopsy benign History of dilatation and curettage History of bilateral tubal ligation Hx of umbilical hernia repair Hx of elbow surgery right elbow tendon repair. Hx of cholecystectomy Family History Mother Myocardial infarction Breast cancer Grandmother Family history of diabetes mellitus Aunt Family history of diabetes mellitus Daughter Family history of diabetes mellitus Uncle Cancer Leukemia Other No family history of adverse response to anesthesia Denies family history of Ovarian cancer Prostate cancer Colorectal cancer Social History Smoking Status: Never smoker Second Hand Exposure: No; Do You Dip or Chew Tobacco: No; Tobacco Cessation Education Requested by Patient: No Hx Alcohol Use: No Hx Substance Use: No Preferred Language: Comoran Communication Ability: Effective Visual Impairment: Limited Hearing Ability: Normal Systems Software Specialist Required: No Beliefs That Will Affect Care: None marital status: Current Living Situation: Family Current Living Situation Comment: Lives with Niece. current occupational status: retired How many Children do You have: 4 Other Information That Helps Us Care for You: No Feels Safe at Home: Yes Safety Concerns: Feels Safe At This Time Childhood Exposure to Second-Hand Smoke: No Diet: regular caffeine: No during the past year weight has: remained stable Dental Care, Regularly: No Physical Activity Frequency: Does not Exercise Seatbelt Use: always Sunscreen Use: No Do you think of yourself as: straight/heterosexual Gender Identity: Female Assistive Devices: Cane, Denture - Upper, Denture - Lower, Glasses, Hospital Bed and Walker Review of Systems Review of Systems: gen - very weak, fatigued, no appetite cv - no chest pain, no orthopnea GI - no abd pain; nausea is somewhat better; no vomiting today; no stool in 7+ days - rees in place pulm - no dyspnea at rest musculo - denies pain any location psych - a little confused at times Physical Exam Physical Exam: gen - very weak, but NAD; more awake/alert today than yesterday mouth - MM very dry; no lesions neck - no JVD heart - tachy, s1 s2, no murmur lungs - decreased BS bases, CTA apices b/l, no rales abd - distended with ascites, NT, BS+ ext - no edema b/l, pulses 2+ b/l, cool feet psych - slightly confused but more awake/alert than yesterday skin - generalized pallor - rees in place with minimal amount of concentrated urine in bag Results & Data Results & Data Vital Signs (Past 12 Hours) Vital Signs Temp Pulse Resp BP Pulse Ox O2 Del Method 06/08/23 19:30 36.6 C 88 16 132/82 96 Room Air PG Care Time/CCT Total # of Minutes Spent Total Time Spent with Patient: Total time spent is greater than 50% in coordination of care (as documented) at patient's floor/unit and/or counseling patient: Coding Level of Care Code 20240 INT INP/OBS CARE 1/40MIN Diagnoses Admission for hospice care Z51.5 Comfort measures only status Z51.5 Refractory nausea and vomiting R11.2 Carcinomatosis C80.0 Carcinoma of ovary, stage 4 C56.9 Severe protein-calorie malnutrition E43 Chronic renal failure (CRF), stage 3b N18.32 SBP (spontaneous bacterial peritonitis) K65.2 KARLY (acute kidney injury) N17.9
[2023-06-08] MEDS ORDERED: SCOPOLAMINE 1 MG TDSY TD ONE (19:44)
[2023-06-08] MEDS: PROMETHAZINE HCL 6.25 MG in SODIUM CHLORIDE 0.9% 50 ML IV SCH (21:47)
[2023-06-08] MEDS: OLANZapine 10 MG TAB PO SCH (21:55)
[2023-06-08] MEDS ORDERED: HYDROmorphone INJ 1 MG/ML SYRINGE IV STA (22:07)
[2023-06-09] MEDS: CHECK SCOPOLAMINE PATCH PLACEMENT SCH ×3 (00:52→17:51)
[2023-06-09] MEDS: PROMETHAZINE HCL 6.25 MG in SODIUM CHLORIDE 0.9% 50 ML IV SCH ×4 (01:37→21:12)
[2023-06-09] MEDS: FAMOTIDINE 20 MG in SYRINGE 3 ML IV SCH (10:20)
[2023-06-09] MEDS: OLANZapine 10 MG TAB PO SCH ×2 (10:21→21:13)
--- NOTE | 2023-06-09 14:42 | Hospitalist Progress Note ---
Date of Service June 09, 2023 Assessment & Plan (1) Admission for hospice care: Plan: appreciate continued assistance from [facility]. will continue scheduled phenergan q6h IV + scopalamine patch. this combination has helped with her refractory nausea over the last 36-48 hours. previous trials of zofran + scheduled reglan IV did not help. dilaudid IV prn pain. ativan prn sleep/agitation. pepcid IV daily. clears as tolerated and as desired. therapeutic paracentesis to be performed today by [facility]. can remove as much fluid as possible/as tolerated. daughters updated at bedside. gave approval for visitation by the patient's dog. (2) Comfort measures only status: Plan: as above in #1 (3) Refractory nausea and vomiting: Plan: as above in #1 (4) Carcinomatosis: Plan: patient required paracentesis x 2 over the last week with fluid studies highly suggestive of SBP. she has had reaccumulation of fluid over the last few days. 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 (6) Severe protein-calorie malnutrition: (7) Chronic renal failure (CRF), stage 3b: (8) SBP (spontaneous bacterial peritonitis): (9) KARLY (acute kidney injury): Admission and Anticipated Discharge Date Admission Date: June 08, 2023 Subjective pt's 2 daughters at bedside during the visit both are concerned that her ascites is causing discomfort we discussed pros/cons of therapeutic paracentesis after this discussion we elected to go ahead and do the paracentesis I spoke with Dr Marily Terrazas, medical record administrator with [facility] I asked for approval to perform the paracentesis and approval was given I then spoke with Dr Mariscal from radiology who agreed to do the tap she went down to radiology shortly after my visit patient was groggy during the visit she denied any nausea, however no vomiting minimal UOP minimal PO intake Physical Exam Physical Exam: gen - generalized pallor, looks unwell, dehydrated, weak appearing mouth - MM very dry heart - tachy s1 s2 lungs - decreased BS bases; no wheeze; no increased work of breathing abd - distended with ascites, BS+, NT ext - pulses 2+ b/l PG Care Time/CCT Total # of Minutes Spent Total Time Spent with Patient: Total time spent is greater than 50% in coordination of care (as documented) at patient's floor/unit and/or counseling patient: Coding Level of Care Code 81273 SUB INP/OBS CARE 07/27MIN Diagnoses Admission for hospice care Z51.5 Comfort measures only status Z51.5 Refractory nausea and vomiting R11.2 Carcinomatosis C80.0 Carcinoma of ovary, stage 4 C56.9 Severe protein-calorie malnutrition E43 Chronic renal failure (CRF), stage 3b N18.32 SBP (spontaneous bacterial peritonitis) K65.2 KARLY (acute kidney injury) N17.9
[2023-06-09] MEDS: HYDROmorphone INJ 0.5 MG/0.5 ML SYR IV PRN (14:49)
--- NOTE | 2023-06-09 15:48 | Ultrasound Report ---
ULTRASOUND GUIDED THERAPEUTIC PARACENTESIS CLINICAL HISTORY: malignant ascites COMPARISON STUDY: Ultrasound guided paracentesis June 05, 2023. PROCEDURE: The procedure, risks and benefits were discussed with the patient's daughter due to the pa tient's altered mental status. The patient's daughter agreed to the procedure and informed written co nsent was obtained. The procedure was performed by Dr. Mariscal following a timeout. Sonography reve aled moderate ascites with suitable pocket within the left lower quadrant. Skin was prepped and drape d in sterile fashion and local anesthesia was achieved with 1% lidocaine. 5 Azeri catheter was inser graciela into the peritoneal cavity with immediate return of serous ascites. 3.7 L of ascites was withdraw n. Catheter was removed. Patient tolerated the procedure well and no immediate complications were alton dent. IMPRESSION: Successful ultrasound guided paracentesis with drainage of 3.7 L of serous ascites. ACT 112: Negative or not required by law. Electronically signed by: Joel Mariscal M.D. 06/09/2023 3:47 PM
[2023-06-10] MEDS: CHECK SCOPOLAMINE PATCH PLACEMENT SCH ×3 (01:59→14:58)
[2023-06-10] MEDS: PROMETHAZINE HCL 6.25 MG in SODIUM CHLORIDE 0.9% 50 ML IV SCH ×3 (03:04→14:57)
[2023-06-10] MEDS: FAMOTIDINE 20 MG in SYRINGE 3 ML IV SCH (09:42)
[2023-06-10] MEDS: OLANZapine 10 MG TAB PO SCH ×2 (09:43→22:25)
[2023-06-10] MEDS ORDERED: haloperidoL 1 MG TAB PO PRN (16:33)
[2023-06-10] MEDS: haloperidoL 1 MG TAB PO SCH ×2 (17:44→22:25)
--- NOTE | 2023-06-10 18:46 | Hospitalist Progress Note ---
Date of Service June 10, 2023 Assessment & Plan (1) Bilious emesis: Plan: concerning for, at minimum, an ileus. hopefully this is not the beginning of a pSBO, however, due to her peritoneal metastatic disease/carcinomatosis. fortunately she only had the bilious emesis 1x today. [id number] she is not passing flatus/stool. hospice recommends d/c of promethazine and changing to scheduled haldol along with prn haldol. will try such. cont scop patch. did discuss with family what the bilious emesis might entail. (2) Admission for hospice care: Plan: appreciate continued assistance from [facility]. see #1 above. dilaudid IV prn pain. ativan prn -- will schedule a dose of 0.25mg at HS to help with her severe restless legs which causes considerable symptoms and agitation at night-time. pepcid IV daily. clear liquids are ok but suspect she will take little to none. s/p therapeutic paracentesis yesterday. daughters and family updated at bedside. (3) Comfort measures only status: Plan: as above in #1 (4) Refractory nausea and vomiting: Plan: see above (5) Carcinomatosis: Plan: patient required paracentesis x 2 over the last week with fluid studies highly suggestive of SBP. therapeutic paracentesis 06/09/23 by radiology. 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 (7) Severe protein-calorie malnutrition: (8) Chronic renal failure (CRF), stage 3b: (9) SBP (spontaneous bacterial peritonitis): (10) KARLY (acute kidney injury): Plan: severely oliguric Admission and Anticipated Discharge Date Admission Date: June 08, 2023 Subjective 2 daughters and multiple other family members present during the visit the patient's dog was also present patient this am expressed a desire to eat a little took a few spoonfuls of applesauce and sips of water a short time later she had bilious emesis and abdominal pain no real intake since then last pm had significant restless legs again during the visit she was awake but quite groggy it was difficult to understand what she was trying to tell me she denied any pain she couldn't tell me if she had nausea Physical Exam Physical Exam: gen - generalized pallor, looks weak/tired/fatigued, altered mouth - MM very dry heart - tachy s1 s2 no murmur lungs - decreased BS bases; no wheeze; no increased work of breathing abd - distended and tympanic to percussion (mild); BS+, NT ext - pulses 2+ b/l, no edema psych - altered PG Care Time/CCT Total # of Minutes Spent Total Time Spent with Patient: Total time spent is greater than 50% in coordination of care (as documented) at patient's floor/unit and/or counseling patient: Coding Level of Care Code 77983 SUB INP/OBS CARE 1/25MIN Diagnoses Bilious emesis R11.14 Admission for hospice care Z51.5 Comfort measures only status Z51.5 Refractory nausea and vomiting R11.2 Carcinomatosis C80.0 Carcinoma of ovary, stage 4 C56.9 Severe protein-calorie malnutrition E43 Chronic renal failure (CRF), stage 3b N18.32 SBP (spontaneous bacterial peritonitis) K65.2 KARLY (acute kidney injury) N17.9
[2023-06-10] MEDS: HYDROmorphone INJ 0.5 MG/0.5 ML SYR IV PRN (19:49)
[2023-06-10] MEDS: LORazepam 0.25 MG in SYRINGE 0.125 ML IV SCH (21:42)
[2023-06-11] MEDS: CHECK SCOPOLAMINE PATCH PLACEMENT SCH ×3 (00:15→15:43)
[2023-06-11] MEDS: haloperidoL 1 MG TAB PO SCH ×4 (04:12→23:47)
[2023-06-11] MEDS: OLANZapine 10 MG TAB PO SCH ×2 (08:41→21:10)
[2023-06-11] MEDS: FAMOTIDINE 20 MG in SYRINGE 3 ML IV SCH (08:46)
--- NOTE | 2023-06-11 20:21 | Hospitalist Progress Note ---
Date of Service June 11, 2023 Assessment & Plan (1) Bilious emesis: Plan: x 1 episode on 06/10/23 fortunately none since then was highly concerning for ileus or even beginnings of pSBO now moving bowels, no further emesis, nausea generally is controlled today follow/monitor cont haldol scheduled for nausea prevention/treatment scop patch (2) Admission for hospice care: Plan: appreciate continued assistance from [facility]. see #1 above. dilaudid IV prn pain. ativan prn -- will schedule a dose of 0.25mg at HS to help with her severe restless legs which causes considerable symptoms and agitation at night-time for her; tolerated dose last pm. pepcid IV daily. clear liquids are ok but suspect she will take little to none. s/p therapeutic paracentesis 06/09/23 by radiology - appreciate their assistance. daughters and family updated at bedside. (3) Comfort measures only status: Plan: as above in #1 (4) Refractory nausea and vomiting: Plan: cont scheduled haldol cont scop patch compazine prn did not respond to reglan did not respond to phenergan can use prn ativan if needed (5) Carcinomatosis: Plan: patient required paracentesis x 2 over the last week with fluid studies highly suggestive of SBP. therapeutic paracentesis 06/09/23 by radiology. 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 (7) Severe protein-calorie malnutrition: (8) Chronic renal failure (CRF), stage 3b: (9) SBP (spontaneous bacterial peritonitis): (10) KARLY (acute kidney injury): Plan: severely oliguric Plan cont inpatient hospice status support given to family Admission and Anticipated Discharge Date Admission Date: June 08, 2023 Subjective patient sleepy and very difficult to understand during my visit daughters and other family present during the visit apparently slept ok through about 0500 this am early this am wanted to take some tablespoons of applesauce and sips of water after taking this limited amount of PO she would have burping/gagging but did not vomit no bilious emesis no abd pain did have a bowel movement earlier today Review of Systems Review of Systems: Unobtainable due to cognitive status Physical Exam Physical Exam: gen - generalized pallor, very weak/tired/fatigued & sleepy, altered, very dif ficult to understand her speech mouth - MM very dry heart - tachy s1 s2 no murmur lungs - decreased BS bases; no wheeze; no increased work of breathing; no rales abd - distension improved today; BS+, NT; no palpable mass ext - pulses 2+ b/l, no edema, feet are cool psych - altered / sleepy PG Care Time/CCT Total # of Minutes Spent Total Time Spent with Patient: Total time spent is greater than 50% in coordination of care (as documented) at patient's floor/unit and/or counseling patient: Coding Level of Care Code 44047 SUB INP/OBS CARE 1/25MIN Diagnoses Bilious emesis R11.14 Admission for hospice care Z51.5 Comfort measures only status Z51.5 Refractory nausea and vomiting R11.2 Carcinomatosis C80.0 Carcinoma of ovary, stage 4 C56.9 Severe protein-calorie malnutrition E43 Chronic renal failure (CRF), stage 3b N18.32 SBP (spontaneous bacterial peritonitis) K65.2 KARLY (acute kidney injury) N17.9
[2023-06-11] MEDS: LORazepam 0.25 MG in SYRINGE 0.125 ML IV SCH (21:09)
[2023-06-11] MEDS ORDERED: SCOPOLAMINE 1 MG TDSY TD SCH (22:00)
[2023-06-12] MEDS: CHECK SCOPOLAMINE PATCH PLACEMENT SCH ×3 (00:04→15:22)
[2023-06-12] MEDS: haloperidoL 1 MG TAB PO SCH ×4 (05:24→23:36)
[2023-06-12] MEDS: OLANZapine 10 MG TAB PO SCH ×2 (09:30→20:42)
[2023-06-12] MEDS: FAMOTIDINE 20 MG in SYRINGE 3 ML IV SCH (09:34)
--- NOTE | 2023-06-12 19:02 | Hospitalist Progress Note ---
Date of Service June 12, 2023 Assessment & Plan (1) Admission for hospice care: Plan: appreciate continued assistance from [facility]. dilaudid IV prn pain. ativan prn agitation. scheduled dose of 0.25mg at HS to help with her severe restless legs which causes considerable symptoms and agitation at night-time for her; tolerating this dose at bedtime. pepcid IV daily. clear liquids are ok but suspect she will take little to none. s/p therapeutic paracentesis 06/09/23 by radiology - appreciate their assistance. daughters and family updated at bedside once again today. since she has gained stability over the last 48 [address] [facility] may come to an end and she will transition either home with hospice or to SNF with hospice; latter more likely. appreciate social work assistance. (2) Bilious emesis: Plan: x 1 episode on 06/10/23 fortunately none since then now moving bowels, no further emesis, nausea controlled with multiple meds was highly concerning for ileus or even beginnings of pSBO over the weekend -- but again no emesis and is moving bowels follow/monitor cont haldol scheduled for nausea prevention/treatment scop patch (3) Comfort measures only status: Plan: as above in #1 (4) Refractory nausea and vomiting: Plan: cont scheduled haldol cont scop patch cont scheduled olanzapine BID compazine prn did not respond to reglan did not respond to phenergan can use prn ativan if needed (5) Carcinomatosis: Plan: patient required paracentesis x 2 over the last week with fluid studies highly suggestive of SBP. therapeutic paracentesis 06/09/23 by radiology. abdomen mildly distended only at this time with no c/o abd pain or severe bloating from patient. 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 (7) Severe protein-calorie malnutrition: (8) Chronic renal failure (CRF), stage 3b: (9) SBP (spontaneous bacterial peritonitis): (10) KARLY (acute kidney injury): Plan: severely oliguric prior to admission to hospice UOP has improved but still only producing about 200-250cc/day given severely restricted PO intake Plan cont inpatient hospice status for now support given to family dispo planning Admission and Anticipated Discharge Date Admission Date: June 08, 2023 Subjective patient has been asleep most of today per daughters she has not complained of abdominal pain no vomiting did have a bowel movement during sleep she continues with restless legs at times remains very confused overnight she did sleep but had periods of significant confusion, talking in her sleep, etc social work spoke with family - given her current stability and not needing any IV meds inpatient hospice services may come to an end and she will need SNF placement for ongoing custodial with hospice was discussed with daughters as well but SNF is likely disp osition Review of Systems Review of Systems: Unobtainable due to cognitive status Physical Exam Physical Exam: gen - generalized pallor, sleeping soundly during the visit heart - tachy s1 s2 no murmur lungs - decreased BS bases; no wheeze; no increased work of breathing; no rales abd - distension similar to yesterday; BS+, NT; no palpable mass ext - pulses 2+ b/l, no edema, feet are cool Results & Data Results & Data Vital Signs (Past 12 Hours) Vital Signs O2 Del Method 06/12/23 13:21 Room Air PG Care Time/CCT Total # of Minutes Spent Total Time Spent with Patient: Total time spent is greater than 50% in coordination of care (as documented) at patient's floor/unit and/or counseling patient: Coding Level of Care Code 24910 SUB INP/OBS CARE /25MIN Diagnoses Admission for hospice care Z51.5 Bilious emesis R11.14 Comfort measures only status Z51.5 Refractory nausea and vomiting R11.2 Carcinomatosis C80.0 Carcinoma of ovary, stage 4 C56.9 Severe protein-calorie malnutrition E43 Chronic renal failure (CRF), stage 3b N18.32 SBP (spontaneous bacterial peritonitis) K65.2 KARLY (acute kidney injury) N17.9
[2023-06-12] MEDS: LORazepam 0.25 MG in SYRINGE 0.125 ML IV SCH (20:41)
[2023-06-13] MEDS: CHECK SCOPOLAMINE PATCH PLACEMENT SCH ×3 (00:35→15:45)
[2023-06-13] MEDS: haloperidoL 1 MG TAB PO SCH ×5 (05:40→21:53)
[2023-06-13] MEDS: OLANZapine 10 MG TAB PO SCH ×2 (08:20→21:53)
[2023-06-13] MEDS: FAMOTIDINE 20 MG in SYRINGE 3 ML IV SCH (08:20)
--- NOTE | 2023-06-13 18:13 | Hospitalist Progress Note ---
Date of Service June 13, 2023 Assessment & Plan (1) Admission for hospice care: Plan: appreciate continued assistance from [facility]. dilaudid IV prn pain. ativan prn agitation. scheduled dose of 0.25mg at HS to help with her severe restless legs which causes considerable symptoms and agitation at night-time for her; tolerating this dose at bedtime. pepcid IV daily. clear liquids are ok but suspect she will take little to none. s/p therapeutic paracentesis 06/09/23 by radiology - appreciate their assistance. daughter updated at bedside today. since she has gained stability with her symptoms it is planned that she will discharge with home hospice tomorrow afternoon (2) Bilious emesis: Plan: x 1 episode on 06/10/23 fortunately none since then now moving bowels, no further emesis, nausea controlled with multiple meds was highly concerning for ileus or even beginnings of pSBO over the weekend -- but again no emesis and is moving bowels follow/monitor cont haldol scheduled for nausea prevention/treatment scop patch (3) Comfort measures only status: Plan: as above in #1 (4) Refractory nausea and vomiting: Plan: cont scheduled haldol cont scop patch cont scheduled olanzapine BID compazine prn did not respond to reglan did not respond to phenergan can use prn ativan if needed (5) Carcinomatosis: Plan: patient required paracentesis x 2 over the last week with fluid studies highly suggestive of SBP. therapeutic paracentesis 06/09/23 by radiology. abdomen mildly distended only at this time with no c/o abd pain or severe bloating from patient. 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 There is a sweet baby Poppy making visit as well. Marta has good control of her pain and adequate nausea control on the haloperidol. Today she just feels quite restless. Her daughter reports that yesterday she was having a strong day and was able to get up and go to the commode Physical Exam Physical Exam: PHYSICAL EXAMINATION Last 24h vital signs reviewed, see documentation in flowsheet General: comfortable appearing, no distress, reclining in bed cuddling a tiny puppy HEENT: Normocephalic, atraumatic, pupils round and equal, sclerae anicteric, no conjunctival injection, dry mucus membranes Lungs: Normal respiratory effort. Heart: deferred Abdomen: mildly distended with ascites Extremities: Warm, dry, well-perfused. No extremity edema. Neuro: Alert and oriented x 4, face symmetric, moves 4 extremities well Psych: Normal affect and behavior Results & Data Results & Data Vital Signs (Past 12 Hours) Vital Signs O2 Del Method 06/13/23 08:52 Room Air PG Care Time/CCT Total # of Minutes Spent Total Time Spent with Patient: Total time spent is greater than 50% in coordination of care (as documented) at patient's floor/unit and/or counseling patient: Coding Level of Care Code 29523 SUB INP/OBS CARE 1/25MIN Diagnoses Admission for hospice care Z51.5 Bilious emesis R11.14 Comfort measures only status Z51.5 Refractory nausea and vomiting R11.2 Carcinomatosis C80.0 Carcinoma of ovary, stage 4 C56.9 Severe protein-calorie malnutrition E43 Chronic renal failure (CRF), stage 3b N18.32 SBP (spontaneous bacterial peritonitis) K65.2 KARLY (acute kidney injury) N17.9
[2023-06-13] MEDS: LORazepam 0.25 MG in SYRINGE 0.125 ML IV SCH (21:53)
[2023-06-14] MEDS: CHECK SCOPOLAMINE PATCH PLACEMENT SCH ×2 (01:22→07:54)
[2023-06-14] MEDS: haloperidoL 1 MG TAB PO SCH ×2 (04:26→09:43)
[2023-06-14] MEDS: OLANZapine 10 MG TAB PO SCH (08:12)
[2023-06-14] MEDS: FAMOTIDINE 20 MG in SYRINGE 3 ML IV SCH (09:42)
[2023-06-14] MEDS: HYDROmorphone INJ 0.5 MG/0.5 ML SYR IV PRN (13:50)
--- NOTE | 2023-06-14 15:12 | Ultrasound Report ---
ULTRASOUND-GUIDED PARACENTESIS CLINICAL HISTORY: Ascites PROCEDURE: Procedure and risks were explained. Informed consent was obtained. A final timeout was com pleted. A pocket of ascites was identified in the left lower quadrant. The left lower quadrant was pr epped and draped in sterile fashion. 1% buffered lidocaine was utilized for skin anesthesia. Utilizing ultrasound guidance, a 5 [place]ian safety centesis catheter was advanced into the pocket of as cites. Ultrasound image was obtained. A total of 3000 mL of yellow ascites fluid was removed and disc arded. The catheter was removed and Band-Aid applied. The patient tolerated the procedure well. Vital signs will be monitored postprocedure. IMPRESSION: Ultrasound-guided paracentesis as above. Performed, dictated, and signed by Suman Carty PA-C; to be co-signed by Dr. Joel Mariscal. Electronically signed by: Joel Mariscal M.D. 06/14/2023 6:31 PM
--- NOTE | 2023-06-14 17:12 | Discharge Summary ---
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 During that admission she had paracentesis x 2 with cell counts consistent with SBP. Cultures, however, were negative. She received IV antibiotic therapy for suspected SBP but symptoms did not improve. In the midst of that hospital stay she had severe nausea that was refractory to numerous medications. She also developed severe acute renal failure with development of acidosis and hyperkalemia. Dr Klever Hathaway, her primary oncologist, along with Dr Molly Paris from palliative care, met with the patient & her family multiple times to discuss her current status, refine goals of care, and discuss options moving forward. Ultimately it was decided to pursue comfort care measures. She enrolled in [facility] hospice. 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 Heart: deferred Abdomen: mildly distended with ascites Extremities: Warm, dry, well-perfused. No extremity edema. Neuro: Alert and oriented x 4, face symmetric, moves 4 extremities well Psych: Normal affect and behavior Discharge Data Allergies Allergy/AdvReac Type Severity Reaction Status Date / Time doxycycline AdvReac Intermediate Nausea Verified 05/30/23 20:44 propoxyphene AdvReac Intermediate left side Verified 05/30/23 20:44 numbness & tingling Sulfa (Sulfonamide AdvReac Intermediate nausea Verified 05/30/23 20:44 Antibiotics) Ordered Studies 06/09/23 14:42 IR paracentesis abd w/img US Routine 06/14/23 11:05 IR paracentesis abd w/img US Urgent Hospital Course (1) Admission for hospice care: s/p therapeutic paracentesis 06/09/23 and 06/14 by radiology Symptoms eventually came under control and she discharged home with hospice. Haloperidol has been most effective for her nausea. Abdomen remained soft but she had increased restlessness and dyspnea last night with increase in ascites so therapeutic paracentesis was done for 3L prior to discharge. (2) Bilious emesis: x 1 episode on 06/10/23 fortunately none since then was highly concerning for ileus or even beginnings of pSBO over the weekend -- but again no emesis and is moving bowels cont haldol scheduled for nausea prevention/treatment scop patch (3) Comfort measures only status: as above in #1 (4) Refractory nausea and vomiting: cont scheduled haldol cont scop patch cont scheduled olanzapine BID compazine prn did not respond to reglan did not respond to phenergan can use prn ativan if needed (5) Carcinomatosis: (6) Carcinoma of ovary, stage 4: large pelvic mass present with carcinomatosis + malignant ascites (7) Severe protein-calorie malnutrition: (8) Chronic renal failure (CRF), stage 3b: (9) SBP (spontaneous bacterial peritonitis): (10) KARLY (acute kidney injury): severely oliguric prior to admission to hospice UOP has improved but still only producing about 200-250cc/day given severely restricted PO intake Plan discussed with daughters at bedside 06/14 Total Time Total Time Spent Total Time Spent (In Minutes): I spent forty minutes coordinating care for discharge today including reviewing chart, discussions with bedside RN, care coordination, arranging paracentesis, examining patient, counseling patient and family, writing discharge orders and documentation. 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 Discharge medications will be per [facility] hospice It was a pleasure taking care of you in the hospital. Kiah Reyna MD Pending Studies at Discharge: No Stand-Alone Forms: My [facility] Medications and DC Order Prescriptions: New olanzapine 10 mg Tablet 10 mg PO BID Qty: 0 0RF haloperidol 1 mg Tablet 1 mg PO Q6H Qty: 0 0RF haloperidol 1 mg Tablet 1 mg PO Q2H PRNQty: 0 0RF scopolamine base [Transderm-Scop] 1 mg over 3 days Patch 3 Day 1 mg transdermal Q72H Qty: 0 0RF Continued prochlorperazine maleate [Compazine] 10 mg tablet 10 mg PO Q6H PRN (Reason: Nausea) trazodone 50 mg tablet 50 mg PO HS Qty: 30 3RF Rx Instructions: 1 hr before bed coenzyme Q10 100 mg capsule 200 mg PO QAM ondansetron 4 mg tablet,disintegrating 4 mg translingual Q8H PRN (Reason: nausea and vomiting) 1 Days Qty: 30 1RF acetaminophen [Tylenol Extra Strength] 500 mg Tablet 1,000 mg PO BID PRN (Reason: Pain) fluticasone propionate [Allergy Relief (fluticasone)] 50 mcg/actuation spray,suspension 1 spray intranasal DAILY PRN (Reason: Congestion) Rx Instructions: administer into each nostril once daily lactulose 20 gram/30 mL solution 20 g PO BID PRN (Reason: constipation) Qty: 1200 0RF docusate sodium 100 mg Capsule 100 mg PO QAM omeprazole 20 mg capsule,delayed release(DR/EC) 20 mg PO QAM Patient Comments: Takes before chemo. morphine 15 mg tablet 15 mg PO DIRECTED PRN (Reason: Pain) ibuprofen [Advil] 200 mg Tablet 200 mg PO Q6H PRN (Reason: Pain) Discontinued magnesium oxide 400 mg (241.3 mg magnesium) tablet 400 mg PO BID cholecalciferol (vitamin D3) 50 mcg (2,000 unit) capsule 50 mcg PO QAM loratadine [Claritin] 10 mg Tablet 10 mg PO DIRECTED Rx Instructions: Before chemo Discharge Orders: Discharge Order (Routine); Ordered 06/14/23 Ordered By: Kiah Reyna Admission Data Admit Date/Time: 06/08/23 18:59 Attending Provider: Kiah Reyna Admit Provider: Payton Woodard Primary Care Provider: Linda Herron. Other Providers: [facility],Home [facility] Other Interventions: Discharge Summary Assessment (RN) Last Done: 06/14/23 15:02 Coding Level of Care Code 96656 INP/OBS DISCH >30 MIN Diagnoses Admission for hospice care Z51.5 Bilious emesis R11.14 Comfort measures only status Z51.5 Refractory nausea and vomiting R11.2 Carcinomatosis C80.0 Carcinoma of ovary, stage 4 C56.9 Severe protein-calorie malnutrition E43 Chronic renal failure (CRF), stage 3b N18.32 SBP (spontaneous bacterial peritonitis) K65.2 KARLY (acute kidney injury) N17.9
== END 2023-06-14 16:18 | disposition hospice, home (50) | DRG 951 ==
LOC: 3W 18:59 → SUATTDRO 18:59
DX: N17.9 Acute kidney failure, unspecified; Z51.5 Encounter for palliative care; R18.0 Malignant ascites; N18.32 Chronic kidney disease, stage 3b; Z66 Do not resuscitate; K21.9 Gastro-esophageal reflux disease without esophagitis; K65.2 Spontaneous bacterial peritonitis; E87.5 Hyperkalemia; R11.2 Nausea with vomiting, unspecified; C56.9 Malignant neoplasm of unspecified ovary; E43 Unspecified severe protein-calorie malnutrition; C78.6 Secondary malignant neoplasm of retroperitoneum and peritoneum; Z83.3 Family history of diabetes mellitus